=== PATIENT | female | born 1950 | race Caucasian/White ===

== ENCOUNTER → 2017-03-02 | Outpatient (CLI) | payer MEDICARE, OTHER ==
[2017-03-02 14:43] LABS: Blood Urea Nitrogen 15 mg/dL (7-17); Non-African American GFR(MDRD) 50 (>60 ml/min/1.73 sqM)
== END | disposition home or self-care (01) ==
LOC: LABWHC1 14:06
PROVIDERS: ATTEND Physical Medicine & Rehabilitation
DX: M51.17 Intervertebral disc disorders with radiculopathy, lumbosacral region (principal); M47.27 Other spondylosis with radiculopathy, lumbosacral region; E11.42 Type 2 diabetes mellitus with diabetic polyneuropathy; M96.1 Postlaminectomy syndrome, not elsewhere classified; N28.9 Disorder of kidney and ureter, unspecified
CPT/HCPCS: 36415; 82565; 84520

== ENCOUNTER 2021-07-14 18:34 | Emergency (ER) | payer MEDICARE, OTHER ==
[2021-07-14 19:52] VITALS: PULSE 102; RESP 20; TEMP 97.6
[2021-07-14] MEDS ORDERED: MORPHINE SULFATE 4 MG/ML SYRINGE IM STA (21:33)
--- NOTE | 2021-07-14 21:35 | ED ---
General Adult HPI - General Chief complaint: Fall Stated complaint: frequent falls Time Seen by Provider: 07/14/21 20:39 Source: patient Mode of arrival: wheelchair Limitations: no limitations - History of Present Illness Initial comments: 71-year-old female with a past medical history of diabetes mellitus, fibromyalgia presents to the emergency room for low back pain. Patient states she has a history of back surgery. States over the past 3 or 4 weeks she has been having low back pain. Patient states that it hurts to stand up straight. Therefore she has been bending over while walking. Patient states this causes her to lose her balance and she has had a couple falls. She called her family member to bring her to the hospital. Patient denies any lightheadedness or syncope. Denies weakness or fevers. No bladder or bowel changes, no saddle anesthesia, no weakness of the legs, no fevers Patient has no other complaints at this time including shortness of breath, chest pain, abdominal pain, nausea or vomiting, headache, or visual changes. - Related Data Home Medications Medication Instructions Recorded Confirmed Levothyroxine Sodium [Synthroid] 50 mcg PO DAILY 11/13/14 07/14/21 Lisinopril [Zestril] 2.5 mg PO DAILY 11/13/14 07/14/21 Simvastatin [Zocor] 20 mg PO DAILY 11/13/14 07/14/21 Zolpidem [Ambien] 10 mg PO HS 11/13/14 07/14/21 glipiZIDE XL [Glucotrol XL] 5 mg PO DAILY 11/13/14 07/14/21 Aspirin EC [Ecotrin Low Dose] 81 mg PO DAILY 07/14/21 07/14/21 DULoxetine HCL [Cymbalta] 60 mg PO BID 07/14/21 07/14/21 Dicyclomine HCl 20 mg PO BID 07/14/21 07/14/21 Estrogen,Con/M-Progest Acet 1 tab PO DAILY 07/14/21 07/14/21 [Prempro 0.3 mg-1.5 mg Tablet] Pregabalin [Lyrica] 300 mg PO BID 07/14/21 07/14/21 metFORMIN HCL ER [Glucophage XR] 500 mg PO DAILY 07/14/21 07/14/21 Allergies Allergy/AdvReac Type Severity Reaction Status Date / Time No Known Allergies Allergy Verified 07/14/21 22:16 Review of Systems ROS Statement: Those systems with pertinent positive or pertinent negative responses have been documented in the HPI. ROS Other: All systems not noted in ROS Statement are negative. Past Medical History Past Medical History: Diabetes Mellitus, Fibromyalgia, Osteoarthritis (OA), Thyroid Disorder Additional Past Medical History / Comment(s): kidney stones in past History of Any Multi-Drug Resistant Organisms: None Reported Past Surgical History: Joint Replacement, Orthopedic Surgery, Tonsillectomy Additional Past Surgical History / Comment(s): right athroscopy, back surgery for ruptured disk Past Anesthesia/Blood Transfusion Reactions: No Reported Reaction Past Psychological History: No Psychological Hx Reported Smoking Status: Never smoker Past Alcohol Use History: None Reported Past Drug Use History: None Reported - Past Family History Mother Family Medical History: Cancer Additional Family Medical History / Comment(s): brain stem Father Family Medical History: Diabetes Mellitus General Exam Limitations: no limitations General appearance: alert, in no apparent distress Head exam: Present: atraumatic Eye exam: Present: normal appearance, PERRL, EOMI. Absent: scleral icterus, conjunctival injection ENT exam: Present: normal exam, mucous membranes moist Neck exam: Present: normal inspection, full ROM. Absent: tenderness Respiratory exam: Present: normal lung sounds bilaterally. Absent: respiratory distress, wheezes Cardiovascular Exam: Present: regular rate, normal rhythm, normal heart sounds GI/Abdominal exam: Present: soft, normal bowel sounds. Absent: distended, tenderness Back exam: Present: vertebral tenderness (Mild vertebral tenderness) Neurological exam: Present: alert, normal gait Course Vital Signs 07/14/21 19:49 Temperature 97.6 F Pulse Rate 102 H Respiratory 20 Rate Blood Pressure 149/95 O2 Sat by Pulse 98 Oximetry Medical Decision Making - Medical Decision Making Vitals are stable. Patient is well-appearing. Normal gait. Patient states she is falling because it hurts less to bend over and walk than to stand up straight. CT brain was unremarkable, just showed atrophy. CT lumbar spine did shows vital stenosis. This is likely the cause of patient's symptoms. Patient has seen an orthopedic doctor for this in the past in the wanted to give her a shot in her back once a month. However patient didn't want to do this. Patient denies any red flag symptoms. At this time I do suggest the patient goes back to the orthopedic doctor. If she has worsening symptoms she will return here. We will send her home with Tylenol 3. She does have a walker at home that she will use. Disposition Clinical Impression: Back pain, Spinal stenosis Disposition: HOME SELF-CARE Condition: Good Instructions (If sedation given, give patient instructions): Back Pain (ED) Additional Instructions: Please take pain medication as directed. Call orthopedics to follow up for your back pain. Return to the emergency room for any worsening symptoms. Is patient prescribed a controlled substance at d/c from ED?: No Referrals: Graham Saeed MD [Primary Care Provider] - 1-2 days Time of Disposition: 22:57
--- NOTE | 2021-07-14 22:14 | CT ---
EXAMINATION TYPE: CT brain wo con DATE OF EXAM: 07/14/2021 COMPARISON: HISTORY: Frequent falls. Left orbital bruising. CT DLP: 1070.4 mGycm Automated exposure control for dose reduction was used. There is cerebral cortical atrophy. There is no mass effect nor midline shift. There is no sign of in tracranial hemorrhage. Calvarium is intact. There is normal aeration of the mastoid sinuses. IMPRESSION: Cerebral atrophy. No acute intracranial abnormality.
--- NOTE | 2021-07-14 22:18 | CT ---
EXAMINATION TYPE: CT lumbar spine wo con DATE OF EXAM: 07/14/2021 COMPARISON: CT abdomen pelvis 11/25/2012 HISTORY: Low back pain. CT DLP: 1594.6 mGycm Automated exposure control for dose reduction was used. Images obtained from the level of T12-S3 vertebra without contrast. The vertebra have normal alignment except for slight subluxation deformity at L3-4 that measures 5 mm . There is no spondylolysis. There is degenerative disc space narrowing throughout the lumbar spine a nd more severe at L4-5 and L5-S1. There is no lumbar paraspinal mass. There is laminectomy defect in the lower lumbar spine at the L5 level. The sacroiliac joints are intact. IMPRESSION: Multilevel spondylotic changes. There is a degenerative first-degree L3-4 spondylolisthesis. Previous surgery. There is very severe stenosis at L3-4 due to facet arthropathy and subluxation. There is al so moderate stenosis at L2-3. There is some progression of stenosis compared to old exam. No acute ameena ny abnormality.
[2021-07-14] MEDS ORDERED: ACET/COD 300 MG/30 MG STARTER PACK 6 TAB BTL PO STA (22:55)
[2021-07-14 23:19] VITALS: BP 150/90
== END 2021-07-14 23:19 | disposition home or self-care (01) ==
LOC: EC 18:34
DX: M48.061 Spinal stenosis, lumbar region without neurogenic claudication (principal); E11.9 Type 2 diabetes mellitus without complications; E07.9 Disorder of thyroid, unspecified; Z79.890 Hormone replacement therapy; R29.6 Repeated falls
CPT/HCPCS: 72131; 70450; 96372; 99284; J2270

== ENCOUNTER → 2021-11-01 | Outpatient (CLI) | payer MEDICARE, OTHER ==
--- NOTE | 2021-11-01 17:40 | MR ---
MRI kidney without and with contrast HISTORY: Left kidney mass Multiplanar multisequence and postcontrast images obtained through the kidneys following [address] IV. Correlation to report of prior lumbar MRI dated July 23, 2021, prior images are not made availabl e. At the upper pole the left kidney there is a T2 bright focus which likely corresponds to the abnormal ity described in prior report, T1 weighted images show low signal. There is no abnormal enhancement. Lesion measures approximately 18 mm in size No hydronephrosis bilaterally. There is an underlying scoliotic curvature within the spine, degenerative disc disease. The adrenal g lands are unremarkable. The spleen is not enlarged. There is no evident liver mass. Gallbladder is wi thin normal limits. Aorta shows normal caliber. There is no ascites or retroperitoneal adenopathy. Pa ncreas is within normal limits. Lung bases show no effusion. No bowel obstruction evident. Graph impression: Findings consistent with simple cyst upper pole left kidney.
== END | disposition home or self-care (01) ==
LOC: RADMRIMAIN 09:18
PROVIDERS: ATTEND Internal Medicine
DX: N28.89 Other specified disorders of kidney and ureter (principal)
CPT/HCPCS: 74183; A9585

== ENCOUNTER → 2021-12-30 | Outpatient (CLI) | payer OTHER, MEDICARE ==
--- NOTE | 2021-12-30 22:24 | BD ---
EXAMINATION TYPE: Axial Bone Density DATE OF EXAM: 12/30/2021 COMPARISON: NONE CLINICAL HISTORY: 71 years year old Female. ICD-10 CODE: Z78.0 POSTMENOPAUSAL STATE Height: 64 Weight: 227.7 FRAX RISK QUESTIONS: Alcohol (3 or more units per day): NO Family History (Parent hip fracture): NO Glucocorticoids (More than 3mos): NO History of Fracture in Adulthood: NO Secondary Osteoporosis: 1. Type 1 Diabetes: NO 2. Hyperthyroidism: NO 3. Menopause before 45: NO 4. Malnutrition: NO 5. Chronic liver disease: NO Rheumatoid Arthritis: NO Current Tobacco Use: NO RISK FACTORS HISTORY OF: Hip Fracture (Right/Left): NO Spine Fracture: NO History of Wrist Fracture: NO Surgery to Spine/Hip(right/left)/Wrist (right/left): NO Family History of Osteoporosis: NO Active: NO Diet low in dairy products/other sources of calcium: YES Postmenopausal woman: YES Take estrogen and/or progesterone medications: NO Lost more than 2 inches in height since high school: NO Frequent falls: NO Poor Health: NO Hyperparathyroidism: NO Adrenal Insufficiency: NO MEDICATIONS: Prednisone or other steroids: NO Thyroid Medications: YES, SYNTHROID How Long: PAST 10 YEARS Osteoporosis Medications: NO Additional Medications: SYNTHROID, GLIPSIE, METFORMIN Additional History: EXAM MEASUREMENTS: Bone mineral densitometry was performed using the [employer]. Bone mineral density as measured about the Lumbar spine is: ----- L1-L4(G/cm2): 1.420 T Score Values are as follows: ----- L1: 1.3 ----- L2: 1.7 ----- L3: 2.1 ----- L4: 2.6 ----- L1-L4: 2.0 BASELINE STUDY Bone mineral density about the R hip (g/cm2): 0.972 Bone mineral density about the L hip (g/cm2): 0.952 T Score values are as follows: -----R Neck: -0.5 -----L Neck: 0.6 -----R Total: 0.3 -----L Total: -0.6 BASELINE STUDY FRAX%s: The graph provided illustrates a 7.6% chance for a major osteoporotic fx and a 0.7% chance fo r the hips probability for fx in 10 years time. IMPRESSION: Normal (Values between +1 and -1 indicate normal bone mass). Consider repeating this study in 5 year s or sooner if there is some new clinical indication. NOTE: T-SCORE=SD OF THE YOUNG ADULT MEAN.
--- NOTE | 2022-01-03 09:33 | MM ---
Reason for exam: screening (asymptomatic). Last mammogram was performed 3 years and 5 months ago. History: Patient is postmenopausal and is nulliparous. Family history of breast cancer in maternal grandmother at age 60. Took estrogen for 19 years beginning at age 51. Took progesterone for 19 years beginning at age 51. Physical Findings: A clinical breast exam by your physician is recommended on an annual basis and results should be correlated with mammographic findings. MG 3D Screening Mammo W/Cad Bilateral CC and MLO view(s) were taken. Prior study comparison: August 15, 2018, mammogram, performed at [facility]. August 04, 2017, mammogram, performed at [facility]. There are scattered fibroglandular densities. Stable benign calcifications. There is no discrete abnormality. No significant changes when compared with prior studies. ASSESSMENT: Benign, BI-RAD 2 RECOMMENDATION: Routine screening mammogram of both breasts in 1 year.
== END | disposition home or self-care (01) ==
LOC: RADMAMWWP 14:15
PROVIDERS: ATTEND Internal Medicine
DX: Z12.31 Encounter for screening mammogram for malignant neoplasm of breast (principal); Z13.820 Encounter for screening for osteoporosis; Z78.0 Asymptomatic menopausal state
CPT/HCPCS: 77063; 77067; 77080

== ENCOUNTER 2022-07-28 20:23 | Inpatient (IN) | payer OTHER, MEDICARE ==
[2022-07-28] MEDS ORDERED: IPRATROPIUM-ALBUTEROL 3 ML NEB INHALATION STA (20:53)
--- NOTE | 2022-07-28 20:57 | ED ---
General Adult HPI - General Chief complaint: Shortness of Breath Stated complaint: HANNAH Time Seen by Provider: 07/28/22 20:47 Source: patient, EMS, RN notes reviewed Mode of arrival: ambulatory Limitations: no limitations - History of Present Illness Initial comments: 72-year-old female presents to the emergency department for evaluation of shortness of breath and wheezing 4 days. Patient states she has been unable to sleep because of worsening shortness of breath when reclining. Also has difficulty catching her breath with activity. Reports feeling fatigued and exhaustion. Has had a few episodes of diarrhea as well. Denies any known sick contacts. No fever, chills, headache, dizziness, chest pain, abdominal pain, nausea, vomiting, hematochezia, dysuria, or hematuria - Related Data Home Medications Medication Instructions Recorded Confirmed Levothyroxine Sodium [Synthroid] 50 mcg PO DAILY 11/13/14 07/29/22 Simvastatin [Zocor] 20 mg PO DAILY 11/13/14 07/29/22 Zolpidem [Ambien] 10 mg PO HS 11/13/14 07/29/22 glipiZIDE XL [Glucotrol XL] 5 mg PO DAILY 11/13/14 07/29/22 lisinopriL [Zestril] 2.5 mg PO DAILY 11/13/14 07/29/22 DULoxetine HCL [Cymbalta] 60 mg PO DIRECTED 07/14/21 07/29/22 Pregabalin [Lyrica] 300 mg PO DAILY 07/14/21 07/29/22 metFORMIN HCL ER [Glucophage XR] 500 mg PO DAILY 07/14/21 07/29/22 hydrOXYzine HCL [Atarax] 25 mg PO DIRECTED 07/29/22 07/29/22 traMADol HCL 50 mg PO BID PRN 07/29/22 07/29/22 Allergies Allergy/AdvReac Type Severity Reaction Status Date / Time No Known Allergies Allergy Verified 07/14/21 22:16 Review of Systems ROS Statement: Those systems with pertinent positive or pertinent negative responses have been documented in the HPI. ROS Other: All systems not noted in ROS Statement are negative. Past Medical History Past Medical History: Diabetes Mellitus, Fibromyalgia, Osteoarthritis (OA), Thyroid Disorder Additional Past Medical History / Comment(s): kidney stones in past History of Any Multi-Drug Resistant Organisms: None Reported Past Surgical History: Joint Replacement, Orthopedic Surgery, Tonsillectomy Additional Past Surgical History / Comment(s): right athroscopy, back surgery for ruptured disk Past Anesthesia/Blood Transfusion Reactions: No Reported Reaction Past Psychological History: No Psychological Hx Reported Smoking Status: Never smoker Past Alcohol Use History: None Reported Past Drug Use History: None Reported - Past Family History Mother Family Medical History: Cancer Additional Family Medical History / Comment(s): brain stem Father Family Medical History: Diabetes Mellitus General Exam Limitations: no limitations General appearance: alert, in no apparent distress (Well-developed, well- nourished female in no acute distress, but does endorse shortness of breath.) Eye exam: Present: normal appearance, PERRL, EOMI. Absent: scleral icterus, conjunctival injection ENT exam: Present: mucous membranes moist Respiratory exam: Present: wheezes (Faint expiratory scattered wheezes). Absent: chest wall tenderness, accessory muscle use Cardiovascular Exam: Present: regular rate, normal rhythm GI/Abdominal exam: Present: soft, normal bowel sounds. Absent: distended, tenderness, guarding, rebound, rigid Extremities exam: Present: other (states lower extremity edema is baseline for her) Back exam: Absent: CVA tenderness (R), CVA tenderness (L) Neurological exam: Present: alert, oriented X3 Psychiatric exam: Present: flat affect Skin exam: Present: warm, dry, intact, normal color Course Vital Signs 07/28/22 07/28/22 07/28/22 20:28 20:34 21:38 Temperature 98.5 F Pulse Rate 91 87 Respiratory 16 18 Rate Blood Pressure 192/90 O2 Sat by Pulse 98 Oximetry 07/28/22 07/28/22 07/29/22 21:46 23:53 01:45 Temperature Pulse Rate 88 84 82 Respiratory 16 16 Rate Blood Pressure 167/72 O2 Sat by Pulse 98 100 Oximetry 07/29/22 07/29/22 07/29/22 03:25 04:43 05:55 Temperature Pulse Rate 84 90 79 Respiratory 16 16 18 Rate Blood Pressure 170/68 167/77 O2 Sat by Pulse 100 95 100 Oximetry 07/29/22 07/29/22 07/29/22 07:47 09:24 12:10 Temperature Pulse Rate 85 80 82 Respiratory 13 18 22 Rate Blood Pressure 161/81 160/48 180/82 O2 Sat by Pulse 100 97 95 Oximetry 07/29/22 07/29/22 16:04 16:43 Temperature Pulse Rate 82 81 Respiratory 20 20 Rate Blood Pressure 165/75 167/80 O2 Sat by Pulse 99 100 Oximetry - Reevaluation(s) Reevaluation #1: 07/28/22 22:16 Upon reassessment, patient reports some improvement after breathing treatment. Patient's lung sounds are clear. Color is improved. Patient updated on results and discussed hospital admission. She is agreeable with this plan of care. Medical Decision Making - Medical Decision Making This is a pleasant 72-year-old female with a history of diabetes, fibromyalgia, and hypertension who presents to the emergency Department with a four-day history of worsening shortness of breath. Differentials include viral respiratory illness, pulmonary and/or cardiac processes. Upon exam, patient is noted to have faint scattered wheezes throughout the lung iraheta. No tachypnea or increased work of breathing at rest. She was given a duo-neb with some improvement. No chest pain, pressure, or tightness. Chest Xray was obtained and shows a right pleural effusion. Laboratory studies reveal mild hypokalemia which was supplemented orally, elevated troponin (0.046), Magnesium 1.6, also supplemented, and BNP 7050. Lasix given. EKG shows no acute changes. However, g iven her shortness of breath and elevated troponin, Aspirin given and Heparin initiated. COVID and Influenza swabs negative. Patient will be admitted for serial enzymes and further evaluation and treatment. I did speak with Dr. Schmid who agrees to accept this patient. Attending: Osvaldo - Lab Data Result diagrams: 07/29/22 04:24 07/31/22 07:17 Lab Results 07/28/22 07/28/22 07/28/22 Range/Units 21:26 21:26 21:26 WBC 7.1 (3.8-10.6) k/uL RBC 3.63 L (3.80-5.40) m/uL Hgb 10.7 L (11.4-16.0) gm/dL Hct 31.4 L (34.0-46.0) % MCV 86.3 (80.0-100.0) fL MCH 29.5 (25.0-35.0) pg MCHC 34.2 (31.0-37.0) g/dL RDW 13.9 (11.5-15.5) % Plt Count 151 (150-450) k/uL MPV 9.1 Neutrophils % 81 % Lymphocytes % 10 % Monocytes % 6 % Eosinophils % 1 % Basophils % 1 % Neutrophils # 5.8 (1.3-7.7) k/uL Lymphocytes # 0.7 L (1.0-4.8) k/uL Monocytes # 0.4 (0-1.0) k/uL Eosinophils # 0.1 (0-0.7) k/uL Basophils # 0.1 (0-0.2) k/uL PT 11.0 (9.0-12.0) sec INR 1.0 (<1.2) APTT 25.5 (22.0-30.0) sec Sodium 139 (137-145) mmol/L Potassium 3.1 L (3.5-5.1) mmol/L Chloride 103 (98-107) mmol/L Carbon Dioxide 27 (22-30) mmol/L Anion Gap 9 mmol/L BUN 12 (7-17) mg/dL Creatinine 1.03 (0.52-1.04) mg/dL Est GFR (CKD-EPI)AfAm 62 (>60 ml/min/1.73 sqM) Est GFR (CKD-EPI)NonAf 54 (>60 ml/min/1.73 sqM) Glucose 128 H (74-99) mg/dL Plasma Lactic Acid Nilton (0.7-2.0) mmol/L Calcium 8.8 (8.4-10.2) mg/dL Magnesium 1.6 (1.6-2.3) mg/dL Total Bilirubin 1.5 H (0.2-1.3) mg/dL AST 28 (14-36) U/L ALT 20 (4-34) U/L Alkaline Phosphatase 77 (38-126) U/L Troponin I (0.000-0.034) ng/mL NT-Pro-B Natriuret Pep pg/mL Total Protein 6.1 L (6.3-8.2) g/dL Albumin 3.9 (3.5-5.0) g/dL Coronavirus (PCR) (Not Detectd) Influenza Type A RNA (Not Detectd) Influenza Type B (PCR) (Not Detectd) 07/28/22 07/28/22 07/28/22 Range/Units 21:26 21:26 21:26 WBC (3.8-10.6) k/uL RBC (3.80-5.40) m/uL Hgb (11.4-16.0) gm/dL Hct (34.0-46.0) % MCV (80.0-100.0) fL MCH (25.0-35.0) pg MCHC (31.0-37.0) g/dL RDW (11.5-15.5) % Plt Count (150-450) k/uL MPV Neutrophils % % Lymphocytes % % Monocytes % % Eosinophils % % Basophils % % Neutrophils # (1.3-7.7) k/uL Lymphocytes # (1.0-4.8) k/uL Monocytes # (0-1.0) k/uL Eosinophils # (0-0.7) k/uL Basophils # (0-0.2) k/uL PT (9.0-12.0) sec INR (<1.2) APTT (22.0-30.0) sec Sodium (137-145) mmol/L Potassium (3.5-5.1) mmol/L Chloride (98-107) mmol/L Carbon Dioxide (22-30) mmol/L Anion Gap mmol/L BUN (7-17) mg/dL Creatinine (0.52-1.04) mg/dL Est GFR (CKD-EPI)AfAm (>60 ml/min/1.73 sqM) Est GFR (CKD-EPI)NonAf (>60 ml/min/1.73 sqM) Glucose (74-99) mg/dL Plasma Lactic Acid [place]ilton 1.0 (0.7-2.0) mmol/L Calcium (8.4-10.2) mg/dL Magnesium (1.6-2.3) mg/dL Total Bilirubin (0.2-1.3) mg/dL AST (14-36) U/L ALT (4-34) U/L Alkaline Phosphatase (38-126) U/L Troponin I 0.046 H* (0.000-0.034) ng/mL NT-Pro-B Natriuret Pep 7050 pg/mL Total Protein (6.3-8.2) g/dL Albumin (3.5-5.0) g/dL Coronavirus (PCR) (Not Detectd) Influenza Type A RNA (Not Detectd) Influenza Type B (PCR) (Not Detectd) 07/28/22 07/28/22 Range/Units 21:26 21:26 WBC (3.8-10.6) k/uL RBC (3.80-5.40) m/uL Hgb (11.4-16.0) gm/dL Hct (34.0-46.0) % MCV (80.0-100.0) fL MCH (25.0-35.0) pg MCHC (31.0-37.0) g/dL RDW (11.5-15.5) % Plt Count (150-450) k/uL MPV Neutrophils % % Lymphocytes % % Monocytes % % Eosinophils % % Basophils % % Neutrophils # (1.3-7.7) k/uL Lymphocytes # (1.0-4.8) k/uL Monocytes # (0-1.0) k/uL Eosinophils # (0-0.7) k/uL Basophils # (0-0.2) k/uL PT (9.0-12.0) sec INR (<1.2) APTT (22.0-30.0) sec Sodium (137-145) mmol/L Potassium (3.5-5.1) mmol/L Chloride (98-107) mmol/L Carbon Dioxide (22-30) mmol/L Anion Gap mmol/L BUN (7-17) mg/dL Creatinine (0.52-1.04) mg/dL Est GFR (CKD-EPI)AfAm (>60 ml/min/1.73 sqM) Est GFR (CKD-EPI)NonAf (>60 ml/min/1.73 sqM) Glucose (74-99) mg/dL Plasma Lactic Acid Nilton (0.7-2.0) mmol/L Calcium (8.4-10.2) mg/dL Magnesium (1.6-2.3) mg/dL Total Bilirubin (0.2-1.3) mg/dL AST (14-36) U/L ALT (4-34) U/L Alkaline Phosphatase (38-126) U/L Troponin I (0.000-0.034) ng/mL NT-Pro-B Natriuret Pep pg/mL Total Protein (6.3-8.2) g/dL Albumin (3.5-5.0) g/dL Coronavirus (PCR) Not Detected (Not Detectd) Influenza Type A RNA Not Detected (Not Detectd) Influenza Type B (PCR) Not Detected (Not Detectd) - EKG Data EKG shows normal: sinus rhythm Rate: normal EKG Comments: Initial EKG obtained at 2116 shows sinus rhythm with left bundle branch block. Ventricular rate 87, IL interval 151, QRS duration 152, QT/QTC 419/463. Int erpretation abnormal ECG. Quality of this EKG is suboptimal due to patient's shortness of breath. Rhythm appears regular though there is quite a bit of baseline artifact. Will repeat. Repeat EKG obtained at 2336 shows sinus rhythm with a bundle-branch block. Ventricular rate 81, IL interval 151, QRS duration 158, QT/QTc 438/475. Interpretation abnormal ECG. Quality of the EKG significantly improved from previous. Old EKGs reviewed. Left bundle branch block present since 2014. - Radiology Data Radiology results: report reviewed, image reviewed Two-view chest x-ray was obtained. Report was reviewed in its entirety. Impression per Dr. Mason as there is right pleural effusion which appears new compared to old exam. No obvious heart failure. Disposition Clinical Impression: Elevated troponin, CHF (congestive heart failure) Disposition: ADMITTED IP TO THIS [facility] Condition: Serious Decision Date: 07/29/22 Decision Time: 01:27
[2022-07-28 21:47] LABS: Albumin 3.9 g/dL (3.5-5.0); Calcium 8.8 mg/dL (8.4-10.2); Magnesium 1.6 mg/dL (1.6-2.3); Potassium 3.1 mmol/L (3.5-5.1); Total Bilirubin 1.5 mg/dL (0.2-1.3); Total Protein 6.1 g/dL (6.3-8.2)
[2022-07-28 21:53] LABS: Basophils # (A) 0.1 k/uL (0-0.2); Basophils % (A) 1 %; Eosinophils # (A) 0.1 k/uL (0-0.7); Eosinophils % (A) 1 %; HCT 31.4 % (34.0-46.0); HGB 10.7 gm/dL (11.4-16.0); Lymphocytes # (A) 0.7 k/uL (1.0-4.8); Lymphocytes % (A) 10 %; MCH 29.5 pg (25.0-35.0); MCHC 34.2 g/dL (31.0-37.0); MCV 86.3 fL (80.0-100.0); Mean Platelet Volume 9.1; Monocytes # (A) 0.4 k/uL (0-1.0); Monocytes % (A) 6 %; Neutrophils # (A) 5.8 k/uL (1.3-7.7); Neutrophils % (A) 81 %; Platelet Count 151 k/uL (150-450); RBC 3.63 m/uL (3.80-5.40); RDW 13.9 % (11.5-15.5); WBC 7.1 k/uL (3.8-10.6)
[2022-07-28 21:56] LABS: Partial Thromboplastin Time 25.5 sec (22.0-30.0)
[2022-07-28] MEDS ORDERED: MAGNESIUM SULFATE-D5W PMX 1 GM in DEXTROSE/WATER 1 100ML.BAG IVPB ONE (22:06)
[2022-07-28] MEDS ORDERED: POTASSIUM CHLORIDE ER 20 MEQ TAB.ER PO STA (22:06)
--- NOTE | 2022-07-28 22:40 | XR ---
EXAMINATION TYPE: XR chest 2V DATE OF EXAM: 07/28/2022 COMPARISON: 02/15/2015 HISTORY: Difficulty breathing TECHNIQUE: 2 view FINDINGS: There is blunting of the right costophrenic angle. Heart size is normal. No heart failure. There are chest leads. Bony thorax is intact. IMPRESSION: There is right pleural effusion which appears new compared to old exam. No obvious heart failure.
[2022-07-28] MEDS ORDERED: ASPIRIN 81 MG PO STA (23:05)
[2022-07-28] MEDS ORDERED: HEPARIN SODIUM 1,000 UN/ML (10ML VL) IV ONE (23:56)
[2022-07-28] MEDS ORDERED: HEPARIN SODIUM 1,000 UN/ML (10ML VL) IV PRN (23:56)
[2022-07-29] MEDS ORDERED: ONDANSETRON 4 MG/2 ML VIAL IVP PRN (01:20)
[2022-07-29] MEDS: HEPARIN SOD,PORK IN 0.45% NACL 25,000 UNIT in 0.45% NACL 1 250ML.BAG IV SCH ×2 (01:20→21:35)
[2022-07-29] MEDS ORDERED: NALOXONE 0.4 MG/ML 1 ML VIAL IV PRN (01:20)
[2022-07-29] MEDS ORDERED: ACETAMINOPHEN TAB 325 MG TAB PO PRN (01:20)
[2022-07-29] MEDS ORDERED: ALPRAZolam 0.25 MG TAB PO PRN (01:20)
[2022-07-29] MEDS ORDERED: HYDROmorphone 0.5 MG/0.5 ML SYRINGE IVP PRN (01:20)
[2022-07-29] MEDS ORDERED: FUROSEMIDE 10 MG/ML 4 ML VIAL IV STA (01:26)
--- NOTE | 2022-07-29 04:44 | P.HPIM ---
History of Present Illness H&P Date: 07/29/22 The patient is a 72-year-old female with a PMH of type II DM, hypertension, hyperlipidemia, and hyperthyroidism who presented to the emergency room with complaints of shortness of breath. The patient reports that over the past 4-5 days, she's been experiencing intermittent shortness of breath, limiting her ability to perform her ADLs. She denied experiencing chest discomfort, lower extremity swelling, lower extremities pain. Does report orthopnea without PND. Denies fever, chills, cough. Denies any prior history of symptoms such as this. Chest x-ray in the emergency room revealed a right-sided pleural effusion. EKG reveals sinus rhythm with left bundle branch block at 81 bpm (bundle branch block also present on EKG from 2015). Laboratory evaluation was remarkable for troponin of 0.046, proBNP 7050, and hemoglobin 10.7 with potassium 3.1. Review of systems: Pertinent positives and negatives as discussed in HPI, a complete review of systems was performed and all other systems are negative. Physical examination: General: non toxic, no distress, appears at stated age, obese Derm: no unusual rashes/lesions, warm Head: atraumatic, normocephalic, symmetric Eyes: EOMI, no lid lag, anicteric sclera, pupils equal round reactive to light ENT: Nose and ears atraumatic Neck: No cervical lymphadenopathy, trachea midline, supple Mouth: no lip lesion, mucus membranes moist Cardiovascular: S1S2 reg, no murmur, positive dorsalis pedis pulse bilateral, no edema Lungs: CTA bilateral, no rhonchi, no rales, no accessory muscle use Abdominal: soft, nontender to palpation, no guarding Ext: muscle strength 5 out of 5 in all 4 extremities grossly, no gross muscle a trophy, no contractures, Neuro: CN II-XI grossly intact, no gross focal neuro deficits Psych: Alert, oriented, appropriate affect Assessment/plan Non-ST elevation ME -Continue with heparin infusion -Aspirin, statin -Cardiology consulted -Cardiac monitoring -Trend troponin Hypokalemia -Replace and monitor Chronic conditions: Hypertension, type II DM, hyperlipidemia -Insulin sliding scale blood glucose monitoring -Continue with home meds DVT prophylaxis -Heparin infusion The patient is admitted with an anticipated greater than 2 midnight stay for evaluation of NSTEMI CODE STATUS: Full Code Discussed with: Patient Anticipated discharge date: 2-[address]: Home Past Medical History Past Medical History: Diabetes Mellitus, Fibromyalgia, Osteoarthritis (OA), Thyroid Disorder Additional Past Medical History / Comment(s): kidney stones in past History of Any Multi-Drug Resistant Organisms: None Reported Past Surgical History: Joint Replacement, Orthopedic Surgery, Tonsillectomy Additional Past Surgical History / Comment(s): right athroscopy, back surgery for ruptured disk Past Anesthesia/Blood Transfusion Reactions: No Reported Reaction Past Psychological History: No Psychological Hx Reported Smoking Status: Never smoker Past Alcohol Use History: None Reported Past Drug Use History: None Reported - Past Family History Mother Family Medical History: Cancer Additional Family Medical History / Comment(s): brain stem Father Family Medical History: Diabetes Mellitus Medications and Allergies Home Medications Medication Instructions Recorded Confirmed Type Levothyroxine Sodium [Synthroid] 50 mcg PO DAILY 11/13/14 07/14/21 History Simvastatin [Zocor] 20 mg PO DAILY 11/13/14 07/14/21 History Zolpidem [Ambien] 10 mg PO HS 11/13/14 07/14/21 History glipiZIDE XL [Glucotrol XL] 5 mg PO DAILY 11/13/14 07/14/21 History lisinopriL [Zestril] 2.5 mg PO DAILY 11/13/14 07/14/21 History Aspirin EC [Ecotrin Low Dose] 81 mg PO DAILY 07/14/21 07/14/21 History DULoxetine HCL [Cymbalta] 60 mg PO BID 07/14/21 07/14/21 History Dicyclomine HCl 20 mg PO BID 07/14/21 07/14/21 History Estrogen,Con/M-Progest Acet 1 tab PO DAILY 07/14/21 07/14/21 History [Prempro 0.3 mg-1.5 mg Tablet] Pregabalin [Lyrica] 300 mg PO BID 07/14/21 07/14/21 History metFORMIN HCL ER [Glucophage XR] 500 mg PO DAILY 07/14/21 07/14/21 History Allergies Allergy/AdvReac Type Severity Reaction Status Date / Time No Known Allergies Allergy Verified 07/14/21 22:16 Physical Exam Vitals: Vital Signs Temp Pulse Resp BP Pulse Ox 07/29/22 03:25 84 16 100 07/29/22 01:45 82 16 100 07/28/22 23:53 84 16 167/72 98 07/28/22 21:46 88 07/28/22 21:38 87 07/28/22 20:34 18 07/28/22 20:28 98.5 F 91 16 192/90 98 Intake and Output 07/28/22 07/28/22 07/29/22 14:59 22:59 06:59 Other: Weight 113.398 kg Results CBC & Chem 7: 07/28/22 21:26 07/28/22 21:26 Labs: Abnormal Lab Results - Last 24 Hours (Table) 07/28/22 07/28/22 07/28/22 Range/Units 21:26 21:26 21:26 RBC 3.63 L (3.80-5.40) m/uL Hgb 10.7 L (11.4-16.0) gm/dL Hct 31.4 L (34.0-46.0) % Lymphocytes # 0.7 L (1.0-4.8) k/uL Potassium 3.1 L (3.5-5.1) mmol/L Glucose 128 H (74-99) mg/dL Total Bilirubin 1.5 H (0.2-1.3) mg/dL Troponin I 0.046 H* (0.000-0.034) ng/mL Total Protein 6.1 L (6.3-8.2) g/dL 07/29/22 Range/Units 01:24 RBC (3.80-5.40) m/uL Hgb (11.4-16.0) gm/dL Hct (34.0-46.0) % Lymphocytes # (1.0-4.8) k/uL Potassium (3.5-5.1) mmol/L Glucose (74-99) mg/dL Total Bilirubin (0.2-1.3) mg/dL Troponin I 0.046 H* (0.000-0.034) ng/mL Total Protein (6.3-8.2) g/dL
[2022-07-29 04:53] LABS: Basophils % (A) 1 %; Eosinophils # (A) 0.2 k/uL (0-0.7); Eosinophils % (A) 2 %; HCT 32.2 % (34.0-46.0); HGB 10.7 gm/dL (11.4-16.0); Hypochromasia Slight; Lymphocytes # (A) 1.2 k/uL (1.0-4.8); Lymphocytes % (A) 17 %; MCH 29.1 pg (25.0-35.0); MCHC 33.2 g/dL (31.0-37.0); MCV 87.7 fL (80.0-100.0); Mean Platelet Volume 9.1; Monocytes # (A) 0.5 k/uL (0-1.0); Monocytes % (A) 6 %; Neutrophils # (A) 5.3 k/uL (1.3-7.7); Neutrophils % (A) 73 %; Platelet Count 172 k/uL (150-450); RBC 3.68 m/uL (3.80-5.40); RDW 14.1 % (11.5-15.5); WBC 7.3 k/uL (3.8-10.6)
[2022-07-29] MEDS: LEVOTHYROXINE 50 MCG TAB PO SCH (07:48)
[2022-07-29] MEDS ORDERED: ATORVASTATIN 10 MG TAB PO SCH (09:00)
[2022-07-29] MEDS ORDERED: FAMOTIDINE 20 MG TAB PO SCH (09:00)
[2022-07-29] MEDS: DULoxetine HCL 60 MG CAPSULE.DR PO SCH ×2 (09:14→20:47)
[2022-07-29] MEDS: metFORMIN 500 MG TAB PO SCH ×2 (09:14→20:47)
[2022-07-29] MEDS: PREGABALIN 100 MG CAP PO SCH ×2 (09:14→20:47)
--- NOTE | 2022-07-29 12:01 | P.PN ---
Progress Note - Text Progress Note Date: 07/29/22 Hospitalist Interval Note Patient seen and examined at bedside. Vital signs reviewed General: non toxic, no distress, appears at stated age, obese Derm: no unusual rashes/lesions, warm Head: atraumatic, normocephalic, symmetric Eyes: EOMI, no lid lag, anicteric sclera, pupils equal round reactive to light ENT: Nose and ears atraumatic Neck: No cervical lymphadenopathy, trachea midline, supple Mouth: no lip lesion, mucus membranes moist Cardiovascular: S1S2 reg, no murmur, positive dorsalis pedis pulse bilateral, no edema Lungs: CTA bilateral, no rhonchi, no rales, no accessory muscle use Abdominal: soft, nontender to palpation, no guarding Ext: muscle strength 5 out of 5 in all 4 extremities grossly, no gross muscle atrophy, no contractures, Neuro: CN II-XI grossly intact, no gross focal neuro deficits Psych: Alert, oriented, appropriate affect Assessment/Plan: Shortness of breath Orthopnea Likely CHF exacerbation Type II NSTEMI Hypokalemia Type 2 diabetes Hypertension Dyslipidemia -Currently on aspirin, statin, heparin drip -Telemetry -Troponin not peaked -Cardiology consulted -IV Lasix -Echo pending This is an update note for patient , for full note on [07/29/22 at 4:38]. There is no charge associated with this note.
--- NOTE | 2022-07-29 16:59 | CA ---
Transthoracic Echo Report Name: Kerwin Gorman Age: 72 Gender: F : 1950 Exam Date: 07/29/2022 11:30 Exam Location: [facility] Ht (in): 65 Wt (lb): 250 Ordering Physician: Brad Humphries MD Attending/Referring Phys: Store Merchandiser Lily Tarango RDCS Procedure CPT: Indications: nstemi, sob Cardiac Hx: Technical Quality: Poor Contrast 1: Lumason Total Dose (mL): 4 Contrast 2: Total Dose (mL): MEASUREMENTS (Male / Female) Normal Values 2D ECHO LV Diastolic Diameter PLAX 4.7 cm 4.2 - 5.9 / 3.9 - 5.3 cm LV Systolic Diameter PLAX 2.6 cm IVS Diastolic Thickness 1.6 cm 0.6 - 1.0 / 0.6 - 0.9 cm LVPW Diastolic Thickness 1.4 cm 0.6 - 1.0 / 0.6 - 0.9 cm LV Relative Wall Thickness 0.6 RV Internal Dim ED PLAX 2.9 cm LA Systolic Diameter LX 3.8 cm 3.0 - 4.0 / 2.7 - 3.8 cm LA Volume 39.1 cm??? 18 - 58 / 22 - 52 cm??? M-MODE Aortic Root Diameter MM 3.0 cm MV E Point Septal Separation 1.3 cm AV Cusp Separation MM 2.0 cm DOPPLER AV Peak Velocity 146.5 cm/s AV Peak Gradient 8.6 mmHg MV Area PHT 6.0 cm??? Mitral E Point Velocity 115.7 cm/s Mitral A Point Velocity 144.8 cm/s Mitral E to A Ratio 0.8 MV Deceleration Time 127.4 ms MV E' Velocity 4.4 cm/s Mitral E to MV E' Ratio 26.2 TR Peak Velocity 274.2 cm/s TR Peak Gradient 30.1 mmHg Right Ventricular Systolic Press 45.1 mmHg FINDINGS Left Ventricle Left ventricular ejection fraction is estimated at 40-45 %. Left ventricular cavity size normal. Moderate concentric left ventricular hypertrophy. Right Ventricle Normal right ventricular size. Moderate pulmonary hypertension. Right Atrium Normal right atrial size. Left Atrium Normal left atrial size. No evidence for an atrial septal defect. Mitral Valve Mitral valve thickened. Moderate mitral annular calcification. Mild mitral regurgitation. Aortic Valve Trileaflet aortic valve. Focal thickening of the aortic valve cusps. Tricuspid Valve Mild tricuspid regurgitation. Pulmonic Valve Trace to mild pulmonic regurgitation. Pericardium Normal pericardium. No pericardial effusion. Aorta Normal size aortic root and proximal ascending aorta. CONCLUSIONS Left ventricular ejection fraction 40-45% Moderate LVH RVSP 45 Mild mitral regurgitation Trace to mild tricuspid regurgitation No pericardial effusion Previewed by: Dr. Pro Iglesias DO (Electronically Signed) Final Date: 29 July 2022 16:58
[2022-07-29 20:13] LABS: Glucose,Whole Blood 183 mg/dL (70-110)
[2022-07-29] MEDS: FUROSEMIDE 10 MG/ML 4 ML VIAL IV SCH (20:47)
[2022-07-29] MEDS ORDERED: ZOLPIDEM 5 MG TAB PO SCH (21:00)
[2022-07-29] MEDS: ZOLPIDEM 5 MG TAB PO SCH (23:32)
[2022-07-30 05:53] LABS: Glucose,Whole Blood 81 mg/dL (70-110)
[2022-07-30] MEDS: LEVOTHYROXINE 50 MCG TAB PO SCH (06:14)
[2022-07-30] MEDS: FAMOTIDINE 20 MG TAB PO SCH (08:50)
[2022-07-30] MEDS: DULoxetine HCL 60 MG CAPSULE.DR PO SCH ×2 (08:50→20:41)
[2022-07-30] MEDS: ATORVASTATIN 40 MG TAB PO SCH (08:50)
[2022-07-30] MEDS: ASPIRIN 81 MG PO SCH (08:51)
[2022-07-30] MEDS: metFORMIN 500 MG TAB PO SCH (08:52)
[2022-07-30] MEDS: PREGABALIN 100 MG CAP PO SCH ×2 (08:52→20:41)
[2022-07-30] MEDS: FUROSEMIDE 10 MG/ML 4 ML VIAL IV SCH ×2 (08:52→20:41)
[2022-07-30 09:05] LABS: Albumin 3.8 g/dL (3.5-5.0); Calcium 8.4 mg/dL (8.4-10.2); Magnesium 1.6 mg/dL (1.6-2.3); Total Protein 5.9 g/dL (6.3-8.2)
[2022-07-30 09:07] LABS: Potassium 2.5 mmol/L (3.5-5.1)
[2022-07-30] MEDS ORDERED: Magnesium Replacement Protocol 1 EACH MISC MISCELLANE PRN (09:58)
[2022-07-30] MEDS ORDERED: Potassium Replacement Protocol 1 EACH MISC MISCELLANE PRN (10:00)
[2022-07-30] MEDS ORDERED: DEXTROSE 50% SYRINGE 50 ML IVP PRN ×2 (10:59)
--- NOTE | 2022-07-30 11:03 | P.PN ---
Subjective Progress Note Date: 07/30/22 Principal diagnosis: SOB Hospital Course: 72-year-old female with a PMH of type II DM, hypertension, hyperlipidemia, and hyperthyroidism who presented to the emergency room with complaints of shortness of breath and orthopnea. Chest x-ray in the emergency room revealed a right- sided pleural effusion. EKG reveals sinus rhythm with left bundle branch block at 81 bpm (bundle branch block also present on EKG from 2015). Laboratory evaluation was remarkable for troponin of 0.046, proBNP 7050, and hemoglobin 10.7 with potassium 3.1. Patient admitted for non-ST elevation [place], on heparin drip. She is also being treated for possible CHF exacerbation. Subjective: Patient seen and examined at bedside. No acute events overnight. She claims that her shortness of breath has slightly improved. She denies any further orthopnea. Currently remains on heparin drip. She denies any chest pain, abdominal pain, nausea, vomiting, diarrhea, constipation, or urinary complaints. Pertinent positives and negatives as discussed above, a complete review of systems was performed and all other systems are negative. Vitals Signs Reviewed. General: non toxic, no distress, appears at stated age, obese Derm: no unusual rashes/lesions, warm Head: atraumatic, normocephalic, symmetric Eyes: EOMI, no lid lag, anicteric sclera, pupils equal round reactive to light ENT: Nose and ears atraumatic Neck: No cervical lymphadenopathy, trachea midline, supple Mouth: no lip lesion, mucus membranes moist Cardiovascular: S1S2 reg, no murmur, positive dorsalis pedis pulse bilateral, no edema Lungs: CTA bilateral, no rhonchi, no rales, no accessory muscle use Abdominal: soft, nontender to palpation, no guarding Ext: muscle strength 5 out of 5 in all 4 extremities grossly, no gross muscle atrophy, no contractures, Neuro: CN II-XI grossly intact, no gross focal neuro deficits Psych: Alert, oriented, appropriate affect Assessment and Plan: Systolic CHF exacerbation -LVEF 40-45%, RVSP 45% -Continue IV Lasix -I's and O's, daily weights Non-ST elevation [place] Elevated troponin -EKG shows normal sinus rhythm with a left bundle branch block, similar to prior in 2015 -No active chest pain -Likely demand ischemia -Less likely ACS -discontinue heparin drip -Cardiology consulted -Telemetry -Continue aspirin and statin Hypokalemia Hypomagnesemia -Replete and monitor Chronic medical problems Diabetes - hold home medications, started on SSI Anxiety Hypothyroidism -Continue home medications DVT ppx: Subcu heparin Code status: No code Anticipated discharge place: Home Anticipated discharge time: 2+ days Objective - Vital Signs Vital signs: Vital Signs Temp 98.0 F 07/30/22 08:48 Pulse 83 07/30/22 08:48 Resp 16 07/30/22 08:48 BP 161/85 07/30/22 08:48 Pulse Ox 92 L 07/30/22 08:48 FiO2 Intake & Output 07/29/22 07/30/22 07/30/22 18:59 06:59 18:59 Intake Total 92.075 135.247 Balance 92.075 135.247 Weight 113.398 kg 109.5 kg Intake: Intake, IV Titration 92.075 135.247 Amount Heparin Sod,Pork in 0.45% 92.075 135.247 NaCl 25,000 unit In 0.45 % NaCl 1 250ml.bag @ 8.81 UNITS/KG/HR 9.99 mls/hr IV .Q24H [facility] Rx#: [id number] Other: Voiding Method Toilet Toilet # Voids 1 - Labs CBC & Chem 7: 07/29/22 04:24 07/30/22 08:10 Labs: Abnormal Lab Results - Last 24 Hours (Table) 07/29/22 07/29/22 07/30/22 Range/Units 16:23 20:08 08:10 APTT 55.4 H (22.0-30.0) sec Potassium 2.5 L* (3.5-5.1) mmol/L Carbon Dioxide 31 H (22-30) mmol/L Creatinine 1.10 H (0.52-1.04) mg/dL POC Glucose (mg/dL) 183 H (70-110) mg/dL Total Protein 5.9 L (6.3-8.2) g/dL 07/30/22 Range/Units 08:10 APTT 43.9 H (22.0-30.0) sec Potassium (3.5-5.1) mmol/L Carbon Dioxide (22-30) mmol/L Creatinine (0.52-1.04) mg/dL POC Glucose (mg/dL) (70-110) mg/dL Total Protein (6.3-8.2) g/dL
[2022-07-30 11:46] LABS: Glucose,Whole Blood 73 mg/dL (70-110)
[2022-07-30] MEDS: POTASSIUM CHLORIDE 10 MEQ in WATER FOR INJECTION 1 100ML.BAG IVPB SCH ×4 (12:05→17:18)
[2022-07-30] MEDS: POTASSIUM CHLORIDE ER 20 MEQ TAB.ER PO SCH ×2 (12:05→15:07)
[2022-07-30] MEDS: MAGNESIUM SULFATE-D5W PMX 1 GM in DEXTROSE/WATER 1 100ML.BAG IVPB SCH ×4 (15:07→18:33)
--- NOTE | 2022-07-30 15:13 | P.CRDCN ---
History of Present Illness History of present illness: HISTORY OF PRESENTING ILLNESS Patient is a pleasant 72-year-old female with history of diabetes mellitus type 2, hypertension, back pain receiving epidural injections, hyperthyroidism. She states she has noticed increasing shortness breath over the last 2-3 days. She denies any chest pain or pressure. No lightheadedness or dizziness. No prior similar episodes. She does have mild chronic dyspnea however started noticing mild increase in lower extremity edema and dyspnea. She presented to the ER and was found to have elevated proBNP 7000, troponins mildly elevated 0.04, low potassium 3.1 and was noted to be hypertensive with blood pressures in the 190s systolic. She does not check her blood pressure home. She received IV Lasix and states she is feeling much better. Check serum x-ray shows right pleural effusion and vascular congestion. EKG shows sinus rhythm with left bundle branch block. Echo performed and shows EF 40-45% REVIEW OF SYSTEMS At the time of my exam: CONSTITUTIONAL: Denies fever or chills. CARDIOVASCULAR: Denies chest pain, +shortness of breath, no orthopnea, PND or palpitations. RESPIRATORY: Denies cough. GASTROINTESTINAL: Denies abdominal pain, diarrhea, constipation, nausea or vomiting. MUSCULOSKELETAL: Denies myalgias. NEUROLOGIC: Denies numbness, tingling or weakness. ENDOCRINE: Denies fatigue, weight change, polydipsia or polyurina. GENITOURINARY: Denies burning, hematuria or urgency with micturation. HEMATOLOGIC: Denies history of anemia or bleeding. PHYSICAL EXAMINATION Vital signs reviewed. CONSTITUTIONAL: No apparent distress. HEENT: Head is normocephalic. Pupils are equal, round. Sclerae anicteric. Mucous membranes of the mouth are moist. No JVD. No carotid bruit. CHEST EXAMINATION: Lungs are clear to auscultation. No chest wall tenderness is noted on palpation or with deep breathing. HEART EXAMINATION: Regular rate and rhythm. S1, S2 heard. No murmurs, gallops or rub. ABDOMEN: Soft, nontender. Positive bowel sounds. EXTREMITIES: 2+ peripheral pulses, no lower extremity edema and no calf tenderness. NEUROLOGIC EXAMINATION: Patient is awake, alert and oriented x3. ASSESSMENT 1. Acute on chronic systolic heart failure EF 40-45% 2. Hypertension, uncontrolled on presentation 3. Hypokalemia 4. Lower extremity edema main component of heart failure plus possible venous insufficiency 5. Mild cardiomyopathy EF 40-45% 6. Mildly elevated troponins appears mainly related to heart failure without any significant angina-type symptoms. PLAN Patient with mildly elevated troponins however does not appear consistent with non-STEMI. Mildly elevated troponins related to heart failure. Continue diuresis and attempt to optimize heart failure regimen with addition of Toprol. Ideally add spironolactone given severe hypokalemia however monitor blood pressures. Likely ischemic workup however no clear angina-type symptoms and patient is concerned regarding receiving epidural injections. Past Medical History Past Medical History: Diabetes Mellitus, Fibromyalgia, Osteoarthritis (OA), Thyroid Disorder Additional Past Medical History / Comment(s): kidney stones in past History of Any Multi-Drug Resistant Organisms: None Reported Past Surgical History: Joint Replacement, Orthopedic Surgery, Tonsillectomy Additional Past Surgical History / Comment(s): right athroscopy, back surgery for ruptured disk x2 bilat knee rplacement,cataracts Past Anesthesia/Blood Transfusion Reactions: No Reported Reaction Past Psychological History: No Psychological Hx Reported Smoking Status: Never smoker Past Alcohol Use History: None Reported Past Drug Use History: None Reported - Past Family History Mother Family Medical History: Cancer Additional Family Medical History / Comment(s): brain stem Father Family Medical History: Diabetes Mellitus Medications and Allergies Home Medications Medication Instructions Recorded Confirmed Type Levothyroxine Sodium [Synthroid] 50 mcg PO DAILY 11/13/14 07/29/22 History Simvastatin [Zocor] 20 mg PO DAILY 11/13/14 07/29/22 History Zolpidem [Ambien] 10 mg PO HS 11/13/14 07/29/22 History glipiZIDE XL [Glucotrol XL] 5 mg PO DAILY 11/13/14 07/29/22 History lisinopriL [Zestril] 2.5 mg PO DAILY 11/13/14 07/29/22 History DULoxetine HCL [Cymbalta] 60 mg PO DIRECTED 07/14/21 07/29/22 History Pregabalin [Lyrica] 300 mg PO DAILY 07/14/21 07/29/22 History metFORMIN HCL ER [Glucophage XR] 500 mg PO DAILY 07/14/21 07/29/22 History hydrOXYzine HCL [Atarax] 25 mg PO DIRECTED 07/29/22 07/29/22 History traMADol HCL 50 mg PO BID PRN 07/29/22 07/29/22 History Allergies Allergy/AdvReac Type Severity Reaction Status Date / Time No Known Allergies Allergy Verified 07/14/21 22:16 Physical Exam Vitals: Vital Signs Temp Pulse Pulse Resp BP BP Pulse Ox 07/30/22 11:55 97.8 F 82 18 124/67 96 07/30/22 08:48 98.0 F 83 16 161/85 92 L 07/30/22 03:57 97.8 F 83 16 177/77 94 L 07/30/22 00:00 98.0 F 82 16 155/69 98 07/29/22 20:00 97.8 F 86 16 146/56 96 07/29/22 17:52 187/80 07/29/22 17:23 97.4 F L 84 18 199/89 98 07/29/22 16:43 81 20 167/80 100 07/29/22 16:04 82 20 165/75 99 Intake and Output 07/30/22 07/30/22 07/30/22 06:59 14:59 22:59 Other: Voiding Method Toilet Toilet # Voids 1 Weight 109.5 kg Results 07/29/22 04:24 07/30/22 08:10 Cardiac Enzymes 07/30/22 Range/Units 08:10 AST 27 (14-36) U/L Coagulation 07/29/22 07/30/22 07/30/22 Range/Units 16:23 08:10 11:38 APTT 55.4 H 43.9 H 30.7 H (22.0-30.0) sec Comprehensive Metabolic Panel 07/30/22 Range/Units 08:10 Sodium 141 (137-145) mmol/L Potassium 2.5 L* (3.5-5.1) mmol/L Chloride 101 (98-107) mmol/L Carbon Dioxide 31 H (22-30) mmol/L BUN 13 (7-17) mg/dL Creatinine 1.10 H (0.52-1.04) mg/dL Glucose 87 (74-99) mg/dL Calcium 8.4 (8.4-10.2) mg/dL AST 27 (14-36) U/L ALT 21 (4-34) U/L Alkaline Phosphatase 73 (38-126) U/L Total Protein 5.9 L (6.3-8.2) g/dL Albumin 3.8 (3.5-5.0) g/dL Current Medications Generic Name Dose Route Start Last Admin Trade Name Freq PRN Reason Stop Dose Admin Acetaminophen 650 mg 07/29/22 01:20 Acetaminophen Tab 325 Mg Tab PO Q6HR PRN Mild Pain or Fever > 100.5 Alprazolam 0.25 mg 07/29/22 01:20 Alprazolam 0.25 Mg Tab PO Q6HR PRN Anxiety Aspirin 81 mg 07/30/22 09:00 07/30/22 08:51 Aspirin 81 Mg PO 81 mg DAILY ROLANDO Administration Atorvastatin Calcium 40 mg 07/30/22 09:00 07/30/22 08:50 Atorvastatin 40 Mg Tab PO 40 mg DAILY ROLANDO Administration Dextrose/Water 25 ml 07/30/22 10:59 Dextrose 50% Syringe 50 Ml IVP PER PROTOCOL PRN Hypoglycemia Protocol Dextrose/Water 50 ml 07/30/22 10:59 Dextrose 50% Syringe 50 Ml IVP PER PROTOCOL PRN Hypoglycemia Protocol Duloxetine HCl 60 mg 07/29/22 09:00 07/30/22 08:50 Duloxetine Hcl 60 Mg Capsule.Dr PO 60 mg BID ROLANDO Administration Famotidine 20 mg 07/30/22 09:00 07/30/22 08:50 Famotidine 20 Mg Tab PO 20 mg DAILY ROLANDO Administration Furosemide 40 mg 07/29/22 21:00 07/30/22 08:52 Furosemide 10 Mg/Ml 4 Ml Vial IV 40 mg Q12HR ROLANDO Administration Heparin Sodium (Porcine) 5,000 unit 07/30/22 16:00 Heparin Sodium,Porcine/Pf 5,000 Unit/0.5 Ml Syringe SQ Q8HR ROLANDO Hydromorphone HCl 0.5 mg 07/29/22 01:20 Hydromorphone 0.5 Mg/0.5 Ml Syringe IVP Q3HR PRN Moderate Pain (Scale 4 to 6) Insulin Aspart 0 unit 07/30/22 12:30 Insulin Aspart (Novolog) 100 Unit/Ml Vial SQ ACHS [facility] Protocol Levothyroxine Sodium 50 mcg 07/29/22 06:30 07/30/22 06:14 Levothyroxine 50 Mcg Tab PO 50 mcg DAILY@0630 ROLANDO Administration Lisinopril 2.5 mg 07/29/22 09:00 07/30/22 08:51 Lisinopril 2.5 Mg Tab PO 2.5 mg DAILY ROLANDO Administration Miscellaneous Information 1 each 07/30/22 09:58 Magnesium Replacement Protocol 1 Each Misc MISCELLANE DAILY PRN Per Protocol Protocol Miscellaneous Information 1 each 07/30/22 10:00 Potassium Replacement Protocol 1 Each Misc MISCELLANE DAILY PRN Per Protocol Protocol Naloxone HCl 0.2 mg 07/29/22 01:20 Naloxone 0.4 Mg/Ml 1 Ml Vial IV Q2M PRN Opioid Reversal Ondansetron HCl 4 mg 07/29/22 01:20 Ondansetron 4 Mg/2 Ml Vial IVP Q8HR PRN Nausea And Vomiting Pregabalin 300 mg 07/29/22 09:00 07/30/22 08:52 Pregabalin 100 Mg Cap PO 300 mg BID ROLANDO Administration Zolpidem Tartrate 10 mg 07/30/22 00:00 07/29/22 23:32 Zolpidem 5 Mg Tab PO 10 mg HS@0000 ROLANDO Administration Intake and Output 07/30/22 07/30/22 07/30/22 06:59 14:59 22:59 Other: Voiding Method Toilet Toilet # Voids 1 Weight 109.5 kg 07/29/22 04:24 07/30/22 08:10
[2022-07-30] MEDS: INSULIN ASPART (NovoLOG) 100 UNIT/ML VIAL SQ SCH ×3 (16:08→20:36)
[2022-07-30 16:45] LABS: Glucose,Whole Blood 147 mg/dL (70-110)
[2022-07-30] MEDS: METOPROLOL SUCCINATE (ER) 25 MG TAB.ER.24H PO SCH (17:17)
[2022-07-30] MEDS: HEPARIN SODIUM,PORCINE/PF 5,000 UNIT/0.5 ML SYRINGE SQ SCH ×2 (17:17→23:12)
[2022-07-30 19:51] LABS: Glucose,Whole Blood 131 mg/dL (70-110)
[2022-07-30] MEDS: ZOLPIDEM 5 MG TAB PO SCH (23:12)
[2022-07-31 06:20] LABS: Glucose,Whole Blood 109 mg/dL (70-110)
[2022-07-31] MEDS: INSULIN ASPART (NovoLOG) 100 UNIT/ML VIAL SQ SCH ×4 (06:33→20:25)
[2022-07-31] MEDS: LEVOTHYROXINE 50 MCG TAB PO SCH (06:49)
[2022-07-31 08:25] LABS: Calcium 8.6 mg/dL (8.4-10.2); Magnesium 2.3 mg/dL (1.6-2.3); Potassium 3.2 mmol/L (3.5-5.1)
[2022-07-31] MEDS: PREGABALIN 100 MG CAP PO SCH ×2 (09:18→20:31)
[2022-07-31] MEDS: ASPIRIN 81 MG PO SCH (09:18)
[2022-07-31] MEDS: POTASSIUM CHLORIDE ER 20 MEQ TAB.ER PO SCH (09:19)
[2022-07-31] MEDS: FUROSEMIDE 10 MG/ML 4 ML VIAL IV SCH ×2 (09:19→20:31)
[2022-07-31] MEDS: DULoxetine HCL 60 MG CAPSULE.DR PO SCH ×2 (09:19→20:31)
[2022-07-31] MEDS: ATORVASTATIN 40 MG TAB PO SCH (09:19)
[2022-07-31] MEDS: HEPARIN SODIUM,PORCINE/PF 5,000 UNIT/0.5 ML SYRINGE SQ SCH ×2 (09:19→17:46)
[2022-07-31] MEDS: FAMOTIDINE 20 MG TAB PO SCH (09:19)
[2022-07-31] MEDS: METOPROLOL SUCCINATE (ER) 25 MG TAB.ER.24H PO SCH (09:19)
--- NOTE | 2022-07-31 11:16 | P.PN ---
Subjective Progress Note Date: 07/31/22 Principal diagnosis: SOB Hospital Course: 72-year-old female with a PMH of type II DM, hypertension, hyperlipidemia, and hyperthyroidism who presented to the emergency room with complaints of shortness of breath and orthopnea. Chest x-ray in the emergency room revealed a right- sided pleural effusion. EKG reveals sinus rhythm with left bundle branch block at 81 bpm (unchanged EKG from 2015). Laboratory evaluation was remarkable for troponin of 0.046, proBNP 7050, and hemoglobin 10.7 with potassium 3.1. Patient admitted for non-ST elevation FL, on heparin drip, now discontinued. She is being treated for possible CHF exacerbation. Echo revealing LVEF of 40-45%, RVSP 45. Subjective: Patient seen and examined at bedside. No acute events overnight. She claims that her shortness of breath has slightly improved. She denies any further orthopnea. Currently remains on heparin drip. She denies any chest pain, abdominal pain, nausea, vomiting, diarrhea, constipation, or urinary complaints. Pertinent positives and negatives as discussed above, a complete review of systems was performed and all other systems are negative. Vitals Signs Reviewed. General: non toxic, no distress, appears at stated age, obese Derm: no unusual rashes/lesions, warm Head: atraumatic, normocephalic, symmetric Eyes: EOMI, no lid lag, anicteric sclera, pupils equal round reactive to light ENT: Nose and ears atraumatic Neck: No cervical lymphadenopathy, trachea midline, supple Mouth: no lip lesion, mucus membranes moist Cardiovascular: S1S2 reg, no murmur, positive dorsalis pedis pulse bilateral, no edema Lungs: CTA bilateral, no rhonchi, no rales, no accessory muscle use Abdominal: soft, nontender to palpation, no guarding Ext: muscle strength 5 out of 5 in all 4 extremities grossly, no gross muscle atrophy, no contractures, Neuro: CN II-XI grossly intact, no gross focal neuro deficits Psych: Alert, oriented, appropriate affect Assessment and Plan: Systolic CHF exacerbation -LVEF 40-45%, RVSP 45 -Continue IV Lasix -I's and O's, daily weights -Also started on metoprolol -Monitor renal function, creatinine slightly uptrending Elevated troponin -EKG shows normal sinus rhythm with a left bundle branch block, similar to prior in 2015 -No active chest pain -Likely demand ischemia -Less likely ACS -discontinue heparin drip -Cardiology consulted -Telemetry -Continue aspirin and statin Hypokalemia - improving Hypomagnesemia - resolved -Replete and monitor Chronic medical problems Diabetes - hold home medications, started on SSI Anxiety Hypothyroidism -Continue home medications DVT ppx: Subcu heparin Code status: No code Anticipated discharge place: Home Anticipated discharge time: 2+ days Objective - Vital Signs Vital signs: Vital Signs Temp 98.9 F 07/31/22 09:00 Pulse 73 07/31/22 09:00 Resp 16 07/31/22 09:00 BP 144/67 07/31/22 09:00 Pulse Ox 97 07/31/22 09:00 FiO2 Intake & Output 07/30/22 07/31/22 07/31/22 18:59 06:59 18:59 Intake Total 550 400 Output Total 1425 750 Balance -875 -350 Weight 109.8 kg Intake: Oral 550 400 Output: Urine 1425 750 Other: Voiding Method Toilet Toilet Toilet # Voids 1 2 - Labs CBC & Chem 7: 07/29/22 04:24 07/31/22 07:17 Labs: Abnormal Lab Results - Last 24 Hours (Table) 07/30/22 07/30/22 07/30/22 Range/Units 11:38 16:44 19:49 APTT 30.7 H (22.0-30.0) sec Potassium (3.5-5.1) mmol/L Creatinine (0.52-1.04) mg/dL Glucose (74-99) mg/dL POC Glucose (mg/dL) 147 H 131 H (70-110) mg/dL 07/31/22 Range/Units 07:17 APTT (22.0-30.0) sec Potassium 3.2 L (3.5-5.1) mmol/L Creatinine 1.36 H (0.52-1.04) mg/dL Glucose 106 H (74-99) mg/dL POC Glucose (mg/dL) (70-110) mg/dL
--- NOTE | 2022-07-31 11:18 | P.PN ---
Subjective HISTORY OF PRESENTING ILLNESS Patient is a pleasant 72-year-old female with history of diabetes mellitus type 2, hypertension, back pain receiving epidural injections, hyperthyroidism. She states she has noticed increasing shortness breath over the last 2-3 days. She denies any chest pain or pressure. No lightheadedness or dizziness. No prior similar episodes. She does have mild chronic dyspnea however started noticing mild increase in lower extremity edema and dyspnea. She presented to the ER and was found to have elevated proBNP 7000, troponins mildly elevated 0.04, low potassium 3.1 and was noted to be hypertensive with blood pressures in the 190s systolic. She does not check her blood pressure home. She received IV Lasix and states she is feeling much better. Check serum x-ray shows right pleural effusion and vascular congestion. EKG shows sinus rhythm with left bundle branch block. Echo performed and shows EF 40-45% 07/31 Patient seen and examined. Creatinine mildly increased up to 1.3. Still has some hypokalemia down to 3.2. Admits her shortness breath has improved and currently lying flat on her back. Denies any chest pain or pressure. PHYSICAL EXAMINATION Vital signs reviewed. CONSTITUTIONAL: No apparent distress. HEENT: Head is normocephalic. Pupils are equal, round. Sclerae anicteric. Mucous membranes of the mouth are moist. No JVD. No carotid bruit. CHEST EXAMINATION: Lungs are clear to auscultation. No chest wall tenderness is noted on palpation or with deep breathing. HEART EXAMINATION: Regular rate and rhythm. S1, S2 heard. No murmurs, gallops or rub. ABDOMEN: Soft, nontender. Positive bowel sounds. EXTREMITIES: 2+ peripheral pulses, no lower extremity edema and no calf tenderness. NEUROLOGIC EXAMINATION: Patient is awake, alert and oriented x3. ASSESSMENT 1. Acute on chronic systolic heart failure EF 40-45% 2. Hypertension, uncontrolled on presentation 3. Hypokalemia 4. Lower extremity edema main component of heart failure plus possible venous insufficiency 5. Mild cardiomyopathy EF 40-45% 6. Mildly elevated troponins appears mainly related to heart failure without any significant angina-type symptoms. PLAN Patient with mildly elevated troponins however does not appear consistent with non-STEMI and related to heart failure. Appears nearly euvolemic, transition to maintence oral diuretics Optimize heart failure regimen with Toprol and BP's better and therefore we will add spironolactone given severe hypokalemia Likely ischemic workup as an outpt. Objective - Vital Signs Vital signs: Vital Signs Temp 98.9 F 07/31/22 09:00 Pulse 73 07/31/22 09:00 Resp 16 07/31/22 09:00 BP 144/67 07/31/22 09:00 Pulse Ox 97 07/31/22 09:00 FiO2 Intake & Output 07/30/22 07/31/22 07/31/22 18:59 06:59 18:59 Intake Total 550 400 Output Total 1425 750 Balance -875 -350 Weight 109.8 kg Intake: Oral 550 400 Output: Urine 1425 750 Other: Voiding Method Toilet Toilet Toilet # Voids 1 2 - Labs CBC & Chem 7: 07/29/22 04:24 07/31/22 07:17 Labs: Abnormal Lab Results - Last 24 Hours (Table) 07/30/22 07/30/22 07/30/22 Range/Units 11:38 16:44 19:49 APTT 30.7 H (22.0-30.0) sec Potassium (3.5-5.1) mmol/L Creatinine (0.52-1.04) mg/dL Glucose (74-99) mg/dL POC Glucose (mg/dL) 147 H 131 H (70-110) mg/dL 07/31/22 Range/Units 07:17 APTT (22.0-30.0) sec Potassium 3.2 L (3.5-5.1) mmol/L Creatinine 1.36 H (0.52-1.04) mg/dL Glucose 106 H (74-99) mg/dL POC Glucose (mg/dL) (70-110) mg/dL
[2022-07-31 11:45] LABS: Glucose,Whole Blood 132 mg/dL (70-110)
[2022-07-31] MEDS: SPIRONOLACTONE 25 MG TAB PO SCH (12:32)
[2022-07-31 14:16] VITALS: RESP 18
[2022-07-31 16:42] LABS: Glucose,Whole Blood 159 mg/dL (70-110)
[2022-07-31 19:53] LABS: Glucose,Whole Blood 122 mg/dL (70-110)
[2022-08-01 05:53] LABS: Glucose,Whole Blood 138 mg/dL (70-110)
[2022-08-01] MEDS: LEVOTHYROXINE 50 MCG TAB PO SCH (05:54)
[2022-08-01] MEDS: INSULIN ASPART (NovoLOG) 100 UNIT/ML VIAL SQ SCH ×4 (06:28→20:38)
[2022-08-01] MEDS: ATORVASTATIN 40 MG TAB PO SCH (09:18)
[2022-08-01] MEDS: METOPROLOL SUCCINATE (ER) 25 MG TAB.ER.24H PO SCH (09:18)
[2022-08-01] MEDS: DULoxetine HCL 60 MG CAPSULE.DR PO SCH ×2 (09:18→20:20)
[2022-08-01] MEDS: PREGABALIN 100 MG CAP PO SCH ×2 (09:18→20:20)
[2022-08-01] MEDS: FUROSEMIDE 10 MG/ML 4 ML VIAL IV SCH (09:18)
[2022-08-01] MEDS: FAMOTIDINE 20 MG TAB PO SCH (09:18)
[2022-08-01] MEDS: ASPIRIN 81 MG PO SCH (09:18)
[2022-08-01] MEDS: HEPARIN SODIUM,PORCINE/PF 5,000 UNIT/0.5 ML SYRINGE SQ SCH ×4 (09:21→23:40)
[2022-08-01] MEDS: SPIRONOLACTONE 25 MG TAB PO SCH (09:22)
[2022-08-01 10:47] LABS: Calcium 8.6 mg/dL (8.4-10.2); Magnesium 1.8 mg/dL (1.6-2.3); Potassium 3.8 mmol/L (3.5-5.1)
[2022-08-01 11:22] LABS: Glucose,Whole Blood 180 mg/dL (70-110)
--- NOTE | 2022-08-01 12:00 | P.PN ---
Subjective Progress Note Date: 08/01/22 Principal diagnosis: SOB Hospital Course: 72-year-old female with a PMH of type II DM, hypertension, hyperlipidemia, and hyperthyroidism who presented to the emergency room with complaints of shortness of breath and orthopnea. Chest x-ray in the emergency room revealed a right- sided pleural effusion. EKG reveals sinus rhythm with left bundle branch block at 81 bpm (unchanged EKG from 2015). Laboratory evaluation was remarkable for troponin of 0.046, proBNP 7050, and hemoglobin 10.7 with potassium 3.1. Patient admitted for non-ST elevation FL, on heparin drip, now discontinued. She is being treated for CHF exacerbation with IV Lasix. Echo revealing LVEF of 40- 45%, RVSP 45. Creatinine uptrending with IV Lasix,now switched to oral. Subjective: Patient seen and examined at bedside. No acute events overnight. She claims that her shortness of breath has improved. She denies any further orthopnea. Currently remains on heparin drip. She denies any chest pain, abdominal pain, nausea, vomiting, diarrhea, constipation, or urinary complaints. Pertinent positives and negatives as discussed above, a complete review of systems was performed and all other systems are negative. Vitals Signs Reviewed. General: non toxic, no distress, appears at stated age, obese Derm: no unusual rashes/lesions, warm Head: atraumatic, normocephalic, symmetric Eyes: EOMI, no lid lag, anicteric sclera, pupils equal round reactive to light ENT: Nose and ears atraumatic Neck: No cervical lymphadenopathy, trachea midline, supple Mouth: no lip lesion, mucus membranes moist Cardiovascular: S1S2 reg, no murmur, positive dorsalis pedis pulse bilateral, no edema Lungs: CTA bilateral, no rhonchi, no rales, no accessory muscle use Abdominal: soft, nontender to palpation, no guarding Ext: muscle strength 5 out of 5 in all 4 extremities grossly, no gross muscle atrophy, no contractures, Neuro: CN II-XI grossly intact, no gross focal neuro deficits Psych: Alert, oriented, appropriate affect Assessment and Plan: Systolic CHF exacerbation -LVEF 40-45%, RVSP 45 -IV Lasix 40 twice a day switched to oral 40 daily -I's and O's, daily weights -Also started on metoprolol -Monitor renal function, creatinine uptrending -On spironolactone -On small dose of lisinopril Nonoliguric Acute kidney injury -Likely prerenal secondary to overdiuresis -Reduced diuretic dose -We'll continue lisinopril for now, given small dose -If creatinine continues to worsen tomorrow, will discontinue KARTHIK inhibitor Elevated troponin -EKG shows normal sinus rhythm with a left bundle branch block, similar to prior in 2015 -No active chest pain -Likely demand ischemia -Less likely ACS -discontinue heparin drip -Cardiology consulted -Telemetry -Continue aspirin and statin Hypokalemia -resolved Hypomagnesemia - resolved -Replete and monitor Chronic medical problems Diabetes - hold home medications, started on SSI Anxiety Hypothyroidism -Continue home medications DVT ppx: Subcu heparin Code status: No code Anticipated discharge place: Home Anticipated discharge time: 2+ days Objective - Vital Signs Vital signs: Vital Signs Temp 97.9 F 08/01/22 10:02 Pulse 70 08/01/22 10:02 Resp 18 08/01/22 10:02 BP 144/79 08/01/22 10:02 Pulse Ox 94 L 08/01/22 10:02 FiO2 21 07/31/22 19:29 Intake & Output 07/31/22 08/01/22 08/01/22 18:59 06:59 18:59 Output Total 500 Balance -500 Weight 108.4 kg Output: Urine 500 Other: Voiding Method Toilet External Catheter - Labs CBC & Chem 7: 07/29/22 04:24 08/01/22 10:05 Labs: Abnormal Lab Results - Last 24 Hours (Table) 07/29/22 07/31/22 07/31/22 Range/Units 04:24 16:40 19:50 Sodium (137-145) mmol/L Chloride (98-107) mmol/L BUN (7-17) mg/dL Creatinine (0.52-1.04) mg/dL Glucose (74-99) mg/dL POC Glucose (mg/dL) 159 H 122 H (70-110) mg/dL Hemoglobin A1c 6.6 H (0.0-6.0) % 08/01/22 08/01/22 08/01/22 Range/Units 05:51 10:05 11:16 Sodium 136 L (137-145) mmol/L Chloride 94 L (98-107) mmol/L BUN 24 H (7-17) mg/dL Creatinine 1.53 H (0.52-1.04) mg/dL Glucose 178 H (74-99) mg/dL POC Glucose (mg/dL) 138 H 180 H (70-110) mg/dL Hemoglobin A1c (0.0-6.0) %
--- NOTE | 2022-08-01 14:43 | P.PN ---
Subjective Progress Note Date: 08/01/22 HISTORY OF PRESENTING ILLNESS Patient is a pleasant 72-year-old female with history of diabetes mellitus type 2, hypertension, back pain receiving epidural injections, hyperthyroidism. She states she has noticed increasing shortness breath over the last 2-3 days. She denies any chest pain or pressure. No lightheadedness or dizziness. No prior similar episodes. She does have mild chronic dyspnea however started noticing mild increase in lower extremity edema and dyspnea. She presented to the ER and was found to have elevated proBNP 7000, troponins mildly elevated 0.04, low potassium 3.1 and was noted to be hypertensive with blood pressures in the 190s systolic. She does not check her blood pressure home. She received IV Lasix and states she is feeling much better. Check serum x-ray shows right pleural effusion and vascular congestion. EKG shows sinus rhythm with left bundle branch block. Echo performed and shows EF 40-45% 07/31 Patient seen and examined. Creatinine mildly increased up to 1.3. Still has some hypokalemia down to 3.2. Admits her shortness breath has improved and currently lying flat on her back. Denies any chest pain or pressure. 08/01 Patient has less lower extremity edema. He denies any shortness of breath. No abdominal pain. Creatinine has increased to 1.53 with BUN of 24. 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 PHYSICAL EXAMINATION Vital signs reviewed. CONSTITUTIONAL: No apparent distress. HEENT: Head is normocephalic. Pupils are equal, round. Sclerae anicteric. Mucous membranes of the mouth are moist. No JVD. No carotid bruit. CHEST EXAMINATION: Lungs are clear to auscultation. No chest wall tenderness is noted on palpation or with deep breathing. HEART EXAMINATION: Regular rate and rhythm. S1, S2 heard. No murmurs, gallops or rub. ABDOMEN: Soft, nontender. Positive bowel sounds. EXTREMITIES: 2+ peripheral pulses, no lower extremity edema and no calf tenderness. NEUROLOGIC EXAMINATION: Patient is awake, alert and oriented x3. ASSESSMENT 1. Acute on chronic systolic heart failure EF 40-45% 2. Hypertension, uncontrolled on presentation 3. Hypokalemia 4. Lower extremity edema main component of heart failure plus possible venous insufficiency 5. Mild cardiomyopathy EF 40-45% 6. Mildly elevated troponins appears mainly related to heart failure without any significant angina-type symptoms. PLAN Transition IV Lasix to oral Continue current cardiology medications including atorvastatin, lisinopril, Toprol-XL 25 mg daily, Aldactone 25 mg daily Likely ischemic workup as an outpt. Follow-up with Dr. Iglesias 1-2 weeks. Nurse practitioner note has been reviewed, I agree with documented findings and plan of care. Patient was seen and examined. Objective - Vital Signs Vital signs: Vital Signs Temp 98.3 F 08/01/22 04:00 Pulse 69 08/01/22 04:00 Resp 18 08/01/22 04:00 BP 122/70 08/01/22 04:00 Pulse Ox 94 L 08/01/22 04:00 FiO2 21 07/31/22 19:29 Intake & Output 07/31/22 08/01/22 08/01/22 18:59 06:59 18:59 Output Total 500 Balance -500 Weight 108.4 kg Output: Urine 500 Other: Voiding Method Toilet External Catheter - Labs CBC & Chem 7: 07/29/22 04:24 08/01/22 10:05 Labs: Abnormal Lab Results - Last 24 Hours (Table) 07/29/22 07/31/22 07/31/22 Range/Units 04:24 11:44 16:40 POC Glucose (mg/dL) 132 H 159 H (70-110) mg/dL Hemoglobin A1c 6.6 H (0.0-6.0) % 07/31/22 08/01/22 Range/Units 19:50 05:51 POC Glucose (mg/dL) 122 H 138 H (70-110) mg/dL Hemoglobin A1c (0.0-6.0) %
[2022-08-01 17:00] LABS: Glucose,Whole Blood 193 mg/dL (70-110)
[2022-08-01 20:31] LABS: Glucose,Whole Blood 215 mg/dL (70-110)
[2022-08-01] MEDS: ZOLPIDEM 5 MG TAB PO SCH ×2 (23:40)
[2022-08-02] MEDS: LEVOTHYROXINE 50 MCG TAB PO SCH (05:59)
[2022-08-02 06:22] LABS: Glucose,Whole Blood 201 mg/dL (70-110)
[2022-08-02] MEDS: INSULIN ASPART (NovoLOG) 100 UNIT/ML VIAL SQ SCH ×4 (06:31→21:10)
[2022-08-02] MEDS ORDERED: FUROSEMIDE 10 MG/ML 4 ML VIAL IV SCH (09:00)
[2022-08-02 09:10] LABS: Calcium 8.3 mg/dL (8.4-10.2); Potassium 3.3 mmol/L (3.5-5.1)
[2022-08-02] MEDS: POTASSIUM CHLORIDE ER 20 MEQ TAB.ER PO SCH ×2 (09:49→09:50)
[2022-08-02] MEDS: SPIRONOLACTONE 25 MG TAB PO SCH (09:49)
[2022-08-02] MEDS: METOPROLOL SUCCINATE (ER) 25 MG TAB.ER.24H PO SCH (09:49)
[2022-08-02] MEDS: DULoxetine HCL 60 MG CAPSULE.DR PO SCH ×2 (09:49→20:44)
[2022-08-02] MEDS: PREGABALIN 100 MG CAP PO SCH ×2 (09:49→20:45)
[2022-08-02] MEDS: ATORVASTATIN 40 MG TAB PO SCH (09:50)
[2022-08-02] MEDS: FAMOTIDINE 20 MG TAB PO SCH (09:50)
[2022-08-02] MEDS: HEPARIN SODIUM,PORCINE/PF 5,000 UNIT/0.5 ML SYRINGE SQ SCH ×3 (09:51→22:06)
[2022-08-02] MEDS: FUROSEMIDE 40 MG TAB PO SCH (09:51)
[2022-08-02] MEDS: ASPIRIN 81 MG PO SCH (09:51)
--- NOTE | 2022-08-02 10:29 | US ---
EXAMINATION TYPE: US kidneys/renal and bladder DATE OF EXAM: 08/02/2022 COMPARISON: MRI kidney November 01, 2021 CLINICAL HISTORY: CORDELIA. CORDELIA EXAM MEASUREMENTS: Right Kidney: 9.4 x 4.8 x 4.5 cm Left Kidney: 11.5 x 5.3 x 4.7 cm Right Kidney: No evidence of hydro, Very difficult to visualize due to morbid pt obesity and overlyin g bowel gas Left Kidney: Cyst upper pole= 1.7 x 1.1 x 1.4 cm as visualized on prior MRI, possible "sweat sign" an terior to kidney Bladder: Unable to visualize Suboptimal study due to large body habitus. Cortical thinning in the right kidney with slightly dimin ished in size relative to the left kidney. No hydronephrosis seen bilaterally. Increased cortical ech ogenicity on the left. Simple 1.4 cm thin-walled cyst upper pole of left kidney redemonstrated. Bladd er not adequately distended. IMPRESSION: Evidence of chronic medical renal disease bilaterally redemonstrated. No hydronephrosis s een bilaterally.
--- NOTE | 2022-08-02 11:29 | P.NPCON ---
History of Present Illness - Reason for Consult acute renal failure - History of Present Illness Patient is a 72-year-old female with history of type 2 diabetes, hypertension, hyperlipidemia who was admitted to the hospital with complaints of shortness of breath. Patient was noted to be in acute CHF. Echocardiogram showed ejection fraction 40-45%. She also had uncontrolled hypertension at the time of admission. Patient has been diuresed. Overall she states she is feeling much better. Serum creatinine was 1.0 on initial admission and it has increased to 1.7 mg/dL today. Patient denies any previous history of kidney diseases. That pressures have not been low in fact there have been on the higher side. Patient is been voiding well. Maintained on KARTHIK inhibitor's. Lasix decreased to by mouth today. Review of Systems As per HPI, other systems negative Past Medical History Past Medical History: Diabetes Mellitus, Fibromyalgia, Osteoarthritis (OA), Thyroid Disorder Additional Past Medical History / Comment(s): kidney stones in past History of Any Multi-Drug Resistant Organisms: None Reported Past Surgical History: Joint Replacement, Orthopedic Surgery, Tonsillectomy Additional Past Surgical History / Comment(s): right athroscopy, back surgery for ruptured disk Past Anesthesia/Blood Transfusion Reactions: No Reported Reaction Past Psychological History: No Psychological Hx Reported Smoking Status: Never smoker Past Alcohol Use History: None Reported Past Drug Use History: None Reported - Past Family History Mother Family Medical History: Cancer Additional Family Medical History / Comment(s): brain stem Father Family Medical History: Diabetes Mellitus Medications and Allergies Home Medications Medication Instructions Recorded Confirmed Type Levothyroxine Sodium [Synthroid] 50 mcg PO DAILY 11/13/14 07/29/22 History Simvastatin [Zocor] 20 mg PO DAILY 11/13/14 07/29/22 History Zolpidem [Ambien] 10 mg PO HS 11/13/14 07/29/22 History glipiZIDE XL [Glucotrol XL] 5 mg PO DAILY 11/13/14 07/29/22 History lisinopriL [Zestril] 2.5 mg PO DAILY 11/13/14 07/29/22 History DULoxetine HCL [Cymbalta] 60 mg PO DIRECTED 07/14/21 07/29/22 History Pregabalin [Lyrica] 300 mg PO DAILY 07/14/21 07/29/22 History metFORMIN HCL ER [Glucophage XR] 500 mg PO DAILY 07/14/21 07/29/22 History hydrOXYzine HCL [Atarax] 25 mg PO DIRECTED 07/29/22 07/29/22 History traMADol HCL 50 mg PO BID PRN 07/29/22 07/29/22 History Allergies Allergy/AdvReac Type Severity Reaction Status Date / Time No Known Allergies Allergy Verified 07/14/21 22:16 Physical Exam Vitals: Vital Signs Temp Pulse Pulse Resp BP Pulse Ox 08/02/22 09:54 98.0 F 72 18 142/65 96 08/02/22 04:00 98.3 F 77 18 122/67 97 08/02/22 02:00 70 18 08/02/22 00:00 70 18 126/78 96 08/01/22 20:00 98.1 F 74 73 18 131/73 97 08/01/22 16:00 97.8 F 73 18 160/90 94 L 08/01/22 12:00 97.9 F 73 18 140/64 94 L Intake and Output 08/01/22 08/02/22 08/02/22 22:59 06:59 14:59 Other: Voiding Method External Catheter External Catheter External Catheter Weight 108.8 kg He shouldn't is awake, comfortable not in any acute distress Examination of the heart S1 and S2 Examination lungs bilateral breath sounds are heard Abdomen is soft nontender Examination of lower extremities shows no significant edema 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 Acute kidney injury cardiorenal and associated with recent diuresis, currently nonoliguric. Check ultrasound of the kidneys and check urine analysis. 2. Acute systolic CHF 3. Cardiomyopathy with ejection fraction 40-45% 4. Volume overload 5. Hypertension, partly volume sensitive currently improved with diuresis 6. Hypokalemia secondary to diuresis Plan: Agree with changing Lasix to oral Check magnesium Check urine analysis Follow-up on ultrasound of the kidneys Repeat labs in a.m. Patient is advised to avoid use of nonsteroidal anti-inflammatory agents upon discharge May continue with the KARTHIK inhibitor's. Add SGL T2 inhibitors once acute kidney injury resolves. Patient will need follow-up as outpatient for acute kidney injury and possible underlying CK D. Thank you for the consultation. We will continue to follow the patient with you during her hospitalization
--- NOTE | 2022-08-02 11:36 | P.PN ---
Subjective Progress Note Date: 08/02/22 Principal diagnosis: SOB Hospital Course: 72-year-old female with a PMH of type II DM, hypertension, hyperlipidemia, and hyperthyroidism who presented to the emergency room with complaints of shortness of breath and orthopnea. Chest x-ray in the emergency room revealed a right- sided pleural effusion. EKG reveals sinus rhythm with left bundle branch block at 81 bpm (unchanged EKG from 2015). Laboratory evaluation was remarkable for troponin of 0.046, proBNP 7050, and hemoglobin 10.7 with potassium 3.1. Patient admitted for non-ST elevation [place], on heparin drip, now discontinued. She is being treated for CHF exacerbation with IV Lasix. Echo revealing LVEF of 40- 45%, RVSP 45. Creatinine uptrending with IV Lasix,now switched to oral. Nephrology consulted. Subjective: Patient seen and examined at bedside. No acute events overnight. She claims that her shortness of breath has improved. She denies any further orthopnea. Currently remains on heparin drip. She denies any chest pain, abdominal pain, nausea, vomiting, diarrhea, constipation, or urinary complaints. Pertinent positives and negatives as discussed above, a complete review of systems was performed and all other systems are negative. Vitals Signs Reviewed. General: non toxic, no distress, appears at stated age, obese Derm: no unusual rashes/lesions, warm Head: atraumatic, normocephalic, symmetric Eyes: EOMI, no lid lag, anicteric sclera, pupils equal round reactive to light ENT: Nose and ears atraumatic Neck: No cervical lymphadenopathy, trachea midline, supple Mouth: no lip lesion, mucus membranes moist Cardiovascular: S1S2 reg, no murmur, positive dorsalis pedis pulse bilateral, no edema Lungs: CTA bilateral, no rhonchi, no rales, no accessory muscle use Abdominal: soft, nontender to palpation, no guarding Ext: muscle strength 5 out of 5 in all 4 extremities grossly, no gross muscle atrophy, no contractures, Neuro: CN II-XI grossly intact, no gross focal neuro deficits Psych: Alert, oriented, appropriate affect Assessment and Plan: Systolic CHF exacerbation -LVEF 40-45%, RVSP 45 -IV Lasix 40 twice a day switched to oral 40 daily -I's and O's, daily weights -Also started on metoprolol -Monitor renal function, creatinine uptrending -On spironolactone -On small dose of lisinopril Nonoliguric Acute kidney injury -Likely prerenal secondary to overdiuresis -Reduced diuretic dose -We'll continue lisinopril for now, given small dose -Nephrology consulted -Renal ultrasound pending, urine lytes pending Elevated troponin -EKG shows normal sinus rhythm with a left bundle branch block, similar to prior in 2015 -No active chest pain -Likely demand ischemia -Less likely ACS -discontinue heparin drip -Cardiology consulted -Telemetry -Continue aspirin and statin Hypokalemia -resolved Hypomagnesemia - resolved -Replete and monitor Chronic medical problems Diabetes - hold home medications, started on SSI Anxiety Hypothyroidism -Continue home medications DVT ppx: Subcu heparin Code status: No code Anticipated discharge place: Home Anticipated discharge time: Tomorrow Objective - Vital Signs Vital signs: Vital Signs Temp 98.0 F 08/02/22 09:54 Pulse 72 08/02/22 09:54 Resp 18 08/02/22 09:54 BP 142/65 08/02/22 09:54 Pulse Ox 96 08/02/22 09:54 FiO2 21 07/31/22 19:29 Intake & Output 08/01/22 08/02/22 08/02/22 18:59 06:59 18:59 Weight 108.8 kg Other: Voiding Method External Catheter External Catheter External Catheter - Labs CBC & Chem 7: 07/29/22 04:24 08/02/22 08:16 Labs: Abnormal Lab Results - Last 24 Hours (Table) 08/01/22 08/01/22 08/02/22 Range/Units 16:58 20:30 06:19 Potassium (3.5-5.1) mmol/L Chloride (98-107) mmol/L Carbon Dioxide (22-30) mmol/L BUN (7-17) mg/dL Creatinine (0.52-1.04) mg/dL Glucose (74-99) mg/dL POC Glucose (mg/dL) 193 H 215 H 201 H (70-110) mg/dL Calcium (8.4-10.2) mg/dL 08/02/22 Range/Units 08:16 Potassium 3.3 L (3.5-5.1) mmol/L Chloride 97 L (98-107) mmol/L Carbon Dioxide 35 H (22-30) mmol/L BUN 28 H (7-17) mg/dL Creatinine 1.70 H (0.52-1.04) mg/dL Glucose 186 H (74-99) mg/dL POC Glucose (mg/dL) (70-110) mg/dL Calcium 8.3 L (8.4-10.2) mg/dL
[2022-08-02 11:55] LABS: Glucose,Whole Blood 257 mg/dL (70-110)
--- NOTE | 2022-08-02 12:29 | P.PN ---
Subjective Progress Note Date: 08/02/22 HISTORY OF PRESENTING ILLNESS Patient is a pleasant 72-year-old female with history of diabetes mellitus type 2, hypertension, back pain receiving epidural injections, hyperthyroidism. She states she has noticed increasing shortness breath over the last 2-3 days. She denies any chest pain or pressure. No lightheadedness or dizziness. No prior similar episodes. She does have mild chronic dyspnea however started noticing mild increase in lower extremity edema and dyspnea. She presented to the ER and was found to have elevated proBNP 7000, troponins mildly elevated 0.04, low potassium 3.1 and was noted to be hypertensive with blood pressures in the 190s systolic. She does not check her blood pressure home. She received IV Lasix and states she is feeling much better. Check serum x-ray shows right pleural effusion and vascular congestion. EKG shows sinus rhythm with left bundle branch block. Echo performed and shows EF 40-45% 07/31 Patient seen and examined. Creatinine mildly increased up to 1.3. Still has some hypokalemia down to 3.2. Admits her shortness breath has improved and currently lying flat on her back. Denies any chest pain or pressure. 08/01 Patient has less lower extremity edema. She denies any shortness of breath. No abdominal pain. Creatinine has increased to 1.53 with BUN of 24. conveyor monitor sinus rhythm. 08/02 Patient seen and examined. Patient states that her breathing is much improved today and feels like she stable. Yesterday, Lasix was changed to oral. There is a noted increase in BUN and creatinine are 28 and 1.7. Potassium 3.3. Con sult has been added for nephrology by attending as well as renal ultrasound which has been done this morning. Heart rate running in the 70s, blood pressure 142/65, pulse ox 96% on room air. PHYSICAL EXAMINATION Vital signs reviewed. CONSTITUTIONAL: No apparent distress. HEENT: Head is normocephalic. Pupils are equal, round. Sclerae anicteric. Mucous membranes of the mouth are moist. No JVD. No carotid bruit. CHEST EXAMINATION: Lungs are clear to auscultation. No chest wall tenderness is noted on palpation or with deep breathing. HEART EXAMINATION: Regular rate and rhythm. S1, S2 heard. No murmurs, gallops or rub. ABDOMEN: Soft, nontender. Positive bowel sounds. EXTREMITIES: 2+ peripheral pulses, no lower extremity edema and no calf tenderness. NEUROLOGIC EXAMINATION: Patient is awake, alert and oriented x3. ASSESSMENT 1. Acute on chronic systolic heart failure EF 40-45% 2. Hypertension, uncontrolled on presentation 3. Hypokalemia 4. Lower extremity edema main component of heart failure plus possible venous insufficiency 5. Mild cardiomyopathy EF 40-45% 6. Mildly elevated troponins appears mainly related to heart failure without any significant angina-type symptoms. PLAN Continue Lasix 40 mg oral daily Continue current cardiology medications including atorvastatin, lisinopril, Toprol-XL 25 mg daily Discontinue Aldactone due to worsening renal function Likely ischemic workup as an outpt. Follow-up with Dr. Iglesias 1-2 weeks. Nurse practitioner note has been reviewed, I agree with documented findings and plan of care. Patient was seen and examined. Objective - Vital Signs Vital signs: Vital Signs Temp 98.0 F 08/02/22 09:54 Pulse 72 08/02/22 09:54 Resp 18 08/02/22 09:54 BP 142/65 08/02/22 09:54 Pulse Ox 96 08/02/22 09:54 FiO2 21 07/31/22 19:29 Intake & Output 08/01/22 08/02/22 08/02/22 18:59 06:59 18:59 Weight 108.8 kg Other: Voiding Method External Catheter External Catheter - Labs CBC & Chem 7: 07/29/22 04:24 08/02/22 08:16 Labs: Abnormal Lab Results - Last 24 Hours (Table) 08/01/22 08/01/22 08/01/22 Range/Units 10:05 11:16 16:58 Sodium 136 L (137-145) mmol/L Potassium (3.5-5.1) mmol/L Chloride 94 L (98-107) mmol/L Carbon Dioxide (22-30) mmol/L BUN 24 H (7-17) mg/dL Creatinine 1.53 H (0.52-1.04) mg/dL Glucose 178 H (74-99) mg/dL POC Glucose (mg/dL) 180 H 193 H (70-110) mg/dL Calcium (8.4-10.2) mg/dL 08/01/22 08/02/22 08/02/22 Range/Units 20:30 06:19 08:16 Sodium (137-145) mmol/L Potassium 3.3 L (3.5-5.1) mmol/L Chloride 97 L (98-107) mmol/L Carbon Dioxide 35 H (22-30) mmol/L BUN 28 H (7-17) mg/dL Creatinine 1.70 H (0.52-1.04) mg/dL Glucose 186 H (74-99) mg/dL POC Glucose (mg/dL) 215 H 201 H (70-110) mg/dL Calcium 8.3 L (8.4-10.2) mg/dL
[2022-08-02 15:39] LABS: Creatinine,Urine Random 98.9 mg/dL
[2022-08-02 16:42] LABS: Glucose,Whole Blood 287 mg/dL (70-110)
[2022-08-02 20:23] LABS: Glucose,Whole Blood 179 mg/dL (70-110)
[2022-08-02] MEDS: ZOLPIDEM 5 MG TAB PO SCH (22:06)
[2022-08-03 04:53] VITALS: TEMP 97.9
[2022-08-03 06:09] LABS: Glucose,Whole Blood 158 mg/dL (70-110)
[2022-08-03] MEDS: INSULIN ASPART (NovoLOG) 100 UNIT/ML VIAL SQ SCH ×2 (06:15→12:08)
[2022-08-03] MEDS: LEVOTHYROXINE 50 MCG TAB PO SCH (06:36)
[2022-08-03] MEDS: DULoxetine HCL 60 MG CAPSULE.DR PO SCH (08:44)
[2022-08-03] MEDS: HEPARIN SODIUM,PORCINE/PF 5,000 UNIT/0.5 ML SYRINGE SQ SCH (08:44)
[2022-08-03] MEDS: FUROSEMIDE 40 MG TAB PO SCH (08:44)
[2022-08-03] MEDS: PREGABALIN 100 MG CAP PO SCH (08:44)
[2022-08-03] MEDS: FAMOTIDINE 20 MG TAB PO SCH (08:45)
[2022-08-03] MEDS: ASPIRIN 81 MG PO SCH (08:45)
[2022-08-03] MEDS: METOPROLOL SUCCINATE (ER) 25 MG TAB.ER.24H PO SCH (08:45)
[2022-08-03] MEDS: ATORVASTATIN 40 MG TAB PO SCH (08:45)
[2022-08-03 10:21] LABS: Calcium 8.8 mg/dL (8.4-10.2); Potassium 4.1 mmol/L (3.5-5.1)
--- NOTE | 2022-08-03 11:12 | P.DS ---
Providers Date of admission: 07/29/22 01:17 Expected date of discharge: 08/03/22 Attending physician: Thalia Schmid MD Consults: 07/29/22 11:54 Consult Physician Routine Consulting Provider: Sridhar Mckeon Consult Reason/Comments: possible CHF, elevated trop Do you want consulting provider notified?: Yes 08/02/22 09:47 Consult Physician Routine Consulting Provider: Ezequiel Duarte Consult Reason/Comments: CORDELIA, being diuresed Do you want consulting provider notified?: Yes Primary care physician: Graham Saeed MD Hospital Course: 72-year-old female with a PMH of type II DM, hypertension, hyperlipidemia, and hyperthyroidism who presented to the emergency room with complaints of shortness of breath and orthopnea. The patient reports that over the past 4-5 days, she's been experiencing intermittent shortness of breath, limiting her ability to perform her ADLs. She denied experiencing chest discomfort, lower extremity swelling, lower extremities pain. Does report orthopnea without PND. Denies fever, chills, cough. Denies any prior history of symptoms such as this. Chest x-ray in the emergency room revealed a right-sided pleural effusion. EKG reveals sinus rhythm with left bundle branch block at 81 bpm (unchanged EKG from 2015). Laboratory evaluation was remarkable for troponin of 0.046, proBNP 7050, and hemoglobin 10.7 with potassium 3.1. Patient admitted for non-ST elevation [place], on heparin drip, now discontinued. She is being treated for CHF exacerbation with IV Lasix. Echo revealing LVEF of 40-45%, RVSP 45. Creatinine uptrending with IV Lasix, nephrology was consulted due to that, patient had a renal ultrasound which showed medical renal disease. No hydronephrosis. Lasix was later switched to oral. Patient was maintained on KARTHIK inhibitor. On the day of discharge her creatinine came down from a peak of 1.7 to 1.5. According to cardiology service elevated troponin was most likely demand ischemia, she was treated with heparin IV initially. EKG with no changes. She was continued on aspirin and statin. According to cardiology she will need outpatient ischemic workup up. He currently without symptoms of shortness of breath, she is ambulating without difficulties. She'll be discharged home in a stable condition. Cardiology cleared patient for discharge. Time for discharge 35 minutes Patient was seen and examined in [id number] on the day of discharge 08/03 Patient Condition at Discharge: Serious Plan - Discharge Summary Discharge Rx Participant: No New Discharge Prescriptions: New Furosemide [Lasix] 40 mg PO DAILY 30 Days #30 tab Metoprolol Succinate (ER) [Toprol XL] 25 mg PO DAILY 30 Days #30 tab Continue Simvastatin [Zocor] 20 mg PO DAILY lisinopriL [Zestril] 2.5 mg PO DAILY glipiZIDE XL [Glucotrol XL] 5 mg PO DAILY Levothyroxine Sodium [Synthroid] 50 mcg PO DAILY Zolpidem [Ambien] 10 mg PO HS metFORMIN HCL ER [Glucophage XR] 500 mg PO DAILY hydrOXYzine HCL [Atarax] 25 mg PO DIRECTED Pregabalin [Lyrica] 300 mg PO DAILY DULoxetine HCL [Cymbalta] 60 mg PO DIRECTED traMADol HCL 50 mg PO BID PRN PRN Reason: Pain Discharge Medication List Levothyroxine Sodium [Synthroid] 50 mcg PO DAILY 11/13/14 [History] Simvastatin [Zocor] 20 mg PO DAILY 11/13/14 [History] Zolpidem [Ambien] 10 mg PO HS 11/13/14 [History] glipiZIDE XL [Glucotrol XL] 5 mg PO DAILY 11/13/14 [History] lisinopriL [Zestril] 2.5 mg PO DAILY 11/13/14 [History] DULoxetine HCL [Cymbalta] 60 mg PO DIRECTED 07/14/21 [History] Pregabalin [Lyrica] 300 mg PO DAILY 07/14/21 [History] metFORMIN HCL ER [Glucophage XR] 500 mg PO DAILY 07/14/21 [History] hydrOXYzine HCL [Atarax] 25 mg PO DIRECTED 07/29/22 [History] traMADol HCL 50 mg PO BID PRN 07/29/22 [History] Furosemide [Lasix] 40 mg PO DAILY 30 Days #30 tab 08/03/22 [Rx] Metoprolol Succinate (ER) [Toprol XL] 25 mg PO DAILY 30 Days #30 tab 08/03/22 [Rx] Follow up Appointment(s)/Referral(s): Graham Saeed MD [Primary Care Provider] - 1-2 days
[2022-08-03 11:39] VITALS: BP 119/58; PULSE 68
[2022-08-03 11:40] LABS: Glucose,Whole Blood 213 mg/dL (70-110)
--- NOTE | 2022-08-03 11:55 | P.PN ---
Subjective Progress Note Date: 08/03/22 HISTORY OF PRESENTING ILLNESS Patient is a pleasant 72-year-old female with history of diabetes mellitus type 2, hypertension, back pain receiving epidural injections, hyperthyroidism. She states she has noticed increasing shortness breath over the last 2-3 days. She denies any chest pain or pressure. No lightheadedness or dizziness. No prior similar episodes. She does have mild chronic dyspnea however started noticing mild increase in lower extremity edema and dyspnea. She presented to the ER and was found to have elevated proBNP 7000, troponins mildly elevated 0.04, low potassium 3.1 and was noted to be hypertensive with blood pressures in the 190s systolic. She does not check her blood pressure home. She received IV Lasix and states she is feeling much better. Check serum x-ray shows right pleural effusion and vascular congestion. EKG shows sinus rhythm with left bundle branch block. Echo performed and shows EF 40-45% 07/31 Patient seen and examined. Creatinine mildly increased up to 1.3. Still has some hypokalemia down to 3.2. Admits her shortness breath has improved and currently lying flat on her back. Denies any chest pain or pressure. 08/01 Patient has less lower extremity edema. She denies any shortness of breath. No abdominal pain. 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 08/02 Patient seen and examined. Patient states that her breathing is much improved today and feels like she stable. Yesterday, Lasix was changed to oral. There is a noted increase in BUN and creatinine are 28 and 1.7. Potassium 3.3. Con aba has been added for nephrology by attending as well as renal ultrasound which has been done this morning. Heart rate running in the 70s, blood pressure 142/65, pulse ox 96% on room air. 08/03 Patient has been seen and examined. Yesterday we discontinued Aldactone due to acute kidney injury. Repeat lab work reveals BUN of 29 creatinine 1.59, potassium 4.1. PHYSICAL EXAMINATION Vital signs reviewed. CONSTITUTIONAL: No apparent distress. HEENT: Head is normocephalic. Pupils are equal, round. Sclerae anicteric. Mucous membranes of the mouth are moist. No JVD. No carotid bruit. CHEST EXAMINATION: Lungs are clear to auscultation. No chest wall tenderness is noted on palpation or with deep breathing. HEART EXAMINATION: Regular rate and rhythm. S1, S2 heard. No murmurs, gallops or rub. ABDOMEN: Soft, nontender. Positive bowel sounds. EXTREMITIES: 2+ peripheral pulses, no lower extremity edema and no calf tenderness. NEUROLOGIC EXAMINATION: Patient is awake, alert and oriented x3. ASSESSMENT 1. Acute on chronic systolic heart failure EF 40-45% 2. Hypertension, uncontrolled on presentation 3. Hypokalemia 4. Lower extremity edema main component of heart failure plus possible venous insufficiency 5. Mild cardiomyopathy EF 40-45% 6. Mildly elevated troponins appears mainly related to heart failure without any significant angina-type symptoms. PLAN Continue Lasix 40 mg oral daily Continue current cardiology medications including atorvastatin, lisinopril, Toprol-XL 25 mg daily Discontinue Aldactone due to worsening renal function Likely ischemic workup as an outpt. Follow-up with Dr. Iglesias 1-2 weeks. Nurse practitioner note has been reviewed, I agree with documented findings and plan of care. Patient was seen and examined. Objective - Vital Signs Vital signs: Vital Signs Temp 97.9 F 08/03/22 04:00 Pulse 68 08/03/22 04:00 Resp 18 08/03/22 04:00 BP 125/75 08/03/22 04:00 Pulse Ox 95 08/03/22 04:00 FiO2 21 07/31/22 19:29 Intake & Output 08/02/22 08/03/22 08/03/22 18:59 06:59 18:59 Intake Total 420 120 Balance 420 120 Weight 108.7 kg Intake: Oral 420 120 Other: Voiding Method Toilet Toilet - Labs CBC & Chem 7: 07/29/22 04:24 08/03/22 09:27 Labs: Abnormal Lab Results - Last 24 Hours (Table) 08/02/22 08/02/22 08/02/22 Range/Units 08:16 11:52 16:41 Potassium 3.3 L (3.5-5.1) mmol/L Chloride 97 L (98-107) mmol/L Carbon Dioxide 35 H (22-30) mmol/L BUN 28 H (7-17) mg/dL Creatinine 1.70 H (0.52-1.04) mg/dL Glucose 186 H (74-99) mg/dL POC Glucose (mg/dL) 257 H 287 H (70-110) mg/dL Calcium 8.3 L (8.4-10.2) mg/dL 08/02/22 08/03/22 Range/Units 20:21 06:07 Potassium (3.5-5.1) mmol/L Chloride (98-107) mmol/L Carbon Dioxide (22-30) mmol/L BUN (7-17) mg/dL Creatinine (0.52-1.04) mg/dL Glucose (74-99) mg/dL POC Glucose (mg/dL) 179 H 158 H (70-110) mg/dL Calcium (8.4-10.2) mg/dL
--- NOTE | 2022-08-03 12:15 | P.PN ---
Subjective Patient is seen for follow-up for acute kidney injury mostly cardiorenal and associated with recent diuresis. Renal function has improved with decreasing dose of diuretics. There are plans for possible discharge today. Patient has had good urine output. Serum creatinine down to 1.59 mg/dL. Objective - Vital Signs Vital signs: Vital Signs Temp 97.9 F 08/03/22 11:25 Pulse 68 08/03/22 11:25 Resp 18 08/03/22 11:25 BP 119/58 08/03/22 11:25 Pulse Ox 97 08/03/22 11:25 FiO2 21 07/31/22 19:29 Intake & Output 08/02/22 08/03/22 08/03/22 18:59 06:59 18:59 Intake Total 420 120 540 Balance 420 120 540 Weight 108.7 kg Intake: Oral 420 120 540 Other: Voiding Method Toilet Toilet Toilet - Exam Patient is awake, comfortable, no acute distress Examination of the heart S1 and S2 Examination lungs bilateral breath sounds are heard Abdomen is soft nontender Examination of lower extremities shows no significant edema 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 Acute kidney injury cardiorenal and associated with recent diuresis, currently nonoliguric. No obstruction noted on ultrasound. Small cyst simple appearing on left kidney. UA is pending 2. Acute systolic CHF 3. Cardiomyopathy with ejection fraction 40-45% 4. Volume overload 5. Hypertension, partly volume sensitive currently improved with diuresis 6. Hypokalemia secondary to diuresis Plan: Patient can be discharged from nephrology standpoint Continue with current dose of diuretics Follow-up as outpatient for CK D Patient is advised to avoid use of nonsteroidal anti-inflammatory agents upon discharge May continue with the KARTHIK inhibitor's. Add SGL T2 inhibitors once acute kidney injury resolves.
[2022-08-03 12:54] VITALS: BMI 39.9
[2022-08-03 13:51] LABS: Appearance,Urine Cloudy (Clear); Bacteria,Urine Many /hpf; Bilirubin,Urine Negative (Negative); Blood,Urine Negative (Negative); Color,Urine Light Yellow; Glucose,Urine (UA) Negative (Negative); Hyaline Casts,Urine 7 /lpf (0-2); Ketones,Urine Negative (Negative); Leukocyte Esterase,Urine Large (Negative); Mucus,Urine Rare /hpf; Nitrite,Urine Positive (Negative); Protein,Urine Trace (Negative); RBC,Urine 2 /hpf (0-5); Specific Gravity,Urine 1.008 (1.001-1.035); Squamous Epithelial Cell,Urine <1 /hpf (0-4); Urobilinogen,Urine <2.0 mg/dL (<2.0); WBC,Urine 62 /hpf (0-5)
--- NOTE | 2022-08-05 08:25 | CDI ---
Documentation Clarification Form Date: 08/05/2022 08:12:00 AM From: Ching Prajapati Admit Date: 07/29/2022 01:17:00 AM Patient Name: Kerwin Gorman Visit Number: [id number] Discharge Date: 08/03/2022 04:01:00 PM ATTENTION: The Clinical Documentation Specialists (CDI) and [facility] Coding Staff appreciate your assistance in clarifying documentation. Please respond to the clarification below the line at the bottom and electronically sign. The CDI & [facility] Coding staff will review the response and follow-up if needed. Please note: Queries are made part of the Legal Health Record. If you have any questions, please contact the author of this message via ITS. Kecia Jain Conflicting documentation has been found in the medical record. As attending physician, please provide clarification. Per PN 07/29 Type II NSTEMI is documented Per H and P and 07/29 echo NSTEMI is documented Per [facility] cardiology service feels elevated troponin was most likely demand ischemia History/Risk Factors: Patient with Acute and chronic systolic CHF, HTN Clinical Indicators: troponin .046, .046, .065 Echo LVEF of 40-45%, RVSP 45 Treatment: Heparin Drip later discontinued maintained on KARTHIK inhibitor Please clarify which diagnosis is most appropriate: [ ] NSTEMI type II [ ] NSTEMI type I [ ] Demand Ischemia [ ] Other (please specify) [ ] Unable to determine Demand Ischemia MTDD
== END 2022-08-03 16:01 | disposition home health service (06) | DRG 291 ==
LOC: EC 20:23 → 3SCARD 07-29 01:17
PROVIDERS: ADMIT Internal Medicine; ATTEND Internal Medicine
DX: I11.0 Hypertensive heart disease with heart failure (principal); I50.23 Acute on chronic systolic (congestive) heart failure; N17.9 Acute kidney failure, unspecified; I24.8 Other forms of acute ischemic heart disease; F41.9 Anxiety disorder, unspecified; I42.9 Cardiomyopathy, unspecified; I44.7 Left bundle-branch block, unspecified; M79.7 Fibromyalgia; T50.2X5A Adverse effect of carbonic-anhydrase inhibitors, benzothiadiazides and other diuretics, initial encounter; E87.6 Hypokalemia; E03.9 Hypothyroidism, unspecified; E11.9 Type 2 diabetes mellitus without complications; I87.2 Venous insufficiency (chronic) (peripheral); E78.5 Hyperlipidemia, unspecified; E83.42 Hypomagnesemia; Z79.82 Long term (current) use of aspirin; Z79.84 Long term (current) use of oral hypoglycemic drugs; Z79.890 Hormone replacement therapy; Z79.899 Other long term (current) drug therapy; Z83.3 Family history of diabetes mellitus; Z87.442 Personal history of urinary calculi; Z60.2 Problems related to living alone; Z20.822 Contact with and (suspected) exposure to COVID-19; Z28.311 Partially vaccinated for COVID-19; Z28.21 Immunization not carried out because of patient refusal; Z96.653 Presence of artificial knee joint, bilateral
CPT/HCPCS: 36415; 71046; 76770; 80048; 80053; 81001; 82570; 83036; 83605; 83735; 83880; 84300; 84484; 84540; 85025; 85610; 85730; 87077; 87086; 87186; 87502; 87635; 93005; 93306; 94640; 94760; 96365; 96366; 96375; 99285

== ENCOUNTER 2023-01-24 15:04 | Inpatient (IN) | payer OTHER, MEDICARE ==
[2023-01-24 15:24] LABS: Glucose,Whole Blood 297 mg/dL (70-110)
[2023-01-24] MEDS ORDERED: PANTOPRAZOLE 40 MG/10 ML VIAL IVP STA (15:49)
[2023-01-24] MEDS ORDERED: ONDANSETRON 4 MG/2 ML VIAL IVP STA (15:49)
[2023-01-24] MEDS ORDERED: SODIUM CHLORIDE 0.9% 1,000 ML IV STA ×2 (15:49→17:59)
[2023-01-24 16:18] LABS: Anisocytosis Slight; Basophils % (A) 0 %; Eosinophils # (A) 0.1 k/uL (0-0.7); Eosinophils % (A) 1 %; HCT 28.7 % (34.0-46.0); HGB 9.5 gm/dL (11.4-16.0); Lymphocytes # (A) 0.8 k/uL (1.0-4.8); Lymphocytes % (A) 14 %; MCH 27.2 pg (25.0-35.0); MCV 82.4 fL (80.0-100.0); Mean Platelet Volume 8.6; Monocytes # (A) 0.3 k/uL (0-1.0); Monocytes % (A) 6 %; Neutrophils # (A) 4.4 k/uL (1.3-7.7); Neutrophils % (A) 78 %; Platelet Count 171 k/uL (150-450); RBC 3.48 m/uL (3.80-5.40); RDW 16.2 % (11.5-15.5); WBC 5.7 k/uL (3.8-10.6)
[2023-01-24 16:28] LABS: Albumin 3.2 g/dL (3.5-5.0); Calcium 7.9 mg/dL (8.4-10.2); Total Bilirubin 1.5 mg/dL (0.2-1.3); Total Protein 5.4 g/dL (6.3-8.2)
[2023-01-24 16:32] LABS: Partial Thromboplastin Time 22.2 sec (22.0-30.0); Prothrombin Time 10.8 sec (9.0-12.0)
[2023-01-24 16:35] LABS: Appearance,Urine Clear (Clear); Bacteria,Urine Moderate /hpf; Bilirubin,Urine Negative (Negative); Blood,Urine Small (Negative); Color,Urine Light Yellow; Glucose,Urine (UA) Trace (Negative); Ketones,Urine Negative (Negative); Leukocyte Esterase,Urine Large (Negative); Mucus,Urine Rare /hpf; Nitrite,Urine Negative (Negative); Protein,Urine 2+ (Negative); RBC,Urine 4 /hpf (0-5); Specific Gravity,Urine 1.006 (1.001-1.035); Squamous Epithelial Cell,Urine 1 /hpf (0-4); Urobilinogen,Urine <2.0 mg/dL (<2.0); WBC,Urine 34 /hpf (0-5)
[2023-01-24 16:36] LABS: Potassium 2.2 mmol/L (3.5-5.1)
--- NOTE | 2023-01-24 17:43 | XR ---
EXAMINATION TYPE: XR chest 1V portable DATE OF EXAM: 01/24/2023 COMPARISON: 10/20/2022 INDICATION: Abdomen pain nausea vomiting TECHNIQUE: Frontal view of the chest is obtained. FINDINGS: The heart size is normal. The pulmonary vasculature is normal. The lungs are clear. Old fracture of the left humerus is evident. IMPRESSION: 1. No acute pulmonary process. 2. Old left humeral fracture
[2023-01-24] MEDS ORDERED: POTASSIUM CHLORIDE ER 20 MEQ TAB.ER PO STA (17:58)
--- NOTE | 2023-01-24 18:46 | CT ---
EXAMINATION TYPE: CT abdomen pelvis wo con DATE OF EXAM: 01/24/2023 COMPARISON: None INDICATION: N/V, generalized abd pain DLP: 1087.4 mGycm, Automated exposure control for dose reduction was used. CONTRAST: 0 mL of Isovue 300. Study performed without Oral Contrast TECHNIQUE: Axial images were obtained from above the diaphragm to the pubic rami in the axial plane a t 5 mm thick sections. Reconstructed images are reviewed on the computer in the coronal plane. FINDINGS: Limited CT sections are obtained the lung bases. The lung bases are clear. CT ABDOMEN: Liver: Normal Spleen: Normal Pancreas: Normal Adrenal glands: The adrenal glands are normal. Gallbladder: Normal Kidneys: No masses are evident. No hydronephrosis is present. No cysts are present. No renal stone s are evident. Aorta: Normal Inferior vena cava: Normal. CT PELVIS: Loops of bowel within the abdomen and pelvis are normal. There are loops of bowel which are incom pletely distended or lack oral contrast limiting their evaluation. Appendix: There is a calcification in the right lower quadrant of uncertain etiology. The appendix is not identified Urinary bladder: Normal. Genitourinary structures: Uterus appears normal. Adnexa are unremarkable. Osseous structures: No suspicious lytic or sclerotic lesions. IMPRESSIONS: 1. No suspicious acute abdominal change is identified. Follow-up can be performed as clinically noman cated
[2023-01-24] MEDS: POTASSIUM CHLORIDE 10 MEQ in WATER FOR INJECTION 1 100ML.BAG IVPB SCH ×3 (19:13→21:50)
[2023-01-24] MEDS ORDERED: NALOXONE 0.4 MG/ML 1 ML VIAL IV PRN (19:37)
--- NOTE | 2023-01-24 19:39 | ED ---
General Adult HPI - General Chief complaint: Nausea/Vomiting/Diarrhea Stated complaint: VOMITTING Time Seen by Provider: 01/24/23 15:41 Source: patient, EMS, RN notes reviewed, old records reviewed Mode of arrival: EMS Limitations: no limitations - History of Present Illness Initial comments: Patient is a 72-year-old female with past medical history remarkable for diabetes, fibromyalgia, thyroid disorder presents with his Department complaining of 3 weeks of nonbilious nonbloody emesis. States she is uncertain what is causing her symptoms but said today was sedated to be evaluated. Has not been tolerating oral intake on a daily basis. Uncertain what is causing her current symptoms. States this has happened previously with anxiety but does not feel anxious and is on certain what is causing the symptoms. Denies abdominal pain, chest pain, shortness of breath. Denies any fevers or chills. Does endorse tremors weakness and body aches. No other acute complaints at this time. - Related Data Home Medications Medication Instructions Recorded Confirmed Levothyroxine Sodium [Synthroid] 50 mcg PO DAILY 11/13/14 01/24/23 Simvastatin [Zocor] 20 mg PO HS 11/13/14 01/24/23 glipiZIDE XL [Glucotrol XL] 5 mg PO DAILY 11/13/14 01/24/23 Omeprazole 20 mg PO DAILY 01/24/23 01/24/23 lisinopriL [Zestril] 2.5 mg PO DAILY 01/24/23 01/24/23 metFORMIN HCL ER [Glucophage XR] 500 mg PO DAILY 01/24/23 01/24/23 Previous Rx's Medication Instructions Recorded Zolpidem [Ambien] 10 mg PO HS #3 tab 10/26/22 traMADol HCl [Ultram] 50 mg PO BID PRN #6 tab 10/26/22 Allergies Allergy/AdvReac Type Severity Reaction Status Date / Time No Known Allergies Allergy Verified 01/24/23 19:13 Review of Systems ROS Statement: Those systems with pertinent positive or pertinent negative responses have been documented in the HPI. Review of Systems: CONST: Denies fever EYES: Denies blurry vision ENT: Denies nasal congestion C/V: Denies Chest pain RESP: Denies shortness of breath GI: Denies abdominal pain : Denies dysuria SKIN: Denies rash. MSK: Denies joint pain. NEURO: Denies headache ROS Other: All systems not noted in ROS Statement are negative. Past Medical History Past Medical History: Diabetes Mellitus, Fibromyalgia, Osteoarthritis (OA), Thyroid Disorder Additional Past Medical History / Comment(s): kidney stones in past History of Any Multi-Drug Resistant Organisms: None Reported Past Surgical History: Joint Replacement, Orthopedic Surgery, Tonsillectomy Additional Past Surgical History / Comment(s): right athroscopy, back surgery for ruptured disk Past Anesthesia/Blood Transfusion Reactions: No Reported Reaction Past Psychological History: No Psychological Hx Reported Smoking Status: Never smoker Past Alcohol Use History: None Reported Past Drug Use History: None Reported - Past Family History Mother Family Medical History: Cancer Additional Family Medical History / Comment(s): brain stem Father Family Medical History: Diabetes Mellitus General Exam - General Exam Comments Initial Comments: General: Appears in mild distress. HEAD: Normal with no signs of head trauma. EYES: PERRLA, EOMI, conjunctiva normal, no discharge. ENT: Hearing grossly intact, normal oropharynx. Dry mucous membranes. RESPIRATORY: Clear breath sounds bilaterally. No wheezes, rales, or rhonchi. C/V: Regular rate and rhythm. S1 and S2 auscultated, no edema, peripheral pulses 2+ and intact throughout ABD: Abd is soft, nontender, nondistended EXT: Normal range of motion, no obvious deformity SKIN: No rashes or lesions observed on exposed skin. NEURO: Alert and oriented 4. Limitations: no limitations Course Vital Signs 01/24/23 15:09 Temperature 97.7 F Pulse Rate 66 Respiratory 18 Rate Blood Pressure 173/74 O2 Sat by Pulse 100 Oximetry Medical Decision Making - Medical Decision Making Was pt. sent in by a medical professional or institution (, PA, LANGUAGE PATHOLOGIST, urgent care, hospital, or longterm...) When possible be specific @ -No Did you speak to anyone other than the patient for history (EMS, parent, family, police, friend...)? What history was obtained from this source @ -No Did you review nursing and triage notes (agree or disagree)? Why? @ -I reviewed and agree with nursing and triage notes Were old charts reviewed (outside hosp., previous admission, EMS record, old EKG, old radiological studies, urgent care reports/EKG's, longterm records)? Report findings @ -Old EKGs reviewed from October 2022. Differential Diagnosis (chest pain, altered mental status, abdominal pain women, abdominal pain men, vaginal bleeding, weakness, fever, dyspnea, syncope, headache, dizziness, GI bleed, back pain, seizure, CVA, palpatations, mental health, musculoskeletal)? @ -Differential Weakness: Hypoglycemia, shock, sepsis, hyponatremia, anemia, infection, CA, ETOH, adverse medicine reaction, overdose, stroke, this is not meant to be an all-inclusive list. EKG interpreted by me (3pts min.). @ -As above X-rays interpreted by me (1pt min.). @ -Chest x-ray showed no acute cardiopulmonary process. CT interpreted by me (1pt min.). @ -CT abdomen and pelvis without contrast reveals no obvious acute process. U/S interpreted by me (1pt. min.). @ -None done What testing was considered but not performed or refused? (CT, X-rays, U/S, labs)? Why? @ -None What meds were considered but not given or refused? Why? @ -None Did you discuss the management of the patient with other professionals (professionals i.e. , PA, LANGUAGE PATHOLOGIST, lab, RT, psych nurse, social work program coordinator, post commander, teacher, development officer, case liner)? Give summary @ -Yes, Dr. Schmid accepted the patient. Is in agreement with the plan. Was smoking cessation discussed for >3mins.? @ -No Was critical care preformed (if so, how long)? @ -No Were there social determinants of health that impacted care today? How? (Homele ssness, low income, unemployed, alcoholism, drug addiction, transportation, low edu. Level, literacy, decrease access to med. care, [facility], rehab)? @ -No Was there de-escalation of care discussed even if they declined (Discuss DNR or withdrawal of care, Hospice)? DNR status @ -No What co-morbidities impacted this encounter? (DM, HTN, Smoking, COPD, CAD, Cancer, CVA, ARF, Chemo, Hep., AIDS, mental health diagnosis, sleep apnea, morbid obesity)? @ -None Was patient admitted / discharged? Hospital course, mention meds given and route, prescriptions, significant lab abnormalities, going to OR and other pertinent info. @ -Based on the patient's presentation and physical exam, presents with weakness and persistent nausea and vomiting. We will obtain abdominal lab oratory studies as well as atypical ACS rule out. Patient was in agreement this plan. Vital signs within acceptable limits. Patient was sent likely treatment IV fluids, as well as IV Protonix and IV Zofran. She was in agreement this plan. EKG showed no new changes. Imaging unremarkable. Labs are significant for a chronic anemia with hemoglobin 9.5. Patient has a hypokalemia of 2.2. History of CK D present. Lactic acid 2.2 as well. Urinalysis still pending at time of dictation. Vital signs negative. I discussed results with the patient. I believe it is best to admit her to the hospital to replenish her potassium. Magnesium laboratory studies ordered. She was in agreement with this plan. Urine studies to return concerning for possible UTI and patient's recent antibiotic by the admitting physician. I did discuss the case with Dr. Schmid accepted the patient. Patient admitted in stable condition. Potassium will be replenished. Given both oral as well as IV potassium. Undiagnosed new problem with uncertain prognosis? @ -No Drug Therapy requiring intensive monitoring for toxicity (Heparin, Nitro, Insulin, Cardizem)? @ -No Were any procedures done? @ -No Diagnosis/symptom? @ -Nausea and vomiting, hypokalemia, dehydration, UTI Acute, or Chronic, or Acute on Chronic? @ -Acute Uncomplicated (without systemic symptoms) or Complicated (systemic symptoms)? @ -Complicated Side effects of treatment? @ -No Exacerbation, Progression, or Severe Exacerbation? @ -No Poses a threat to life or bodily function? How? (Chest pain, USA, CA, pneumonia, PE, COPD, DKA, ARF, appy, cholecystitis, CVA, Diverticulitis, Homicidal, Suicidal, threat to staff... and all critical care pts) @ -Yes - Lab Data Result diagrams: 01/24/23 15:55 01/24/23 15:55 Lab Results 01/24/23 01/24/23 01/24/23 Range/Units 15:20 15:55 15:55 WBC 5.7 (3.8-10.6) k/uL RBC 3.48 L (3.80-5.40) m/uL Hgb 9.5 L (11.4-16.0) gm/dL Hct 28.7 L (34.0-46.0) % MCV 82.4 (80.0-100.0) fL MCH 27.2 (25.0-35.0) pg MCHC 33.0 (31.0-37.0) g/dL RDW 16.2 H (11.5-15.5) % Plt Count 171 (150-450) k/uL MPV 8.6 Neutrophils % 78 % Lymphocytes % 14 % Monocytes % 6 % Eosinophils % 1 % Basophils % 0 % Neutrophils # 4.4 (1.3-7.7) k/uL Lymphocytes # 0.8 L (1.0-4.8) k/uL Monocytes # 0.3 (0-1.0) k/uL Eosinophils # 0.1 (0-0.7) k/uL Basophils # 0.0 (0-0.2) k/uL Anisocytosis Slight PT 10.8 (9.0-12.0) sec INR 1.0 (<1.2) APTT 22.2 (22.0-30.0) sec Sodium (137-145) mmol/L Potassium (3.5-5.1) mmol/L Chloride (98-107) mmol/L Carbon Dioxide (22-30) mmol/L Anion Gap mmol/L BUN (7-17) mg/dL Creatinine (0.52-1.04) mg/dL Est GFR (CKD-EPI)AfAm (>60 ml/min/1.73 sqM) Est GFR (CKD-EPI)NonAf (>60 ml/min/1.73 sqM) Glucose (74-99) mg/dL POC Glucose (mg/dL) 297 H (70-110) mg/dL POC Glu Skinning Machine Feeder ID Janelle Santos Lactic Ac Sepsis Rflx Plasma Lactic Acid [place] (0.7-2.0) mmol/L Calcium (8.4-10.2) mg/dL Total Bilirubin (0.2-1.3) mg/dL AST (14-36) U/L ALT (4-34) U/L Alkaline Phosphatase (38-126) U/L Total Protein (6.3-8.2) g/dL Albumin (3.5-5.0) g/dL Amylase (30-110) U/L Lipase (23-300) U/L Urine Color Urine Appearance (Clear) Urine pH (5.0-8.0) Ur Specific [place] (1.001-1.035) Urine Protein (Negative) Urine Glucose (UA) (Negative) Urine Ketones (Negative) Urine Blood (Negative) Urine Nitrite (Negative) Urine Bilirubin (Negative) Urine Urobilinogen (<2.0) mg/dL Ur Leukocyte Esterase (Negative) Urine RBC (0-5) /hpf Urine WBC (0-5) /hpf Ur Squamous Epith Cells (0-4) /hpf Urine Bacteria (None) /hpf Urine Mucus (None) /hpf Influenza Type A (PCR) (Not Detectd) Influenza Type B (PCR) (Not Detectd) RSV (PCR) (Not Detectd) SARS-CoV-2 (PCR) (Not Detectd) 01/24/23 01/24/23 01/24/23 Range/Units 15:55 15:55 15:55 WBC (3.8-10.6) k/uL RBC (3.80-5.40) m/uL Hgb (11.4-16.0) gm/dL Hct (34.0-46.0) % MCV (80.0-100.0) fL MCH (25.0-35.0) pg MCHC (31.0-37.0) g/dL RDW (11.5-15.5) % Plt Count (150-450) k/uL MPV Neutrophils % % Lymphocytes % % Monocytes % % Eosinophils % % Basophils % % Neutrophils # (1.3-7.7) k/uL Lymphocytes # (1.0-4.8) k/uL Monocytes # (0-1.0) k/uL Eosinophils # (0-0.7) k/uL Basophils # (0-0.2) k/uL Anisocytosis PT (9.0-12.0) sec INR (<1.2) APTT (22.0-30.0) sec Sodium 138 (137-145) mmol/L Potassium 2.2 L* (3.5-5.1) mmol/L Chloride 101 (98-107) mmol/L Carbon Dioxide 30 (22-30) mmol/L Anion Gap 7 mmol/L BUN 7 (7-17) mg/dL Creatinine 1.33 H (0.52-1.04) mg/dL Est GFR (CKD-EPI)AfAm 46 (>60 ml/min/1.73 sqM) Est GFR (CKD-EPI)NonAf 40 (>60 ml/min/1.73 sqM) Glucose 261 H (74-99) mg/dL POC Glucose (mg/dL) (70-110) mg/dL POC Glu Skinning Machine Feeder ID Lactic Ac Sepsis Rflx Plasma Lactic Acid [place] 2.2 H* (0.7-2.0) mmol/L Calcium 7.9 L (8.4-10.2) mg/dL Total Bilirubin 1.5 H (0.2-1.3) mg/dL AST 24 (14-36) U/L ALT 21 (4-34) U/L Alkaline Phosphatase 92 (38-126) U/L Total Protein 5.4 L (6.3-8.2) g/dL Albumin 3.2 L (3.5-5.0) g/dL Amylase 40 (30-110) U/L Lipase 54 (23-300) U/L Urine Color Light Yellow Urine Appearance Clear (Clear) Urine pH 7.0 (5.0-8.0) Ur Specific [place] 1.006 (1.001-1.035) Urine Protein 2+ H (Negative) Urine Glucose (UA) Trace H (Negative) Urine Ketones Negative (Negative) Urine Blood Small H (Negative) Urine Nitrite Negative (Negative) Urine Bilirubin Negative (Negative) Urine Urobilinogen <2.0 (<2.0) mg/dL Ur Leukocyte Esterase Large H (Negative) Urine RBC 4 (0-5) /hpf Urine WBC 34 H (0-5) /hpf Ur Squamous Epith Cells 1 (0-4) /hpf Urine Bacteria Moderate H (None) /hpf Urine Mucus Rare H (None) /hpf Influenza Type A (PCR) (Not Detectd) Influenza Type B (PCR) (Not Detectd) RSV (PCR) (Not Detectd) SARS-CoV-2 (PCR) (Not Detectd) 01/24/23 01/24/23 Range/Units 15:55 16:34 WBC (3.8-10.6) k/uL RBC (3.80-5.40) m/uL Hgb (11.4-16.0) gm/dL Hct (34.0-46.0) % MCV (80.0-100.0) fL MCH (25.0-35.0) pg MCHC (31.0-37.0) g/dL RDW (11.5-15.5) % Plt Count (150-450) k/uL MPV Neutrophils % % Lymphocytes % % Monocytes % % Eosinophils % % Basophils % % Neutrophils # (1.3-7.7) k/uL Lymphocytes # (1.0-4.8) k/uL Monocytes # (0-1.0) k/uL Eosinophils # (0-0.7) k/uL Basophils # (0-0.2) k/uL Anisocytosis PT (9.0-12.0) sec INR (<1.2) APTT (22.0-30.0) sec Sodium (137-145) mmol/L Potassium (3.5-5.1) mmol/L Chloride (98-107) mmol/L Carbon Dioxide (22-30) mmol/L Anion Gap mmol/L BUN (7-17) mg/dL Creatinine (0.52-1.04) mg/dL Est GFR (CKD-EPI)AfAm (>60 ml/min/1.73 sqM) Est GFR (CKD-EPI)NonAf (>60 ml/min/1.73 sqM) Glucose (74-99) mg/dL POC Glucose (mg/dL) (70-110) mg/dL POC Glu Skinning Machine Feeder ID Lactic Ac Sepsis Rflx Y Plasma Lactic Acid [place] (0.7-2.0) mmol/L Calcium (8.4-10.2) mg/dL Total Bilirubin (0.2-1.3) mg/dL AST (14-36) U/L ALT (4-34) U/L Alkaline Phosphatase (38-126) U/L Total Protein (6.3-8.2) g/dL Albumin (3.5-5.0) g/dL Amylase (30-110) U/L Lipase (23-300) U/L Urine Color Urine Appearance (Clear) Urine pH (5.0-8.0) Ur Specific [place] (1.001-1.035) Urine Protein (Negative) Urine Glucose (UA) (Negative) Urine Ketones (Negative) Urine Blood (Negative) Urine Nitrite (Negative) Urine Bilirubin (Negative) Urine Urobilinogen (<2.0) mg/dL Ur Leukocyte Esterase (Negative) Urine RBC (0-5) /hpf Urine WBC (0-5) /hpf Ur Squamous Epith Cells (0-4) /hpf Urine Bacteria (None) /hpf Urine Mucus (None) /hpf Influenza Type A (PCR) Not Detected (Not Detectd) Influenza Type B (PCR) Not Detected (Not Detectd) RSV (PCR) Not Detected (Not Detectd) SARS-CoV-2 (PCR) Not Detected (Not Detectd) - EKG Data -: EKG Interpreted by Me EKG Comments: 12-lead Electrocardiogram Interpretation Note EKG was reviewed and interpreted by myself. 12-lead ECG performed at 1803 is interpreted by me as revealing normal sinus rhythm at a rate of 55 beats per minute. [place] is normal. QRS durations 161 ms, QTc is 494 ms, chronic left b undle branch block present.. There were no acute ST or T wave abnormalities to suggest myocardial ischemia or injury. Nonspecific changes present. R wave progression across the precordium was satisfactory. By my interpretation this EKG is non-diagnostic for acute ischemia. Disposition Clinical Impression: UTI (urinary tract infection), Hypokalemia, Hypomagnesemia, Dehydration, Nausea and vomiting Disposition: ADMITTED IP TO THIS HOSP Condition: Stable Time of Disposition: 19:25
[2023-01-24] MEDS: ONDANSETRON 4 MG/2 ML VIAL IVP PRN (20:42)
--- NOTE | 2023-01-25 00:03 | P.HPIM ---
History of Present Illness H&P Date: 01/24/23 The patient is a 72-year-old with a PMH of systolic CHF with EF 40-45%, type II DM, hypertension, and hyperlipidemia who presents to the emergency room with complaints of nausea and vomiting. The patient reports that she has been experiencing persistent nausea and vomiting with subsequent inability to tolerate most solid food over the past 3-4 weeks. She denied any prior history of such symptoms and is unaware of any specific triggers. She also reports mild diffuse abdominal discomfort, rated at 2 out of 10 which has been intermittent over the past 3 weeks. She denied experiencing urinary complaints, diarrhea or fever. She also denied chest discomfort, shortness of breath, cough. She r eports living by herself and not being able to care for herself and has been missing several of her medication doses. She underwent an extensive elevation in the emergency room. CT abdomen and pelvis without contrast revealed no acute abnormalities. Chest x-ray was unremarkable. Laboratory evaluation revealed a hemoglobin of 9.5, potassium 2.2, glucose 261, creatinine 1.33, lactic acid 2.2, T bili 1.5, UA consistent with UTI. ED documentation reviewed and case discussed with ED provider. Review of systems: Pertinent positives and negatives as discussed in HPI, a complete review of systems was performed and all other systems are negative. Physical examination: Vital signs reviewed General: non toxic, no distress, appears at stated age, obese Derm: no unusual rashes/lesions, warm Head: atraumatic, normocephalic, symmetric Eyes: EOMI, no lid lag, anicteric sclera, pupils equal round reactive to light ENT: Nose and ears atraumatic Neck: No cervical lymphadenopathy, trachea midline, supple Mouth: no lip lesion, mucus membranes moist Cardiovascular: S1S2 reg, no murmur, positive dorsalis pedis pulse bilateral, no edema Lungs: CTA bilateral, no rhonchi, no rales, no accessory muscle use Abdominal: soft, mild diffuse tenderness, no guarding Ext: muscle strength 5 out of 5 in all 4 extremities grossly, no gross muscle atrophy, no contractures, Neuro: CN II-XI grossly intact, no gross focal neuro deficits Psych: Alert, oriented, appropriate affect Assessment: Intractable nausea and vomiting, unclear etiology, possibly secondary to UTI versus developing gastroparesis in setting of poorly controlled DM Hypokalemia Lactic acidosis Poorly controlled type II DM Imaging: CT abdomen and pelvis without contrast revealed no acute abnormalities. Chest x-ray was unremarkable. Data Review: Laboratory evaluation revealed a hemoglobin of 9.5, potassium 2.2, glucose 261, creatinine 1.33, lactic acid 2.2, T bili 1.5, UA borderline. Plan: Start Cftriaxone 1g q24 hr F/u Urine cultures Check A1C IVFs with NS 130 mL/hr Replace potassium and monitor for resolution C/w IVFs and monitor lactic acid levels Clear liquid diet DVT prophylaxis: Heparin subq The patient is admitted with an anticipated greater than 2 midnight stay for evaluation of UTI CODE STATUS: Full Code Discussed with: Patient Anticipated discharge place: Home Past Medical History Past Medical History: Diabetes Mellitus, Fibromyalgia, Osteoarthritis (OA), Thyroid Disorder Additional Past Medical History / Comment(s): kidney stones in past History of Any Multi-Drug Resistant Organisms: None Reported Past Surgical History: Joint Replacement, Orthopedic Surgery, Tonsillectomy Additional Past Surgical History / Comment(s): right athroscopy, back surgery for ruptured disk Past Anesthesia/Blood Transfusion Reactions: No Reported Reaction Past Psychological History: No Psychological Hx Reported Smoking Status: Never smoker Past Alcohol Use History: None Reported Past Drug Use History: None Reported - Past Family History Mother Family Medical History: Cancer Additional Family Medical History / Comment(s): brain stem Father Family Medical History: Diabetes Mellitus Medications and Allergies Home Medications Medication Instructions Recorded Confirmed Type Levothyroxine Sodium [Synthroid] 50 mcg PO DAILY 11/13/14 01/24/23 History Simvastatin [Zocor] 20 mg PO HS 11/13/14 01/24/23 History glipiZIDE XL [Glucotrol XL] 5 mg PO DAILY 11/13/14 01/24/23 History Zolpidem [Ambien] 10 mg PO HS #3 tab 10/26/22 01/24/23 Rx traMADol HCl [Ultram] 50 mg PO BID PRN #6 tab 10/26/22 01/24/23 Rx Omeprazole 20 mg PO DAILY 01/24/23 01/24/23 History lisinopriL [Zestril] 2.5 mg PO DAILY 01/24/23 01/24/23 History metFORMIN HCL ER [Glucophage XR] 500 mg PO DAILY 01/24/23 01/24/23 History Allergies Allergy/AdvReac Type Severity Reaction Status Date / Time No Known Allergies Allergy Verified 01/24/23 19:13 Physical Exam Vitals: Vital Signs Temp Pulse Resp BP Pulse Ox 01/24/23 15:09 97.7 F 66 18 173/74 100 Intake and Output 01/24/23 01/24/23 01/25/23 14:59 22:59 06:59 Other: Weight 104.326 kg Results CBC & Chem 7: 01/24/23 15:55 01/24/23 15:55 Labs: Abnormal Lab Results - Last 24 Hours (Table) 01/24/23 01/24/23 01/24/23 Range/Units 15:20 15:55 15:55 RBC 3.48 L (3.80-5.40) m/uL Hgb 9.5 L (11.4-16.0) gm/dL Hct 28.7 L (34.0-46.0) % RDW 16.2 H (11.5-15.5) % Lymphocytes # 0.8 L (1.0-4.8) k/uL Potassium (3.5-5.1) mmol/L Creatinine (0.52-1.04) mg/dL Glucose (74-99) mg/dL POC Glucose (mg/dL) 297 H (70-110) mg/dL Plasma Lactic Acid [place] (0.7-2.0) mmol/L Calcium (8.4-10.2) mg/dL Magnesium (1.6-2.3) mg/dL Total Bilirubin (0.2-1.3) mg/dL Total Protein (6.3-8.2) g/dL Albumin (3.5-5.0) g/dL Urine Protein 2+ H (Negative) Urine Glucose (UA) Trace H (Negative) Urine Blood Small H (Negative) Ur Leukocyte Esterase Large H (Negative) Urine WBC 34 H (0-5) /hpf Urine Bacteria Moderate H (None) /hpf Urine Mucus Rare H (None) /hpf 01/24/23 01/24/23 01/24/23 Range/Units 15:55 15:55 20:33 RBC (3.80-5.40) m/uL Hgb (11.4-16.0) gm/dL Hct (34.0-46.0) % RDW (11.5-15.5) % Lymphocytes # (1.0-4.8) k/uL Potassium 2.2 L* (3.5-5.1) mmol/L Creatinine 1.33 H (0.52-1.04) mg/dL Glucose 261 H (74-99) mg/dL POC Glucose (mg/dL) (70-110) mg/dL Plasma Lactic Acid [place] 2.2 H* (0.7-2.0) mmol/L Calcium 7.9 L (8.4-10.2) mg/dL Magnesium 1.3 L (1.6-2.3) mg/dL Total Bilirubin 1.5 H (0.2-1.3) mg/dL Total Protein 5.4 L (6.3-8.2) g/dL Albumin 3.2 L (3.5-5.0) g/dL Urine Protein (Negative) Urine Glucose (UA) (Negative) Urine Blood (Negative) Ur Leukocyte Esterase (Negative) Urine WBC (0-5) /hpf Urine Bacteria (None) /hpf Urine Mucus (None) /hpf
[2023-01-25] MEDS: POTASSIUM CHLORIDE 10 MEQ in WATER FOR INJECTION 1 100ML.BAG IVPB SCH ×5 (00:12→09:31)
[2023-01-25] MEDS: MAGNESIUM SULFATE-D5W PMX 1 GM in DEXTROSE/WATER 1 100ML.BAG IVPB SCH ×4 (03:33→10:27)
[2023-01-25] MEDS: HEPARIN SODIUM,PORCINE/PF 5,000 UNIT/0.5 ML SYRINGE SQ SCH ×4 (03:34→23:14)
[2023-01-25 04:41] LABS: Anisocytosis Slight; Basophils % (A) 0 %; Eosinophils # (A) 0.1 k/uL (0-0.7); Eosinophils % (A) 2 %; HCT 28.2 % (34.0-46.0); HGB 9.1 gm/dL (11.4-16.0); Lymphocytes # (A) 1.1 k/uL (1.0-4.8); Lymphocytes % (A) 16 %; MCH 27.3 pg (25.0-35.0); MCHC 32.3 g/dL (31.0-37.0); MCV 84.5 fL (80.0-100.0); Mean Platelet Volume 8.3; Monocytes # (A) 0.3 k/uL (0-1.0); Monocytes % (A) 5 %; Neutrophils % (A) 76 %; Platelet Count 144 k/uL (150-450); RBC 3.34 m/uL (3.80-5.40); RDW 16.5 % (11.5-15.5); WBC 6.6 k/uL (3.8-10.6)
[2023-01-25 04:52] LABS: Calcium 7.4 mg/dL (8.4-10.2)
[2023-01-25 05:19] LABS: Potassium 2.1 mmol/L (3.5-5.1)
[2023-01-25] MEDS: POTASSIUM CHLORIDE ER 20 MEQ TAB.ER PO SCH ×4 (06:07→20:07)
[2023-01-25 07:10] LABS: Calcium 7.5 mg/dL (8.4-10.2); Magnesium 1.9 mg/dL (1.6-2.3)
[2023-01-25 07:40] LABS: Potassium 2.1 mmol/L (3.5-5.1)
[2023-01-25] MEDS ORDERED: DEXTROSE 50% SYRINGE 50 ML IVP PRN ×2 (07:48)
[2023-01-25] MEDS: PANTOPRAZOLE 40 MG TABLET PO SCH (08:31)
[2023-01-25] MEDS: LEVOTHYROXINE 50 MCG TAB PO SCH (08:31)
[2023-01-25] MEDS ORDERED: PANTOPRAZOLE 40 MG/10 ML VIAL IV SCH (09:00)
[2023-01-25] MEDS: ONDANSETRON 4 MG/2 ML VIAL IVP PRN ×2 (11:13→20:05)
[2023-01-25 11:43] LABS: Glucose,Whole Blood 192 mg/dL (70-110)
[2023-01-25] MEDS: INSULIN ASPART (NovoLOG) 100 UNIT/ML VIAL SQ SCH ×3 (12:00→20:10)
[2023-01-25] MEDS: SPIRONOLACTONE 25 MG TAB PO SCH (15:36)
[2023-01-25] MEDS: lisinopriL 20 MG TAB PO SCH (15:36)
--- NOTE | 2023-01-25 15:39 | P.PN ---
Subjective Progress Note Date: 01/25/23 Hospital Course: 72-year-old with a PMH of systolic CHF with EF 40-45%, type II DM, hypertension, and hyperlipidemia who presents to the emergency room with complaints of nausea and vomiting. CT abdomen and pelvis without contrast revealed no acute abnormalities. Chest x-ray was unremarkable. Laboratory evaluation revealed a hemoglobin of 9.5, potassium 2.2, glucose 261, creatinine 1.33, lactic acid 2.2, T bili 1.5, UA consistent with UTI. Patient admitted for severe hypokalemia and persistent nausea and vomiting. Subjective: Patient seen and examined at bedside. No acute events overnight. Denies any significant nausea at the moment. Denies any vomiting. Has very minimal abdominal pain. Denies any diarrhea or constipation. Has been urinating frequently. Pertinent positives and negatives as discussed above, a complete review of systems was performed and all other systems are negative. Vitals Signs Reviewed. General: non toxic, no distress, appears at stated age, obese Derm: no unusual rashes/lesions, warm Head: atraumatic, normocephalic, symmetric Eyes: EOMI, no lid lag, anicteric sclera, pupils equal round reactive to light ENT: Nose and ears atraumatic Neck: No cervical lymphadenopathy, trachea midline, supple Mouth: no lip lesion, mucus membranes moist Cardiovascular: S1S2 reg, no murmur, positive dorsalis pedis pulse bilateral, no edema Lungs: CTA bilateral, no rhonchi, no rales, no accessory muscle use Abdominal: soft, mild diffuse tenderness, no guarding Ext: muscle strength 5 out of 5 in all 4 extremities grossly, no gross muscle atrophy, no contractures, Neuro: CN II-XI grossly intact, no gross focal neuro deficits Psych: Alert, oriented, appropriate affect Data Reviewed Today: Pertinent Labs: Hemoglobin 9.1, platelet 144, potassium 2.1, creatinine 1.28, magnesium 1.9 Imaging: none today Assessment and Plan: Active: Severe Hypokalemia UTI Intractable nausea and vomiting, unclear etiology, possibly diabetic gastroparesis Type 2, DM A1c 6.9 Malignant hypertension -Was given oral and IV potassium chloride -Repeat BMP and magnesium ordered -Continue ceftriaxone 1 g daily -Zofran as needed -Sliding scale insulin -Lisinopril increased to 20 mg, spironolactone 25 mg added -Currently on clear liquid diet, advance as tolerated Resolved: Lactic acidosis Hypomagnesemia Chronic: Dyslipidemia GERD DVT ppx: Subcu heparin Code status: DO NOT RESUSCITATE DO NOT INTUBATE Anticipated discharge place: Pending clinical course Anticipated discharge time: Pending clinical course Objective - Vital Signs Vital signs: Vital Signs Temp 97.5 F L 01/25/23 12:00 Pulse 65 01/25/23 12:00 Resp 18 01/25/23 12:00 BP 186/79 01/25/23 12:00 Pulse Ox 99 01/25/23 12:00 FiO2 Intake & Output 01/24/23 01/25/23 01/25/23 18:59 06:59 18:59 Intake Total 240 Balance 240 Weight 104.326 kg 104.326 kg Intake: Oral 240 Other: Voiding Method External Catheter # Voids 2 1 - Labs CBC & Chem 7: 01/25/23 03:47 01/25/23 06:44 Labs: Abnormal Lab Results - Last 24 Hours (Table) 01/24/23 01/24/23 01/24/23 Range/Units 15:55 15:55 15:55 RBC 3.48 L (3.80-5.40) m/uL Hgb 9.5 L (11.4-16.0) gm/dL Hct 28.7 L (34.0-46.0) % RDW 16.2 H (11.5-15.5) % Plt Count (150-450) k/uL Lymphocytes # 0.8 L (1.0-4.8) k/uL Potassium 2.2 L* (3.5-5.1) mmol/L BUN (7-17) mg/dL Creatinine 1.33 H (0.52-1.04) mg/dL Glucose 261 H (74-99) mg/dL POC Glucose (mg/dL) (70-110) mg/dL Hemoglobin A1c (0.0-6.0) % Plasma Lactic Acid [place] (0.7-2.0) mmol/L Calcium 7.9 L (8.4-10.2) mg/dL Magnesium (1.6-2.3) mg/dL Total Bilirubin 1.5 H (0.2-1.3) mg/dL Total Protein 5.4 L (6.3-8.2) g/dL Albumin 3.2 L (3.5-5.0) g/dL Urine Protein 2+ H (Negative) Urine Glucose (UA) Trace H (Negative) Urine Blood Small H (Negative) Ur Leukocyte Esterase Large H (Negative) Urine WBC 34 H (0-5) /hpf Urine Bacteria Moderate H (None) /hpf Urine Mucus Rare H (None) /hpf 01/24/23 01/24/23 01/25/23 Range/Units 15:55 20:33 03:47 RBC 3.34 L (3.80-5.40) m/uL Hgb 9.1 L (11.4-16.0) gm/dL Hct 28.2 L (34.0-46.0) % RDW 16.5 H (11.5-15.5) % Plt Count 144 L (150-450) k/uL Lymphocytes # (1.0-4.8) k/uL Potassium (3.5-5.1) mmol/L BUN (7-17) mg/dL Creatinine (0.52-1.04) mg/dL Glucose (74-99) mg/dL POC Glucose (mg/dL) (70-110) mg/dL Hemoglobin A1c (0.0-6.0) % Plasma Lactic Acid [place] 2.2 H* (0.7-2.0) mmol/L Calcium (8.4-10.2) mg/dL Magnesium 1.3 L (1.6-2.3) mg/dL Total Bilirubin (0.2-1.3) mg/dL Total Protein (6.3-8.2) g/dL Albumin (3.5-5.0) g/dL Urine Protein (Negative) Urine Glucose (UA) (Negative) Urine Blood (Negative) Ur Leukocyte Esterase (Negative) Urine WBC (0-5) /hpf Urine Bacteria (None) /hpf Urine Mucus (None) /hpf 01/25/23 01/25/23 01/25/23 Range/Units 03:47 03:47 06:44 RBC (3.80-5.40) m/uL Hgb (11.4-16.0) gm/dL Hct (34.0-46.0) % RDW (11.5-15.5) % Plt Count (150-450) k/uL Lymphocytes # (1.0-4.8) k/uL Potassium 2.1 L* 2.1 L* (3.5-5.1) mmol/L BUN 6 L (7-17) mg/dL Creatinine 1.33 H 1.28 H (0.52-1.04) mg/dL Glucose 109 H 147 H (74-99) mg/dL POC Glucose (mg/dL) (70-110) mg/dL Hemoglobin A1c 6.9 H (0.0-6.0) % Plasma Lactic Acid [place] (0.7-2.0) mmol/L Calcium 7.4 L 7.5 L (8.4-10.2) mg/dL Magnesium (1.6-2.3) mg/dL Total Bilirubin (0.2-1.3) mg/dL Total Protein (6.3-8.2) g/dL Albumin (3.5-5.0) g/dL Urine Protein (Negative) Urine Glucose (UA) (Negative) Urine Blood (Negative) Ur Leukocyte Esterase (Negative) Urine WBC (0-5) /hpf Urine Bacteria (None) /hpf Urine Mucus (None) /hpf 01/25/23 Range/Units 11:27 RBC (3.80-5.40) m/uL Hgb (11.4-16.0) gm/dL Hct (34.0-46.0) % RDW (11.5-15.5) % Plt Count (150-450) k/uL Lymphocytes # (1.0-4.8) k/uL Potassium (3.5-5.1) mmol/L BUN (7-17) mg/dL Creatinine (0.52-1.04) mg/dL Glucose (74-99) mg/dL POC Glucose (mg/dL) 192 H (70-110) mg/dL Hemoglobin A1c (0.0-6.0) % Plasma Lactic Acid [place] (0.7-2.0) mmol/L Calcium (8.4-10.2) mg/dL Magnesium (1.6-2.3) mg/dL Total Bilirubin (0.2-1.3) mg/dL Total Protein (6.3-8.2) g/dL Albumin (3.5-5.0) g/dL Urine Protein (Negative) Urine Glucose (UA) (Negative) Urine Blood (Negative) Ur Leukocyte Esterase (Negative) Urine WBC (0-5) /hpf Urine Bacteria (None) /hpf Urine Mucus (None) /hpf
[2023-01-25 16:52] LABS: Calcium 7.7 mg/dL (8.4-10.2); Magnesium 2.2 mg/dL (1.6-2.3)
[2023-01-25 16:57] LABS: Glucose,Whole Blood 154 mg/dL (70-110)
[2023-01-25 17:31] LABS: Potassium 2.4 mmol/L (3.5-5.1)
[2023-01-25 19:59] LABS: Glucose,Whole Blood 151 mg/dL (70-110)
[2023-01-25] MEDS: ZOLPIDEM 5 MG TAB PO SCH (20:06)
[2023-01-25] MEDS: ATORVASTATIN 10 MG TAB PO SCH (20:07)
[2023-01-26 00:18] LABS: Potassium 2.7 mmol/L (3.5-5.1)
[2023-01-26] MEDS: POTASSIUM CHLORIDE ER 20 MEQ TAB.ER PO SCH ×4 (00:36→06:02)
[2023-01-26] MEDS: POTASSIUM CHLORIDE 10 MEQ in WATER FOR INJECTION 1 100ML.BAG IVPB SCH (00:39)
[2023-01-26] MEDS ORDERED: hydrALAZINE HCL 25 MG TAB PO STA (03:42)
[2023-01-26 05:46] LABS: Glucose,Whole Blood 170 mg/dL (70-110)
[2023-01-26] MEDS: INSULIN ASPART (NovoLOG) 100 UNIT/ML VIAL SQ SCH ×4 (06:02→20:22)
[2023-01-26] MEDS: LEVOTHYROXINE 50 MCG TAB PO SCH (06:02)
[2023-01-26 08:57] LABS: Anisocytosis Slight; Basophils % (A) 0 %; Eosinophils # (A) 0.1 k/uL (0-0.7); Eosinophils % (A) 1 %; HCT 29.3 % (34.0-46.0); HGB 9.5 gm/dL (11.4-16.0); Hypochromasia Slight; Lymphocytes # (A) 0.8 k/uL (1.0-4.8); Lymphocytes % (A) 9 %; MCH 28.1 pg (25.0-35.0); MCHC 32.4 g/dL (31.0-37.0); MCV 86.7 fL (80.0-100.0); Mean Platelet Volume 8.5; Monocytes # (A) 0.4 k/uL (0-1.0); Monocytes % (A) 5 %; Neutrophils # (A) 7.4 k/uL (1.3-7.7); Neutrophils % (A) 84 %; Platelet Count 149 k/uL (150-450); RBC 3.38 m/uL (3.80-5.40); RDW 16.5 % (11.5-15.5); WBC 8.7 k/uL (3.8-10.6)
[2023-01-26] MEDS: lisinopriL 20 MG TAB PO SCH (09:16)
[2023-01-26] MEDS: PANTOPRAZOLE 40 MG TABLET PO SCH (09:16)
[2023-01-26] MEDS: SPIRONOLACTONE 25 MG TAB PO SCH (09:16)
[2023-01-26] MEDS: HEPARIN SODIUM,PORCINE/PF 5,000 UNIT/0.5 ML SYRINGE SQ SCH ×3 (09:16→23:17)
[2023-01-26 09:38] LABS: Calcium 8.1 mg/dL (8.4-10.2); Potassium 3.7 mmol/L (3.5-5.1)
--- NOTE | 2023-01-26 11:16 | P.NPCON ---
History of Present Illness - Reason for Consult hypokalemia - History of Present Illness Patient is a 72-year-old female with history of cardiomyopathy EF of 40-45%, type 2 diabetes, hypertension, hyperlipidemia. Patient is admitted to the hospital with complaints of nausea and vomiting which had been going on for about 3-4 weeks prior to admission. Patient denies any diarrhea. Patient also had abdominal discomfort. Potassium was 2.2. No prior h/o hypokalemia. Blood pressure was significantly elevated early this morning with systolic in the 238 and 223 range. Blood pressures on previous visits have not been that elevated. Patient was maintained on very low dose of lisinopril at 2.5 mg daily prior to admission. Patient received a dose of Aldactone yesterday. Potassium has been replaced aggressively but remains low at 2.7 milliequivalents per liter yesterday. Mag was 1.3 and has been replaced No history of use of diuretics Review of Systems As per HPI Past Medical History Past Medical History: Diabetes Mellitus, Fibromyalgia, Osteoarthritis (OA), Thyroid Disorder Additional Past Medical History / Comment(s): kidney stones in past History of Any Multi-Drug Resistant Organisms: None Reported Past Surgical History: Joint Replacement, Orthopedic Surgery, Tonsillectomy Additional Past Surgical History / Comment(s): right athroscopy, back surgery for ruptured disk Past Anesthesia/Blood Transfusion Reactions: No Reported Reaction Past Psychological History: No Psychological Hx Reported Smoking Status: Never smoker Past Alcohol Use History: None Reported Past Drug Use History: None Reported - Past Family History Mother Family Medical History: Cancer Additional Family Medical History / Comment(s): brain stem Father Family Medical History: Diabetes Mellitus Medications and Allergies Home Medications Medication Instructions Recorded Confirmed Type Levothyroxine Sodium [Synthroid] 50 mcg PO DAILY 11/13/14 01/24/23 History Simvastatin [Zocor] 20 mg PO HS 11/13/14 01/24/23 History glipiZIDE XL [Glucotrol XL] 5 mg PO DAILY 11/13/14 01/24/23 History Zolpidem [Ambien] 10 mg PO HS #3 tab 10/26/22 01/24/23 Rx traMADol HCl [Ultram] 50 mg PO BID PRN #6 tab 10/26/22 01/24/23 Rx Omeprazole 20 mg PO DAILY 01/24/23 01/24/23 History lisinopriL [Zestril] 2.5 mg PO DAILY 01/24/23 01/24/23 History metFORMIN HCL ER [Glucophage XR] 500 mg PO DAILY 01/24/23 01/24/23 History Allergies Allergy/AdvReac Type Severity Reaction Status Date / Time No Known Allergies Allergy Verified 01/24/23 19:13 Physical Exam Vitals: Vital Signs Temp Pulse Resp BP BP Pulse Ox 01/26/23 08:00 97.5 F L 92 20 162/82 100 01/26/23 05:30 179/98 01/26/23 04:00 97.4 F L 103 H 22 198/97 96 01/26/23 03:25 223/86 01/26/23 03:20 238/112 01/26/23 02:00 85 16 01/25/23 23:29 85 16 166/85 94 L 01/25/23 20:00 97.9 F 68 20 179/72 98 01/25/23 16:00 97.9 F 66 18 184/74 100 01/25/23 12:00 97.5 F L 65 18 181/81 186/79 99 Intake and Output 01/25/23 01/26/23 01/26/23 22:59 06:59 14:59 Intake Total 240 450 540 Output Total 200 Balance 40 450 540 Intake: Oral 240 450 540 Output: Urine 200 Other: Voiding Method External Catheter External Catheter # Bowel Movements 1 2 Patient is awake, comfortable, alert oriented 3 No acute distress Examination of the heart S1 and S2 Examination of the lungs bilateral breath sounds are heard Abdomen is soft nontender Examination of the lower extremities shows edema 1+ bilaterally [employer] exam grossly intact Results - Lab Results Most recent lab results Calcium 8.1 mg/dL (8.4-10.2) L 01/26/23 08:08 Magnesium 2.0 mg/dL (1.6-2.3) 01/26/23 08:08 01/26/23 08:08 01/26/23 08:08 Assessment and Plan Assessment: 1. Hypokalemia most likely associated with GI fluid loss with nausea and vomiting. Need to rule out renal potassium wasting and conditions of hyper aldosteronism whether secondary or primary. Given the significantly elevated blood pressure yesterday patient was started on Aldactone. Serum aldosterone and renin levels will be sent out, preferably from blood sample from yesterday. Random urine potassium will also be ordered and is expected to be low in cases of GI loss of potassium. Magnesium was initially low and has been replaced. TSH will also be ordered to rule out underlying hyperthyroid state which can be associated with hypokalemia. 2. Hypertension with significantly uncontrolled blood pressures with consideration for underlying hyperaldosteronism. Consider other secondary causes of hypertension including renal artery stenosis and hyperthyroid state. Of note is that blood pressure was fairly well controlled prior to admission on a very low dose of lisinopril. 3. Hypomagnesemia status post replacement 4. Chronic kidney disease NKF stage III secondary to diabetic kidney disease with baseline creatinine about 1.5-1.3 mg/dL with an episode of acute kidney injury in October 2022 with creatinine at 2.2 at that time. Plan: May continue with Aldactone Continue aggressive replacement of potassium Check serum aldosterone and renin levels preferably from that sample from yesterday. Check random urine potassium Continue with Mekhi inhibitors Check TSH levels Thank you for the consultation. We will continue to follow the patient with you during her hospitalization
[2023-01-26 11:36] LABS: Glucose,Whole Blood 172 mg/dL (70-110)
--- NOTE | 2023-01-26 12:09 | P.PN ---
Subjective Progress Note Date: 01/26/23 Hospital Course: 72-year-old with a PMH of systolic CHF with EF 40-45%, type II DM, hypertension, and hyperlipidemia who presents to the emergency room with complaints of nausea and vomiting. CT abdomen and pelvis without contrast revealed no acute abnormalities. Chest x-ray was unremarkable. Laboratory evaluation revealed a hemoglobin of 9.5, potassium 2.2, glucose 261, creatinine 1.33, lactic acid 2.2, T bili 1.5, UA consistent with UTI. Patient admitted for severe hypokalemia and persistent nausea and vomiting. Also has malignant hypertension. Nephrology is consulted. Subjective: Patient seen and examined at bedside. No acute events overnight. Denies any significant nausea at the moment. Denies any vomiting. Denies any diarrhea or constipation. Has been urinating frequently. Pertinent positives and negatives as discussed above, a complete review of systems was performed and all other systems are negative. Vitals Signs Reviewed. General: non toxic, no distress, appears at stated age, obese Derm: no unusual rashes/lesions, warm Head: atraumatic, normocephalic, symmetric Eyes: EOMI, no lid lag, anicteric sclera, pupils equal round reactive to light ENT: Nose and ears atraumatic Neck: No cervical lymphadenopathy, trachea midline, supple Mouth: no lip lesion, mucus membranes moist Cardiovascular: S1S2 reg, no murmur, positive dorsalis pedis pulse bilateral, no edema Lungs: CTA bilateral, no rhonchi, no rales, no accessory muscle use Abdominal: soft, mild diffuse tenderness, no guarding Ext: muscle strength 5 out of 5 in all 4 extremities grossly, no gross muscle atrophy, no contractures, Neuro: CN II-XI grossly intact, no gross focal neuro deficits Psych: Alert, oriented, appropriate affect Data Reviewed Today: Pertinent Labs: Hemoglobin 9.5, platelet 149, potassium 2.7, creatinine 1.43, blood sugars range between 121-184 Imaging: none today Assessment and Plan: Active: Severe Hypokalemia, resolved Malignant hypertension UTI Intractable nausea and vomiting, unclear etiology, possibly diabetic gastroparesis Type 2, DM A1c 6.9 -Nephrology was consulted, personally discuss management with nephrology, will need to rule out if any gastric or renal wasting of potassium, also hyperaldosteronism workup pending -Repeat BMP and magnesium tomorrow -Continue ceftriaxone 1 g daily -Zofran as needed -Sliding scale insulin, no changes -Lisinopril 20 mg, spironolactone 25 mg -Currently on clear liquid diet, advance as tolerated Resolved: Lactic acidosis Hypomagnesemia Chronic: Dyslipidemia GERD DVT ppx: Subcu heparin Code status: DO NOT RESUSCITATE DO NOT INTUBATE Anticipated discharge place: Pending clinical course Anticipated discharge time: Pending clinical course Objective - Vital Signs Vital signs: Vital Signs Temp 97.5 F L 01/26/23 08:00 Pulse 92 01/26/23 08:00 Resp 20 01/26/23 08:00 BP 162/82 01/26/23 08:00 Pulse Ox 100 01/26/23 08:00 FiO2 Intake & Output 01/25/23 01/26/23 01/26/23 18:59 06:59 18:59 Intake Total 480 450 540 Output Total 200 Balance 280 450 540 Weight 104.326 kg Intake: Oral 480 450 540 Output: Urine 200 Other: Voiding Method External Catheter External Catheter # Voids 1 # Bowel Movements 1 2 - Labs CBC & Chem 7: 01/26/23 08:08 01/26/23 08:08 Labs: Abnormal Lab Results - Last 24 Hours (Table) 01/25/23 01/25/23 01/25/23 Range/Units 06:44 15:30 16:45 RBC (3.80-5.40) m/uL Hgb (11.4-16.0) gm/dL Hct (34.0-46.0) % RDW (11.5-15.5) % Plt Count (150-450) k/uL Lymphocytes # (1.0-4.8) k/uL Potassium 2.1 L* 2.4 L* (3.5-5.1) mmol/L BUN 6 L 6 L (7-17) mg/dL Creatinine 1.28 H 1.30 H (0.52-1.04) mg/dL Glucose 147 H 152 H (74-99) mg/dL POC Glucose (mg/dL) 154 H (70-110) mg/dL Calcium 7.5 L 7.7 L (8.4-10.2) mg/dL 01/25/23 01/25/23 01/26/23 Range/Units 19:57 23:05 05:45 RBC (3.80-5.40) m/uL Hgb (11.4-16.0) gm/dL Hct (34.0-46.0) % RDW (11.5-15.5) % Plt Count (150-450) k/uL Lymphocytes # (1.0-4.8) k/uL Potassium 2.7 L* (3.5-5.1) mmol/L BUN 6 L (7-17) mg/dL Creatinine 1.31 H (0.52-1.04) mg/dL Glucose 121 H (74-99) mg/dL POC Glucose (mg/dL) 151 H 170 H (70-110) mg/dL Calcium 8.0 L (8.4-10.2) mg/dL 01/26/23 01/26/23 01/26/23 Range/Units 08:08 08:08 11:33 RBC 3.38 L (3.80-5.40) m/uL Hgb 9.5 L (11.4-16.0) gm/dL Hct 29.3 L (34.0-46.0) % RDW 16.5 H (11.5-15.5) % Plt Count 149 L (150-450) k/uL Lymphocytes # 0.8 L (1.0-4.8) k/uL Potassium (3.5-5.1) mmol/L BUN 6 L (7-17) mg/dL Creatinine 1.43 H (0.52-1.04) mg/dL Glucose 184 H (74-99) mg/dL POC Glucose (mg/dL) 172 H (70-110) mg/dL Calcium 8.1 L (8.4-10.2) mg/dL
[2023-01-26] MEDS ORDERED: SPIRONOLACTONE 25 MG TAB PO STA (12:54)
[2023-01-26 16:40] LABS: Glucose,Whole Blood 199 mg/dL (70-110)
[2023-01-26 20:19] LABS: Glucose,Whole Blood 205 mg/dL (70-110)
[2023-01-26] MEDS: ZOLPIDEM 5 MG TAB PO SCH (20:22)
[2023-01-26] MEDS: ATORVASTATIN 10 MG TAB PO SCH (20:22)
[2023-01-27 06:06] LABS: Glucose,Whole Blood 180 mg/dL (70-110)
[2023-01-27] MEDS: LEVOTHYROXINE 50 MCG TAB PO SCH (06:12)
[2023-01-27] MEDS: INSULIN ASPART (NovoLOG) 100 UNIT/ML VIAL SQ SCH ×4 (06:12→20:02)
[2023-01-27 08:50] LABS: Calcium 8.3 mg/dL (8.4-10.2); Magnesium 1.8 mg/dL (1.6-2.3); Potassium 2.9 mmol/L (3.5-5.1)
[2023-01-27] MEDS ORDERED: Potassium Replacement Protocol 1 EACH MISC MISCELLANE PRN (09:12)
[2023-01-27] MEDS ORDERED: POTASSIUM CHLORIDE ER 20 MEQ TAB.ER PO STA (09:13)
[2023-01-27] MEDS: HEPARIN SODIUM,PORCINE/PF 5,000 UNIT/0.5 ML SYRINGE SQ SCH ×2 (09:27→16:22)
[2023-01-27] MEDS: PANTOPRAZOLE 40 MG TABLET PO SCH (09:30)
[2023-01-27] MEDS: SPIRONOLACTONE 25 MG TAB PO SCH (09:31)
[2023-01-27] MEDS: MAGNESIUM SULFATE-D5W PMX 1 GM in DEXTROSE/WATER 1 100ML.BAG IVPB SCH ×3 (09:31→12:58)
[2023-01-27] MEDS: lisinopriL 20 MG TAB PO SCH (09:31)
--- NOTE | 2023-01-27 10:11 | P.PN ---
Subjective Patient is seen for follow-up for hypokalemia. Patient was admitted with history of nausea and vomiting. Left pressure was significantly elevated on admission along with severe hypokalemia and hypomagnesemia. There is concern for underlying hyperaldosteronism whether primary or secondary. Random urine potassium has not been sent out yet. Serum aldosterone and renin levels were ordered yesterday. Nausea and vomiting has improved. Patient is maintained on MEKHI inhibitor's the dose of which was increased this admission. Aldactone was also increased to 50 mg. No significant complaints today. Patient is complaining of some weakness. No vomiting. Blood pressure is slightly better. Objective - Vital Signs Vital signs: Vital Signs Temp 97.5 F L 01/27/23 08:00 Pulse 98 01/27/23 08:00 Resp 16 01/27/23 08:00 BP 164/78 01/27/23 08:00 Pulse Ox 96 01/27/23 08:00 FiO2 Intake & Output 01/26/23 01/27/23 01/27/23 18:59 06:59 18:59 Intake Total 780 180 Output Total 350 300 Balance 430 -120 Intake: Oral 780 180 Output: Urine 350 300 Other: Voiding Method External Catheter External Catheter # Voids 2 # Bowel Movements 2 - Exam Patient is awake, comfortable no acute distress Examination of the heart S1 and S2 Examination lungs bilateral breath sounds are heard Abdomen is soft nontender Examination of lower extremities shows trace edema bilaterally [employer] exam grossly intact - Labs CBC & Chem 7: 01/26/23 08:08 01/27/23 07:59 Labs: Abnormal Lab Results - Last 24 Hours (Table) 01/25/23 01/26/23 01/26/23 Range/Units 06:44 08:08 11:33 Potassium 2.1 L* (3.5-5.1) mmol/L BUN 6 L (7-17) mg/dL Creatinine 1.28 H (0.52-1.04) mg/dL Glucose 147 H (74-99) mg/dL POC Glucose (mg/dL) 172 H (70-110) mg/dL Hemoglobin A1c 6.8 H (0.0-6.0) % Calcium 7.5 L (8.4-10.2) mg/dL 01/26/23 01/26/23 01/27/23 Range/Units 16:38 20:18 06:04 Potassium (3.5-5.1) mmol/L BUN (7-17) mg/dL Creatinine (0.52-1.04) mg/dL Glucose (74-99) mg/dL POC Glucose (mg/dL) 199 H 205 H 180 H (70-110) mg/dL Hemoglobin A1c (0.0-6.0) % Calcium (8.4-10.2) mg/dL 01/27/23 Range/Units 07:59 Potassium 2.9 L (3.5-5.1) mmol/L BUN 6 L (7-17) mg/dL Creatinine 1.51 H (0.52-1.04) mg/dL Glucose 135 H (74-99) mg/dL POC Glucose (mg/dL) (70-110) mg/dL Hemoglobin A1c (0.0-6.0) % Calcium 8.3 L (8.4-10.2) mg/dL Assessment and Plan Assessment: 1. Hypokalemia most likely associated with GI fluid loss with nausea and vomiting. Need to rule out renal potassium wasting and conditions of hyper aldosteronism whether secondary or primary. Given the significantly elevated blood pressure yesterday patient was started on Aldactone. Serum aldosterone and renin levels were sent out yesterday. Random urine potassium was ordered and is expected to be low in cases of GI loss of potassium. Magnesium was initially low and has been replaced. TSH will also be ordered to rule out underlying hyperthyroid state which can be associated with hypokalemia. 2. Hypertension with significantly uncontrolled blood pressures with consideration for underlying hyperaldosteronism. Consider other secondary causes of hypertension including renal artery stenosis and hyperthyroid state. Of note is that blood pressure was fairly well controlled prior to admission on a very low dose of lisinopril. 3. Hypomagnesemia status post replacement 4. Chronic kidney disease NKF stage III secondary to diabetic kidney disease with baseline creatinine about 1.5-1.3 mg/dL with an episode of acute kidney injury in October 2022 with creatinine at 2.2 at that time. Plan: Agree with increasing dose of Aldactone Continue aggressive replacement of potassium Await results of serum aldosterone and renin Check random urine potassium, urine not collected yet Continue with Mekhi inhibitors Add calcium channel blockers if blood pressure remains uncontrolled Check bladder scan rule out urine retention.
[2023-01-27] MEDS: POTASSIUM CHLORIDE ER 20 MEQ TAB.ER PO SCH ×3 (10:16→16:22)
[2023-01-27 11:25] LABS: Glucose,Whole Blood 158 mg/dL (70-110)
--- NOTE | 2023-01-27 12:34 | P.PN ---
Subjective Progress Note Date: 01/27/23 Hospital Course: 72-year-old with a PMH of systolic CHF with EF 40-45%, type II DM, hypertension, and hyperlipidemia who presents to the emergency room with complaints of nausea and vomiting. CT abdomen and pelvis without contrast revealed no acute abnormalities. Chest x-ray was unremarkable. Laboratory evaluation revealed a hemoglobin of 9.5, potassium 2.2, glucose 261, creatinine 1.33, lactic acid 2.2, T bili 1.5, UA consistent with UTI. Patient admitted for severe hypokalemia and persistent nausea and vomiting. Also has malignant hypertension. Nephrology is consulted. Further workup pending Subjective: Patient seen and examined at bedside. No acute events overnight. Denies any significant nausea at the moment. Denies any vomiting. Denies any diarrhea or constipation, or urinary complaints Pertinent positives and negatives as discussed above, a complete review of systems was performed and all other systems are negative. Vitals Signs Reviewed. General: non toxic, no distress, appears at stated age, obese Derm: no unusual rashes/lesions, warm Head: atraumatic, normocephalic, symmetric Eyes: EOMI, no lid lag, anicteric sclera, pupils equal round reactive to light ENT: Nose and ears atraumatic Neck: No cervical lymphadenopathy, trachea midline, supple Mouth: no lip lesion, mucus membranes moist Cardiovascular: S1S2 reg, no murmur, positive dorsalis pedis pulse bilateral, no edema Lungs: CTA bilateral, no rhonchi, no rales, no accessory muscle use Abdominal: soft, mild diffuse tenderness, no guarding Ext: muscle strength 5 out of 5 in all 4 extremities grossly, no gross muscle atrophy, no contractures, Neuro: CN II-XI grossly intact, no gross focal neuro deficits Psych: Alert, oriented, appropriate affect Data Reviewed Today: Pertinent Labs: Sodium 137, potassium 2.9, creatinine 1.51, magnesium 1.8, TSH 0.794, blood glucose range between 158-205 Imaging: none today Assessment and Plan: Active: Severe Hypokalemia Hypomagnesemia Malignant hypertension UTI Intractable nausea and vomiting, unclear etiology, possibly diabetic gastropare sis Type 2, DM A1c 6.9 -Nephrology note reviewed, pending further workup for hypokalemia and hypert ension -Given oral potassium prior nephrology, also ordered 2 g of magnesium sulfate -Repeat BMP and magnesium tomorrow -Continue ceftriaxone 1 g daily -Zofran as needed -Sliding scale insulin, no changes -Lisinopril 20 mg, spironolactone increased to 50 mg Resolved: Lactic acidosis Chronic: Dyslipidemia GERD DVT ppx: Subcu heparin Code status: DO NOT RESUSCITATE DO NOT INTUBATE Anticipated discharge place: Pending clinical course Anticipated discharge time: Pending clinical course Objective - Vital Signs Vital signs: Vital Signs Temp 97.5 F L 01/27/23 08:00 Pulse 98 01/27/23 08:00 Resp 16 01/27/23 08:00 BP 164/78 01/27/23 08:00 Pulse Ox 96 01/27/23 08:00 FiO2 Intake & Output 01/26/23 01/27/23 01/27/23 18:59 06:59 18:59 Intake Total 780 180 Output Total 350 300 Balance 430 -120 Intake: Oral 780 180 Output: Urine 350 300 Other: Voiding Method External Catheter External Catheter External Catheter # Voids 2 # Bowel Movements 2 - Labs CBC & Chem 7: 01/26/23 08:08 01/27/23 07:59 Labs: Abnormal Lab Results - Last 24 Hours (Table) 01/26/23 01/26/23 01/26/23 Range/Units 08:08 16:38 20:18 Potassium (3.5-5.1) mmol/L BUN (7-17) mg/dL Creatinine (0.52-1.04) mg/dL Glucose (74-99) mg/dL POC Glucose (mg/dL) 199 H 205 H (70-110) mg/dL Hemoglobin A1c 6.8 H (0.0-6.0) % Calcium (8.4-10.2) mg/dL 01/27/23 01/27/23 01/27/23 Range/Units 06:04 07:59 11:23 Potassium 2.9 L (3.5-5.1) mmol/L BUN 6 L (7-17) mg/dL Creatinine 1.51 H (0.52-1.04) mg/dL Glucose 135 H (74-99) mg/dL POC Glucose (mg/dL) 180 H 158 H (70-110) mg/dL Hemoglobin A1c (0.0-6.0) % Calcium 8.3 L (8.4-10.2) mg/dL
[2023-01-27] MEDS: amLODIPine 5 MG TAB PO SCH (16:23)
[2023-01-27] MEDS: hydrALAZINE HCL 50 MG TAB PO SCH ×2 (16:25→20:02)
[2023-01-27 16:39] LABS: Glucose,Whole Blood 231 mg/dL (70-110)
[2023-01-27 19:58] LABS: Glucose,Whole Blood 248 mg/dL (70-110)
[2023-01-27] MEDS: ATORVASTATIN 10 MG TAB PO SCH (20:01)
[2023-01-27] MEDS: ZOLPIDEM 5 MG TAB PO SCH (20:02)
[2023-01-27 20:16] LABS: Magnesium 2.2 mg/dL (1.6-2.3); Potassium 3.7 mmol/L (3.5-5.1)
[2023-01-27] MEDS ORDERED: BENZOCAINE/MENTHOL LOZENG 1 EACH LOZENGE MUCOUS MEM ONE (22:43)
[2023-01-28] MEDS: HEPARIN SODIUM,PORCINE/PF 5,000 UNIT/0.5 ML SYRINGE SQ SCH ×3 (00:52→15:29)
[2023-01-28 06:22] LABS: Glucose,Whole Blood 151 mg/dL (70-110)
[2023-01-28] MEDS: INSULIN ASPART (NovoLOG) 100 UNIT/ML VIAL SQ SCH ×4 (06:22→21:39)
[2023-01-28] MEDS: LEVOTHYROXINE 50 MCG TAB PO SCH (06:23)
[2023-01-28] MEDS: amLODIPine 5 MG TAB PO SCH (08:55)
[2023-01-28] MEDS: PANTOPRAZOLE 40 MG TABLET PO SCH (08:55)
[2023-01-28] MEDS: hydrALAZINE HCL 50 MG TAB PO SCH ×2 (08:55→21:40)
[2023-01-28] MEDS: lisinopriL 20 MG TAB PO SCH (08:55)
[2023-01-28] MEDS: SPIRONOLACTONE 25 MG TAB PO SCH (08:55)
[2023-01-28 09:24] LABS: Calcium 8.3 mg/dL (8.4-10.2); Magnesium 2.1 mg/dL (1.6-2.3); Potassium 3.9 mmol/L (3.5-5.1)
--- NOTE | 2023-01-28 09:30 | P.PN ---
Subjective Progress Note Date: 01/28/23 Principal diagnosis: This 72-year-old female seen in consultation because of hypokalemia. Because of high blood pressure hyperaldosteronism was suspected, renin level is less than 2.1, aldosterone level is less than 3 dated 01/26/2023. She was started after these labs were drawn on Aldactone. Blood pressure is 171/76 this morning with a heart rate of 89. She is not feeling well but unable to be specific. She is on room air looks slightly short of breath but her O2 saturation of 97%. Denies any nausea vomiting headache fever chills cough but does have a cough. No abdominal pain no nausea vomiting. Poor appetite. Objective - Vital Signs Vital signs: Vital Signs Temp 98.3 F 01/28/23 03:08 Pulse 89 01/28/23 03:08 Resp 20 01/28/23 03:08 BP 171/76 01/28/23 03:08 Pulse Ox 96 01/28/23 03:08 FiO2 Intake & Output 01/27/23 01/28/23 01/28/23 18:59 06:59 18:59 Intake Total 360 Output Total 600 600 Balance -240 -600 Intake: Oral 360 Output: Urine 600 600 Other: Voiding Method External Catheter External Catheter Examination awake alert but very anxious A chin exam no JVP neck is supple no facial asymmetry Lungs clear to auscultation on the left but right-sided the fine crackles up to the mid zones. Heart sounds unremarkable. Somewhat distant. Abdomen soft nontender Extremity exam was no edema Neurologically awake alert oriented - Labs CBC & Chem 7: 01/26/23 08:08 01/27/23 19:22 Labs: Abnormal Lab Results - Last 24 Hours (Table) 01/26/23 01/27/23 01/27/23 Range/Units 11:18 09:53 11:23 POC Glucose (mg/dL) 158 H (70-110) mg/dL Renin Direct <2.1 L (3.1 - 57.1) pg/mL Ur Random Potassium 17.9 L (25.0-125.0) mmol/L 01/27/23 01/27/23 01/28/23 Range/Units 16:38 19:57 06:21 POC Glucose (mg/dL) 231 H 248 H 151 H (70-110) mg/dL Renin Direct (3.1 - 57.1) pg/mL Ur Random Potassium (25.0-125.0) mmol/L Assessment and Plan Assessment: Impression 1. Hypokalemia secondary to nausea vomiting, resolved. 2. Hyperaldosteronism ruled out with low anemia and low aldosterone acid is. 3. Hypertension slightly hard of target 4. Chronic kidney disease creatinine 1.5 as of this morning which is baseline. Possible diabetic nephropathy with 2+ proteinuria on urinalysis, urine protein is 23 mg and urine creatinine was 31 mg therefore sub-nephrotic proteinuria 5. Feeling unwell this morning cause not very clear rule out pneumonia based on clinical findings of crepitation on the right side. Admission chest x-ray was unremarkable dated 01/25/2020. 6. Diabetes mellitus Recommendation 1. Repeat chest x-ray EKG, troponin level
--- NOTE | 2023-01-28 10:20 | XR ---
EXAMINATION TYPE: XR chest 1V DATE OF EXAM: 01/28/2023 CLINICAL HISTORY: Difficulty breathing and CHF progress study. TECHNIQUE: Single AP portable upright view of the chest is obtained. COMPARISON: Chest x-ray from 4 days day earlier FINDINGS: Mild cardiomegaly with mild central vascular congestion redemonstrated. No new suspicious focal airspace opacity, pleural effusion, or pneumothorax seen bilaterally. Underlying scoliosis is r edemonstrated. IMPRESSION: Suspect CHF exacerbation as there is mild cardiomegaly with mild central vascular conges tion noted.
[2023-01-28] MEDS: FUROSEMIDE 10 MG/ML 2 ML VIAL IV SCH (11:18)
[2023-01-28 11:29] LABS: Glucose,Whole Blood 187 mg/dL (70-110)
--- NOTE | 2023-01-28 12:23 | P.PN ---
Subjective Progress Note Date: 01/28/23 Hospital Course: 72-year-old with a PMH of systolic CHF with EF 40-45%, type II DM, hypertension, and hyperlipidemia who presents to the emergency room with complaints of nausea and vomiting. CT abdomen and pelvis without contrast revealed no acute abnormalities. Chest x-ray was unremarkable. Laboratory evaluation revealed a hemoglobin of 9.5, potassium 2.2, glucose 261, creatinine 1.33, lactic acid 2.2, T bili 1.5, UA consistent with UTI. Patient admitted for severe hypokalemia and persistent nausea and vomiting. Also has malignant hypertension. Nephrology is consulted. Hyperaldosteronism less likely given low aldosterone levels. Subjective: Patient seen and examined at bedside. This morning, per nursing patient was encephalopathic. However mentation improved completely within the next 2 hours. No focal deficits. Denies any significant nausea at the moment. Denies any v omiting. Denies any diarrhea or constipation, or urinary complaints. Pertinent positives and negatives as discussed above, a complete review of systems was performed and all other systems are negative. Vitals Signs Reviewed. General: non toxic, no distress, appears at stated age, obese Derm: no unusual rashes/lesions, warm Head: atraumatic, normocephalic, symmetric Eyes: EOMI, no lid lag, anicteric sclera, pupils equal round reactive to light ENT: Nose and ears atraumatic Neck: No cervical lymphadenopathy, trachea midline, supple Mouth: no lip lesion, mucus membranes moist Cardiovascular: S1S2 reg, no murmur, positive dorsalis pedis pulse bilateral, no edema Lungs: CTA bilateral, no rhonchi, no rales, no accessory muscle use Abdominal: soft, mild diffuse tenderness, no guarding Ext: muscle strength 5 out of 5 in all 4 extremities grossly, no gross muscle atrophy, no contractures, Neuro: CN II-XI grossly intact, no gross focal neuro deficits Psych: Alert, oriented, appropriate affect Data Reviewed Today: Pertinent Labs: Sodium 139, creatinine 1.5, blood sugars range between 143-248, magnesium 2.1, troponin 0.5 Imaging: Chest X-ray independently interpreted, similar to prior EKG independently interpreted, shows sinus rhythm with left bundle branch block, unchanged from prior Assessment and Plan: Active: Severe Hypokalemia, resolved Hypomagnesemia, resolved Malignant hypertension UTI Intractable nausea and vomiting, unclear etiology, possibly diabetic gastroparesis Type 2, DM A1c 6.9 Acute encephalopathy, metabolic Elevated troponin -Nephrology note reviewed, unlikely to be hyperaldosteronism, cardiac workup -Repeat BMP and magnesium tomorrow -Continue ceftriaxone 1 g daily -Zofran as needed -Sliding scale insulin, no changes -Lisinopril 20 mg, spironolactone 50 mg -Encephalopathy likely delirium, improved this morning, patient having bowel movements and urinating -Elevated troponin likely in the setting of chronic kidney disease, no active chest pain Resolved: Lactic acidosis Chronic: Dyslipidemia GERD DVT ppx: Subcu heparin Code status: DO NOT RESUSCITATE DO NOT INTUBATE Anticipated discharge place: Pending clinical course Anticipated discharge time: Pending clinical course Objective - Vital Signs Vital signs: Vital Signs Temp 98.4 F 01/28/23 08:46 Pulse 95 01/28/23 11:18 Resp 20 01/28/23 11:18 BP 155/75 01/28/23 11:18 Pulse Ox 98 01/28/23 11:18 FiO2 Intake & Output 01/27/23 01/28/23 01/28/23 18:59 06:59 18:59 Intake Total 360 Output Total 600 600 Balance -240 -600 Intake: Oral 360 Output: Urine 600 600 Other: Voiding Method External Catheter External Catheter Diaper External Catheter - Labs CBC & Chem 7: 01/26/23 08:08 01/28/23 08:20 Labs: Abnormal Lab Results - Last 24 Hours (Table) 01/26/23 01/27/23 01/27/23 Range/Units 11:18 09:53 16:38 Chloride (98-107) mmol/L BUN (7-17) mg/dL Creatinine (0.52-1.04) mg/dL Glucose (74-99) mg/dL POC Glucose (mg/dL) 231 H (70-110) mg/dL Calcium (8.4-10.2) mg/dL Troponin I (0.000-0.034) ng/mL Renin Direct <2.1 L (3.1 - 57.1) pg/mL Ur Random Potassium 17.9 L (25.0-125.0) mmol/L 01/27/23 01/28/23 01/28/23 Range/Units 19:57 06:21 08:20 Chloride 109 H (98-107) mmol/L BUN 6 L (7-17) mg/dL Creatinine 1.50 H (0.52-1.04) mg/dL Glucose 143 H (74-99) mg/dL POC Glucose (mg/dL) 248 H 151 H (70-110) mg/dL Calcium 8.3 L (8.4-10.2) mg/dL Troponin I (0.000-0.034) ng/mL Renin Direct (3.1 - 57.1) pg/mL Ur Random Potassium (25.0-125.0) mmol/L 01/28/23 01/28/23 Range/Units 09:37 11:27 Chloride (98-107) mmol/L BUN (7-17) mg/dL Creatinine (0.52-1.04) mg/dL Glucose (74-99) mg/dL POC Glucose (mg/dL) 187 H (70-110) mg/dL Calcium (8.4-10.2) mg/dL Troponin I 0.050 H* (0.000-0.034) ng/mL Renin Direct (3.1 - 57.1) pg/mL Ur Random Potassium (25.0-125.0) mmol/L
[2023-01-28] MEDS: guaiFENesin SYRUP 100MG/5ML 200 MG/10 ML CUP PO PRN (13:03)
[2023-01-28] MEDS ORDERED: LOPERAMIDE 2 MG CAP PO PRN (15:18)
[2023-01-28 17:04] LABS: Glucose,Whole Blood 214 mg/dL (70-110)
[2023-01-28 19:58] LABS: Glucose,Whole Blood 212 mg/dL (70-110)
[2023-01-28] MEDS: ZOLPIDEM 5 MG TAB PO SCH (21:40)
[2023-01-28] MEDS: ATORVASTATIN 10 MG TAB PO SCH (21:40)
[2023-01-29] MEDS: HEPARIN SODIUM,PORCINE/PF 5,000 UNIT/0.5 ML SYRINGE SQ SCH ×3 (00:16→15:06)
[2023-01-29 05:53] LABS: Glucose,Whole Blood 159 mg/dL (70-110)
[2023-01-29] MEDS: INSULIN ASPART (NovoLOG) 100 UNIT/ML VIAL SQ SCH ×4 (07:14→22:25)
[2023-01-29] MEDS: LEVOTHYROXINE 50 MCG TAB PO SCH (07:14)
[2023-01-29 07:54] LABS: Anisocytosis Slight; Basophils % (A) 0 %; Eosinophils # (A) 0.2 k/uL (0-0.7); Eosinophils % (A) 3 %; HCT 29.1 % (34.0-46.0); HGB 9.5 gm/dL (11.4-16.0); Lymphocytes # (A) 1.2 k/uL (1.0-4.8); Lymphocytes % (A) 16 %; MCH 27.9 pg (25.0-35.0); MCHC 32.5 g/dL (31.0-37.0); MCV 86.1 fL (80.0-100.0); Mean Platelet Volume 8.5; Monocytes # (A) 0.5 k/uL (0-1.0); Monocytes % (A) 6 %; Neutrophils # (A) 5.7 k/uL (1.3-7.7); Neutrophils % (A) 74 %; Platelet Count 153 k/uL (150-450); RBC 3.39 m/uL (3.80-5.40); WBC 7.8 k/uL (3.8-10.6)
[2023-01-29 08:06] LABS: Calcium 8.3 mg/dL (8.4-10.2); Magnesium 1.7 mg/dL (1.6-2.3); Potassium 3.1 mmol/L (3.5-5.1)
[2023-01-29] MEDS: hydrALAZINE HCL 50 MG TAB PO SCH ×2 (08:25→22:24)
[2023-01-29] MEDS: PANTOPRAZOLE 40 MG TABLET PO SCH (08:25)
[2023-01-29] MEDS: SPIRONOLACTONE 25 MG TAB PO SCH (08:25)
[2023-01-29] MEDS: amLODIPine 5 MG TAB PO SCH (08:25)
[2023-01-29] MEDS: FUROSEMIDE 10 MG/ML 2 ML VIAL IV SCH (08:25)
[2023-01-29] MEDS: lisinopriL 20 MG TAB PO SCH (08:25)
[2023-01-29] MEDS: guaiFENesin SYRUP 100MG/5ML 200 MG/10 ML CUP PO PRN (08:25)
--- NOTE | 2023-01-29 08:40 | P.PN ---
Subjective Progress Note Date: 01/29/23 Principal diagnosis: This 72-year-old female seen in consultation because of hypokalemia. Because of high blood pressure hyperaldosteronism was suspected, renin level is less than 2.1, aldosterone level is less than 3 dated 01/26/2023. She was started after these labs were drawn on Aldactone. Yesterday she complained off not feeling well and looked illand tired . A chest x-ray was reported to show possible congestive heart failure and the troponins was slightly high, at 0.05 and 0.04 normal range being 0.034 She was given IV Lasix 1 dose 20 mg Her blood pressure today is in the 140s to 165/82 Heart rate in the 80s to 90s afebrile. she continues to feel unwell. She had diarrhea about 10 yesterday as per the nursing staff. A C. diff was negative. She is not short of breath is currently on room air and saturating in the high 90s Denies any nausea vomiting headache fever chills No abdominal pain no nausea vomiting. Poor appetite. Objective - Vital Signs Vital signs: Vital Signs Temp 97.9 F 01/29/23 04:00 Pulse 92 01/29/23 04:00 Resp 20 01/29/23 04:00 BP 165/82 01/29/23 04:00 Pulse Ox 94 L 01/29/23 04:00 FiO2 Intake & Output 01/28/23 01/29/23 01/29/23 18:59 06:59 18:59 Intake Total 236 Output Total 850 1100 Balance -614 -1100 Weight 101.4 kg Intake: Oral 236 Output: Urine 850 1100 Other: Voiding Method Diaper Diaper External Catheter External Catheter # Voids 1 # Bowel Movements 1 On examination she is awake alert oriented HEENT exam no JVP neck is supple no facial asymmetry Lungs clear to auscultation good air entry Heart sounds unremarkable Abdomen soft nontender Extremity exam was no edema Neurologically awake alert but tired and weak and slow to respond - Labs CBC & Chem 7: 01/29/23 07:32 01/29/23 07:32 Labs: Abnormal Lab Results - Last 24 Hours (Table) 01/28/23 01/28/23 01/28/23 Range/Units 08:20 09:37 11:27 RBC (3.80-5.40) m/uL Hgb (11.4-16.0) gm/dL Hct (34.0-46.0) % RDW (11.5-15.5) % Potassium (3.5-5.1) mmol/L Chloride 109 H (98-107) mmol/L BUN 6 L (7-17) mg/dL Creatinine 1.50 H (0.52-1.04) mg/dL Glucose 143 H (74-99) mg/dL POC Glucose (mg/dL) 187 H (70-110) mg/dL Calcium 8.3 L (8.4-10.2) mg/dL Troponin I 0.050 H* (0.000-0.034) ng/mL 01/28/23 01/28/23 01/28/23 Range/Units 16:24 17:00 19:56 RBC (3.80-5.40) m/uL Hgb (11.4-16.0) gm/dL Hct (34.0-46.0) % RDW (11.5-15.5) % Potassium (3.5-5.1) mmol/L Chloride (98-107) mmol/L BUN (7-17) mg/dL Creatinine (0.52-1.04) mg/dL Glucose (74-99) mg/dL POC Glucose (mg/dL) 214 H 212 H (70-110) mg/dL Calcium (8.4-10.2) mg/dL Troponin I 0.044 H* (0.000-0.034) ng/mL 01/29/23 01/29/23 01/29/23 Range/Units 05:51 07:32 07:32 RBC 3.39 L (3.80-5.40) m/uL Hgb 9.5 L (11.4-16.0) gm/dL Hct 29.1 L (34.0-46.0) % RDW 17.0 H (11.5-15.5) % Potassium 3.1 L (3.5-5.1) mmol/L Chloride (98-107) mmol/L BUN 6 L (7-17) mg/dL Creatinine 1.57 H (0.52-1.04) mg/dL Glucose 150 H (74-99) mg/dL POC Glucose (mg/dL) 159 H (70-110) mg/dL Calcium 8.3 L (8.4-10.2) mg/dL Troponin I (0.000-0.034) ng/mL Assessment and Plan Assessment: Impression 1. Hypokalemia secondary to nausea vomiting, diarrhea, potassium again low at 3.1 this morning after multiple loose stools 2. Hyperaldosteronism ruled out with low aldosterone low renin. 3. Hypertension slightly above target 4. Chronic kidney disease creatinine 1.5 as of this morning which is baseline. Possible diabetic nephropathy with 2+ proteinuria on urinalysis, urine protein is 23 mg and urine creatinine was 31 mg therefore sub-nephrotic proteinuria 5. Feeling unwell cause not very clear, chest x-ray is suggestive of CHF and was given Lasix. No improvement in her fatigue and tiredness 6. Diabetes mellitus Recommendation 1. Because of the diarrhea would hold off the Lasix. 2. Replace potassium she will require 80 mEq, can be given 20 mg every hour for 4 doses by mouth 3. Check Orthos
[2023-01-29] MEDS: MAGNESIUM SULFATE-D5W PMX 1 GM in DEXTROSE/WATER 1 100ML.BAG IVPB SCH ×3 (09:00→11:14)
[2023-01-29] MEDS ORDERED: POTASSIUM CHLORIDE ER 20 MEQ TAB.ER PO SCH (09:00)
[2023-01-29] MEDS: POTASSIUM CHLORIDE ER 20 MEQ TAB.ER PO SCH ×3 (09:53→11:13)
[2023-01-29 11:25] LABS: Glucose,Whole Blood 166 mg/dL (70-110)
--- NOTE | 2023-01-29 12:00 | P.PN ---
Subjective Progress Note Date: 01/29/23 Hospital Course: 72-year-old with a PMH of systolic CHF with EF 40-45%, type II DM, hypertension, and hyperlipidemia who presents to the emergency room with complaints of nausea and vomiting. CT abdomen and pelvis without contrast revealed no acute abnormalities. Chest x-ray was unremarkable. Laboratory evaluation revealed a hemoglobin of 9.5, potassium 2.2, glucose 261, creatinine 1.33, lactic acid 2.2, T bili 1.5, UA consistent with UTI. Patient admitted for severe hypokalemia and persistent nausea and vomiting. Also has malignant hypertension. Nephrology is consulted. Hyperaldosteronism less likely given low aldosterone levels. Patient also having significant diarrhea, C. diff negative. Subjective: Patient seen and examined at bedside. Diarrhea has improved. Denies any significant nausea at the moment. Denies any vomiting. Denies any urinary complaints. Pertinent positives and negatives as discussed above, a complete review of systems was performed and all other systems are negative. Vitals Signs Reviewed. General: non toxic, no distress, appears at stated age, obese Derm: no unusual rashes/lesions, warm Head: atraumatic, normocephalic, symmetric Eyes: EOMI, no lid lag, anicteric sclera, pupils equal round reactive to light ENT: Nose and ears atraumatic Neck: No cervical lymphadenopathy, trachea midline, supple Mouth: no lip lesion, mucus membranes moist Cardiovascular: S1S2 reg, no murmur, positive dorsalis pedis pulse bilateral, no edema Lungs: CTA bilateral, no rhonchi, no rales, no accessory muscle use Abdominal: soft, mild diffuse tenderness, no guarding Ext: muscle strength 5 out of 5 in all 4 extremities grossly, no gross muscle at rophy, no contractures, Neuro: CN II-XI grossly intact, no gross focal neuro deficits Psych: Alert, oriented, appropriate affect Data Reviewed Today: Pertinent Labs: WBC 7.8, hemoglobin 9.5, potassium 3.1, creatinine 1.57, magnesium 1.7, blood sugars range between 150-212, C. diff negative Assessment and Plan: Active: Hypokalemia Hypomagnesemia Malignant hypertension UTI Diarrhea Nausea or vomiting, resolved Type 2, DM A1c 6.9 Acute encephalopathy, metabolic, resolved Elevated troponin -Nephrology note reviewed, holding off IV Lasix given diarrhea -Ordered 3 g magnesium sulfate IV, 60 mEq potassium ordered by nephrology -Repeat BMP and magnesium tomorrow -ceftriaxone 1 g daily completed 5 days -Zofran as needed -Sliding scale insulin, no changes -Lisinopril 20 mg, spironolactone 50 mg -Encephalopathy likely delirium, improved this morning, patient having bowel movements and urinating -Elevated troponin likely in the setting of chronic kidney disease, no active chest pain Chronic: Dyslipidemia GERD DVT ppx: Subcu heparin Code status: DO NOT RESUSCITATE DO NOT INTUBATE Anticipated discharge place: Pending clinical course Anticipated discharge time: Pending clinical course Objective - Vital Signs Vital signs: Vital Signs Temp 98.0 F 01/29/23 08:19 Pulse 96 01/29/23 11:11 Resp 22 01/29/23 11:11 BP 147/67 01/29/23 11:11 Pulse Ox 97 01/29/23 11:11 FiO2 Intake & Output 01/28/23 01/29/23 01/29/23 18:59 06:59 18:59 Intake Total 236 Output Total 850 1100 500 Balance -614 -1100 -500 Weight 101.4 kg Intake: Oral 236 Output: Urine 850 1100 500 Other: Voiding Method Diaper Diaper Diaper External Catheter External Catheter External Catheter # Voids 1 # Bowel Movements 1 - Labs CBC & Chem 7: 01/29/23 07:32 01/29/23 07:32 Labs: Abnormal Lab Results - Last 24 Hours (Table) 01/28/23 01/28/23 01/28/23 Range/Units 16:24 17:00 19:56 RBC (3.80-5.40) m/uL Hgb (11.4-16.0) gm/dL Hct (34.0-46.0) % RDW (11.5-15.5) % Potassium (3.5-5.1) mmol/L BUN (7-17) mg/dL Creatinine (0.52-1.04) mg/dL Glucose (74-99) mg/dL POC Glucose (mg/dL) 214 H 212 H (70-110) mg/dL Calcium (8.4-10.2) mg/dL Troponin I 0.044 H* (0.000-0.034) ng/mL 01/29/23 01/29/23 01/29/23 Range/Units 05:51 07:32 07:32 RBC 3.39 L (3.80-5.40) m/uL Hgb 9.5 L (11.4-16.0) gm/dL Hct 29.1 L (34.0-46.0) % RDW 17.0 H (11.5-15.5) % Potassium 3.1 L (3.5-5.1) mmol/L BUN 6 L (7-17) mg/dL Creatinine 1.57 H (0.52-1.04) mg/dL Glucose 150 H (74-99) mg/dL POC Glucose (mg/dL) 159 H (70-110) mg/dL Calcium 8.3 L (8.4-10.2) mg/dL Troponin I (0.000-0.034) ng/mL 01/29/23 Range/Units 11:23 RBC (3.80-5.40) m/uL Hgb (11.4-16.0) gm/dL Hct (34.0-46.0) % RDW (11.5-15.5) % Potassium (3.5-5.1) mmol/L BUN (7-17) mg/dL Creatinine (0.52-1.04) mg/dL Glucose (74-99) mg/dL POC Glucose (mg/dL) 166 H (70-110) mg/dL Calcium (8.4-10.2) mg/dL Troponin I (0.000-0.034) ng/mL
[2023-01-29 16:36] LABS: Glucose,Whole Blood 189 mg/dL (70-110)
[2023-01-29 20:00] LABS: Glucose,Whole Blood 168 mg/dL (70-110)
[2023-01-29] MEDS: ZOLPIDEM 5 MG TAB PO SCH (22:24)
[2023-01-29] MEDS: ATORVASTATIN 10 MG TAB PO SCH (22:24)
[2023-01-30] MEDS: HEPARIN SODIUM,PORCINE/PF 5,000 UNIT/0.5 ML SYRINGE SQ SCH ×4 (00:35→21:22)
[2023-01-30 05:54] LABS: Glucose,Whole Blood 140 mg/dL (70-110)
[2023-01-30] MEDS: INSULIN ASPART (NovoLOG) 100 UNIT/ML VIAL SQ SCH ×4 (06:50→21:22)
[2023-01-30] MEDS: LEVOTHYROXINE 50 MCG TAB PO SCH (06:51)
[2023-01-30] MEDS: SPIRONOLACTONE 25 MG TAB PO SCH (08:14)
[2023-01-30] MEDS: lisinopriL 20 MG TAB PO SCH (08:14)
[2023-01-30] MEDS: PANTOPRAZOLE 40 MG TABLET PO SCH (08:14)
[2023-01-30] MEDS: amLODIPine 5 MG TAB PO SCH (08:14)
[2023-01-30] MEDS: hydrALAZINE HCL 50 MG TAB PO SCH ×2 (08:14→21:22)
[2023-01-30] MEDS: guaiFENesin SYRUP 100MG/5ML 200 MG/10 ML CUP PO PRN ×2 (08:15→23:25)
--- NOTE | 2023-01-30 08:45 | P.PN ---
Subjective Progress Note Date: 01/30/23 Principal diagnosis: This 72-year-old female seen in consultation because of hypokalemia and chronic kidney disease. Because of high blood pressure hyperaldosteronism was suspecte d, renin level is less than 2.1, aldosterone level is less than 3 dated 01/26/2023, aldactome was started after these labs were drawn day before Yesterday she complained off not feeling well and looked ill and tired . A chest x-ray was reported to show possible congestive heart failure and the troponins was slightly high, at 0.05 and 0.04 normal range being 0.034 yesterday she had diarrhea therefore the Lasix was discontinued.that he has stopped She continues to complain of not feeling well. Possibility of depression should be considered No abdominal pain no nausea vomiting. Poor appetite.. Creatinine is 1.5 which is baseline, her creatinine has varied between 1.1 to 2.1 last year Objective - Vital Signs Vital signs: Vital Signs Temp 98.4 F 01/30/23 08:08 Pulse 97 01/30/23 08:08 Resp 20 01/30/23 08:08 BP 139/77 01/30/23 08:08 Pulse Ox 98 01/30/23 08:08 FiO2 Intake & Output 01/29/23 01/30/23 01/30/23 18:59 06:59 18:59 Output Total 1150 600 Balance -1150 -600 Output: Urine 1150 600 Other: Voiding Method Diaper Diaper External Catheter External Catheter On examination she is awake alert oriented HEENT exam no JVP neck is supple no facial asymmetry Lungs clear to auscultation good air entry Heart sounds unremarkable Abdomen soft nontender Extremity exam was no edema Neurologically awake alert but tired and weak and slow to respond - Labs CBC & Chem 7: 01/29/23 07:32 01/29/23 07:32 Labs: Abnormal Lab Results - Last 24 Hours (Table) 01/29/23 01/29/23 01/29/23 Range/Units 11:23 16:34 19:58 POC Glucose (mg/dL) 166 H 189 H 168 H (70-110) mg/dL 01/30/23 Range/Units 05:53 POC Glucose (mg/dL) 140 H (70-110) mg/dL Assessment and Plan Assessment: Impression 1. Hypokalemia secondary to nausea vomiting, diarrhea, potassium again low at 3.1 yesterday and was replaced with 80 mEq of potassium last morning pending 2. Hyperaldosteronism ruled out with low aldosterone low renin. 3. Hypertension slightly above target 4. Chronic kidney disease creatinine 1.5 as of this morning which is baseline. Possible diabetic nephropathy with 2+ proteinuria on urinalysis, urine protein is 23 mg and urine creatinine was 31 mg therefore sub-nephrotic proteinuria 5. Feeling unwell cause not very clear, chest x-ray is suggestive of CHF and was given Lasix. No improvement in her fatigue and tiredness 6. Diabetes mellitus Recommendation 1. repeat labs today to assess potassium 2. possibility of depression should be considered
[2023-01-30] MEDS ORDERED: MIRTAZAPINE 15 MG TAB PO STA (10:38)
--- NOTE | 2023-01-30 10:40 | P.PN ---
Subjective Progress Note Date: 01/30/23 Hospital Course: 72-year-old with a PMH of systolic CHF with EF 40-45%, type II DM, hypertension, and hyperlipidemia who presents to the emergency room with complaints of nausea and vomiting. CT abdomen and pelvis without contrast revealed no acute abnormalities. Chest x-ray was unremarkable. Laboratory evaluation revealed a hemoglobin of 9.5, potassium 2.2, glucose 261, creatinine 1.33, lactic acid 2.2, T bili 1.5, UA consistent with UTI. Patient admitted for severe hypokalemia and persistent nausea and vomiting. Also has malignant hypertension. Nephrology is consulted. Hyperaldosteronism less likely given low aldosterone levels. Patient also having significant diarrhea, C. diff negative. Diarrhea now improved. Patient also has really poor oral intake, likely depression related. Subjective: Patient seen and examined at bedside. Denies any significant nausea at the moment. Denies any vomiting. Denies any urinary complaints. Patient has been complaining of low energy, significant sleep disturbance, difficulty concentrating, increased guilt, loss of appetite. She has a history of depression, denies any prior manic episodes. Pertinent positives and negatives as discussed above, a complete review of systems was performed and all other systems are negative. Vitals Signs Reviewed. General: non toxic, no distress, appears at stated age, obese Derm: no unusual rashes/lesions, warm Head: atraumatic, normocephalic, symmetric Eyes: EOMI, no lid lag, anicteric sclera, pupils equal round reactive to light ENT: Nose and ears atraumatic Neck: No cervical lymphadenopathy, trachea midline, supple Mouth: no lip lesion, mucus membranes moist Cardiovascular: S1S2 reg, no murmur, positive dorsalis pedis pulse bilateral, no edema Lungs: CTA bilateral, no rhonchi, no rales, no accessory muscle use Abdominal: soft, mild diffuse tenderness, no guarding Ext: muscle strength 5 out of 5 in all 4 extremities grossly, no gross muscle atrophy, no contractures, Neuro: CN II-XI grossly intact, no gross focal neuro deficits Psych: Alert, oriented, appropriate affect Data Reviewed Today: Pertinent Labs: CBC and BMP pending, will be reviewed when available, blood glu cose ranged between 140-189 Assessment and Plan: Active: Hypokalemia Hypomagnesemia Malignant hypertension, blood pressure better controlled UTI status post antibiotics Diarrhea, resolved Nausea or vomiting, resolved Type 2, DM A1c 6.9 Acute encephalopathy, metabolic, resolved Elevated troponin Major depressive disorder -Nephrology note reviewed, pending labs -Repeat BMP and magnesium tomorrow -Zofran as needed -Sliding scale insulin, no changes -Lisinopril 20 mg, spironolactone 50 mg -Encephalopathy likely delirium and related to depression -Elevated troponin likely in the setting of chronic kidney disease, no active chest pain -Started on mirtazapine Chronic: Dyslipidemia GERD DVT ppx: Subcu heparin Code status: DO NOT RESUSCITATE DO NOT INTUBATE Anticipated discharge place: Pending clinical course Anticipated discharge time: Pending clinical course Objective - Vital Signs Vital signs: Vital Signs Temp 98.4 F 01/30/23 08:08 Pulse 97 01/30/23 08:08 Resp 20 01/30/23 08:08 BP 139/77 01/30/23 08:08 Pulse Ox 98 01/30/23 08:08 FiO2 Intake & Output 01/29/23 01/30/23 01/30/23 18:59 06:59 18:59 Output Total 1150 600 Balance -1150 -600 Output: Urine 1150 600 Other: Voiding Method Diaper Diaper Diaper External Catheter External Catheter External Catheter - Labs CBC & Chem 7: 01/29/23 07:32 01/29/23 07:32 Labs: Abnormal Lab Results - Last 24 Hours (Table) 01/29/23 01/29/23 01/29/23 Range/Units 11:23 16:34 19:58 POC Glucose (mg/dL) 166 H 189 H 168 H (70-110) mg/dL 01/30/23 Range/Units 05:53 POC Glucose (mg/dL) 140 H (70-110) mg/dL
[2023-01-30 11:09] LABS: Calcium 8.1 mg/dL (8.4-10.2)
[2023-01-30 11:17] LABS: Potassium 3.7 mmol/L (3.5-5.1)
[2023-01-30 11:33] LABS: Glucose,Whole Blood 172 mg/dL (70-110)
[2023-01-30 16:32] LABS: Glucose,Whole Blood 119 mg/dL (70-110)
[2023-01-30 20:06] LABS: Glucose,Whole Blood 203 mg/dL (70-110)
[2023-01-30] MEDS: MIRTAZAPINE 15 MG TAB PO SCH (21:22)
[2023-01-30] MEDS: ATORVASTATIN 10 MG TAB PO SCH (21:22)
[2023-01-30] MEDS: ZOLPIDEM 5 MG TAB PO SCH (21:22)
[2023-01-31 06:07] LABS: Glucose,Whole Blood 150 mg/dL (70-110)
[2023-01-31] MEDS: INSULIN ASPART (NovoLOG) 100 UNIT/ML VIAL SQ SCH ×4 (06:15→22:43)
[2023-01-31] MEDS: LEVOTHYROXINE 50 MCG TAB PO SCH (06:21)
[2023-01-31 07:54] LABS: Calcium 8.2 mg/dL (8.4-10.2); Magnesium 1.9 mg/dL (1.6-2.3); Potassium 3.5 mmol/L (3.5-5.1)
[2023-01-31] MEDS: lisinopriL 20 MG TAB PO SCH ×2 (08:39→22:34)
[2023-01-31] MEDS: PANTOPRAZOLE 40 MG TABLET PO SCH (08:39)
[2023-01-31] MEDS: amLODIPine 5 MG TAB PO SCH (08:39)
[2023-01-31] MEDS: hydrALAZINE HCL 50 MG TAB PO SCH ×2 (08:39→22:33)
[2023-01-31] MEDS: SPIRONOLACTONE 25 MG TAB PO SCH (08:39)
[2023-01-31] MEDS: HEPARIN SODIUM,PORCINE/PF 5,000 UNIT/0.5 ML SYRINGE SQ SCH ×3 (08:39→22:34)
[2023-01-31 11:16] LABS: Glucose,Whole Blood 209 mg/dL (70-110)
--- NOTE | 2023-01-31 11:33 | P.PN ---
Subjective Patient is seen in follow-up for chronic kidney disease. Renal function stable. Blood pressure on the higher side. Resting in bed. Denies chest pain or shortness of breath. No vomiting or diarrhea. Vital signs are stable. General: No acute distress. HEENT: Head exam is unremarkable. LUNGS: No audible rhonchi or wheezes. HEART: Rate and Rhythm are regular. ABDOMEN: Nontender. EXTREMITITES: No edema. Objective - Vital Signs Vital signs: Vital Signs Temp 98.9 F 01/31/23 07:42 Pulse 94 01/31/23 07:42 Resp 19 01/31/23 07:42 BP 160/83 01/31/23 07:42 Pulse Ox 99 01/31/23 07:42 FiO2 Intake & Output 01/30/23 01/31/23 01/31/23 18:59 06:59 18:59 Output Total 450 900 Balance -450 -900 Weight 98 kg Output: Urine 450 900 Other: Voiding Method Diaper External Catheter External Catheter External Catheter # Voids 1 2 - Labs CBC & Chem 7: 01/29/23 07:32 01/31/23 07:06 Labs: Abnormal Lab Results - Last 24 Hours (Table) 01/30/23 01/30/23 01/30/23 Range/Units 11:32 16:31 19:56 Creatinine (0.52-1.04) mg/dL Glucose (74-99) mg/dL POC Glucose (mg/dL) 172 H 119 H 203 H (70-110) mg/dL Calcium (8.4-10.2) mg/dL 01/31/23 01/31/23 01/31/23 Range/Units 06:04 07:06 11:15 Creatinine 1.62 H (0.52-1.04) mg/dL Glucose 139 H (74-99) mg/dL POC Glucose (mg/dL) 150 H 209 H (70-110) mg/dL Calcium 8.2 L (8.4-10.2) mg/dL Assessment and Plan Plan: Assessment: 1. Chronic kidney disease stage IIIB with baseline creatinine near 1.5. Etiology is diabetic kidney disease. No hydronephrosis noted on CAT scan. 2. Hypertension with chronic kidney disease. Aldosterone and renin both low. Spironolactone was started after these were drawn however patient was still on lisinopril prior. TSH normal. No adrenal nodules or masses noted on CAT scan. 3. Hypokalemia from poor intake and hypomagnesemia. Replaced. Improved. 4. Hypomagnesemia from poor intake and GI losses. Replaced. Better. 5. Diabetes mellitus. Plan: Patient is on multiple antihypertensives but not at maximum doses. Increase dose of lisinopril to 20 mg twice daily. Check plasma metanephrines. Encouraged oral intake. Avoid nephrotoxins. Continue to monitor renal function and urine output.
--- NOTE | 2023-01-31 15:18 | CDI ---
Documentation Clarification Form Date: 01/31/2023 02:57:50 PM From: Yoselin Cerda RN CCDS Phone: [phone] Admit Date: 01/24/2023 07:39:00 PM Patient Name: Kerwin Gorman Visit Number: [id number] Discharge Date: ATTENTION: The Clinical Documentation Specialists (CDI) and [facility] Coding Staff appreciate your assistance in clarifying documentation. Please respond to the clarification below the line at the bottom and electronically sign. The CDI & [facility] Coding staff will review the response and follow-up if needed. Please note: Queries are made part of the Legal Health Record. If you have any questions, please contact the author of this message via ITS. Dr. Parker Jones Your patient has the documented diagnosis of possible congestive heart failure, 01/29, Nephrology progress note. Additional information regarding the acuity of CHF is requested. History/Risk Factors:72-year-old male presents to the ED with persistent nausea and vomiting for the past 3 to 4 weeks. Medical history: Systolic CHF, DM2 and DM2. 01/24, H&P Clinical Indicators: VS/Pulse OX: 01/24 B/P 173/74; HR 66; RR 18; SpO2 100% Echocardiogram Results: 07/29/22 EF 40-45% moderate LVH, RVSP 45, Mild mitral regurgitation trace to mild tricuspid regurgitation Chest X Ray: 01/28 Suspect CHF exacerbation as there is mild cardiomegaly with mild central vascular congestion Treatment: 01/28 12/30 Lasix IV Daily; 01/25 Aldactone 25 mg po daily d/cd after dose 01/26; 01/26 Aldactone 25mg po x 1; 01/27 Aldactone 50mg po daily. 01/25 Lisinopril 2.5mg PO x 1; Lisinopril 25mg po daily changed 01/31 20mg PO BID. In your professional opinion, can you please clarify the acuity and type [x] Chronic Systolic Heart Failure (reduced EF) [ ] Acute on Chronic Systolic Heart Failure (reduced EF) [ ] Other, please specify [ ] Unable to determine (Template Last Revised: October 2020) MTDD
--- NOTE | 2023-01-31 16:41 | P.PN ---
Subjective Progress Note Date: 01/31/23 No new complaints today. Pt still hypertensive. Gen: awake, alert HEENT: normocephalic, atraumatic, good hearing acuity, moist mucous membranes Resp: good air exchange, breathing comfortably with no accessory muscle use CVS: good distal perfusion x 4, GI: soft, NTTP, ND : no SPT, no CVAT, sims catheter not present MSK: no pitting edema, no clubbing Neuro: non-focal, moving all extremities Psych: cooperative, euthymic mood Hospital course: 72-year-old with a PMH of systolic CHF with EF 40-45%, type II DM, hypertension, and hyperlipidemia who presents to the emergency room with complaints of nausea and vomiting. CT abdomen and pelvis without contrast revealed no acute abnormalities. Chest x-ray was unremarkable. Laboratory evaluation revealed a hemoglobin of 9.5, potassium 2.2, glucose 261, creatinine 1.33, lactic acid 2.2, T bili 1.5, UA consistent with UTI. Patient admitted for severe hypokalemia and persistent nausea and vomiting. Also has malignant hypertension. Nephrology is consulted. Hyperaldosteronism less likely given low aldosterone levels. Patient also having significant diarrhea, C. diff negative. Diarrhea now improved. Patient also has really poor oral intake, likely depression related. Assessment: Hypertensive urgency Hypokalemia Hypomagnesemia UTI status post antibiotics Diarrhea, resolved Nausea or vomiting, resolved Type 2, DM A1c 6.9 Acute encephalopathy, metabolic, resolved Elevated troponin Major depressive disorder Plan: Today, patient is afebrile, 146/67, heart rate 96, 98% on room air Creatinine today is 1.62, stable Magnesium is 1.9 Basic metabolic panel, magnesium ordered for tomorrow Plasma metanephrines ordered Continue amlodipine 5 mg daily Continue hydralazine 50 mg twice a day Continue lisinopril 20 mg by mouth twice a day Continue spironolactone 50 mg daily Continue levothyroxine 50 g Continue Remeron 15 mg daily at bedtime to encourage by mouth intake Patient is no code Objective - Vital Signs Vital signs: Vital Signs Temp 98.9 F 01/31/23 13:58 Pulse 96 01/31/23 13:58 Resp 18 01/31/23 13:58 BP 146/67 01/31/23 13:58 Pulse Ox 98 01/31/23 13:58 FiO2 Intake & Output 05/29/23 05/30/23 05/30/23 18:59 06:59 18:59 Output Total 450 900 Balance -450 -900 Weight 98 kg 98 kg Output: Urine 450 900 Other: Voiding Method Diaper External Catheter External Catheter External Catheter # Voids 1 2 - Labs CBC & Chem 7: 01/29/23 07:32 01/31/23 07:06 Labs: Abnormal Lab Results - Last 24 Hours (Table) 01/30/23 01/31/23 01/31/23 Range/Units 19:56 06:04 07:06 Creatinine 1.62 H (0.52-1.04) mg/dL Glucose 139 H (74-99) mg/dL POC Glucose (mg/dL) 203 H 150 H (70-110) mg/dL Calcium 8.2 L (8.4-10.2) mg/dL 01/31/23 Range/Units 11:15 Creatinine (0.52-1.04) mg/dL Glucose (74-99) mg/dL POC Glucose (mg/dL) 209 H (70-110) mg/dL Calcium (8.4-10.2) mg/dL
[2023-01-31 16:47] LABS: Glucose,Whole Blood 205 mg/dL (70-110)
[2023-01-31 21:38] LABS: Glucose,Whole Blood 131 mg/dL (70-110)
[2023-01-31] MEDS: ZOLPIDEM 5 MG TAB PO SCH (22:33)
[2023-01-31] MEDS: ATORVASTATIN 10 MG TAB PO SCH (22:33)
[2023-01-31] MEDS: MIRTAZAPINE 15 MG TAB PO SCH (22:34)
[2023-02-01 05:41] LABS: Glucose,Whole Blood 142 mg/dL (70-110)
[2023-02-01] MEDS: INSULIN ASPART (NovoLOG) 100 UNIT/ML VIAL SQ SCH ×4 (05:41→22:27)
[2023-02-01] MEDS: LEVOTHYROXINE 50 MCG TAB PO SCH (06:07)
[2023-02-01] MEDS: HEPARIN SODIUM,PORCINE/PF 5,000 UNIT/0.5 ML SYRINGE SQ SCH ×3 (09:21→22:27)
[2023-02-01 11:10] LABS: Glucose,Whole Blood 158 mg/dL (70-110)
--- NOTE | 2023-02-01 11:46 | P.PN ---
Subjective Progress Note Date: 02/01/23 No new complaints today. Pt has been very sleepy and not moving from bed much. PT ordered. Gen: awake, alert HEENT: normocephalic, atraumatic, good hearing acuity, moist mucous membranes Resp: good air exchange, breathing comfortably with no accessory muscle use CVS: good distal perfusion x 4, GI: soft, NTTP, ND : no SPT, no CVAT, sims catheter not present MSK: no pitting edema, no clubbing Neuro: non-focal, moving all extremities Psych: cooperative, euthymic mood Hospital course: 72-year-old with a PMH of systolic CHF with EF 40-45%, type II DM, hypertension, and hyperlipidemia who presents to the emergency room with complaints of nausea and vomiting. CT abdomen and pelvis without contrast revealed no acute abnormalities. Chest x-ray was unremarkable. Laboratory evaluation revealed a hemoglobin of 9.5, potassium 2.2, glucose 261, creatinine 1.33, lactic acid 2.2, T bili 1.5, UA consistent with UTI. Patient admitted for severe hypokalemia and persistent nausea and vomiting. Also has malignant hypertension. Nephrology is consulted. Hyperaldosteronism less likely given low aldosterone levels. Patient also having significant diarrhea, C. diff negative. Diarrhea now improved. Patient also has really poor oral intake, likely depression related. Assessment: Hypertensive urgency Hypokalemia Hypomagnesemia UTI status post antibiotics Diarrhea, resolved Nausea or vomiting, resolved Type 2, DM A1c 6.9 Acute encephalopathy, metabolic, resolved Elevated troponin Major depressive disorder Plan: Today, patient is afebrile, 164/80, heart rate 97, 96% on room air Basic metabolic panel, magnesium ordered for tomorrow Plasma metanephrines ordered Continue amlodipine 5 mg daily Continue hydralazine 50 mg twice a day Continue lisinopril 20 mg by mouth twice a day Continue spironolactone 50 mg daily Continue levothyroxine 50 g Continue Remeron 15 mg daily at bedtime to encourage by mouth intake Patient is no code Objective - Vital Signs Vital signs: Vital Signs Temp 98.8 F 02/01/23 07:36 Pulse 97 02/01/23 07:36 Resp 19 02/01/23 07:36 BP 164/80 02/01/23 07:36 Pulse Ox 96 05/31/23 07:36 FiO2 Intake & Output 01/31/23 02/01/23 02/01/23 18:59 06:59 18:59 Output Total 700 Balance -700 Weight 98 kg 85.5 kg Output: Urine 700 Other: Voiding Method External Catheter External Catheter # Voids 2 # Bowel Movements 0 - Labs CBC & Chem 7: 01/29/23 07:32 01/31/23 07:06 Labs: Abnormal Lab Results - Last 24 Hours (Table) 01/31/23 01/31/23 02/01/23 Range/Units 16:45 21:26 05:39 POC Glucose (mg/dL) 205 H 131 H 142 H (70-110) mg/dL 02/01/23 Range/Units 11:08 POC Glucose (mg/dL) 158 H (70-110) mg/dL
--- NOTE | 2023-02-01 12:53 | P.PN ---
Subjective Patient is seen in follow-up for chronic kidney disease. Renal function stable as of yesterday Resting in bed. Denies chest pain or shortness of breath. No vomiting or diarrhea. Vital signs are stable. General: No acute distress. HEENT: Head exam is unremarkable. LUNGS: No audible rhonchi or wheezes. HEART: Rate and Rhythm are regular. ABDOMEN: Nontender. EXTREMITITES: No edema. Objective - Vital Signs Vital signs: Vital Signs Temp 98.8 F 02/01/23 07:36 Pulse 97 02/01/23 07:36 Resp 19 02/01/23 07:36 BP 164/80 02/01/23 07:36 Pulse Ox 96 02/01/23 07:36 FiO2 Intake & Output 01/31/23 02/01/23 02/01/23 18:59 06:59 18:59 Output Total 700 Balance -700 Weight 98 kg 85.5 kg Output: Urine 700 Other: Voiding Method External Catheter External Catheter # Voids 2 # Bowel Movements 0 - Labs CBC & Chem 7: 01/29/23 07:32 01/31/23 07:06 Labs: Abnormal Lab Results - Last 24 Hours (Table) 01/31/23 01/31/23 02/01/23 Range/Units 16:45 21:26 05:39 POC Glucose (mg/dL) 205 H 131 H 142 H (70-110) mg/dL 02/01/23 Range/Units 11:08 POC Glucose (mg/dL) 158 H (70-110) mg/dL Assessment and Plan Plan: Assessment: 1. Chronic kidney disease stage IIIB with baseline creatinine near 1.5. Etiology is diabetic kidney disease. No hydronephrosis noted on CAT scan. 2. Hypertension with chronic kidney disease. Aldosterone and renin both low. Spironolactone was started after these were drawn however patient was still on lisinopril prior. TSH normal. No adrenal nodules or masses noted on CAT scan. 3. Hypokalemia from poor intake and hypomagnesemia. Replaced. Improved. 4. Hypomagnesemia from poor intake and GI losses. Replaced. Better. 5. Diabetes mellitus. Plan: Increase amlodipine to 5 mg twice daily. Hold for systolic blood pressure less than 120. Check orthostatic vital signs. Follow-up plasma metanephrines. Check renal duplex ultrasound. Encouraged oral intake. Avoid nephrotoxins. Continue to monitor renal function and urine output.
[2023-02-01] MEDS ORDERED: traZODone HCL 50 MG TAB PO PRN (12:55)
[2023-02-01 14:52] LABS: African American GFR (CKD) 31.8 (60.0-200.0); Anion Gap 14.8 mmol/L (10.00-18.00); BUN/Creat Ratio 4.78 Ratio (12.00-20.00); Blood Urea Nitrogen 8.6 mg/dL (9.0-27.0); Calcium 8.7 mg/dL (8.7-10.3); Carbon Dioxide 23.2 mmol/L (20.0-27.5); Magnesium 1.8 mg/dL (1.5-2.4); Non-African American GFR(CKD) 27.4 (60.0-200.0); Potassium 3.3 mmol/L (3.5-5.5)
[2023-02-01] MEDS: hydrALAZINE HCL 50 MG TAB PO SCH ×2 (15:08→22:28)
[2023-02-01] MEDS: PANTOPRAZOLE 40 MG TABLET PO SCH (15:08)
[2023-02-01] MEDS: lisinopriL 20 MG TAB PO SCH ×2 (15:09→22:28)
[2023-02-01] MEDS: SPIRONOLACTONE 25 MG TAB PO SCH (15:11)
[2023-02-01] MEDS: amLODIPine 5 MG TAB PO SCH ×2 (15:15→22:29)
--- NOTE | 2023-02-01 15:25 | US ---
EXAMINATION TYPE: US renal artery duplex complet DATE OF EXAM: 02/01/2023 COMPARISON: CT dated 01/24/2023, and US's from 10/2022. MRI kidney November 01, 2021 CLINICAL INDICATION: Female, 72 years old with history of htn, r/o CHRISSIE; MEASUREMENTS: RENAL SIZE: Rt Kidney: Not well seen, appears atrophied. Lt Kidney: 11.9 x 5.7 x 5.8 cm RESISTANCE INDEX Right: unable to obtain Left: 0.69 RA/AO RATIO (< 3.5 ) Right: unable to obtain Left: 1.3 RA VELOCITY ( < 180 cm/s) Right: unable to obtain Left: 131 Aorta not seen proximally due to bowel gas. Right renal not seen, appears atrophied, unable to obtain any signals. No evidence for renal artery stenosis on the left side, although the exam is limited du e to patient being unable to hold breath . Suboptimal study due to large body habitus and overlying bowel gas. Visualized mid to distal abdomina l aorta shows no AAA. IMPRESSION: Nondiagnostic study. Slightly smaller right kidney with smaller right renal artery seen o n recent kidney MRI November 01, 2021. No obvious suspicious focal renal artery stenosis on that exam .
[2023-02-01] MEDS ORDERED: POTASSIUM CHLORIDE ER 20 MEQ TAB.ER PO STA (16:25)
[2023-02-01 16:27] LABS: Glucose,Whole Blood 136 mg/dL (70-110)
[2023-02-01] MEDS ORDERED: hydrALAZINE HCL 20 MG/ML 1 ML VIAL IVP PRN (16:27)
[2023-02-01 21:57] LABS: Glucose,Whole Blood 252 mg/dL (70-110)
[2023-02-01] MEDS: MIRTAZAPINE 15 MG TAB PO SCH (22:28)
[2023-02-01] MEDS: ATORVASTATIN 10 MG TAB PO SCH (22:28)
[2023-02-02 06:19] LABS: Glucose,Whole Blood 147 mg/dL (70-110)
[2023-02-02] MEDS: LEVOTHYROXINE 50 MCG TAB PO SCH (06:32)
[2023-02-02 07:48] LABS: African American GFR (CKD) 34 (>60 ml/min/1.73 sqM); Anion Gap 8 mmol/L; Blood Urea Nitrogen 11 mg/dL (7-17); Calcium 8.5 mg/dL (8.4-10.2); Carbon Dioxide 23 mmol/L (22-30); Chloride 105 mmol/L (98-107); Glucose 137 mg/dL (74-99); Magnesium 1.8 mg/dL (1.6-2.3); Non-African American GFR(CKD) 30 (>60 ml/min/1.73 sqM); Potassium 3.6 mmol/L (3.5-5.1); Sodium 136 mmol/L (137-145)
[2023-02-02] MEDS: INSULIN ASPART (NovoLOG) 100 UNIT/ML VIAL SQ SCH ×4 (08:46→20:48)
[2023-02-02] MEDS: PANTOPRAZOLE 40 MG TABLET PO SCH (09:46)
[2023-02-02] MEDS: hydrALAZINE HCL 50 MG TAB PO SCH ×3 (09:46→20:48)
[2023-02-02] MEDS: amLODIPine 5 MG TAB PO SCH ×2 (09:46→20:48)
[2023-02-02] MEDS: lisinopriL 20 MG TAB PO SCH ×2 (09:46→20:48)
[2023-02-02] MEDS: HEPARIN SODIUM,PORCINE/PF 5,000 UNIT/0.5 ML SYRINGE SQ SCH ×3 (09:46→23:45)
[2023-02-02] MEDS: SPIRONOLACTONE 25 MG TAB PO SCH (09:46)
--- NOTE | 2023-02-02 11:53 | P.PN ---
Subjective Patient is seen in follow-up for chronic kidney disease. Renal function stable. Resting in bed. Awake. Not a very reliable historian. Denies chest pain or shortness of breath. No vomiting or diarrhea. Vital signs are stable. General: No acute distress. HEENT: Head exam is unremarkable. LUNGS: No audible rhonchi or wheezes. HEART: Rate and Rhythm are regular. ABDOMEN: Nontender. EXTREMITITES: No edema. Objective - Vital Signs Vital signs: Vital Signs Temp 98.0 F 02/02/23 06:54 Pulse 86 02/02/23 06:54 Resp 18 02/02/23 06:54 BP 161/82 02/02/23 06:54 Pulse Ox 97 02/02/23 06:54 FiO2 Intake & Output 02/01/23 02/02/23 02/02/23 18:59 06:59 18:59 Output Total 850 Balance -850 Weight 113.5 kg Output: Urine 850 Other: Voiding Method External Catheter # Voids 1 - Labs CBC & Chem 7: 01/29/23 07:32 02/02/23 07:01 Labs: Abnormal Lab Results - Last 24 Hours (Table) 02/01/23 02/01/23 02/01/23 Range/Units 06:29 16:26 21:56 Sodium (137-145) mmol/L Potassium 3.3 L (3.5-5.5) mmol/L BUN 8.6 L (9.0-27.0) mg/dL Creatinine 1.8 H (0.6-1.5) mg/dL Est GFR (CKD-EPI)AfAm 31.8 L (60.0-200.0) Est GFR (CKD-EPI)NonAf 27.4 L (60.0-200.0) BUN/Creatinine Ratio 4.78 L (12.00-20.00) Ratio Glucose 134 H (70-110) mg/dL POC Glucose (mg/dL) 136 H 252 H (70-110) mg/dL 02/02/23 02/02/23 Range/Units 06:11 07:01 Sodium 136 L (137-145) mmol/L Potassium (3.5-5.5) mmol/L BUN (9.0-27.0) mg/dL Creatinine 1.70 H (0.6-1.5) mg/dL Est GFR (CKD-EPI)AfAm (60.0-200.0) Est GFR (CKD-EPI)NonAf (60.0-200.0) BUN/Creatinine Ratio (12.00-20.00) Ratio Glucose 137 H (70-110) mg/dL POC Glucose (mg/dL) 147 H (70-110) mg/dL Assessment and Plan Plan: Assessment: 1. Chronic kidney disease stage IIIB with baseline creatinine near 1.5. Etiology is diabetic kidney disease. No hydronephrosis noted on CAT scan. Renal function stable with creatinine 1.7 today. 2. Hypertension with chronic kidney disease. Aldosterone and renin both low. Spironolactone was started after these were drawn however patient was still on lisinopril prior. TSH normal. No adrenal nodules or masses noted on CAT scan. No renal artery stenosis noted on duplex ultrasound. 3. Hypokalemia from poor intake and hypomagnesemia. Replaced. Improved. 4. Hypomagnesemia from poor intake and GI losses. Replaced. Better. 5. Diabetes mellitus. Plan: Amlodipine dose increased 02/01/2023. Hold for systolic blood pressure less than 120. Increase hydralazine frequency to 3 times a day. Follow-up plasma metanephrines. Encouraged oral intake. Avoid nephrotoxins. Continue to monitor renal function and urine output.
[2023-02-02 11:57] LABS: Glucose,Whole Blood 211 mg/dL (70-110)
[2023-02-02 12:51] VITALS: BMI 42.9
--- NOTE | 2023-02-02 15:37 | P.PN ---
Subjective Progress Note Date: 02/02/23 No new complaints today. Patient is adamant about going home and not to rehab. She worked with PT today, was 1 person assist. Gen: awake, alert HEENT: normocephalic, atraumatic, good hearing acuity, moist mucous membranes Resp: good air exchange, breathing comfortably with no accessory muscle use CVS: good distal perfusion x 4, GI: soft, NTTP, ND : no SPT, no CVAT, sims catheter not present MSK: no pitting edema, no clubbing Neuro: non-focal, moving all extremities Psych: cooperative, euthymic mood Hospital course: 72-year-old with a PMH of systolic CHF with EF 40-45%, type II DM, hypertension, and hyperlipidemia who presents to the emergency room with complaints of nausea and vomiting. CT abdomen and pelvis without contrast revealed no acute abnormalities. Chest x-ray was unremarkable. Laboratory evaluation revealed a hemoglobin of 9.5, potassium 2.2, glucose 261, creatinine 1.33, lactic acid 2.2, T bili 1.5, UA consistent with UTI. Patient admitted for severe hypokalemia and persistent nausea and vomiting. Also has malignant hypertension. Nephrology is consulted. Hyperaldosteronism less likely given low aldosterone levels. Patient also having significant diarrhea, C. diff negative. Diarrhea now improved. Patient also has really poor oral intake, likely depression related. Assessment: Hypertensive urgency Hypokalemia Hypomagnesemia UTI status post antibiotics Diarrhea, resolved Nausea or vomiting, resolved Type 2, DM A1c 6.9 Acute encephalopathy, metabolic, resolved Elevated troponin Major depressive disorder Plan: Today, patient is afebrile, 155/70, heart rate 89, 98% on room air Basic metabolic panel, magnesium ordered for tomorrow Plasma metanephrines ordered, pending Continue amlodipine 5 mg twice a day Continue hydralazine 50 mg twice a day Continue lisinopril 20 mg by mouth twice a day Continue spironolactone 50 mg daily Continue levothyroxine 50 g Continue Remeron 15 mg daily at bedtime to encourage by mouth intake Patient is no code Objective - Vital Signs Vital signs: Vital Signs Temp 98.1 F 02/02/23 14:00 Pulse 89 02/02/23 14:00 Resp 18 02/02/23 14:00 BP 155/70 02/02/23 14:00 Pulse Ox 98 06/01/23 14:00 FiO2 Intake & Output 02/01/23 02/02/23 02/02/23 18:59 06:59 18:59 Output Total 850 Balance -850 Weight 113.5 kg 113.5 kg Output: Urine 850 Other: Voiding Method External Catheter # Voids 1 - Labs CBC & Chem 7: 01/29/23 07:32 02/02/23 07:01 Labs: Abnormal Lab Results - Last 24 Hours (Table) 02/01/23 02/01/23 02/02/23 Range/Units 16:26 21:56 06:11 Sodium (137-145) mmol/L Creatinine (0.52-1.04) mg/dL Glucose (74-99) mg/dL POC Glucose (mg/dL) 136 H 252 H 147 H (70-110) mg/dL 02/02/23 02/02/23 Range/Units 07:01 11:56 Sodium 136 L (137-145) mmol/L Creatinine 1.70 H (0.52-1.04) mg/dL Glucose 137 H (74-99) mg/dL POC Glucose (mg/dL) 211 H (70-110) mg/dL
[2023-02-02 16:35] LABS: Glucose,Whole Blood 179 mg/dL (70-110)
[2023-02-02] MEDS: ATORVASTATIN 10 MG TAB PO SCH (20:48)
[2023-02-02] MEDS: MIRTAZAPINE 15 MG TAB PO SCH (20:48)
[2023-02-02 20:52] LABS: Glucose,Whole Blood 140 mg/dL (70-110)
[2023-02-03] MEDS: guaiFENesin SYRUP 100MG/5ML 200 MG/10 ML CUP PO PRN (02:17)
[2023-02-03 05:31] LABS: Glucose,Whole Blood 187 mg/dL (70-110)
[2023-02-03] MEDS: LEVOTHYROXINE 50 MCG TAB PO SCH (05:46)
[2023-02-03] MEDS: INSULIN ASPART (NovoLOG) 100 UNIT/ML VIAL SQ SCH ×3 (07:07→16:48)
[2023-02-03] MEDS: HEPARIN SODIUM,PORCINE/PF 5,000 UNIT/0.5 ML SYRINGE SQ SCH ×2 (08:52→16:40)
[2023-02-03] MEDS: amLODIPine 5 MG TAB PO SCH ×2 (08:57→20:34)
[2023-02-03] MEDS: lisinopriL 20 MG TAB PO SCH ×2 (08:57→20:34)
[2023-02-03] MEDS: hydrALAZINE HCL 50 MG TAB PO SCH ×3 (08:57→20:34)
[2023-02-03] MEDS: SPIRONOLACTONE 25 MG TAB PO SCH (08:58)
[2023-02-03] MEDS: PANTOPRAZOLE 40 MG TABLET PO SCH (09:00)
--- NOTE | 2023-02-03 10:37 | P.DS ---
Providers Date of admission: 01/24/23 19:39 Expected date of discharge: 02/03/23 Attending physician: Thalia Schmid MD Consults: 01/26/23 07:31 Consult Physician Routine Consulting Provider: Lauren Truong Consult Reason/Comments: severe hypokalemia, and malignant hypertension Do you want consulting provider notified?: Yes Primary care physician: Graham Saeed MD Hospital Course: Assessment: Hypertensive urgency Hypokalemia Hypomagnesemia UTI status post antibiotics Diarrhea, resolved Nausea or vomiting, resolved Type 2, DM A1c 6.9 Acute encephalopathy, metabolic, resolved Elevated troponin Major depressive disorder Hospital course: 72-year-old with a PMH of systolic CHF with EF 40-45%, type II DM, hypertension, and hyperlipidemia who presents to the emergency room with complaints of nausea and vomiting. CT abdomen and pelvis without contrast revealed no acute abnormalities. Chest x-ray was unremarkable. Laboratory evaluation revealed a hemoglobin of 9.5, potassium 2.2, glucose 261, creatinine 1.33, lactic acid 2.2, T bili 1.5, UA consistent with UTI. Patient admitted for severe hypokalemia and persistent nausea and vomiting. Also has malignant hypertension. Nephrology was consulted. Hyperaldosteronism was felt less likely given low aldosterone levels. Patient also having significant diarrhea, C. diff negative. Diarrhea improved with imodium. Patient also has really poor oral intake, likely depression related, she was started on remeron, and this improved as well. Nephrology made adjustments to pts BP medications for better control. She was instructed to f/u with PCP for further adjustments as needed. Metanephrines were still pending at time of discharge. I spent 40 minutes coordinating this discharge on 02/03 Gen: awake, alert HEENT: normocephalic, atraumatic, good hearing acuity, moist mucous membranes Resp: good air exchange, breathing comfortably with no accessory muscle use CVS: good distal perfusion x 4, GI: soft, NTTP, ND : no SPT, no CVAT, sims catheter not present MSK: no pitting edema, no clubbing Neuro: non-focal, moving all extremities Psych: cooperative, euthymic mood Patient Condition at Discharge: Good Plan - Discharge Summary Discharge Rx Participant: No New Discharge Prescriptions: New Spironolactone [Aldactone] 50 mg PO DAILY #60 tab hydrALAZINE HCL [Apresoline] 50 mg PO TID #90 tab traZODone HCL [Desyrel] 50 mg PO HS PRN #30 tab PRN Reason: Insomnia amLODIPine [Norvasc] 5 mg PO BID #60 tab Mirtazapine [Remeron] 15 mg PO HS #30 tab lisinopriL [Zestril] 20 mg PO BID #60 tab Continue Simvastatin [Zocor] 20 mg PO HS glipiZIDE XL [Glucotrol XL] 5 mg PO DAILY Levothyroxine Sodium [Synthroid] 50 mcg PO DAILY metFORMIN HCL ER [Glucophage XR] 500 mg PO DAILY Omeprazole 20 mg PO DAILY Discontinued lisinopriL [Zestril] 2.5 mg PO DAILY traMADol HCl [Ultram] 50 mg PO BID PRN #6 tab PRN Reason: Pain Zolpidem [Ambien] 10 mg PO HS #3 tab Discharge Medication List Levothyroxine Sodium [Synthroid] 50 mcg PO DAILY 11/13/14 [History] Simvastatin [Zocor] 20 mg PO HS 11/13/14 [History] glipiZIDE XL [Glucotrol XL] 5 mg PO DAILY 11/13/14 [History] Omeprazole 20 mg PO DAILY 01/24/23 [History] metFORMIN HCL ER [Glucophage XR] 500 mg PO DAILY 01/24/23 [History] Mirtazapine [Remeron] 15 mg PO HS #30 tab 02/03/23 [Rx] Spironolactone [Aldactone] 50 mg PO DAILY #60 tab 02/03/23 [Rx] amLODIPine [Norvasc] 5 mg PO BID #60 tab 02/03/23 [Rx] hydrALAZINE HCL [Apresoline] 50 mg PO TID #90 tab 02/03/23 [Rx] lisinopriL [Zestril] 20 mg PO BID #60 tab 02/03/23 [Rx] traZODone HCL [Desyrel] 50 mg PO HS PRN #30 tab 02/03/23 [Rx] Follow up Appointment(s)/Referral(s): [facility],Home Care [NON-STAFF] - 1 Week Graham Saeed MD [Primary Care Provider] - 02/27/23 9:40 am Patient Instructions/Handouts: Heart Failure (DC), Dehydration (DC), Hypokalemia (DC) Discharge Disposition: HOME WITH HOME HEALTH SERVICES
--- NOTE | 2023-02-03 10:47 | P.PN ---
Subjective Patient is seen in follow-up for chronic kidney disease. Renal function stable. Sitting up in chair. Awake. Not a very reliable historian. Denies chest pain or shortness of breath. No vomiting or diarrhea. Blood pressure better controlled. Vital signs are stable. General: No acute distress. HEENT: Head exam is unremarkable. LUNGS: No audible rhonchi or wheezes. HEART: Rate and Rhythm are regular. ABDOMEN: Nontender. EXTREMITITES: No edema. Objective - Vital Signs Vital signs: Vital Signs Temp 98 F 02/03/23 07:37 Pulse 85 02/03/23 07:37 Resp 15 02/03/23 07:37 BP 146/64 02/03/23 07:37 Pulse Ox 96 02/03/23 07:37 FiO2 Intake & Output 02/02/23 02/03/23 02/03/23 18:59 06:59 18:59 Weight 113.5 kg 116.5 kg Other: Voiding Method External Catheter # Voids 2 1 - Labs CBC & Chem 7: 01/29/23 07:32 02/02/23 07:01 Labs: Abnormal Lab Results - Last 24 Hours (Table) 02/02/23 02/02/23 02/02/23 Range/Units 11:56 16:34 20:43 POC Glucose (mg/dL) 211 H 179 H 140 H (70-110) mg/dL 02/03/23 Range/Units 05:30 POC Glucose (mg/dL) 187 H (70-110) mg/dL Assessment and Plan Plan: Assessment: 1. Chronic kidney disease stage IIIB with baseline creatinine near 1.5. Etiology is diabetic kidney disease. No hydronephrosis noted on CAT scan. Renal function stable with creatinine 1.7 as of yesterday. 2. Hypertension with chronic kidney disease. Aldosterone and renin both low. Spironolactone was started after these were drawn however patient was still on lisinopril prior. TSH normal. No adrenal nodules or masses noted on CAT scan. No renal artery stenosis noted on duplex ultrasound. Blood pressure controlled. 3. Hypokalemia from poor intake and hypomagnesemia. Replaced. Improved. 4. Hypomagnesemia from poor intake and GI losses. Replaced. Better. 5. Diabetes mellitus. Plan: Maintain current antihypertensives. Follow-up plasma metanephrines. Encouraged oral intake. Avoid nephrotoxins. Continue to monitor renal function and urine output. Follow-up outpatient in 1 week post discharge.
[2023-02-03 11:17] LABS: Glucose,Whole Blood 241 mg/dL (70-110)
[2023-02-03 11:37] LABS: African American GFR (CKD) 29.4 (60.0-200.0); Anion Gap 10.9 mmol/L (10.00-18.00); BUN/Creat Ratio 5.68 Ratio (12.00-20.00); Blood Urea Nitrogen 10.9 mg/dL (9.0-27.0); Magnesium 1.9 mg/dL (1.5-2.4); Non-African American GFR(CKD) 25.4 (60.0-200.0)
[2023-02-03 14:33] VITALS: BP 118/72; PULSE 72; RESP 16; TEMP 97.9
[2023-02-03 16:37] LABS: Glucose,Whole Blood 163 mg/dL (70-110)
[2023-02-03] MEDS: ATORVASTATIN 10 MG TAB PO SCH (20:34)
[2023-02-03] MEDS: MIRTAZAPINE 15 MG TAB PO SCH (20:34)
[2023-02-06 13:41] LABS: Metanephrine, Free <25 pg/mL (< OR = 57); Normetanephrine, Free 165 pg/mL (< OR = 148); Total, Free (MN + NMN) 165 pg/mL (< OR = 205)
== END 2023-02-03 20:40 | disposition home health service (06) | DRG 689 ==
LOC: EC 15:04 → 3SCARD 19:39 → 4SSUR 01-30 21:20
PROVIDERS: ADMIT Internal Medicine; ATTEND Internal Medicine
DX: N39.0 Urinary tract infection, site not specified (principal); G93.41 Metabolic encephalopathy; E87.20 Acidosis, unspecified; I13.0 Hypertensive heart and chronic kidney disease with heart failure and stage 1 through stage 4 chronic kidney disease, or unspecified chronic kidney disease; I42.9 Cardiomyopathy, unspecified; F05 Delirium due to known physiological condition; I50.22 Chronic systolic (congestive) heart failure; D63.1 Anemia in chronic kidney disease; E11.43 Type 2 diabetes mellitus with diabetic autonomic (poly)neuropathy; F32.9 Major depressive disorder, single episode, unspecified; N18.32 Chronic kidney disease, stage 3b; E11.65 Type 2 diabetes mellitus with hyperglycemia; Z66 Do not resuscitate; E87.6 Hypokalemia; E86.0 Dehydration; E83.42 Hypomagnesemia; I44.7 Left bundle-branch block, unspecified; M79.7 Fibromyalgia; I16.0 Hypertensive urgency; E78.5 Hyperlipidemia, unspecified; K31.84 Gastroparesis; K21.9 Gastro-esophageal reflux disease without esophagitis; Z20.822 Contact with and (suspected) exposure to COVID-19; Z79.84 Long term (current) use of oral hypoglycemic drugs; Z28.311 Partially vaccinated for COVID-19; Z79.899 Other long term (current) drug therapy; Z79.890 Hormone replacement therapy; Z83.3 Family history of diabetes mellitus; E11.22 Type 2 diabetes mellitus with diabetic chronic kidney disease
CPT/HCPCS: 36415; 71045; 74176; 80048; 80053; 81001; 82088; 82150; 83036; 83605; 83690; 83735; 83835; 84132; 84133; 84244; 84443; 84484; 85025; 85610; 85730; 87324; 87636; 93005; 93975; 96361; 96365; 96366; 96367; 96368; 96372; 96375; 96376; 99285

== ENCOUNTER 2023-02-13 11:07 | Inpatient (IN) | payer MEDICARE, OTHER ==
--- NOTE | 2023-02-13 13:25 | ED ---
Female Urogenital HPI - General Source: patient, RN notes reviewed Mode of arrival: ambulatory Limitations: no limitations <Beatrice Iqbal - Last Filed: 02/13/23 13:20> <Cal Nicole - Last Filed: 02/13/23 16:01> - General Chief complaint: Urogenital Stated complaint: uti Time Seen by Provider: 02/13/23 13:21 - History of Present Illness Initial comments: This is a 72-year-old female who presents to the emergency department per the instruction of her primary care provider for IV antibiotics. Patient has been treated with outpatient antibiotics since 02/09 for a UTI. Her PCP told her that based on the urine culture, she needed to receive IV antibiotics. (Beatrice Iqbal) Dictation was produced using [employer] dictation software. please excuse any grammatical, word or spelling errors. Chief Complaint: 72-year-old female status a ER for drug resistant UTI History of Present Illness: Patient 72-year-old female she was told to come to the emergency department by her primary care doctor. She had a urine sample provided 4 days ago that tested positive for drug versus enterococcus. Patient states she feels a little queasy. Denies any other symptoms at this time. Denies any pain. No dysuria. She was recently admitted for UTI. The ROS documented in this emergency department record has been reviewed and confirmed by me. Those systems with pertinent positive or negative responses have been documented in the HPI. All other systems are other negative and/or noncontributory. (Cal Nicole) - Related Data Home Medications Medication Instructions Recorded Confirmed Levothyroxine Sodium [Synthroid] 50 mcg PO DAILY 11/13/14 01/24/23 Simvastatin [Zocor] 20 mg PO HS 11/13/14 01/24/23 glipiZIDE XL [Glucotrol XL] 5 mg PO DAILY 11/13/14 01/24/23 Omeprazole 20 mg PO DAILY 01/24/23 01/24/23 metFORMIN HCL ER [Glucophage XR] 500 mg PO DAILY 01/24/23 01/24/23 Previous Rx's Medication Instructions Recorded Mirtazapine [Remeron] 15 mg PO HS #30 tab 02/03/23 Spironolactone [Aldactone] 50 mg PO DAILY #60 tab 02/03/23 amLODIPine [Norvasc] 5 mg PO BID #60 tab 02/03/23 hydrALAZINE HCL [Apresoline] 50 mg PO TID #90 tab 02/03/23 lisinopriL [Zestril] 20 mg PO BID #60 tab 02/03/23 traZODone HCL [Desyrel] 50 mg PO HS PRN #30 tab 02/03/23 Allergies Allergy/AdvReac Type Severity Reaction Status Date / Time No Known Allergies Allergy Verified 02/13/23 11:23 Review of Systems ROS Other: All systems not noted in ROS Statement are negative. <Beatrice Iqbal - Last Filed: 02/13/23 13:20> ROS Other: All systems not noted in ROS Statement are negative. <Cal Nicole - Last Filed: 02/13/23 16:01> ROS Statement: Those systems with pertinent positive or pertinent negative responses have been documented in the HPI. Past Medical History Past Medical History: Diabetes Mellitus, Fibromyalgia, Osteoarthritis (OA), Thyroid Disorder Additional Past Medical History / Comment(s): kidney stones in past History of Any Multi-Drug Resistant Organisms: None Reported Past Surgical History: Joint Replacement, Orthopedic Surgery, Tonsillectomy Additional Past Surgical History / Comment(s): right athroscopy, back surgery for ruptured disk Past Anesthesia/Blood Transfusion Reactions: No Reported Reaction Past Psychological History: No Psychological Hx Reported Smoking Status: Never smoker Past Alcohol Use History: None Reported Past Drug Use History: None Reported - Past Family History Mother Family Medical History: Cancer Additional Family Medical History / Comment(s): brain stem Father Family Medical History: Diabetes Mellitus <Beatrice Iqbal - Last Filed: 02/13/23 13:20> General Exam Limitations: no limitations <Beatrice Iqbal - Last Filed: 02/13/23 13:20> <Cal Nicole - Last Filed: 02/13/23 16:01> - General Exam Comments Initial Comments: Visual Physical Exam Vital signs reviewed General: Well-appearing, nontoxic, no acute distress. Head: Normocephalic, atraumatic Eyes: PERRLA, EOMI ENT: Airway patent Chest: Nonlabored breathing Skin: No visual rash, normal skin tone Neuro: Alert and oriented 3 Musculoskeletal: No gross abnormalities (Beatrice Iqbal) PHYSICAL EXAM: General Impression: Alert and oriented x3, not in acute distress HEENT: Normocephalic atraumatic, extra-ocular movements intact, pupils equal and reactive to light bilaterally, mucous membranes moist. Cardiovascular: Heart regular rate and rhythm Chest: Able to complete full sentences, no retractions, no tachypnea Abdomen: abdomen soft, non-tender, non-distended, no organomegaly Musculoskeletal: Pulses present and equal in all extremities, no peripheral edema Motor: no focal deficits noted Neurological: CN II-XII grossly intact, no focal motor or sensory deficits noted Skin: Intact with no visualized rashes Psych: Normal affect and mood (Cal Nicole) Course <Cal Nicole - Last Filed: 02/13/23 16:01> Vital Signs 02/13/23 02/13/23 11:21 15:49 Temperature 97.9 F 99.4 F Pulse Rate 71 81 Respiratory 22 17 Rate Blood Pressure 177/82 183/77 O2 Sat by Pulse 99 99 Oximetry - Reevaluation(s) Reevaluation #1: 02/13/23 14:12 [place] [facility] results reviewed from 4 days ago. Patient is urine culture positive for enterococcus resistant to ampicillin, penicillin. Sensitive to gentamicin and vancomycin. Patient started IV vancomycin (Cal Nicole) Medical Decision Making - Lab Data Result diagrams: 02/13/23 14:19 02/13/23 14:19 <Cal Nicole - Last Filed: 02/13/23 16:01> - Medical Decision Making Was pt. sent in by a medical professional or institution (, PA, TICK ERADICATOR, urgent care, hospital, or retirement...) When possible be specific @ -No Did you speak to anyone other than the patient for history (EMS, parent, family, police, friend...)? What history was obtained from this source @ -No Did you review nursing and triage notes (agree or disagree)? Why? @ -I reviewed and agree with nursing and triage notes Were old charts reviewed (outside hosp., previous admission, EMS record, old EKG, old radiological studies, urgent care reports/EKG's, retirement records)? Report findings @ -Previous microbiology results are reviewed showing patient has resistant enterococcus Differential Diagnosis (chest pain, altered mental status, abdominal pain women, abdominal pain men, vaginal bleeding, musculoskeletal, weakness, fever, dyspnea, syncope, headache, dizziness, GI bleed, back pain, seizure, CVA, palpatations, mental health)? @ -Differential Weakness: Hypoglycemia, shock, sepsis, hyponatremia, anemia, infection, NV, ETOH, adverse medicine reaction, overdose, stroke, this is not meant to be an all-inclusive list. EKG interpreted by me (3pts min.). @ -None done X-rays interpreted by me (1pt min.). @ -None done CT interpreted by me (1pt min.). @ -None done U/S interpreted by me (1pt. min.). @ -None done What testing was considered but not performed or refused? (CT, X-rays, U/S, labs)? Why? @ -None What meds were considered but not given or refused? Why? @ -None Did you discuss the management of the patient with other professionals (professionals i.e. , PA, TICK ERADICATOR, lab, RT, psych nurse, forensic social worker, housing liaison, teacher, deputy probation officer, geriatric case manager)? Give summary @ -Clinical presentation was discussed with Dr. Brooke for admission Was smoking cessation discussed for >3mins.? @ -No Was critical care preformed (if so, how long)? @ -No Were there social determinants of health that impacted care today? How? (Homelessness, low income, unemployed, alcoholism, drug addiction, transportation, low edu. Level, literacy, decrease access to med. care, assisted, rehab)? @ -No Was there de-escalation of care discussed even if they declined (Discuss DNR or withdrawal of care, Hospice)? DNR status @ -No What co-morbidities impacted this encounter? (DM, HTN, Smoking, COPD, CAD, Cancer, CVA, ARF, Chemo, Hep., AIDS, mental health diagnosis, sleep apnea, morbid obesity)? @ -None Was patient admitted / discharged? Hospital course, mention meds given and route, prescriptions, significant lab abnormalities, going to OR and other pertinent info. @ -72-year-old female presents with drug resistant enterococcus UTI. Patient feeling queasy. Vital signs stable. Physical examination is benign. Laboratory evaluation within acceptable limits. Patient started on vancomycin based on urine culture and sensitivity results. Will be admitted Undiagnosed new problem with uncertain prognosis? @ -No Drug Therapy requiring intensive monitoring for toxicity (Heparin, Nitro, Insulin, Cardizem)? @ -No Were any procedures done? @ -No Diagnosis/symptom? Acute, or Chronic, or Acute on Chronic? Uncomplicated (without systemic symptoms) or Complicated (systemic symptoms)? @ -1. Drug resistant UTI Side effects of treatment? @ -No Exacerbation, Progression, or Severe Exacerbation? @ -No Poses a threat to life or bodily function? How? (Chest pain, USA, NV, pneumonia, PE, COPD, DKA, ARF, appy, cholecystitis, CVA, Diverticulitis, Homicidal, Suicidal, threat to staff... and all critical care pts) @ -yes (Cal Nicole) - Lab Data Lab Results 02/13/23 02/13/23 02/13/23 Range/Units 14:19 14:19 14:19 WBC 5.9 (3.8-10.6) k/uL RBC 3.45 L (3.80-5.40) m/uL Hgb 9.8 L (11.4-16.0) gm/dL Hct 29.8 L (34.0-46.0) % MCV 86.5 (80.0-100.0) fL MCH 28.4 (25.0-35.0) pg MCHC 32.8 (31.0-37.0) g/dL RDW 17.1 H (11.5-15.5) % Plt Count 218 (150-450) k/uL MPV 8.3 Neutrophils % 71 % Lymphocytes % 17 % Monocytes % 7 % Eosinophils % 5 % Basophils % 0 % Neutrophils # 4.2 (1.3-7.7) k/uL Lymphocytes # 1.0 (1.0-4.8) k/uL Monocytes # 0.4 (0-1.0) k/uL Eosinophils # 0.3 (0-0.7) k/uL Basophils # 0.0 (0-0.2) k/uL Anisocytosis Slight Sodium 139 (137-145) mmol/L Potassium 3.4 L (3.5-5.1) mmol/L Chloride 110 H (98-107) mmol/L Carbon Dioxide 22 (22-30) mmol/L Anion Gap 7 mmol/L BUN 8 (7-17) mg/dL Creatinine 1.46 H (0.52-1.04) mg/dL Est GFR (CKD-EPI)AfAm 41 (>60 ml/min/1.73 sqM) Est GFR (CKD-EPI)NonAf 36 (>60 ml/min/1.73 sqM) Glucose 81 (74-99) mg/dL Plasma Lactic Acid [place] 0.8 (0.7-2.0) mmol/L Calcium 8.6 (8.4-10.2) mg/dL Total Bilirubin 0.8 (0.2-1.3) mg/dL AST 26 (14-36) U/L ALT 27 (4-34) U/L Alkaline Phosphatase 68 (38-126) U/L Total Protein 5.9 L (6.3-8.2) g/dL Albumin 3.4 L (3.5-5.0) g/dL Disposition <Beatrice Iqbal - Last Filed: 02/13/23 13:20> Decision Time: 16:01 <Cal Nicole - Last Filed: 02/13/23 16:01> Clinical Impression: UTI (urinary tract infection) Disposition: ADMITTED IP TO THIS HOSP Condition: Fair Referrals: Graham Saeed MD [Primary Care Provider] - 1-2 days
[2023-02-13] MEDS ORDERED: VANCOMYCIN IV PER PHARMACY 1 EACH MISC MISCELLANE PRN (14:07)
[2023-02-13] MEDS ORDERED: VANCOMYCIN 1,500 MG in SODIUM CHLORIDE 0.9% 500 ML 500 ML IVPB STA (14:08)
[2023-02-13 15:26] LABS: Anisocytosis Slight; Basophils % (A) 0 %; Eosinophils # (A) 0.3 k/uL (0-0.7); Eosinophils % (A) 5 %; HCT 29.8 % (34.0-46.0); HGB 9.8 gm/dL (11.4-16.0); Lymphocytes % (A) 17 %; MCH 28.4 pg (25.0-35.0); MCHC 32.8 g/dL (31.0-37.0); MCV 86.5 fL (80.0-100.0); Mean Platelet Volume 8.3; Monocytes # (A) 0.4 k/uL (0-1.0); Monocytes % (A) 7 %; Neutrophils # (A) 4.2 k/uL (1.3-7.7); Neutrophils % (A) 71 %; Platelet Count 218 k/uL (150-450); RBC 3.45 m/uL (3.80-5.40); RDW 17.1 % (11.5-15.5); WBC 5.9 k/uL (3.8-10.6)
[2023-02-13] MEDS ORDERED: NALOXONE 0.4 MG/ML 1 ML VIAL IV PRN (15:32)
[2023-02-13 15:33] LABS: ALT 27 U/L (4-34); AST 26 U/L (14-36); African American GFR (CKD) 41 (>60 ml/min/1.73 sqM); Albumin 3.4 g/dL (3.5-5.0); Alkaline Phosphatase 68 U/L (38-126); Anion Gap 7 mmol/L; Blood Urea Nitrogen 8 mg/dL (7-17); Calcium 8.6 mg/dL (8.4-10.2); Carbon Dioxide 22 mmol/L (22-30); Chloride 110 mmol/L (98-107); Glucose 81 mg/dL (74-99); Non-African American GFR(CKD) 36 (>60 ml/min/1.73 sqM); Potassium 3.4 mmol/L (3.5-5.1); Sodium 139 mmol/L (137-145); Total Bilirubin 0.8 mg/dL (0.2-1.3); Total Protein 5.9 g/dL (6.3-8.2)
[2023-02-13] MEDS: SODIUM CHLORIDE 0.9% 1,000 ML IV SCH (15:46)
[2023-02-13] MEDS ORDERED: traMADol 50 MG TAB PO PRN (17:46)
[2023-02-13] MEDS ORDERED: traZODone HCL 50 MG TAB PO PRN (17:46)
--- NOTE | 2023-02-13 17:55 | P.HPIM ---
History of Present Illness H&P Date: 02/13/23 Chief Complaint: abnormal urine culture 72-year-old woman with a medical history of systolic heart failure with an ejection fraction of 40-45%, type 2 diabetes, hypertension, hyperlipidemia who presented to the emergency room at the request of her primary care physician with abnormal urine culture. Patient was recently discharged from our facility on 02/03 after being treated for nausea, vomiting, dehydration and metabolic arrangements. Apparently, when she went home she was still feeling generally weak, having trouble keeping down by mouth intake. According to the patient she has been nauseous and vomiting after having any water or food. She did discuss this with her primary care physician, who ordered a urinary analysis and urine culture, after which she was started on oral antibiotic. She was called today with results of her urine culture which showed VRE, and was asked to come into the hospital for IV antibiotic therapy. Patient also reports chills, sweats in the last week with increased urinary frequency. She denies fevers, chest pain, palpitations, syncope, presyncopal, cough, dyspnea, abdominal pain, constipation, diarrhea, dysuria, dyschezia, numbness/weakness of extremities. In the emergency room, patient was afebrile, 183/77, heart rate 81, 99% on room air. CBC showed hemoglobin of 9.8. Basic metabolic panel showed potassium of 3.4, chloride of 110. Liver function tests showed total protein 5.9, albumin is 3.4. Urine culture from 02/09 is reviewed and shows enterococcus faecium which is resistant to ampicillin and penicillin. Case was discussed with the emergency room provider and decision was made to with the patient to the hospital for IV antibiotics for VRE urinary tract infection. All Systems reviewed and pertinent positives and negatives noted in HPI, all other symptoms are negative Gen: in no apparent distress, resting comfortably in bed Eyes: PERRL, no scleral injection or icterus HENT: normocephalic, atraumatic, good hearing acuity, moist mucous membranes Neck: no tracheal deviation, full range of motion Resp: good air exchange, breathing comfortably with no accessory muscle use, no tactile fremitus CVS: good distal perfusion x 4, bilateral 2+ pitting edema GI: soft, NTTP, ND, no hepatosplenomegaly : suprapubic tenderness is present, no CVAT, sims catheter not present MSK: no clubbing, no cyanosis, no noted contractures of extremities Skin: no noted rashes, petechiae; temperature of skin is appropriate Neuro: moving all extremities without signs of weakness, CN II-XII intact Psych: cooperative, euthymic mood, insight and judgment intact Labs and imaging as above Assessment: Complicated urinary tract infection with vancomycin-resistant enterococcus Hypertensive urgency Nausea or vomiting Type 2, DM A1c 6.9 Major depressive disorder Chronic systolic heart failure, EF 40-45% Hyperlipidemia Plan: Vital signs reviewed and noted in the HPI Lab work reviewed and noted in the HPI Case was discussed with the Emergency Room provider and decision was made to admit the patient for VRE urinary tract infection Consultation to infectious disease Vancomycin, follow trough level CBC, BMP, Mg ordered for tomorrow Pt is DNR/DNI Past Medical History Past Medical History: Diabetes Mellitus, Fibromyalgia, Osteoarthritis (OA), Thyroid Disorder Additional Past Medical History / Comment(s): kidney stones in past History of Any Multi-Drug Resistant Organisms: None Reported Past Surgical History: Joint Replacement, Orthopedic Surgery, Tonsillectomy Additional Past Surgical History / Comment(s): right athroscopy, back surgery for ruptured disk Past Anesthesia/Blood Transfusion Reactions: No Reported Reaction Past Psychological History: No Psychological Hx Reported Smoking Status: Never smoker Past Alcohol Use History: None Reported Past Drug Use History: None Reported - Past Family History Mother Family Medical History: Cancer Additional Family Medical History / Comment(s): brain stem Father Family Medical History: Diabetes Mellitus Medications and Allergies Home Medications Medication Instructions Recorded Confirmed Type Levothyroxine Sodium [Synthroid] 50 mcg PO DAILY 11/13/14 02/13/23 History Simvastatin [Zocor] 20 mg PO HS 11/13/14 02/13/23 History glipiZIDE XL [Glucotrol XL] 5 mg PO DAILY 11/13/14 02/13/23 History Omeprazole 20 mg PO DAILY 01/24/23 02/13/23 History metFORMIN HCL ER [Glucophage XR] 500 mg PO DAILY 01/24/23 02/13/23 History Mirtazapine [Remeron] 15 mg PO HS #30 tab 02/03/23 02/13/23 Rx Spironolactone [Aldactone] 50 mg PO DAILY #60 tab 02/03/23 02/13/23 Rx hydrALAZINE HCL [Apresoline] 50 mg PO TID #90 tab 02/03/23 02/13/23 Rx traZODone HCL [Desyrel] 50 mg PO HS PRN #30 tab 02/03/23 02/13/23 Rx Cephalexin [Keflex] 500 mg PO Q12HR 02/13/23 02/13/23 History amLODIPine [Norvasc] 5 mg PO BID 02/13/23 02/13/23 History lisinopriL 20 mg PO BID 02/13/23 02/13/23 History traMADol HCL 50 mg PO BID PRN 02/13/23 02/13/23 History Allergies Allergy/AdvReac Type Severity Reaction Status Date / Time No Known Allergies Allergy Verified 02/13/23 16:13 Physical Exam Osteopathic Statement: *. No significant issues noted on an osteopathic structural exam other than those noted in the History and Physical/Consult. Vitals: Vital Signs Temp Pulse Resp BP Pulse Ox 02/13/23 15:49 99.4 F 81 17 183/77 99 02/13/23 11:21 97.9 F 71 22 177/82 99 Intake and Output 02/13/23 02/13/23 02/13/23 06:59 14:59 22:59 Other: Voiding Method Toilet Weight 95.254 kg Results CBC & Chem 7: 02/13/23 14:19 02/13/23 14:19 Labs: Abnormal Lab Results - Last 24 Hours (Table) 02/13/23 02/13/23 Range/Units 14:19 14:19 RBC 3.45 L (3.80-5.40) m/uL Hgb 9.8 L (11.4-16.0) gm/dL Hct 29.8 L (34.0-46.0) % RDW 17.1 H (11.5-15.5) % Potassium 3.4 L (3.5-5.1) mmol/L Chloride 110 H (98-107) mmol/L Creatinine 1.46 H (0.52-1.04) mg/dL Total Protein 5.9 L (6.3-8.2) g/dL Albumin 3.4 L (3.5-5.0) g/dL
[2023-02-13 18:33] LABS: Appearance,Urine Clear (Clear); Bilirubin,Urine Negative (Negative); Blood,Urine Negative (Negative); Color,Urine Yellow; Glucose,Urine (UA) Negative (Negative); Ketones,Urine Negative (Negative); Leukocyte Esterase,Urine Negative (Negative); Mucus,Urine Rare /hpf; Nitrite,Urine Negative (Negative); Protein,Urine 3+ (Negative); RBC,Urine 1 /hpf (0-5); Specific Gravity,Urine 1.008 (1.001-1.035); Squamous Epithelial Cell,Urine 1 /hpf (0-4); Urobilinogen,Urine <2.0 mg/dL (<2.0); WBC,Urine 1 /hpf (0-5)
[2023-02-13] MEDS: ATORVASTATIN 10 MG TAB PO SCH ×2 (20:20→20:21)
[2023-02-13] MEDS: lisinopriL 20 MG TAB PO SCH (20:21)
[2023-02-13] MEDS: amLODIPine 5 MG TAB PO SCH (20:21)
[2023-02-13] MEDS: MIRTAZAPINE 15 MG TAB PO SCH (20:21)
[2023-02-13] MEDS: hydrALAZINE HCL 50 MG TAB PO SCH (21:17)
[2023-02-14] MEDS: LEVOTHYROXINE 50 MCG TAB PO SCH (05:33)
[2023-02-14 05:55] LABS: Anisocytosis Slight; Basophils % (A) 0 %; Eosinophils # (A) 0.2 k/uL (0-0.7); Eosinophils % (A) 4 %; HCT 27.9 % (34.0-46.0); HGB 8.8 gm/dL (11.4-16.0); Lymphocytes # (A) 0.9 k/uL (1.0-4.8); Lymphocytes % (A) 17 %; MCH 27.8 pg (25.0-35.0); MCHC 31.6 g/dL (31.0-37.0); MCV 87.8 fL (80.0-100.0); Mean Platelet Volume 8.3; Monocytes # (A) 0.4 k/uL (0-1.0); Monocytes % (A) 7 %; Neutrophils # (A) 3.9 k/uL (1.3-7.7); Neutrophils % (A) 71 %; Platelet Count 196 k/uL (150-450); RBC 3.18 m/uL (3.80-5.40); RDW 17.1 % (11.5-15.5); WBC 5.5 k/uL (3.8-10.6)
[2023-02-14 06:03] LABS: African American GFR (CKD) 39 (>60 ml/min/1.73 sqM); Anion Gap 7 mmol/L; Blood Urea Nitrogen 7 mg/dL (7-17); Calcium 8.1 mg/dL (8.4-10.2); Carbon Dioxide 23 mmol/L (22-30); Chloride 110 mmol/L (98-107); Glucose 122 mg/dL (74-99); Magnesium 1.5 mg/dL (1.6-2.3); Non-African American GFR(CKD) 34 (>60 ml/min/1.73 sqM); Potassium 3.2 mmol/L (3.5-5.1); Sodium 140 mmol/L (137-145)
[2023-02-14] MEDS ORDERED: POTASSIUM CHLORIDE ER 20 MEQ TAB.ER PO STA (09:37)
--- NOTE | 2023-02-14 09:38 | P.PN ---
Subjective Progress Note Date: 02/14/23 Pt is doing much better today. Eating breakfast with no n/v. Gen: awake, alert HEENT: normocephalic, atraumatic, good hearing acuity, moist mucous membranes Resp: good air exchange, breathing comfortably with no accessory muscle use CVS: good distal perfusion x 4, GI: soft, NTTP, ND : no SPT, no CVAT, sims catheter not present MSK: no pitting edema, no clubbing Neuro: non-focal, moving all extremities Psych: cooperative, euthymic mood Hospital course: 72-year-old woman with a medical history of systolic heart failure with an ejection fraction of 40-45%, type 2 diabetes, hypertension, hyperlipidemia who presented to the emergency room at the request of her primary care physician with abnormal urine culture. In the emergency room, patient was afebrile, 183/77, heart rate 81, 99% on room air. CBC showed hemoglobin of 9.8. Basic metabolic panel showed potassium of 3.4, chloride of 110. Liver function tests showed total protein 5.9, albumin is 3.4. Urine culture from 02/09 is reviewed and shows enterococcus faecium which is resistant to ampicillin and penicillin. Case was discussed with the emergency room provider and decision was made to with the patient to the hospital for IV antibiotics for VRE urinary tract infection. Assessment: Complicated urinary tract infection with vancomycin-resistant enterococcus Hypertensive urgency Nausea or vomiting Type 2, DM A1c 6.9 Major depressive disorder Chronic systolic heart failure, EF 40-45% Hyperlipidemia Plan: Today, patient is afebrile, 142/56, heart rate 76, 96% on room air Hemoglobin is 8.8 Potassium is 3.2, chloride is 110, creatinine is 1.5 to Magnesium is 1.5 Potassium 40 mEq by mouth ordered Consultation to infectious disease Vancomycin, follow trough level CBC, BMP, Mg ordered for tomorrow Pt is DNR/DNI Objective - Vital Signs Vital signs: Vital Signs Temp 98.1 F 02/14/23 07:25 Pulse 76 02/14/23 07:25 Resp 16 02/14/23 07:25 BP 142/56 02/14/23 07:25 Pulse Ox 96 02/14/23 07:25 FiO2 Intake & Output 02/13/23 02/14/23 02/14/23 18:59 06:59 18:59 Weight 95.254 kg 81.5 kg Other: Voiding Method Toilet Toilet Diaper # Voids 1 1 - Labs CBC & Chem 7: 02/14/23 05:14 02/14/23 05:14 Labs: Abnormal Lab Results - Last 24 Hours (Table) 02/13/23 02/13/23 02/13/23 Range/Units 14:19 14:19 14:19 RBC 3.45 L (3.80-5.40) m/uL Hgb 9.8 L (11.4-16.0) gm/dL Hct 29.8 L (34.0-46.0) % RDW 17.1 H (11.5-15.5) % Lymphocytes # (1.0-4.8) k/uL Potassium 3.4 L (3.5-5.1) mmol/L Chloride 110 H (98-107) mmol/L Creatinine 1.46 H (0.52-1.04) mg/dL Glucose (74-99) mg/dL Calcium (8.4-10.2) mg/dL Magnesium (1.6-2.3) mg/dL Total Protein 5.9 L (6.3-8.2) g/dL Albumin 3.4 L (3.5-5.0) g/dL Urine Protein 3+ H (Negative) Urine Mucus Rare H (None) /hpf 02/14/23 02/14/23 Range/Units 05:14 05:14 RBC 3.18 L (3.80-5.40) m/uL Hgb 8.8 L (11.4-16.0) gm/dL Hct 27.9 L (34.0-46.0) % RDW 17.1 H (11.5-15.5) % Lymphocytes # 0.9 L (1.0-4.8) k/uL Potassium 3.2 L (3.5-5.1) mmol/L Chloride 110 H (98-107) mmol/L Creatinine 1.52 H (0.52-1.04) mg/dL Glucose 122 H (74-99) mg/dL Calcium 8.1 L (8.4-10.2) mg/dL Magnesium 1.5 L (1.6-2.3) mg/dL Total Protein (6.3-8.2) g/dL Albumin (3.5-5.0) g/dL Urine Protein (Negative) Urine Mucus (None) /hpf
[2023-02-14] MEDS: SPIRONOLACTONE 25 MG TAB PO SCH (10:00)
[2023-02-14] MEDS: lisinopriL 20 MG TAB PO SCH ×2 (10:00→21:08)
[2023-02-14] MEDS: PANTOPRAZOLE 40 MG TABLET PO SCH (10:00)
[2023-02-14] MEDS ORDERED: VANCOMYCIN 1,500 MG in SODIUM CHLORIDE 0.9% 500 ML 500 ML IVPB ONE (12:00)
[2023-02-14] MEDS: SODIUM CHLORIDE 0.9% 1,000 ML IV SCH (15:51)
[2023-02-14] MEDS: hydrALAZINE HCL 50 MG TAB PO SCH ×2 (18:04→21:08)
--- NOTE | 2023-02-14 20:31 | P.CONS ---
History of Present Illness - Reason for Consult Consult date: 02/14/23 UTI Requesting physician: Cal Nicole - Chief Complaint weakness positive outpatient urine culture - History of Present Illness Patient is a 72-year-old female with a past medical history negative for diabetes mellitus hypertension hyperlipidemia patient apparently did have evaluation in the outpatient setting by her primary care physician for symptoms of weakness patient did have a UA done on 02/09/2023 and the patient was treated with oral antibiotics culture subsequently growing drug-resistant Enterococcus which is vancomycin sensitive patient subsequently has been advised to go to the hospital for admission and IV antibiotic therapy patient on presentation to the hospital has been afebrile except with 1 low-grade fever of 99.4 F patient denies having any headache no chest pain no shortness of breath or cough currently on room air no further nausea vomiting abdominal pain or any diarrhea patient did have a normal white count admission creatinine has been mildly elevated patient did have a UA obtained yesterday on 02/13/2023 that was essentia lly negative Review of Systems Positive point and negatives has been mentioned in the HPI, complete review of systems was performed and all other systems are negative Past Medical History Past Medical History: Heart Failure, Diabetes Mellitus, Fibromyalgia, Hyperlipidemia, Hypertension, Osteoarthritis (OA), Thyroid Disorder Additional Past Medical History / Comment(s): kidney stones in past History of Any Multi-Drug Resistant Organisms: VRE Year Discovered:: 02/13/23 MDRO Source:: urine Past Surgical History: Joint Replacement, Orthopedic Surgery, Tonsillectomy Additional Past Surgical History / Comment(s): right athroscopy, back surgery for ruptured disk Past Anesthesia/Blood Transfusion Reactions: No Reported Reaction Past Psychological History: No Psychological Hx Reported Smoking Status: Never smoker Past Alcohol Use History: None Reported Past Drug Use History: None Reported - Past Family History Mother Family Medical History: Cancer Additional Family Medical History / Comment(s): brain stem Father Family Medical History: Diabetes Mellitus Medications and Allergies Home Medications Medication Instructions Recorded Confirmed Type Levothyroxine Sodium [Synthroid] 50 mcg PO DAILY 11/13/14 02/13/23 History Simvastatin [Zocor] 20 mg PO HS 11/13/14 02/13/23 History glipiZIDE XL [Glucotrol XL] 5 mg PO DAILY 11/13/14 02/13/23 History Omeprazole 20 mg PO DAILY 01/24/23 02/13/23 History metFORMIN HCL ER [Glucophage XR] 500 mg PO DAILY 01/24/23 02/13/23 History Mirtazapine [Remeron] 15 mg PO HS #30 tab 02/03/23 02/13/23 Rx Spironolactone [Aldactone] 50 mg PO DAILY #60 tab 02/03/23 02/13/23 Rx hydrALAZINE HCL [Apresoline] 50 mg PO TID #90 tab 02/03/23 02/13/23 Rx traZODone HCL [Desyrel] 50 mg PO HS PRN #30 tab 02/03/23 02/13/23 Rx amLODIPine [Norvasc] 5 mg PO BID 02/13/23 02/13/23 History lisinopriL 20 mg PO BID 02/13/23 02/13/23 History traMADol HCL 50 mg PO BID PRN 02/13/23 02/13/23 History Allergies Allergy/AdvReac Type Severity Reaction Status Date / Time No Known Allergies Allergy Verified 02/13/23 16:13 Physical Exam Vitals: Vital Signs Temp Pulse Pulse Resp BP BP Pulse Ox 02/14/23 11:12 98.4 F 80 16 151/57 97 02/14/23 07:25 98.1 F 76 16 142/56 96 02/14/23 02:14 97.6 F 78 16 136/64 92 L 02/14/23 00:18 96.2 F L 82 16 136/69 96 02/13/23 22:06 98.2 F 79 17 166/53 99 02/13/23 20:25 98.5 F 83 20 166/53 97 02/13/23 18:14 98.7 F 87 18 145/76 98 02/13/23 15:49 99.4 F 81 17 183/77 99 Intake and Output 02/13/23 02/14/23 02/14/23 22:59 06:59 14:59 Other: Voiding Method Toilet Toilet Toilet Diaper Diaper # Voids 1 1 Weight 81.5 kg GENERAL DESCRIPTION: Elderly female lying in bed, no distress. No tachypnea or accessory muscle of respiration use. HEENT: Shows Pallor , no scleral icterus. Oral mucous membrane is dry. NECK: Trachea central, no thyromegaly. LUNGS: Unlabored breathing. Clear to auscultation anteriorly. No wheeze or crackle. HEART: S1, S2, regular rate and rhythm. No loud murmur ABDOMEN: Soft, no tenderness , guarding or rigidity, no organomegaly EXTREMITIES: No edema of feet. SKIN: No rash, no masses palpable. NEUROLOGICAL: The patient is awake, alert, oriented x3, mood and affect normal. Results CBC & Chem 7: 02/15/23 05:49 02/15/23 05:49 Labs: Abnormal Lab Results - Last 24 Hours (Table) 02/13/23 02/13/23 02/13/23 Range/Units 14:19 14:19 14:19 RBC 3.45 L (3.80-5.40) m/uL Hgb 9.8 L (11.4-16.0) gm/dL Hct 29.8 L (34.0-46.0) % RDW 17.1 H (11.5-15.5) % Lymphocytes # (1.0-4.8) k/uL Potassium 3.4 L (3.5-5.1) mmol/L Chloride 110 H (98-107) mmol/L Creatinine 1.46 H (0.52-1.04) mg/dL Glucose (74-99) mg/dL Calcium (8.4-10.2) mg/dL Magnesium (1.6-2.3) mg/dL Total Protein 5.9 L (6.3-8.2) g/dL Albumin 3.4 L (3.5-5.0) g/dL Urine Protein 3+ H (Negative) Urine Mucus Rare H (None) /hpf 02/14/23 02/14/23 Range/Units 05:14 05:14 RBC 3.18 L (3.80-5.40) m/uL Hgb 8.8 L (11.4-16.0) gm/dL Hct 27.9 L (34.0-46.0) % RDW 17.1 H (11.5-15.5) % Lymphocytes # 0.9 L (1.0-4.8) k/uL Potassium 3.2 L (3.5-5.1) mmol/L Chloride 110 H (98-107) mmol/L Creatinine 1.52 H (0.52-1.04) mg/dL Glucose 122 H (74-99) mg/dL Calcium 8.1 L (8.4-10.2) mg/dL Magnesium 1.5 L (1.6-2.3) mg/dL Total Protein (6.3-8.2) g/dL Albumin (3.5-5.0) g/dL Urine Protein (Negative) Urine Mucus (None) /hpf Assessment and Plan (1) UTI (urinary tract infection) Current Visit: Yes Status: Acute Code(s): N39.0 - URINARY TRACT INFECTION, SITE NOT SPECIFIED SNOMED Code(s): 89142774 Plan: 1patient with a recent outpatient urine culture done on 02/09/2023, which did grew vancomycin sensitive Enterococcus faecium in this patient currently afebrile white count is normal and the patient has no symptoms and negative UA with possibly initial urine culture contamination 2-with negative UA and no urinary symptoms recommend discontinuation of the vancomycin and no need for antibiotic therapy We will follow on clinical condition and cultures to further adjust medication if needed Thank you for this consultation we will follow the patient along with you Time with Patient: Greater than 30
[2023-02-14] MEDS: amLODIPine 5 MG TAB PO SCH (21:08)
[2023-02-15] MEDS: LEVOTHYROXINE 50 MCG TAB PO SCH (05:56)
[2023-02-15 06:27] LABS: Anisocytosis Slight; Basophils % (A) 0 %; Eosinophils # (A) 0.3 k/uL (0-0.7); Eosinophils % (A) 6 %; HCT 27.1 % (34.0-46.0); HGB 8.7 gm/dL (11.4-16.0); Hypochromasia Slight; Lymphocytes # (A) 1.2 k/uL (1.0-4.8); Lymphocytes % (A) 23 %; MCH 28.7 pg (25.0-35.0); MCHC 32.2 g/dL (31.0-37.0); MCV 89.2 fL (80.0-100.0); Mean Platelet Volume 8.2; Monocytes # (A) 0.3 k/uL (0-1.0); Monocytes % (A) 7 %; Neutrophils # (A) 3.2 k/uL (1.3-7.7); Neutrophils % (A) 64 %; Platelet Count 182 k/uL (150-450); RBC 3.04 m/uL (3.80-5.40); RDW 17.3 % (11.5-15.5)
[2023-02-15 06:51] LABS: African American GFR (CKD) 35 (>60 ml/min/1.73 sqM); Anion Gap 6 mmol/L; Blood Urea Nitrogen 7 mg/dL (7-17); Calcium 8.2 mg/dL (8.4-10.2); Carbon Dioxide 22 mmol/L (22-30); Chloride 112 mmol/L (98-107); Glucose 103 mg/dL (74-99); Magnesium 1.5 mg/dL (1.6-2.3); Non-African American GFR(CKD) 30 (>60 ml/min/1.73 sqM); Potassium 3.5 mmol/L (3.5-5.1); Sodium 140 mmol/L (137-145)
[2023-02-15] MEDS: hydrALAZINE HCL 50 MG TAB PO SCH (09:48)
[2023-02-15] MEDS: PANTOPRAZOLE 40 MG TABLET PO SCH (09:48)
[2023-02-15] MEDS: lisinopriL 20 MG TAB PO SCH (09:48)
[2023-02-15] MEDS: SPIRONOLACTONE 25 MG TAB PO SCH (09:48)
[2023-02-15] MEDS: amLODIPine 5 MG TAB PO SCH (09:48)
[2023-02-15 12:37] VITALS: BP 127/63; PULSE 84; RESP 16; TEMP 98.4
--- NOTE | 2023-02-15 14:18 | P.DS ---
Providers Date of admission: 02/13/23 15:32 Expected date of discharge: 02/15/23 Attending physician: Sariah Gusman DO Consults: 02/13/23 15:32 Consult Physician Routine Consulting Provider: Natalie Alvarez Consult Reason/Comments: uti Do you want consulting provider notified?: Yes Primary care physician: Graham Saeed MD Hospital Course: Discharge Diagnosis: Suspected urinary tract infection Urinary colonization with enterococcus Hypertensive urgency Nausea or vomiting Type 2, DM A1c 6.9 Major depressive disorder Chronic systolic heart failure, EF 40-45% Hyperlipidemia Hypokalemia Hospital Course: 72-year-old woman with a medical history of systolic heart failure with an ejection fraction of 40-45%, type 2 diabetes, hypertension, hyperlipidemia who presented to the emergency room at the request of her primary care physician with abnormal urine culture. In the emergency room, patient was afebrile, 183/77, heart rate 81, 99% on room air. CBC showed hemoglobin of 9.8. Basic metabolic panel showed potassium of 3.4, chloride of 110. Liver function tests showed total protein 5.9, albumin is 3.4. Urine culture from 02/09 is reviewed and shows enterococcus faecium which is resistant to ampicillin and penicillin. Patient was started on vancomycin. However patient does not have any significant urinary symptoms. Urinalysis negative. ID consulted. Antibiotics discontinued. Patient being discharged home. Patient seen and examined at bedside. Vital signs reviewed and stable. General: nontoxic, no distress, appears at stated age Derm: warm, dry Head: atraumatic, normocephalic, symmetric Eyes: EOMI, no lid lag, anicteric sclera Mouth: no lip lesion, mucus membranes moist Cardiovascular: S1S2 reg, no murmur Lungs: CTA bilateral, no rhonchi, no rales , no accessory muscle use Abdominal: soft, nontender to palpation, no guarding, no appreciable organomegaly Ext: no gross muscle atrophy, no edema, no contractures Neuro: CN II-XI grossly intact, no focal neuro deficits Psych: Alert, oriented, appropriate affect A total of 33 minutes of time were spent preparing this complex discharge summary. Patient was discharged on 02/15/23 at 11:07. Patient Condition at Discharge: Stable Plan - Discharge Summary Discharge Rx Participant: No New Discharge Prescriptions: Continue Simvastatin [Zocor] 20 mg PO HS glipiZIDE XL [Glucotrol XL] 5 mg PO DAILY Levothyroxine Sodium [Synthroid] 50 mcg PO DAILY metFORMIN HCL ER [Glucophage XR] 500 mg PO DAILY Spironolactone [Aldactone] 50 mg PO DAILY #60 tab hydrALAZINE HCL [Apresoline] 50 mg PO TID #90 tab amLODIPine [Norvasc] 5 mg PO BID Omeprazole 20 mg PO DAILY traZODone HCL [Desyrel] 50 mg PO HS PRN #30 tab PRN Reason: Insomnia Mirtazapine [Remeron] 15 mg PO HS #30 tab lisinopriL 20 mg PO BID traMADol HCL 50 mg PO BID PRN PRN Reason: Pain Discontinued Cephalexin [Keflex] 500 mg PO Q12HR Discharge Medication List Levothyroxine Sodium [Synthroid] 50 mcg PO DAILY 11/13/14 [History] Simvastatin [Zocor] 20 mg PO HS 11/13/14 [History] glipiZIDE XL [Glucotrol XL] 5 mg PO DAILY 11/13/14 [History] Omeprazole 20 mg PO DAILY 01/24/23 [History] metFORMIN HCL ER [Glucophage XR] 500 mg PO DAILY 01/24/23 [History] Mirtazapine [Remeron] 15 mg PO HS #30 tab 02/03/23 [Rx] Spironolactone [Aldactone] 50 mg PO DAILY #60 tab 02/03/23 [Rx] hydrALAZINE HCL [Apresoline] 50 mg PO TID #90 tab 02/03/23 [Rx] traZODone HCL [Desyrel] 50 mg PO HS PRN #30 tab 02/03/23 [Rx] amLODIPine [Norvasc] 5 mg PO BID 02/13/23 [History] lisinopriL 20 mg PO BID 02/13/23 [History] traMADol HCL 50 mg PO BID PRN 02/13/23 [History] Follow up Appointment(s)/Referral(s): [facility],Home Care [NON-STAFF] - 1 Week Graham Saeed MD [Primary Care Provider] - 02/27/23 9:40 am Patient Instructions/Handouts: Urinary Tract Infection in Women (DC) Activity/Diet/Wound Care/Special Instructions: Please see your PCP. Discharge Disposition: HOME SELF-CARE
--- NOTE | 2023-02-15 14:32 | P.PN ---
Subjective Progress Note Date: 02/15/23 Principal diagnosis: Positive urine culture Patient is a 72-year-old female with a past medical history negative for diabetes mellitus hypertension hyperlipidemia patient did have a outpatient urine culture did grew drug resistant enterococcus for which the patient was sent to the Hospital. On today's evaluation that is 02/15/2023, patient denies having any fever or c hills, patient denies having any chest pain or shortness of cough no nausea no vomiting no abdominal pain no diarrhea no urinary symptoms Objective - Vital Signs Vital signs: Vital Signs Temp 98.6 F 02/15/23 07:15 Pulse 81 02/15/23 07:15 Resp 18 02/15/23 07:15 BP 154/76 02/15/23 07:15 Pulse Ox 98 02/15/23 07:15 FiO2 Intake & Output 02/14/23 02/15/23 02/15/23 18:59 06:59 18:59 Intake Total 500 240 Balance 500 240 Weight 74.5 kg Intake: Intake, IV Titration 500 240 Amount Sodium Chloride 0.9% 1, 240 000 ml @ 20 mls/hr IV . Q24H [facility] Rx#:[id number] Vancomycin 1,500 mg In 500 Sodium Chloride 0.9% 500 ml 500 ml @ 167 mls/hr IVPB ONCE ONE Rx#: [id number] Other: Voiding Method Toilet Toilet Diaper Diaper # Voids 1 1 1 - Exam GENERAL DESCRIPTION: An elderly female lying in bed in no distress RESPIRATORY SYSTEM: Unlabored breathing , decreased breath sounds at bases HEART: S1 S2 regular rate and rhythm , ABDOMEN: Soft , no tenderness EXTREMITIES: No edema feet - Labs CBC & Chem 7: 02/15/23 05:49 02/15/23 05:49 Labs: Abnormal Lab Results - Last 24 Hours (Table) 02/15/23 02/15/23 Range/Units 05:49 05:49 RBC 3.04 L (3.80-5.40) m/uL Hgb 8.7 L (11.4-16.0) gm/dL Hct 27.1 L (34.0-46.0) % RDW 17.3 H (11.5-15.5) % Chloride 112 H (98-107) mmol/L Creatinine 1.67 H (0.52-1.04) mg/dL Glucose 103 H (74-99) mg/dL Calcium 8.2 L (8.4-10.2) mg/dL Magnesium 1.5 L (1.6-2.3) mg/dL Assessment and Plan (1) UTI (urinary tract infection) Current Visit: Yes Status: Acute Code(s): N39.0 - URINARY TRACT INFECTION, SITE NOT SPECIFIED SNOMED Code(s): 73802737 Plan: 1patient with a recent outpatient urine culture done on 02/09/2023, which did grew vancomycin sensitive Enterococcus faecium in this patient currently afebrile white count is normal and the patient has no symptoms and negative UA with possibly initial urine culture contamination 2-patient with negative UA and no urinary symptoms, antibiotics were discontinued yesterday and the patient seems to be doing well, hence recommending no antibiotics on discharge Time with Patient: Less than 30
== END 2023-02-15 15:04 | disposition home or self-care (01) | DRG 690 ==
LOC: EC 11:07 → 5NMEDONC 15:32
PROVIDERS: ADMIT Internal Medicine; ATTEND Internal Medicine
DX: N39.0 Urinary tract infection, site not specified (principal); I50.22 Chronic systolic (congestive) heart failure; E87.1 Hypo-osmolality and hyponatremia; Z16.21 Resistance to vancomycin; B95.2 Enterococcus as the cause of diseases classified elsewhere; I16.0 Hypertensive urgency; I11.0 Hypertensive heart disease with heart failure; F32.9 Major depressive disorder, single episode, unspecified; E78.5 Hyperlipidemia, unspecified; E87.6 Hypokalemia; R11.2 Nausea with vomiting, unspecified; M79.7 Fibromyalgia; Z87.442 Personal history of urinary calculi; M19.90 Unspecified osteoarthritis, unspecified site
CPT/HCPCS: 36415; 80048; 80053; 81001; 83605; 83735; 85025; 87040; 96365; 96366; 99285

== ENCOUNTER → 2023-11-02 | Outpatient (CLI) | payer OTHER ==
--- NOTE | 2023-11-05 17:34 | MR ---
EXAMINATION TYPE: MR lumbar spine wo/w con DATE OF EXAM: 11/02/2023 COMPARISON: NONE HISTORY: 73-year-old female M43.16, Back pain x6 years - Hx of back surgery Technique: Multiplanar, multisequence images of the lumbar spine were obtained before and after admin istration of 8ml mL intravenous Gadavist gadolinium contrast. FINDINGS: Transitional lumbosacral segment is noted as a sacralized L5. There is partial anterior interbody ank ylosis especially towards the right across the L4-L5. No suspicious bone marrow replacement. Conus medullaris is normal. There is chronic inferior endplate deformity of T12 with secondary mild anterior wedging. 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 There is superimposed moderate to severe degenerative disc disease throughout with desiccated, narrow ed, and bulging discs. There appears to be prior surgery posteriorly from L3 through S1 levels with laminectomies. Additional severe ligamentum flavum thickening upper and mid lumbar spine. Severe hypertrophic facet arthropathy throughout the lumbar spine. Changes result in degenerative grade 1 anterolisthesis L1-L2 and L2-L3. Remainder of the alignment is maintained. No significant epidural or perineural enhancing granulation tissue is seen. Changes result in focal severe spinal canal stenosis at L2-L3, moderate to severe at L1-L2, and mild to moderate at T12-L1. On the right, there is moderate neuroforaminal stenoses from T12 through L5 levels. On the left, moderate to severe neuroforaminal stenosis at L2-L3 and moderate at T12-L1 and L1-L2. Mi ld L3-L4 and L4-L5. IMPRESSION: 1. Postlaminectomy change L3-S1 levels. No evident abnormal enhancing perineural granulation tissue i s seen. 2. Severe hypertrophic facet arthropathy throughout as well as moderate to severe multilevel degenera tive disc disease throughout. Severe ligamentum flavum thickening upper and mid lumbar spine. 3. Degenerative grade 1 anterolisthesis L1-L2 and L2-L3. 4. Changes result in focal severe spinal canal stenosis at L2-L3, moderate to severe at L1-L2, and mi ld to moderate at T12-L1. 5. Variable moderate neuroforaminal stenoses as outlined above, moderate to severe on the left at L2- L3.
== END | disposition home or self-care (01) ==
LOC: RADMRIMAIN 11:51
PROVIDERS: ATTEND Physical Medicine & Rehabilitation
DX: M43.16 Spondylolisthesis, lumbar region (principal); M48.07 Spinal stenosis, lumbosacral region; M47.817 Spondylosis without myelopathy or radiculopathy, lumbosacral region; M51.37 Other intervertebral disc degeneration, lumbosacral region; M99.73 Connective tissue and disc stenosis of intervertebral foramina of lumbar region; M48.061 Spinal stenosis, lumbar region without neurogenic claudication; Z68.41 Body mass index [BMI] 40.0-44.9, adult
CPT/HCPCS: 72158; A9585

== ENCOUNTER 2023-11-15 17:33 | Inpatient (IN) | payer MEDICARE, OTHER ==
--- NOTE | 2023-11-15 17:41 | ED ---
Recheck HPI - General Stated Complaint: hypoglycemia Time Seen by Provider: 11/15/23 17:40 Source: RN notes reviewed, old records reviewed, Caregiver Mode of arrival: EMS Limitations: altered mental status - History of Present Illness Initial Comments: This is a 73-year-old female to the ER for evaluation of low blood sugar patient is presenting for evaluation of low blood sugar, no change in medications no recent illness no nausea vomiting diarrhea and no complaints patient is also having current right-sided weakness and slurred speech MD Complaint: abnormal lab (Blood sugar) -: hour(s) Returns Today for: persistent/worsening pain related to initial visit Symptoms Since Prior Visit: worsening pain Context: other Associated Symptoms: abdominal pain Treatments Prior to Arrival: IV/IO, other medications, other - Related Data Home Medications Medication Instructions Recorded Confirmed Simvastatin [Zocor] 20 mg PO DAILY 11/13/14 11/15/23 Omeprazole 20 mg PO DAILY 01/24/23 11/15/23 Cholecalciferol (Vitamin D3) 50 mcg PO DAILY 11/15/23 11/15/23 [Vitamin D3 (50 Mcg = 2000 Iu)] Ferrous Sulfate [Iron (65 MG 325 mg PO BID 11/15/23 11/15/23 Elemental)] Folic Acid 1 mg PO DAILY 11/15/23 11/15/23 Metoprolol Succinate (ER) [Toprol 50 mg PO DAILY 11/15/23 11/15/23 XL] Zolpidem [Ambien] 10 mg PO HS 11/15/23 11/15/23 Previous Rx's Medication Instructions Recorded Ascorbic Acid [Vitamin C with Onelia 500 mg PO DAILY #60 tablet 11/20/23 Hips] hydrALAZINE HCL [Apresoline] 10 mg PO TID #90 tablet 11/20/23 Allergies Allergy/AdvReac Type Severity Reaction Status Date / Time No Known Allergies Allergy Verified 11/15/23 21:22 Review of Systems ROS Statement: Those systems with pertinent positive or pertinent negative responses have been documented in the HPI. ROS Other: All systems not noted in ROS Statement are negative. Past Medical History Past Medical History: Heart Failure, Diabetes Mellitus, Fibromyalgia, Hyperlipidemia, Hypertension, Osteoarthritis (OA), Thyroid Disorder Additional Past Medical History / Comment(s): kidney stones in past History of Any Multi-Drug Resistant Organisms: VRE Date of last positivie culture/infection: 02/13/23 MDRO Source:: urine Past Surgical History: Joint Replacement, Orthopedic Surgery, Tonsillectomy Additional Past Surgical History / Comment(s): right athroscopy, back surgery for ruptured disk Past Anesthesia/Blood Transfusion Reactions: No Reported Reaction Past Psychological History: No Psychological Hx Reported Smoking Status: Never smoker Past Alcohol Use History: None Reported Past Drug Use History: None Reported - Past Family History Mother Family Medical History: Cancer Additional Family Medical History / Comment(s): brain stem Father Family Medical History: Diabetes Mellitus General Exam Limitations: physical limitation General appearance: alert, in no apparent distress, anxious, lethargic, in distress Head exam: Present: atraumatic, normocephalic, normal inspection Eye exam: Present: normal appearance, PERRL, EOMI. Absent: scleral icterus, conjunctival injection, periorbital swelling ENT exam: Present: normal exam, mucous membranes moist Neck exam: Present: normal inspection. Absent: tenderness, meningismus, lymphadenopathy Respiratory exam: Present: normal lung sounds bilaterally. Absent: respiratory distress, wheezes, rales, rhonchi, stridor Cardiovascular Exam: Present: regular rate, normal rhythm, normal heart sounds. Absent: systolic murmur, diastolic murmur, rubs, gallop, clicks GI/Abdominal exam: Present: soft, normal bowel sounds. Absent: distended, tenderness, guarding, rebound, rigid Extremities exam: Present: normal inspection, full ROM, normal capillary refill. Absent: tenderness, pedal edema, joint swelling, calf tenderness Back exam: Present: normal inspection Neurological exam: Present: alert, oriented X3, CN II-XII intact Psychiatric exam: Present: normal affect, normal mood Skin exam: Present: warm, dry, intact, normal color. 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 ] Respiratory 18 18 18 Rate Blood Pressure 133/65 118/79 100/88 O2 Sat by Pulse 99 100 Oximetry 11/15/23 11/15/23 11/15/23 20:40 21:13 21:18 Temperature 97.3 F L 97.3 F L Pulse Rate 56 L 54 L Pulse Rate [ 52 L General Hardware Salesperson ] Respiratory 18 20 20 Rate Blood Pressure 128/81 120/62 O2 Sat by Pulse 95 100 Oximetry 11/15/23 11/15/23 21:58 22:22 Temperature Pulse Rate 50 L Pulse Rate [ General Hardware Salesperson ] Respiratory 61 H Rate Blood Pressure 95/81 O2 Sat by Pulse 94 L Oximetry - Reevaluation(s) Reevaluation #1: 11/15/23 17:40 Medical records reviewed Reevaluation #2: 11/15/23 17:40 Patient symptoms unchanged, remained improved Reevaluation #3: Patient informed of results questions answered Reevaluation #4: Was pt. sent in by a medical professional or institution (, MICHAEL, [employer], urgent care, hospital, or usp...) When possible be specific @ -no Did you speak to anyone other than the patient for history (EMS, parent, family, police, friend...)? What history was obtained from this source @ -no Did you review nursing and triage notes (agree or disagree)? Why? @ -agree Are old charts reviewed (outside hosp., previous admission, EMS record, old EKG, old radiological studies, urgent care reports/EKG's, usp records)? Report findings @ -yes Differential Diagnosis (chest pain, altered mental status, abdominal pain women, abdominal pain men, vaginal bleeding, weakness, fever, dyspnea, syncope, headache, dizziness, GI bleed, back pain, seizure, CVA, palpatations, mental health, musculoskeletal)? @ -prior EKG interpreted by me (3pts min.). @ -yes X-rays interpreted by me (1pt min.). @ -yes negative for acute disease CT interpreted by me (1pt min.). @ -Yes negative for acute disease U/S interpreted by me (1pt. min.). @ -no What testing was considered but not performed or refused? (CT, X-rays, U/S, labs)? Why? @ -none What meds were considered but not given or refused? Why? @ -none Did you discuss the management of the patient with other professionals (professionals i.e. MICHAEL Walker, [employer], lab, RT, psych nurse, social media project manager, shipyard painting supervisor, teacher, special service officer, community case manager)? Give summary @ -no Was smoking cessation discussed for >3mins.? @ -no Was critical care preformed (if so, how long)? @ -yes31 Were there social determinants of health that impacted care today? How? (Ho melessness, low income, unemployed, alcoholism, drug addiction, transportation, low edu. Level, literacy, decrease access to med. care, care home, rehab)? @ -none Was there de-escalation of care discussed even if they declined (Discuss DNR or withdrawal of care, Hospice)? DNR status @ -no What co-morbidities impacted this encounter? (DM, HTN, Smoking, COPD, CAD, Cancer, CVA, ARF, Chemo, Hep., AIDS, mental health diagnosis, sleep apnea, morbid obesity)? @ -none Was patient admitted / discharged? Hospital course, mention meds given and route, prescriptions, significant lab abnormalities, going to OR and other pertinent info. @ -73 male to ER for evaluation of altered mental status and slurred speech with severe dehydration renal failure and hyperkalemia. Patient be admitted to the ICU for further evaluation and management Undiagnosed new problem with uncertain prognosis? @ -no Drug Therapy requiring intensive monitoring for toxicity (Heparin, Nitro, Insulin, Cardizem)? @ -no Were any procedures done? @ -no Diagnosis/symptom? @ -Renal failure altered mental status and hyperkalemia Acute, or Chronic, or Acute on Chronic? @ -Acute Uncomplicated (without systemic symptoms) or Complicated (systemic symptoms)? @ -Complicated Side effects of treatment? @ -no Exacerbation, Progression, or Severe Exacerbation? @ -exacerbation Poses a threat to life or bodily function? How? (Chest pain, USA, AK, pneumonia, PE, COPD, DKA, ARF, appy, cholecystitis, CVA, Diverticulitis, Homicidal, S uicidal, threat to staff... and all critical care pts) @ -yes with significant abnormal lab values Reevaluation #5: Differential Weakness: Hypoglycemia, shock, sepsis, hyponatremia, anemia, infection, AK, ETOH, adverse medicine reaction, overdose, stroke, this is not meant to be an all-inclusive list. - Consultations Consultation #1: Spoke with ICU who agrees to admit this patient Consultation #2: Spoke with sound who agrees to see the patient in the ER Medical Decision Making - Medical Decision Making 73 female to the ER for evaluation today. Patient presents today for evaluation regards to altered mental status found to have significant renal failure urinary tract hyperkalemia. Patient will be admitted for observation to the ICU with n eed for dialysis - Lab Data Result diagrams: 11/20/23 05:53 11/20/23 05:53 Lab Results 11/15/23 11/15/23 11/15/23 Range/Units 17:46 18:27 18:27 WBC 10.2 (3.8-10.6) k/uL RBC 3.51 L (3.80-5.40) m/uL Hgb 10.5 L (11.4-16.0) gm/dL Hct 33.0 L (34.0-46.0) % MCV 93.9 (80.0-100.0) fL MCH 30.0 (25.0-35.0) pg MCHC 31.9 (31.0-37.0) g/dL RDW 14.4 (11.5-15.5) % Plt Count 142 L (150-450) k/uL MPV 8.7 Neutrophils % 86 % Lymphocytes % 8 % Monocytes % 4 % Eosinophils % 1 % Basophils % 0 % Neutrophils # 8.8 H (1.3-7.7) k/uL Lymphocytes # 0.8 L (1.0-4.8) k/uL Monocytes # 0.4 (0-1.0) k/uL Eosinophils # 0.1 (0-0.7) k/uL Basophils # 0.0 (0-0.2) k/uL Hypochromasia Moderate PT 10.0 (10.0-12.5) sec INR 0.9 (<1.2) APTT 21.7 L (22.0-30.0) sec Sodium (137-145) mmol/L Potassium (3.5-5.1) mmol/L Chloride (98-107) mmol/L Carbon Dioxide (22-30) mmol/L Anion Gap mmol/L BUN (7-17) mg/dL Creatinine (0.52-1.04) mg/dL Est GFR (CKD-EPI)AfAm (>60 ml/min/1.73 sqM) Est GFR (CKD-EPI)NonAf (>60 ml/min/1.73 sqM) Glucose (74-99) mg/dL POC Glucose (mg/dL) 244 H (70-110) mg/dL POC Glu Clin Nurse Spec ID Rubia García Plasma Lactic Acid [place] (0.7-2.0) mmol/L Calcium (8.4-10.2) mg/dL Phosphorus (2.5-4.5) mg/dL Magnesium (1.6-2.3) mg/dL Total Bilirubin (0.2-1.3) mg/dL AST (14-36) U/L ALT (4-34) U/L Alkaline Phosphatase (38-126) U/L Troponin I (0.000-0.034) ng/mL NT-Pro-B Natriuret Pep pg/mL Total Protein (6.3-8.2) g/dL Albumin (3.5-5.0) g/dL TSH (0.465-4.680) mIU/L Urine Color Urine Appearance (Clear) Urine pH (5.0-8.0) Ur Specific [place] (1.001-1.035) Urine Protein (Negative) Urine Glucose (UA) (Negative) Urine Ketones (Negative) Urine Blood (Negative) Urine Nitrite (Negative) Urine Bilirubin (Negative) Urine Urobilinogen (<2.0) mg/dL Ur Leukocyte Esterase (Negative) Urine RBC (0-5) /hpf Urine WBC (0-5) /hpf Urine WBC Clumps (None) /hpf Ur Squamous Epith Cells (0-4) /hpf Urine Bacteria (None) /hpf Urine Mucus (None) /hpf 11/15/23 11/15/23 11/15/23 Range/Units 18:27 18:27 18:27 WBC (3.8-10.6) k/uL RBC (3.80-5.40) m/uL Hgb (11.4-16.0) gm/dL Hct (34.0-46.0) % MCV (80.0-100.0) fL MCH (25.0-35.0) pg MCHC (31.0-37.0) g/dL RDW (11.5-15.5) % Plt Count (150-450) k/uL MPV Neutrophils % % Lymphocytes % % Monocytes % % Eosinophils % % Basophils % % Neutrophils # (1.3-7.7) k/uL Lymphocytes # (1.0-4.8) k/uL Monocytes # (0-1.0) k/uL Eosinophils # (0-0.7) k/uL Basophils # (0-0.2) k/uL Hypochromasia PT (10.0-12.5) sec INR (<1.2) APTT (22.0-30.0) sec Sodium 136 L (137-145) mmol/L Potassium 7.2 H* (3.5-5.1) mmol/L Chloride 117 H (98-107) mmol/L Carbon Dioxide 5 L* (22-30) mmol/L Anion Gap 14 mmol/L BUN 93 H (7-17) mg/dL Creatinine 7.88 H* (0.52-1.04) mg/dL Est GFR (CKD-EPI)AfAm 5 (>60 ml/min/1.73 sqM) Est GFR (CKD-EPI)NonAf 5 (>60 ml/min/1.73 sqM) Glucose 117 H (74-99) mg/dL POC Glucose (mg/dL) (70-110) mg/dL POC Glu Clin Nurse Spec ID Plasma Lactic Acid [place] <0.5 L (0.7-2.0) mmol/L Calcium 8.4 (8.4-10.2) mg/dL Phosphorus 8.4 H (2.5-4.5) mg/dL Magnesium 2.4 H (1.6-2.3) mg/dL Total Bilirubin 0.3 (0.2-1.3) mg/dL AST 19 (14-36) U/L ALT 12 (4-34) U/L Alkaline Phosphatase 93 (38-126) U/L Troponin I (0.000-0.034) ng/mL NT-Pro-B Natriuret Pep 1900 pg/mL Total Protein 6.1 L (6.3-8.2) g/dL Albumin 3.6 (3.5-5.0) g/dL TSH 0.630 (0.465-4.680) mIU/L Urine Color Colorless Urine Appearance Cloudy H (Clear) Urine pH 5.5 (5.0-8.0) Ur Specific [place] 1.007 (1.001-1.035) Urine Protein 1+ H (Negative) Urine Glucose (UA) 1+ H (Negative) Urine Ketones Negative (Negative) Urine Blood Trace H (Negative) Urine Nitrite Negative (Negative) Urine Bilirubin Negative (Negative) Urine Urobilinogen <2.0 (<2.0) mg/dL Ur Leukocyte Esterase Large H (Negative) Urine RBC 3 (0-5) /hpf Urine WBC >182 H (0-5) /hpf Urine WBC Clumps Few H (None) /hpf Ur Squamous Epith Cells <1 (0-4) /hpf Urine Bacteria Many H (None) /hpf Urine Mucus Rare H (None) /hpf 11/15/23 Range/Units 18:27 WBC (3.8-10.6) k/uL RBC (3.80-5.40) m/uL Hgb (11.4-16.0) gm/dL Hct (34.0-46.0) % MCV (80.0-100.0) fL MCH (25.0-35.0) pg MCHC (31.0-37.0) g/dL RDW (11.5-15.5) % Plt Count (150-450) k/uL MPV Neutrophils % % Lymphocytes % % Monocytes % % Eosinophils % % Basophils % % Neutrophils # (1.3-7.7) k/uL Lymphocytes # (1.0-4.8) k/uL Monocytes # (0-1.0) k/uL Eosinophils # (0-0.7) k/uL Basophils # (0-0.2) k/uL Hypochromasia PT (10.0-12.5) sec INR (<1.2) APTT (22.0-30.0) sec Sodium (137-145) mmol/L Potassium (3.5-5.1) mmol/L Chloride (98-107) mmol/L Carbon Dioxide (22-30) mmol/L Anion Gap mmol/L BUN (7-17) mg/dL Creatinine (0.52-1.04) mg/dL Est GFR (CKD-EPI)AfAm (>60 ml/min/1.73 sqM) Est GFR (CKD-EPI)NonAf (>60 ml/min/1.73 sqM) Glucose (74-99) mg/dL POC Glucose (mg/dL) (70-110) mg/dL POC Glu Clin Nurse Spec ID Plasma Lactic Acid [place] (0.7-2.0) mmol/L Calcium (8.4-10.2) mg/dL Phosphorus (2.5-4.5) mg/dL Magnesium (1.6-2.3) mg/dL Total Bilirubin (0.2-1.3) mg/dL AST (14-36) U/L ALT (4-34) U/L Alkaline Phosphatase (38-126) U/L Troponin I <0.012 (0.000-0.034) ng/mL NT-Pro-B Natriuret Pep pg/mL Total Protein (6.3-8.2) g/dL Albumin (3.5-5.0) g/dL TSH (0.465-4.680) mIU/L Urine Color Urine Appearance (Clear) Urine pH (5.0-8.0) Ur Specific [place] (1.001-1.035) Urine Protein (Negative) Urine Glucose (UA) (Negative) Urine Ketones (Negative) Urine Blood (Negative) Urine Nitrite (Negative) Urine Bilirubin (Negative) Urine Urobilinogen (<2.0) mg/dL Ur Leukocyte Esterase (Negative) Urine RBC (0-5) /hpf Urine WBC (0-5) /hpf Urine WBC Clumps (None) /hpf Ur Squamous Epith Cells (0-4) /hpf Urine Bacteria (None) /hpf Urine Mucus (None) /hpf - EKG Data -: EKG Interpreted by Me (EKG is sinus bradycardia 42 NC 180 QRS 176 QTc 499) Rate: bradycardia (Left bundle which relates to old EKG) - Radiology Data Radiology results: report reviewed (Chest x-ray is negative for acute disease CT abdomen pelvis that showed colitis), image reviewed Critical Care Time Critical Care Time: Yes Total Critical Care Time: 31 Disposition Clinical Impression: Dehydration, Acute kidney failure, UTI (urinary tract infection), Nausea and vomiting, Anemia, Weakness, Altered mental state Disposition: ADMITTED IP TO THIS [facility] Condition: Critical Is patient prescribed a controlled substance at d/c from ED?: No Time of Disposition: 21:00
[2023-11-15 17:48] LABS: Glucose,Whole Blood 244 mg/dL (70-110)
[2023-11-15 18:40] LABS: Basophils % (A) 0 %; Eosinophils # (A) 0.1 k/uL (0-0.7); Eosinophils % (A) 1 %; HGB 10.5 gm/dL (11.4-16.0); Hypochromasia Moderate; Lymphocytes # (A) 0.8 k/uL (1.0-4.8); Lymphocytes % (A) 8 %; MCHC 31.9 g/dL (31.0-37.0); MCV 93.9 fL (80.0-100.0); Mean Platelet Volume 8.7; Monocytes # (A) 0.4 k/uL (0-1.0); Monocytes % (A) 4 %; Neutrophils # (A) 8.8 k/uL (1.3-7.7); Neutrophils % (A) 86 %; Platelet Count 142 k/uL (150-450); RBC 3.51 m/uL (3.80-5.40); RDW 14.4 % (11.5-15.5); WBC 10.2 k/uL (3.8-10.6)
[2023-11-15] MEDS: HYDROCORTISONE SUCCINATE 100 MG/2 ML VIAL IV STA (18:47)
[2023-11-15] MEDS: ATROPINE SULFATE 0.1 MG/ML 10ML SYRINGE IV STA (18:47)
[2023-11-15] MEDS: SODIUM CHLORIDE 0.9% 1,000 ML IV STA ×2 (18:48)
[2023-11-15 18:51] LABS: ALT 12 U/L (4-34); AST 19 U/L (14-36); African American GFR (CKD) 5 (>60 ml/min/1.73 sqM); Albumin 3.6 g/dL (3.5-5.0); Alkaline Phosphatase 93 U/L (38-126); Anion Gap 14 mmol/L; Blood Urea Nitrogen 93 mg/dL (7-17); Calcium 8.4 mg/dL (8.4-10.2); Chloride 117 mmol/L (98-107); Glucose 117 mg/dL (74-99); Magnesium 2.4 mg/dL (1.6-2.3); Non-African American GFR(CKD) 5 (>60 ml/min/1.73 sqM); Phosphorus 8.4 mg/dL (2.5-4.5); Sodium 136 mmol/L (137-145); Total Bilirubin 0.3 mg/dL (0.2-1.3); Total Protein 6.1 g/dL (6.3-8.2)
[2023-11-15 19:00] LABS: NT-Pro-B-Type Natriuretic Pept 1900 pg/mL
[2023-11-15] MEDS: INSULIN REGULAR 100 UNIT/ML VIAL (IV) IV ONE (19:01)
[2023-11-15] MEDS: DEXTROSE 5%-0.45% NACL 1,000 ML IV ONE (19:02)
[2023-11-15] MEDS: SODIUM BICARB 8.4% 50 ML SYR (1 MEQ/ML) IV STA ×3 (19:03→21:54)
[2023-11-15] MEDS: DEXTROSE 50% SYRINGE 50 ML IVP STA (19:03)
[2023-11-15 19:06] LABS: Carbon Dioxide 5 mmol/L (22-30); INR 0.9 (<1.2); Potassium 7.2 mmol/L (3.5-5.1)
[2023-11-15 19:15] LABS: Partial Thromboplastin Time 21.7 sec (22.0-30.0)
[2023-11-15 20:35] LABS: Appearance,Urine Cloudy (Clear); Bacteria,Urine Many /hpf; Bilirubin,Urine Negative (Negative); Blood,Urine Trace (Negative); Color,Urine Colorless; Glucose,Urine (UA) 1+ (Negative); Ketones,Urine Negative (Negative); Leukocyte Esterase,Urine Large (Negative); Mucus,Urine Rare /hpf; Nitrite,Urine Negative (Negative); PH, Urine 5.5 (5.0-8.0); Protein,Urine 1+ (Negative); RBC,Urine 3 /hpf (0-5); Specific Gravity,Urine 1.007 (1.001-1.035); Squamous Epithelial Cell,Urine <1 /hpf (0-4); Urobilinogen,Urine <2.0 mg/dL (<2.0); WBC,Urine >182 /hpf (0-5)
[2023-11-15] MEDS ORDERED: NALOXONE 0.4 MG/ML 1 ML VIAL IV PRN (20:59)
[2023-11-15] MEDS: DEXTROSE 5%-0.45% NACL 1,000 ML IV SCH (21:16)
[2023-11-15] MEDS: CALCIUM GLUCONATE IN NACL 1 GM in SALINE 1 100ML.BAG IVPB ONE (21:25)
[2023-11-15] MEDS: DEXTROSE 5% IN WATER 1,000 ML with SODIUM BICARB (1 MEQ/ML) 150 ML IV SCH (21:59)
--- NOTE | 2023-11-15 22:13 | XR ---
EXAMINATION TYPE: XR chest 2V DATE OF EXAM: 11/15/2023 7:38 PM CLINICAL INDICATION:Female, 73 years old with history of Weakness; H COMPARISON: Chest radiographs from 01/28/2023 TECHNIQUE: XR chest 2V Frontal and lateral views of the chest. FINDINGS: Lungs/Pleura: There is no evidence of pleural effusion, focal consolidation, or pneumothorax. Pulmonary vascularity: Unremarkable. Heart/mediastinum: Cardiomediastinal silhouette is unremarkable. Musculoskeletal: No acute osseous pathology. Prior injury to left proximal humerus with lateral angul ation. IMPRESSION: No acute cardiopulmonary disease/process.
[2023-11-15 22:16] LABS: Basophils % (A) 0 %; Eosinophils # (A) 0.1 k/uL (0-0.7); Eosinophils % (A) 1 %; HCT 29.3 % (34.0-46.0); HGB 9.7 gm/dL (11.4-16.0); Hypochromasia Slight; Lymphocytes # (A) 0.6 k/uL (1.0-4.8); Lymphocytes % (A) 7 %; MCH 30.4 pg (25.0-35.0); MCHC 33.1 g/dL (31.0-37.0); MCV 91.7 fL (80.0-100.0); Mean Platelet Volume 9.2; Monocytes # (A) 0.2 k/uL (0-1.0); Monocytes % (A) 2 %; Neutrophils # (A) 7.5 k/uL (1.3-7.7); Neutrophils % (A) 90 %; Platelet Count 140 k/uL (150-450); RDW 14.4 % (11.5-15.5); WBC 8.3 k/uL (3.8-10.6)
--- NOTE | 2023-11-15 22:22 | CT ---
EXAMINATION TYPE: CT abdomen pelvis wo con DATE OF EXAM: 11/15/2023 HISTORY: Rt sided weakness. CT DLP: 1262.8 mGycm. Automated Exposure Control for Dose Reduction was Utilized. TECHNIQUE: CT scan of the abdomen and pelvis is performed without oral or IV contrast. COMPARISON: Prior CT January 24, 2023. FINDINGS: Within the limitations of a non-contrast study, the following observations are made. LUNG BASES: No significant abnormality is appreciated. LIVER/GB: No significant abnormality is appreciated. PANCREAS: No significant abnormality is seen. SPLEEN: No significant abnormality is seen. ADRENALS: No significant abnormality is seen. KIDNEYS: Cortical thinning in both kidneys. No hydronephrosis seen bilaterally. Nondependent air is p resent. Mild/moderate concentric wall thickening. Urena catheter is noted. BOWEL: Suboptimal evaluation without enteric contrast. No abnormal small or large bowel dilatation. M ild wall thickening involving the distal colon. No significant ill-defined fluid or fat stranding. GENITAL ORGANS: Uterus is surgically absent or atrophic in appearance. LYMPH NODES: No greater than 1cm abdominal or pelvic lymph nodes are appreciated. OSSEOUS STRUCTURES: Multilevel spurring in the thoracolumbar spine. Straightening is seen. Posterior decompression changes lower lumbar levels are identified. There is grade 1 anterolisthesis L2 on L3. OTHER: Prominent calcified plaque of the branch vessels in the bilateral thighs. IMPRESSION: Possible mild uncomplicated distal colitis versus product of poor distention. Mild/modera te concentric wall thickening the urinary bladder, correlate clinically to exclude acute bladder infe ction. Urena catheter is noted. Otherwise no significant new or acute finding seen on this exam.
[2023-11-15 22:26] LABS: Glucose,Whole Blood 105 mg/dL (70-110)
[2023-11-15] MEDS: CALCIUM GLUCONATE IN NACL 2 GM in SALINE 1 100ML.BAG IVPB ONE (23:21)
[2023-11-15] MEDS: ALBUTEROL NEBULIZED (CONC) 20 MG, SODIUM CHLORIDE 0.9% NEBULIZ 3 ML INHALATION ONE (23:32)
[2023-11-15] MEDS: ALBUTEROL NEB (CONC) 2.5 MG/0.5 ML INHALATION ONE (23:33)
[2023-11-16 00:37] LABS: African American GFR (CKD) 6 (>60 ml/min/1.73 sqM); Anion Gap 13 mmol/L; Blood Urea Nitrogen 87 mg/dL (7-17); Chloride 120 mmol/L (98-107); Glucose 102 mg/dL (74-99); Non-African American GFR(CKD) 6 (>60 ml/min/1.73 sqM); Sodium 140 mmol/L (137-145)
[2023-11-16] MEDS: SODIUM ZIRCONIUM CYCLOSILICATE 10 GM PACKET PO ONE (01:06)
[2023-11-16 01:17] LABS: Carbon Dioxide 7 mmol/L (22-30)
[2023-11-16 01:18] LABS: Potassium 6.9 mmol/L (3.5-5.1)
[2023-11-16] MEDS: SODIUM BICARB 8.4% 50 ML SYR (1 MEQ/ML) IV STA ×2 (01:51→02:07)
[2023-11-16] MEDS: DEXTROSE 50% SYRINGE 50 ML IVP STA (01:51)
[2023-11-16] MEDS: SODIUM POLYSTYRENE SULFONATE 15 GM/60 ML BOTTLE PO ONE (01:51)
[2023-11-16] MEDS: INSULIN REGULAR 100 UNIT/ML VIAL (IV) IV ONE (01:52)
[2023-11-16] MEDS: FUROSEMIDE 10 MG/ML 4 ML VIAL IV STA (02:07)
--- NOTE | 2023-11-16 02:16 | P.CNPUL ---
History of Present Illness Consult date: 11/16/23 Requesting physician: Fabiano Riley Reason for consult: other (Severe hyperkalemia and acute renal failure) Chief complaint: Generalized weakness History of present illness: I am seeing this patient in new consultation today 11/16/2023 after she was found to be in acute renal failure and severely hyperkalemic on her arrival to the emergency room. She also had some hyperkalemic EKG changes and bradycardia, requiring atropine, and she was admitted to the intensive care unit. Patient is a 73-year-old white female with past medical history significant for previous resistant UTIs, chronic kidney disease, renal stones, heart failure, hyperlipidemia, hypertension, hypothyroidism, diabetes mellitus. Her primary care provider is Dr. Saeed. Patient presented to the emergency room yesterday evening via EMS complaining of generalized weakness. She apparently could not stand and get out of the chair and almost fell. Denies any lightheadedness, heart palpitations, or syncopal events. She has been having periods of subjective fevers and chills. Denies any urinary complaints other than urinary frequency with small urine output. No burning, suprapubic tenderness, CVA tenderness, hematuria. She did have a urinary tract infection with vancomycin sensitive Enterococcus faecium in February,. Current urinalysis suspicious for urinary tract infection with positive leukocytes and pyuria. Urine culture pending. She does take Losartan and Aldactone outpatient. Denies any NSAID use. Abdominal CT taken on admission shows mild to moderate concentric wall thickening of the urinary bladder, consistent with possible urinary tract infection. There was also mild uncomplicated distal colitis versus poor distention. Chest x-ray on arrival did not show any acute cardiopulmonary process. She reports a chronic cough that has been worked up outpatient. Is associated with eating and drinking. Denies any dysphagia. She has reportedly had an EGD in the past which was reportedly unremarkable. She had an ENT referral, but did not follow-up. No associated sputum production. No chest pain. No known pre-existing lung disease. She is on room air, in no acute respiratory distress. EKG on arrival showed sinus bradycardia with QRS widening, likely induced by hyperkalemia. Patient was treated with a potassium cocktail of insulin 10 units, 1 amp D50W, concentrated albuterol, 2 g calcium, 3 A of sodium bicarbonate, and a dose of Lokelma. She was started on a sodium bicarbonate infusion, 3 A of D5W at 125 MLS per hour. She is non-oliguric. Urine output in the order of 50-100 ml/hr. Repeat potassium is still elevated at 6.9. She was treated again with a potassium cocktail. Patient likely needs emergent hemodialysis and temporary hemodialysis catheter, this has not already been done because the patient originally refused hemodialysis treatment. After speaking to the patient she is agreeable to this treatment. Nephrology is managing. She remains bradycardic with a heart rate of around 50. Her blood pressure is tolerating this at the moment, and is borderline hypotensive 90s over 60s. She denies any chest pain. She denies any lightheadedness. She denies any shortness of breath. Most recent CBC shows a WBC count 8.3, hemoglobin 9.7, hematocrit 29.3, platelets 140. Most recent BMP: Sodium 140, potassium 6.9, chloride 120, serum bicarb 7, BUN 87, creatinine 6.68, glucose 102. Troponins on arrival are less than 0.012. NT proBNP was 1900 in the sett ing of renal failure. TSH WDL. Lactic acid level not elevated. She is a DO NOT RESUSCITATE/DO NOT INTUBATE. Review of Systems REVIEW OF SYSTEMS: CONSTITUTIONAL: Denies any recent significant weight loss or weight gain. Admits generalized weakness and fatigue. Subjective fevers/chills. Reduced appetite. EYES: Denies change in vision. EARS, NOSE, MOUTH, THROAT: Denies headaches, denies sore throat. CARDIOVASCULAR: Denies chest pain, palpitations or syncopal episodes. RESPIRATORY: See HPI. GASTROINTESTINAL: Denies abdominal pain, nausea and vomiting, or diarrhea GENITOURINARY: See HPI. MUSKULOSKELETAL: Denies pain, denies swelling. INTEGUMENTARY: Denies rash, denies eczema. NEUROLOGICAL: Denies recent memory loss, no recent seizure activity. PSYCHIATRIC: Denies anxiety, denies depression. HEMATOLOGIC/LYMPHATIC: Denies anemia, denies enlarged lymph node Past Medical History Past Medical History: Heart Failure, Diabetes Mellitus, Fibromyalgia, Hyperlipidemia, Hypertension, Osteoarthritis (OA), Thyroid Disorder Additional Past Medical History / Comment(s): kidney stones in past History of Any Multi-Drug Resistant Organisms: VRE Date of last positivie culture/infection: 02/13/23 MDRO Source:: urine Past Surgical History: Joint Replacement, Orthopedic Surgery, Tonsillectomy Additional Past Surgical History / Comment(s): right athroscopy, back surgery for ruptured disk Past Anesthesia/Blood Transfusion Reactions: No Reported Reaction Past Psychological History: No Psychological Hx Reported Smoking Status: Never smoker Past Alcohol Use History: None Reported Past Drug Use History: None Reported - Past Family History Mother Family Medical History: Cancer Additional Family Medical History / Comment(s): brain stem Father Family Medical History: Diabetes Mellitus Medications and Allergies Home Medications Medication Instructions Recorded Confirmed Type Simvastatin [Zocor] 20 mg PO DAILY 11/13/14 11/15/23 History Omeprazole 20 mg PO DAILY 01/24/23 11/15/23 History Mirtazapine [Remeron] 15 mg PO HS #30 tab 02/03/23 11/15/23 Rx traMADol HCL 50 mg PO BID PRN 02/13/23 11/15/23 History Cholecalciferol (Vitamin D3) 50 mcg PO DAILY 11/15/23 11/15/23 History [Vitamin D3 (50 Mcg = 2000 Iu)] Ferrous Sulfate [Feosol] 325 mg PO BID 11/15/23 11/15/23 History Folic Acid 1 mg PO DAILY 11/15/23 11/15/23 History Losartan Potassium 100 mg PO DAILY 11/15/23 11/15/23 History Metoprolol Succinate (ER) [Toprol 50 mg PO DAILY 11/15/23 11/15/23 History Xl] Spironolactone [Aldactone] 50 mg PO DAILY 11/15/23 11/15/23 History Zolpidem [Ambien] 10 mg PO HS 11/15/23 11/15/23 History cloNIDine 0.2 MG/24HR PATCH 1 patch TRANSDERM FR 11/15/23 11/15/23 History [Catapres-TTS] glipiZIDE XL [Glucotrol XL] 2.5 mg PO DAILY 11/15/23 11/15/23 History Allergies Allergy/AdvReac Type Severity Reaction Status Date / Time No Known Allergies Allergy Verified 11/15/23 21:22 Physical Exam Vitals: Vital Signs Temp Pulse Pulse Resp BP Pulse Ox 11/15/23 23:48 57 L 11/15/23 23:33 51 L 11/15/23 23:30 51 L 22 97/51 100 03/13/24 23:20 53 L 19 97/51 100 11/15/23 23:10 54 L 8 L 97/51 94 L 11/15/23 23:00 52 L 11 L 85/49 100 11/15/23 22:50 55 L 10 L 85/49 100 11/15/23 22:40 54 L 23 103/93 99 11/15/23 22:30 58 L 29 H 126/57 100 11/15/23 22:22 61 H 11/15/23 21:58 50 L 95/81 94 L 11/15/23 21:18 97.3 F L 54 L 20 120/62 100 11/15/23 21:13 97.3 F L 52 L 20 95 11/15/23 20:40 56 L 18 128/81 11/15/23 20:03 64 18 100/88 11/15/23 18:54 55 L 18 118/79 100 11/15/23 17:36 97.3 F L 45 L 18 133/65 99 Intake and Output 11/15/23 11/15/23 11/16/23 14:59 22:59 06:59 Intake Total 480 125 Output Total 400 100 Balance 80 25 Intake: Intake, IV Titration 280 125 Amount Calcium Gluconate in NaCl 100 1 gm In Saline 1 100ml. bag @ 100 mls/hr IVPB ONCE ONE Rx#:[id number] Dextrose 5%-0.45% NaCl 1, 80 125 000 ml @ 85 mls/hr IV . [id number] [facility] Rx#:[id number] cefTRIAXone 2 gm In 100 Sodium Chloride 0.9% 50 ml @ 100 mls/hr IVPB ONCE STA Rx#:[id number] Oral 200 Output: Urine 400 100 Other: Weight 83.461 kg GENERAL EXAM: Alert, 73-year-old obese white female, comfortable in no apparent distress. HEAD: Normocephalic and atraumatic EYES: Normal reaction of pupils, equal size. NOSE: Clear with pink turbinates. THROAT: No erythema or exudates. NECK: No masses, no JVD. CHEST: No chest wall deformity. LUNGS: Equal air entry with no crackles, wheeze, rhonchi or dullness. On room air. No conversational dyspnea or accessory muscle use.. CVS: S1 and S2 normal with no audible murmur, regular rhythm. No extra heart sounds ABDOMEN: No hepatosplenomegaly, active bowel sounds, no guarding or rigidity. SPINE: No scoliosis or deformity SKIN: No rashes CENTRAL NERVOUS SYSTEM: No focal deficits, tone is normal in all 4 extremities. EXTREMITIES: There is no peripheral edema, clubbing, or cyanosis. Peripheral pulses are intact. Results - Laboratory Findings CBC and BMP: 11/15/23 21:51 11/15/23 18:27 PT/INR, D-dimer PT 10.0 sec (10.0-12.5) 11/15/23 18:27 INR 0.9 (<1.2) 11/15/23 18:27 Abnormal lab findings: Abnormal Labs 11/15/23 11/15/23 11/15/23 17:46 18:27 18:27 RBC 3.51 L Hgb 10.5 L Hct 33.0 L Plt Count 142 L Neutrophils # 8.8 H Lymphocytes # 0.8 L APTT 21.7 L Sodium Potassium Chloride Carbon Dioxide BUN Creatinine Glucose POC Glucose (mg/dL) 244 H Plasma Lactic Acid [place] Phosphorus Magnesium Total Protein Urine Appearance Urine Protein Urine Glucose (UA) Urine Blood Ur Leukocyte Esterase Urine WBC Urine WBC Clumps Urine Bacteria Urine Mucus 11/15/23 11/15/23 11/15/23 18:27 18:27 18:27 RBC Hgb Hct Plt Count Neutrophils # Lymphocytes # APTT Sodium 136 L Potassium 7.2 H* Chloride 117 H Carbon Dioxide 5 L* BUN 93 H Creatinine 7.88 H* Glucose 117 H POC Glucose (mg/dL) Plasma Lactic Acid [place] <0.5 L Phosphorus 8.4 H Magnesium 2.4 H Total Protein 6.1 L Urine Appearance Cloudy H Urine Protein 1+ H Urine Glucose (UA) 1+ H Urine Blood Trace H Ur Leukocyte Esterase Large H Urine WBC >182 H Urine WBC Clumps Few H Urine Bacteria Many H Urine Mucus Rare H 11/15/23 21:51 RBC 3.20 L Hgb 9.7 L Hct 29.3 L Plt Count 140 L Neutrophils # Lymphocytes # 0.6 L APTT Sodium Potassium Chloride Carbon Dioxide BUN Creatinine Glucose POC Glucose (mg/dL) Plasma Lactic Acid [place] Phosphorus Magnesium Total Protein Urine Appearance Urine Protein Urine Glucose (UA) Urine Blood Ur Leukocyte Esterase Urine WBC Urine WBC Clumps Urine Bacteria Urine Mucus - Diagnostic Findings Chest x-ray: image reviewed Assessment and Plan Assessment: Suspected urinary tract infection Acute on chronic kidney disease, likely exacerbated by above, patient also takes a combination of losartan and Aldactone outpatient. Severe hyperkalemia, with EKG changes and bradycardia Severe anion gap metabolic acidosis, secondary to above and acute renal failure Chronic kidney disease stage III Diabetes mellitus type 2 History of hypothyroidism History of hypertension History of hyperlipidemia History of heart failure with reduced ejection fraction, most recent echocard iogram available 07/29/2022 shows a mild to moderate reduced left ventricular ejection fraction estimated at 40 to 45% with moderate LVH Anemia of chronic disease Chronic cough, can be worked up on an outpatient basis Obesity, with a BMI of 31.6 kg/m Plan: Patient's medications, labs, imaging were reviewed Patient has hyperkalemic EKG changes, being monitored in the intensive care uni t. She did receive a dose of atropine in the ER. Persistent hyperkalemia has been treated again with a combination of 10 units of regular insulin, 1 amp D50 W, 2 amp sodium bicarb, Kayexalate, and albuterol. She also continues on the sodium bicarbonate infusion with 3 A in D5W at 125 MLS per hour. Urine output is nonoliguric, she is producing between 50 to 100 mL of urine per hour. A consult is in for vascular services and emergent hemodialysis catheter placement. Nephrology has been managing. Avoid nephrotoxic agents. Hold losartan and Aldactone. Hold metoprolol. Empirically covered on a combination of Rocephin and daptomycin. Patient has history of previous UTIs with resistant organisms. Urine and blood cultures are pending. Infectious disease consult placed. Patient's prognosis is guarded related to above-mentioned comorbidities. She is a DO NOT RESUSCITATE/DO NOT INTUBATE. She will be monitored in the intensive care unit. I have personally seen and examined the patient, performed the documentation and the assessment and plan as written. Number of minutes spent on the visit:20 Time with Patient: Greater than 30
[2023-11-16] MEDS: CALCIUM GLUCONATE IN NACL 2 GM in SALINE 1 100ML.BAG IVPB ONE (03:11)
[2023-11-16] MEDS ORDERED: ACETAMINOPHEN TAB 325 MG TAB PO PRN (03:27)
[2023-11-16] MEDS: ALBUTEROL NEB (CONC) 2.5 MG/0.5 ML INHALATION ONE (03:43)
[2023-11-16 04:21] LABS: Basophils % (A) 0 %; Eosinophils % (A) 0 %; HGB 8.6 gm/dL (11.4-16.0); Lymphocytes # (A) 0.4 k/uL (1.0-4.8); Lymphocytes % (A) 5 %; MCH 29.8 pg (25.0-35.0); MCV 90.3 fL (80.0-100.0); Mean Platelet Volume 8.7; Monocytes # (A) 0.2 k/uL (0-1.0); Monocytes % (A) 3 %; Neutrophils # (A) 6.8 k/uL (1.3-7.7); Neutrophils % (A) 91 %; Platelet Count 148 k/uL (150-450); RBC 2.88 m/uL (3.80-5.40); RDW 14.5 % (11.5-15.5); WBC 7.4 k/uL (3.8-10.6)
[2023-11-16 04:51] LABS: ALT 12 U/L (4-34); AST 16 U/L (14-36); African American GFR (CKD) 8 (>60 ml/min/1.73 sqM); Albumin 2.6 g/dL (3.5-5.0); Alkaline Phosphatase 74 U/L (38-126); Anion Gap 11 mmol/L; Blood Urea Nitrogen 87 mg/dL (7-17); Calcium 8.1 mg/dL (8.4-10.2); Carbon Dioxide 15 mmol/L (22-30); Chloride 114 mmol/L (98-107); Glucose 329 mg/dL (74-99); Magnesium 1.7 mg/dL (1.6-2.3); Non-African American GFR(CKD) 7 (>60 ml/min/1.73 sqM); Phosphorus 5.5 mg/dL (2.5-4.5); Potassium 5.5 mmol/L (3.5-5.1); Sodium 140 mmol/L (137-145); Total Bilirubin 0.4 mg/dL (0.2-1.3); Total Protein 4.7 g/dL (6.3-8.2)
--- NOTE | 2023-11-16 05:23 | P.HPIM ---
History of Present Illness H&P Date: 11/15/23 Chief Complaint: weakness 73-year-old female with diabetes mellitus, chronic kidney disease, hypothyroid She is coming in for evaluation due to feeling weakness in her legs with difficulty ambulation, she reports normally she would use a walker or cane however today she could not even stand up which she found is very bizarre and decided to come in for evaluation she denies any recent falls or injuries. She did also reports some low-grade fevers and sore throat again denies any falls or head injury Patient reports recently was also hospitalized but was told that she has low potassium count and was encouraged to eat diet rich in potassium She also reports frequent urinary tract infections and currently has some decreased urine output at home however denies any pain or hematuria denies any dysuria. Denies any nausea or vomiting Upon arrival to the hospital she was found to have s significant hypokalemia along with CT abdomen pelvis findings of mild to moderate colitis and possible urinary tract infection patient was given potassium lowering cocktail and ca lcium gluconate in the ED Nephrology was notified to evaluate for emergent hemodialysis due to significant hyperkalemia with severe acidosis review of systems Pertinent positives as noted in HPI. All other systems were reviewed and are negative on exam Constitutional: No acute distress, conversant, pleasant Eyes: Anicteric sclerae, moist conjunctiva, Pupils equal round reactive to light ENMT: NC/AT Oropharynx clear, no erythema, or exudates Neck: Supple, no masses, or JVD No carotid bruits No thyromegaly Lungs: Clear to auscultation Clear to percussion Normal respiratory effort, no accessory muscle use Cardiovascular: Heart regular in rate and rhythm, Systolic murmurs, no gallops, or rubs No peripheral edema Abdominal: Soft Nontender, no guarding, rebound or rigidity Abdomen moving with respiration Normoactive bowel sounds Extremities: No digital cyanosis No clubbing Pedal pulses intact and symmetrical Radial pulses intact and symmetrical No calf tenderness Psychiatric: Alert and oriented to person, place and time Neuro Muscles Strength 4/5 in all 4 extremities Sensation to light touch grossly present throughout Cranial nerves II-XII grossly intact Past Medical History Past Medical History: Heart Failure, Diabetes Mellitus, Fibromyalgia, H yperlipidemia, Hypertension, Osteoarthritis (OA), Thyroid Disorder Additional Past Medical History / Comment(s): kidney stones in past History of Any Multi-Drug Resistant Organisms: VRE Date of last positivie culture/infection: 02/13/23 MDRO Source:: urine Past Surgical History: Joint Replacement, Orthopedic Surgery, Tonsillectomy Additional Past Surgical History / Comment(s): right athroscopy, back surgery for ruptured disk Past Anesthesia/Blood Transfusion Reactions: No Reported Reaction Past Psychological History: No Psychological Hx Reported Smoking Status: Never smoker Past Alcohol Use History: None Reported Past Drug Use History: None Reported - Past Family History Mother Family Medical History: Cancer Additional Family Medical History / Comment(s): brain stem Father Family Medical History: Diabetes Mellitus Medications and Allergies Home Medications Medication Instructions Recorded Confirmed Type Simvastatin [Zocor] 20 mg PO DAILY 11/13/14 11/15/23 History Omeprazole 20 mg PO DAILY 01/24/23 11/15/23 History Mirtazapine [Remeron] 15 mg PO HS #30 tab 02/03/23 11/15/23 Rx traMADol HCL 50 mg PO BID PRN 02/13/23 11/15/23 History Cholecalciferol (Vitamin D3) 50 mcg PO DAILY 11/15/23 11/15/23 History [Vitamin D3 (50 Mcg = 2000 Iu)] Ferrous Sulfate [Feosol] 325 mg PO BID 11/15/23 11/15/23 History Folic Acid 1 mg PO DAILY 11/15/23 11/15/23 History Losartan Potassium 100 mg PO DAILY 11/15/23 11/15/23 History Metoprolol Succinate (ER) [Toprol 50 mg PO DAILY 11/15/23 11/15/23 History Xl] Spironolactone [Aldactone] 50 mg PO DAILY 11/15/23 11/15/23 History Zolpidem [Ambien] 10 mg PO HS 11/15/23 11/15/23 History cloNIDine 0.2 MG/24HR PATCH 1 patch TRANSDERM FR 11/15/23 11/15/23 History [Catapres-TTS] glipiZIDE XL [Glucotrol XL] 2.5 mg PO DAILY 11/15/23 11/15/23 History Allergies Allergy/AdvReac Type Severity Reaction Status Date / Time No Known Allergies Allergy Verified 11/15/23 21:22 Physical Exam Vitals: Vital Signs Temp Pulse Pulse Pulse Resp BP Pulse Ox 11/16/23 04:00 94 85 85 18 130/66 96 03/14/24 03:57 90 11/16/23 03:43 76 11/16/23 03:00 88 24 146/34 96 11/16/23 02:00 81 28 H 115/47 100 11/16/23 01:00 75 5 L 139/38 98 11/16/23 00:00 72 53 L 53 L 20 97/51 100 11/15/23 23:48 57 L 11/15/23 23:33 51 L 11/15/23 23:31 52 L 10 L 97/51 100 11/15/23 23:30 51 L 22 97/51 100 11/15/23 23:20 53 L 19 97/51 100 11/15/23 23:10 54 L 8 L 97/51 94 L 11/15/23 23:00 52 L 11 L 85/49 100 11/15/23 22:50 55 L 10 L 85/49 100 11/15/23 22:40 54 L 23 103/93 99 11/15/23 22:30 58 L 29 H 126/57 100 11/15/23 22:22 61 H 11/15/23 21:58 50 L 95/81 94 L 11/15/23 21:18 97.3 F L 54 L 20 120/62 100 11/15/23 21:13 97.3 F L 52 L 20 95 11/15/23 20:40 56 L 18 128/81 11/15/23 20:03 64 18 100/88 11/15/23 18:54 55 L 18 118/79 100 11/15/23 17:36 97.3 F L 45 L 18 133/65 99 Intake and Output 11/15/23 11/15/23 11/16/23 14:59 22:59 06:59 Intake Total 480 900 Output Total 400 955 Balance 80 -55 Intake: Intake, IV Titration 280 900 Amount Calcium Gluconate in NaCl 100 1 gm In Saline 1 100ml. bag @ 100 mls/hr IVPB ONCE ONE Rx#:[id number] Calcium Gluconate in NaCl 100 2 gm In Saline 1 100ml. bag @ 100 mls/hr IVPB ONCE ONE Rx#:[id number] DAPTOmycin 300 mg In 50 Sodium Chloride 0.9% 50 ml @ 100 mls/hr IVPB Q48H [facility] Rx#:[id number] Dextrose 5%-0.45% NaCl 1, 80 750 000 ml @ 85 mls/hr IV . [id number] [facility] Rx#:[id number] cefTRIAXone 2 gm In 100 Sodium Chloride 0.9% 50 ml @ 100 mls/hr IVPB ONCE STA Rx#:[id number] Oral 200 Output: Urine 400 955 Other: Voiding Method Indwelling Catheter Weight 83.461 kg 88.5 kg Results CBC & Chem 7: 11/16/23 03:42 11/16/23 03:42 Labs: Abnormal Lab Results - Last 24 Hours (Table) 11/15/23 11/15/23 11/15/23 Range/Units 17:46 18:27 18:27 RBC 3.51 L (3.80-5.40) m/uL Hgb 10.5 L (11.4-16.0) gm/dL Hct 33.0 L (34.0-46.0) % Plt Count 142 L (150-450) k/uL Neutrophils # 8.8 H (1.3-7.7) k/uL Lymphocytes # 0.8 L (1.0-4.8) k/uL APTT 21.7 L (22.0-30.0) sec Sodium (137-145) mmol/L Potassium (3.5-5.1) mmol/L Chloride (98-107) mmol/L Carbon Dioxide (22-30) mmol/L BUN (7-17) mg/dL Creatinine (0.52-1.04) mg/dL Glucose (74-99) mg/dL POC Glucose (mg/dL) 244 H (70-110) mg/dL Plasma Lactic Acid [place] (0.7-2.0) mmol/L Calcium (8.4-10.2) mg/dL Phosphorus (2.5-4.5) mg/dL Magnesium (1.6-2.3) mg/dL Total Protein (6.3-8.2) g/dL Albumin (3.5-5.0) g/dL Urine Appearance (Clear) Urine Protein (Negative) Urine Glucose (UA) (Negative) Urine Blood (Negative) Ur Leukocyte Esterase (Negative) Urine WBC (0-5) /hpf Urine WBC Clumps (None) /hpf Urine Bacteria (None) /hpf Urine Mucus (None) /hpf 11/15/23 11/15/23 11/15/23 Range/Units 18:27 18:27 18:27 RBC (3.80-5.40) m/uL Hgb (11.4-16.0) gm/dL Hct (34.0-46.0) % Plt Count (150-450) k/uL Neutrophils # (1.3-7.7) k/uL Lymphocytes # (1.0-4.8) k/uL APTT (22.0-30.0) sec Sodium 136 L (137-145) mmol/L Potassium 7.2 H* (3.5-5.1) mmol/L Chloride 117 H (98-107) mmol/L Carbon Dioxide 5 L* (22-30) mmol/L BUN 93 H (7-17) mg/dL Creatinine 7.88 H* (0.52-1.04) mg/dL Glucose 117 H (74-99) mg/dL POC Glucose (mg/dL) (70-110) mg/dL Plasma Lactic Acid [place] <0.5 L (0.7-2.0) mmol/L Calcium (8.4-10.2) mg/dL Phosphorus 8.4 H (2.5-4.5) mg/dL Magnesium 2.4 H (1.6-2.3) mg/dL Total Protein 6.1 L (6.3-8.2) g/dL Albumin (3.5-5.0) g/dL Urine Appearance Cloudy H (Clear) Urine Protein 1+ H (Negative) Urine Glucose (UA) 1+ H (Negative) Urine Blood Trace H (Negative) Ur Leukocyte Esterase Large H (Negative) Urine WBC >182 H (0-5) /hpf Urine WBC Clumps Few H (None) /hpf Urine Bacteria Many H (None) /hpf Urine Mucus Rare H (None) /hpf 11/15/23 11/15/23 11/16/23 Range/Units 21:51 23:28 03:42 RBC 3.20 L 2.88 L (3.80-5.40) m/uL Hgb 9.7 L 8.6 L (11.4-16.0) gm/dL Hct 29.3 L 26.0 L (34.0-46.0) % Plt Count 140 L 148 L (150-450) k/uL Neutrophils # (1.3-7.7) k/uL Lymphocytes # 0.6 L 0.4 L (1.0-4.8) k/uL APTT (22.0-30.0) sec Sodium (137-145) mmol/L Potassium 6.9 H* (3.5-5.1) mmol/L Chloride 120 H (98-107) mmol/L Carbon Dioxide 7 L* (22-30) mmol/L BUN 87 H (7-17) mg/dL Creatinine 6.68 H (0.52-1.04) mg/dL Glucose 102 H (74-99) mg/dL POC Glucose (mg/dL) (70-110) mg/dL Plasma Lactic Acid [place] (0.7-2.0) mmol/L Calcium 8.0 L (8.4-10.2) mg/dL Phosphorus (2.5-4.5) mg/dL Magnesium (1.6-2.3) mg/dL Total Protein (6.3-8.2) g/dL Albumin (3.5-5.0) g/dL Urine Appearance (Clear) Urine Protein (Negative) Urine Glucose (UA) (Negative) Urine Blood (Negative) Ur Leukocyte Esterase (Negative) Urine WBC (0-5) /hpf Urine WBC Clumps (None) /hpf Urine Bacteria (None) /hpf Urine Mucus (None) /hpf 11/16/23 Range/Units 03:42 RBC (3.80-5.40) m/uL Hgb (11.4-16.0) gm/dL Hct (34.0-46.0) % Plt Count (150-450) k/uL Neutrophils # (1.3-7.7) k/uL Lymphocytes # (1.0-4.8) k/uL APTT (22.0-30.0) sec Sodium (137-145) mmol/L Potassium 5.5 H (3.5-5.1) mmol/L Chloride 114 H (98-107) mmol/L Carbon Dioxide 15 L (22-30) mmol/L BUN 87 H (7-17) mg/dL Creatinine 5.85 H (0.52-1.04) mg/dL Glucose 329 H (74-99) mg/dL POC Glucose (mg/dL) (70-110) mg/dL Plasma Lactic Acid [place] (0.7-2.0) mmol/L Calcium 8.1 L (8.4-10.2) mg/dL Phosphorus 5.5 H (2.5-4.5) mg/dL Magnesium (1.6-2.3) mg/dL Total Protein 4.7 L (6.3-8.2) g/dL Albumin 2.6 L (3.5-5.0) g/dL Urine Appearance (Clear) Urine Protein (Negative) Urine Glucose (UA) (Negative) Urine Blood (Negative) Ur Leukocyte Esterase (Negative) Urine WBC (0-5) /hpf Urine WBC Clumps (None) /hpf Urine Bacteria (None) /hpf Urine Mucus (None) /hpf Thrombosis Risk Factor Assmnt - Choose All That Apply Any of the Below Risk Factors Present?: Yes Each Factor Represents 1 point: Heart failure (<1month), Obesity (BMI >25) Other Risk Factors: Yes Each Risk Factor Represents 2 Points: Age 61-74 years Other congenital or acquired thrombophilia - If yes, enter type in comment: No Thrombosis Risk Factor Assessment Total Risk Factor Score: 4 Thrombosis Risk Factor Assessment Level: Moderate Risk Assessment and Plan Assessment: 73-year-old female with chronic kidney disease, diabetes mellitus coming in for evaluation of generalized weakness with difficulty ambulating found to have severe hyperkalemia and acidosis I discussed case with ED doctor accepted the admission to the ICU for further care and nephrology evaluation of emergent hemodialysis with anticipated length of stay more than 2 midnights Severe hyperkalemia with metabolic acidosis Acute on chronic kidney disease Nephrology to consider emergent hemodialysis EKG showing sinus bradycardia with a wide QRS Patient given calcium gluconate and potassium shifters (bicarb IV push, insulin IV push with dextrose, Lasix IV push), Lokelma Close monitoring of potassium level Nephrology following Bicarb drip 125 cc/h Monitor vital signs Cardiac monitoring Fall precautions Monitor electrolytes closely Renal function sodium 136 potassium 7.2 BUN 93 creatinine 7.8 Bicarb 5 anion gap 14 Recurrent UTI rule out urinary tract infection UA positive for leukocyte esterase Follow-up cultures Patient given one-time dose of Rocephin in the ED Patient has history of resistant bacteria in the past most recent urine culture was sensitive to Vanco Chronic conditions Chronic kidney disease Diabetes mellitus insulin sliding scale Hypertension, hold metoprolol's and clonidine secondary to bradycardia, hold losartan secondary to acute kidney injury on CKD Close monitoring of patient vital signs GI prophylaxis Protonix 40 mg p.o. daily No code Heparin 5000 units subcu 3 times daily
[2023-11-16] MEDS: PANTOPRAZOLE 40 MG TABLET PO SCH (06:33)
--- NOTE | 2023-11-16 07:32 | P.PN ---
Subjective Progress Note Date: 11/16/23 Patient is a 73-year-old female with diabetes, chronic kidney disease 3B, hypertension, congestive heart failure with EF 40 to 45%, hypothyroidism, and multiple other comorbid conditions who presented to the emergency department with complaints of weakness and low-grade fevers. On arrival to the emergency department her vital signs were remarkable for heart rate of 45. Initial laboratory analysis included CBC CMP troponin, BNP, TSH, and urinalysis which were remarkable for potassium 7.2, sodium 136, carbon dioxide 5, anion gap 14, BUN 93, creatinine 7.88, hemoglobin 10.5, platelets 142. Urinalysis was consistent with possible urinary tract infection with greater than 182 white blood cells. In the emergency department she was given sodium bicarb, insulin, glucose Lokelma, Lasix, and Hydrocortisone. She underwent CT abdomen and pelvis which showed mild uncomplicated distal colitis with moderate concentric wall thickening of the urinary bladder. Nephrology was notified. She was subsequently admitted to the ICU. Critical care and nephrology were consulted. She was maintained on a bicarb drip. Patient seen and examined at bedside. Patient seen and examined at bedside. She denies any chest pain or shortness of breath. She is very tangential in her thought process. He states she was possibly taking some potassium at home. Is unable to tell whether or not she has been eating and drinking well. Vital signs reviewed General: Nontoxic, no distress, appears at stated age Cardiovascular: S1S2 reg, no murmur Lungs: CTA bilateral, no rhonchi, no rales, no accessory muscle use Abdominal: Soft, nontender to palpation, no guarding Ext: No gross muscle atrophy, no edema b/l lower extremities, no contractures Neuro: CN II-XI grossly intact, no focal neuro deficits Psych: Alert, oriented, appropriate affect, tangential in her thought process Assessment/Plan: Acute renal failure on chronic kidney disease stage IIIb requiring emergent dialysis Severe hyperkalemia leading to wide-complex bradycardia Severe metabolic acidosis -Sodium bicarb at 125 cc/h -Hold Aldactone, losartan, and metoprolol due to bradycardia -nephrology consultation reviewed: Maintain bicarb drip, repeat BMP this afternoon Probable urinary tract infection -History of Enterococcus only sensitive to vancomycin in the past. Due to her renal dysfunction she was placed on daptomycin 300 mg IV every 48 hours -Follow urine culture Anemia and thrombocytopenia -Anemia is chronic in nature and is consistent with her prior levels -No indication for transfusion -Check iron studies -Follow CBC Diabetes mellitus type 2 -Hold lipids 9 -Sliding scale insulin -Follow blood sugars HFprEF EF 40 to 45% -Hold losartan and spironolactone due to renal failure, hold metoprolol due to bradycardia. Likely could be restarted in a.m. Chronic: Hypertension Dyslipidemia Fibromyalgia Imaging: None new Data Review: Labs reviewed from today include CBC and CMP which are remarkable for hemoglobin 8.6, platelets 148, potassium 5.5, carbon dioxide 15, BUN 87, and creatinine 5.85 with glucose 329 DVT prophylaxis: Heparin Anticipated discharge date: Pending clinical course Anticipated discharge place: Pending clinical course This dictation was prepared using [employer] voice recognition software. Though every attempt is made to correct errors during dictation some may still exist. Objective - Vital Signs Vital signs: Vital Signs Temp 98.0 F 11/16/23 06:00 Pulse 84 11/16/23 07:00 Resp 13 11/16/23 07:00 BP 137/49 11/16/23 07:00 Pulse Ox 99 11/16/23 07:00 FiO2 Intake & Output 11/15/23 11/16/23 11/16/23 18:59 06:59 18:59 Intake Total 1630 125 Output Total 1580 80 Balance 50 45 Weight 83.461 kg 88.5 kg Intake: Intake, IV Titration 1430 125 Amount Calcium Gluconate in NaCl 100 1 gm In Saline 1 100ml. bag @ 100 mls/hr IVPB ONCE ONE Rx#:[id number] Calcium Gluconate in NaCl 100 2 gm In Saline 1 100ml. bag @ 100 mls/hr IVPB ONCE ONE Rx#:[id number] DAPTOmycin 300 mg In 50 Sodium Chloride 0.9% 50 ml @ 100 mls/hr IVPB Q48H [facility] Rx#:[id number] Dextrose 5%-0.45% NaCl 1, 1080 125 000 ml @ 85 mls/hr IV . [id number] [facility] Rx#:[id number] cefTRIAXone 2 gm In 100 Sodium Chloride 0.9% 50 ml @ 100 mls/hr IVPB ONCE STA Rx#:[id number] Oral 200 Output: Urine 1580 80 Other: Voiding Method Indwelling Catheter - Labs CBC & Chem 7: 11/16/23 03:42 11/16/23 03:42 Labs: Abnormal Lab Results - Last 24 Hours (Table) 11/15/23 11/15/23 11/15/23 Range/Units 17:46 18:27 18:27 RBC 3.51 L (3.80-5.40) m/uL Hgb 10.5 L (11.4-16.0) gm/dL Hct 33.0 L (34.0-46.0) % Plt Count 142 L (150-450) k/uL Neutrophils # 8.8 H (1.3-7.7) k/uL Lymphocytes # 0.8 L (1.0-4.8) k/uL APTT 21.7 L (22.0-30.0) sec Sodium (137-145) mmol/L Potassium (3.5-5.1) mmol/L Chloride (98-107) mmol/L Carbon Dioxide (22-30) mmol/L BUN (7-17) mg/dL Creatinine (0.52-1.04) mg/dL Glucose (74-99) mg/dL POC Glucose (mg/dL) 244 H (70-110) mg/dL Plasma Lactic Acid [place] (0.7-2.0) mmol/L Calcium (8.4-10.2) mg/dL Phosphorus (2.5-4.5) mg/dL Magnesium (1.6-2.3) mg/dL Total Protein (6.3-8.2) g/dL Albumin (3.5-5.0) g/dL Urine Appearance (Clear) Urine Protein (Negative) Urine Glucose (UA) (Negative) Urine Blood (Negative) Ur Leukocyte Esterase (Negative) Urine WBC (0-5) /hpf Urine WBC Clumps (None) /hpf Urine Bacteria (None) /hpf Urine Mucus (None) /hpf 11/15/23 11/15/23 11/15/23 Range/Units 18:27 18:27 18:27 RBC (3.80-5.40) m/uL Hgb (11.4-16.0) gm/dL Hct (34.0-46.0) % Plt Count (150-450) k/uL Neutrophils # (1.3-7.7) k/uL Lymphocytes # (1.0-4.8) k/uL APTT (22.0-30.0) sec Sodium 136 L (137-145) mmol/L Potassium 7.2 H* (3.5-5.1) mmol/L Chloride 117 H (98-107) mmol/L Carbon Dioxide 5 L* (22-30) mmol/L BUN 93 H (7-17) mg/dL Creatinine 7.88 H* (0.52-1.04) mg/dL Glucose 117 H (74-99) mg/dL POC Glucose (mg/dL) (70-110) mg/dL Plasma Lactic Acid [place] <0.5 L (0.7-2.0) mmol/L Calcium (8.4-10.2) mg/dL Phosphorus 8.4 H (2.5-4.5) mg/dL Magnesium 2.4 H (1.6-2.3) mg/dL Total Protein 6.1 L (6.3-8.2) g/dL Albumin (3.5-5.0) g/dL Urine Appearance Cloudy H (Clear) Urine Protein 1+ H (Negative) Urine Glucose (UA) 1+ H (Negative) Urine Blood Trace H (Negative) Ur Leukocyte Esterase Large H (Negative) Urine WBC >182 H (0-5) /hpf Urine WBC Clumps Few H (None) /hpf Urine Bacteria Many H (None) /hpf Urine Mucus Rare H (None) /hpf 11/15/23 11/15/23 11/16/23 Range/Units 21:51 23:28 03:42 RBC 3.20 L 2.88 L (3.80-5.40) m/uL Hgb 9.7 L 8.6 L (11.4-16.0) gm/dL Hct 29.3 L 26.0 L (34.0-46.0) % Plt Count 140 L 148 L (150-450) k/uL Neutrophils # (1.3-7.7) k/uL Lymphocytes # 0.6 L 0.4 L (1.0-4.8) k/uL APTT (22.0-30.0) sec Sodium (137-145) mmol/L Potassium 6.9 H* (3.5-5.1) mmol/L Chloride 120 H (98-107) mmol/L Carbon Dioxide 7 L* (22-30) mmol/L BUN 87 H (7-17) mg/dL Creatinine 6.68 H (0.52-1.04) mg/dL Glucose 102 H (74-99) mg/dL POC Glucose (mg/dL) (70-110) mg/dL Plasma Lactic Acid [place] (0.7-2.0) mmol/L Calcium 8.0 L (8.4-10.2) mg/dL Phosphorus (2.5-4.5) mg/dL Magnesium (1.6-2.3) mg/dL Total Protein (6.3-8.2) g/dL Albumin (3.5-5.0) g/dL Urine Appearance (Clear) Urine Protein (Negative) Urine Glucose (UA) (Negative) Urine Blood (Negative) Ur Leukocyte Esterase (Negative) Urine WBC (0-5) /hpf Urine WBC Clumps (None) /hpf Urine Bacteria (None) /hpf Urine Mucus (None) /hpf 11/16/23 Range/Units 03:42 RBC (3.80-5.40) m/uL Hgb (11.4-16.0) gm/dL Hct (34.0-46.0) % Plt Count (150-450) k/uL Neutrophils # (1.3-7.7) k/uL Lymphocytes # (1.0-4.8) k/uL APTT (22.0-30.0) sec Sodium (137-145) mmol/L Potassium 5.5 H (3.5-5.1) mmol/L Chloride 114 H (98-107) mmol/L Carbon Dioxide 15 L (22-30) mmol/L BUN 87 H (7-17) mg/dL Creatinine 5.85 H (0.52-1.04) mg/dL Glucose 329 H (74-99) mg/dL POC Glucose (mg/dL) (70-110) mg/dL Plasma Lactic Acid [place] (0.7-2.0) mmol/L Calcium 8.1 L (8.4-10.2) mg/dL Phosphorus 5.5 H (2.5-4.5) mg/dL Magnesium (1.6-2.3) mg/dL Total Protein 4.7 L (6.3-8.2) g/dL Albumin 2.6 L (3.5-5.0) g/dL Urine Appearance (Clear) Urine Protein (Negative) Urine Glucose (UA) (Negative) Urine Blood (Negative) Ur Leukocyte Esterase (Negative) Urine WBC (0-5) /hpf Urine WBC Clumps (None) /hpf Urine Bacteria (None) /hpf Urine Mucus (None) /hpf
[2023-11-16] MEDS ORDERED: DEXTROSE 50% SYRINGE 50 ML IVP PRN ×2 (07:33)
[2023-11-16] MEDS: HEPARIN SODIUM,PORCINE 5,000 UNIT/ML 1 ML VIAL SQ SCH (08:46)
[2023-11-16 11:16] LABS: Glucose,Whole Blood 450 mg/dL (70-110)
--- NOTE | 2023-11-16 11:51 | P.NPCON ---
History of Present Illness - Reason for Consult acute renal failure, chronic renal failure - History of Present Illness Reason for consultation: Acute kidney injury on chronic kidney disease History of present illness: Patient is a 73-year-old female seen in renal consultation for acute kidney injury on chronic kidney disease. Patient has chronic kidney disease stage IIIb with baseline creatinine near 2 secondary to diabetic kidney disease. Patient came to the hospital due to generalized weakness and fall. Patient states oral intake has been poor the last few days. Patient states she mostly drinks cola and water. Patient states she does not eat much since she lives by herself. When patient came to the hospital her creatinine was 7.88 and potassium level was 7.2. Patient was also noted to be acidotic with a bicarb level of 7. Urena catheter was placed. Patient is nonoliguric. She received 2 L of normal saline bolus and was subsequently started on bicarb drip which is running at 125 cc an hour. She was on angiotensin receptor gray as well as Aldactone which are both currently held. Potassium level this morning was 5.5. Renal function is also improving with creatinine down to 5.85. Acidosis also improving with bicarb level up to 15. She is currently on room air. Patient has history of diabetes. Denies history of coronary artery disease. Denies family history of renal disease. On antibiotics for UTI. Vital signs are stable. General: No acute distress. HEENT: Head exam is unremarkable. LUNGS: No audible rhonchi or wheezes. HEART: Rate and Rhythm are regular. ABDOMEN: Nontender. EXTREMITITES: No edema. Past Medical History Past Medical History: Heart Failure, Diabetes Mellitus, Fibromyalgia, Hyperlipidemia, Hypertension, Osteoarthritis (OA), Thyroid Disorder Additional Past Medical History / Comment(s): kidney stones in past History of Any Multi-Drug Resistant Organisms: VRE Date of last positivie culture/infection: 02/13/23 MDRO Source:: urine Past Surgical History: Joint Replacement, Orthopedic Surgery, Tonsillectomy Additional Past Surgical History / Comment(s): right athroscopy, back surgery for ruptured disk Past Anesthesia/Blood Transfusion Reactions: No Reported Reaction Past Psychological History: No Psychological Hx Reported Smoking Status: Never smoker Past Alcohol Use History: None Reported Past Drug Use History: None Reported - Past Family History Mother Family Medical History: Cancer Additional Family Medical History / Comment(s): brain stem Father Family Medical History: Diabetes Mellitus Medications and Allergies Home Medications Medication Instructions Recorded Confirmed Type Simvastatin [Zocor] 20 mg PO DAILY 11/13/14 11/15/23 History Omeprazole 20 mg PO DAILY 01/24/23 11/15/23 History Mirtazapine [Remeron] 15 mg PO HS #30 tab 02/03/23 11/15/23 Rx traMADol HCL 50 mg PO BID PRN 02/13/23 11/15/23 History Cholecalciferol (Vitamin D3) 50 mcg PO DAILY 11/15/23 11/15/23 History [Vitamin D3 (50 Mcg = 2000 Iu)] Ferrous Sulfate [Feosol] 325 mg PO BID 11/15/23 11/15/23 History Folic Acid 1 mg PO DAILY 11/15/23 11/15/23 History Losartan Potassium 100 mg PO DAILY 11/15/23 11/15/23 History Metoprolol Succinate (ER) [Toprol 50 mg PO DAILY 11/15/23 11/15/23 History Xl] Spironolactone [Aldactone] 50 mg PO DAILY 11/15/23 11/15/23 History Zolpidem [Ambien] 10 mg PO HS 11/15/23 11/15/23 History cloNIDine 0.2 MG/24HR PATCH 1 patch TRANSDERM FR 11/15/23 11/15/23 History [Catapres-TTS] glipiZIDE XL [Glucotrol XL] 2.5 mg PO DAILY 11/15/23 11/15/23 History Allergies Allergy/AdvReac Type Severity Reaction Status Date / Time No Known Allergies Allergy Verified 11/15/23 21:22 Physical Exam Vitals: Vital Signs Temp Pulse Pulse Pulse Resp BP Pulse Ox 11/16/23 11:00 74 16 130/54 97 11/16/23 10:00 80 20 133/43 97 11/16/23 09:00 75 16 112/42 99 11/16/23 08:00 98.5 F 80 16 139/48 97 11/16/23 07:51 96 11/16/23 07:00 84 13 137/49 99 11/16/23 06:00 98.0 F 84 16 134/52 94 L 11/16/23 05:00 97.7 F 95 14 140/54 100 11/16/23 04:00 94 85 85 18 130/66 96 11/16/23 03:57 90 11/16/23 03:43 76 11/16/23 03:00 88 24 146/34 96 11/16/23 02:00 81 28 H 115/47 100 11/16/23 01:00 75 5 L 139/38 98 11/16/23 00:00 72 53 L 53 L 20 97/51 100 11/15/23 23:48 57 L 11/15/23 23:33 51 L 11/15/23 23:31 52 L 10 L 97/51 100 11/15/23 23:30 51 L 22 97/51 100 11/15/23 23:20 53 L 19 97/51 100 11/15/23 23:10 54 L 8 L 97/51 94 L 11/15/23 23:00 52 L 11 L 85/49 100 11/15/23 22:50 55 L 10 L 85/49 100 11/15/23 22:40 54 L 23 103/93 99 11/15/23 22:30 58 L 29 H 126/57 100 11/15/23 22:22 61 H 11/15/23 21:58 50 L 95/81 94 L 11/15/23 21:18 97.3 F L 54 L 20 120/62 100 11/15/23 21:13 97.3 F L 52 L 20 95 11/15/23 20:40 56 L 18 128/81 11/15/23 20:03 64 18 100/88 11/15/23 18:54 55 L 18 118/79 100 11/15/23 17:36 97.3 F L 45 L 18 133/65 99 Intake and Output 11/15/23 11/16/23 11/16/23 22:59 06:59 14:59 Intake Total 480 1150 500 Output Total 400 1180 555 Balance 80 -30 -55 Intake: Intake, IV Titration 280 1150 500 Amount Calcium Gluconate in NaCl 100 1 gm In Saline 1 100ml. bag @ 100 mls/hr IVPB ONCE ONE Rx#:[id number] Calcium Gluconate in NaCl 100 2 gm In Saline 1 100ml. bag @ 100 mls/hr IVPB ONCE ONE Rx#:[id number] DAPTOmycin 300 mg In 50 Sodium Chloride 0.9% 50 ml @ 100 mls/hr IVPB Q48H [facility] Rx#:[id number] Dextrose 5% in Water 1, 375 000 ml @ 125 mls/hr IV . Q9H12M [facility] with Sodium Bicarb (1 Meq/ml) 150 ml Rx#:[id number] Dextrose 5%-0.45% NaCl 1, 80 1000 125 000 ml @ 85 mls/hr IV . [id number] [facility] Rx#:[id number] cefTRIAXone 2 gm In 100 Sodium Chloride 0.9% 50 ml @ 100 mls/hr IVPB ONCE STA Rx#:[id number] Oral 200 Output: Urine 400 1180 555 Other: Voiding Method Indwelling Catheter Indwelling Catheter Weight 83.461 kg 88.5 kg Results - Lab Results Most recent lab results Calcium 8.1 mg/dL (8.4-10.2) L 11/16/23 03:42 Phosphorus 5.5 mg/dL (2.5-4.5) H 11/16/23 03:42 Magnesium 1.7 mg/dL (1.6-2.3) 11/16/23 03:42 11/16/23 03:42 11/16/23 03:42 Assessment and Plan Plan: Assessment: 1. Acute kidney injury secondary to ATN secondary to severe sepsis. Further worsen with the use of losartan and Aldactone. Creatinine 7.88 on admission is 5.85 today. No hydronephrosis noted on CT. 2. Chronic kidney disease stage IIIb with baseline creatinine near 2 secondary to diabetic kidney disease. 3. Hyperkalemia secondary to acute kidney injury, acidosis, spironolactone and losartan. Improved with medical management. 4. Metabolic acidosis secondary to acute kidney injury. Improved. 5. Sinus bradycardia secondary to hyperkalemia. Resolved. 6. Diabetes mellitus. 7. Severe sepsis secondary to UTI on antibiotics. Plan: Maintain bicarb drip. Avoid nephrotoxins. Follow-up cultures. Repeat BMP this afternoon. Continue to monitor renal function and urine output. Thank you for the consultation. I will continue to follow the patient with you during her hospital stay.
[2023-11-16 11:54] LABS: % Iron Saturation 41.56 (12.00-45.00)
[2023-11-16] MEDS: INSULIN ASPART (NovoLOG) 100 UNIT/ML VIAL SQ SCH ×2 (12:37)
[2023-11-16 14:35] LABS: Glucose,Whole Blood 441 mg/dL (70-110)
[2023-11-16 16:24] LABS: African American GFR (CKD) 8 (>60 ml/min/1.73 sqM); Anion Gap 11 mmol/L; Blood Urea Nitrogen 82 mg/dL (7-17); Calcium 7.4 mg/dL (8.4-10.2); Carbon Dioxide 20 mmol/L (22-30); Chloride 104 mmol/L (98-107); Glucose 370 mg/dL (74-99); Non-African American GFR(CKD) 7 (>60 ml/min/1.73 sqM); Sodium 135 mmol/L (137-145)
[2023-11-16 16:38] LABS: Glucose,Whole Blood 337 mg/dL (70-110)
[2023-11-16 20:15] LABS: Glucose,Whole Blood 195 mg/dL (70-110)
--- NOTE | 2023-11-16 22:21 | P.CONS ---
History of Present Illness - Reason for Consult Consult date: 11/16/23 - History of Present Illness Patient is a 73-year-old female with a past medical history significant for diabetes mellitus hypertension hyperlipidemia fibromyalgia heart failure patient was brought to the hospital complaining of generalized weakness and difficulty with ambulation patient normally uses a walker or cane however the day of the presentation to the hospital the patient was largely been able to stand up patient was also complaining of some low-grade fever and chills denies any headache or URI symptoms no chest pain shortness of breath or cough some nausea but no vomiting no abdominal pain or diarrhea did have some vague urinary symptoms on presentation to the hospital patient was afebrile and no fever have recorded subsequently patient was not tachycardic or hypotensive not hypoxic patient did have a white count of 8.3 did have elevated BUN/creatinine potassium was 6.9 liver isms are normal urine has been cloudy with more than 182 WBC patient did have a chest x-ray no acute cardiopulmonary disease process CT abdominal pelvis concerning for mild uncomplicated distal colitis versus product of poor distention mild to moderate concentric wall thickening of urinary bladder concerning for acute cystitis patient was started on Rocephin with concern for possible complicated UTI infectious disease was consulted for further management of antibiotic therapy Past Medical History Past Medical History: Heart Failure, Diabetes Mellitus, Fibromyalgia, Hy perlipidemia, Hypertension, Osteoarthritis (OA), Thyroid Disorder Additional Past Medical History / Comment(s): kidney stones in past History of Any Multi-Drug Resistant Organisms: VRE Year Discovered:: 02/13/23 MDRO Source:: urine Past Surgical History: Joint Replacement, Orthopedic Surgery, Tonsillectomy Additional Past Surgical History / Comment(s): right athroscopy, back surgery for ruptured disk Past Anesthesia/Blood Transfusion Reactions: No Reported Reaction Past Psychological History: No Psychological Hx Reported Smoking Status: Never smoker Past Alcohol Use History: None Reported Past Drug Use History: None Reported - Past Family History Mother Family Medical History: Cancer Additional Family Medical History / Comment(s): brain stem Father Family Medical History: Diabetes Mellitus Medications and Allergies Home Medications Medication Instructions Recorded Confirmed Type Simvastatin [Zocor] 20 mg PO DAILY 11/13/14 11/15/23 History Omeprazole 20 mg PO DAILY 01/24/23 11/15/23 History Mirtazapine [Remeron] 15 mg PO HS #30 tab 02/03/23 11/15/23 Rx traMADol HCL 50 mg PO BID PRN 02/13/23 11/15/23 History Cholecalciferol (Vitamin D3) 50 mcg PO DAILY 11/15/23 11/15/23 History [Vitamin D3 (50 Mcg = 2000 Iu)] Ferrous Sulfate [Feosol] 325 mg PO BID 11/15/23 11/15/23 History Folic Acid 1 mg PO DAILY 11/15/23 11/15/23 History Losartan Potassium 100 mg PO DAILY 11/15/23 11/15/23 History Metoprolol Succinate (ER) [Toprol 50 mg PO DAILY 11/15/23 11/15/23 History Xl] Spironolactone [Aldactone] 50 mg PO DAILY 11/15/23 11/15/23 History Zolpidem [Ambien] 10 mg PO HS 11/15/23 11/15/23 History cloNIDine 0.2 MG/24HR PATCH 1 patch TRANSDERM FR 11/15/23 11/15/23 History [Catapres-TTS] glipiZIDE XL [Glucotrol XL] 2.5 mg PO DAILY 11/15/23 11/15/23 History Allergies Allergy/AdvReac Type Severity Reaction Status Date / Time No Known Allergies Allergy Verified 11/15/23 21:22 Physical Exam Vitals: Vital Signs Temp Pulse Pulse Pulse Resp BP Pulse Ox 11/16/23 11:00 74 16 130/54 97 11/16/23 10:00 80 20 133/43 97 11/16/23 09:00 75 16 112/42 99 11/16/23 08:00 98.5 F 80 16 139/48 97 11/16/23 07:51 96 11/16/23 07:00 84 13 137/49 99 11/16/23 06:00 98.0 F 84 16 134/52 94 L 11/16/23 05:00 97.7 F 95 14 140/54 100 11/16/23 04:00 94 85 85 18 130/66 96 11/16/23 03:57 90 11/16/23 03:43 76 11/16/23 03:00 88 24 146/34 96 11/16/23 02:00 81 28 H 115/47 100 11/16/23 01:00 75 5 L 139/38 98 11/16/23 00:00 72 53 L 53 L 20 97/51 100 11/15/23 23:48 57 L 11/15/23 23:33 51 L 11/15/23 23:31 52 L 10 L 97/51 100 11/15/23 23:30 51 L 22 97/51 100 11/15/23 23:20 53 L 19 97/51 100 11/15/23 23:10 54 L 8 L 97/51 94 L 11/15/23 23:00 52 L 11 L 85/49 100 11/15/23 22:50 55 L 10 L 85/49 100 11/15/23 22:40 54 L 23 103/93 99 11/15/23 22:30 58 L 29 H 126/57 100 11/15/23 22:22 61 H 11/15/23 21:58 50 L 95/81 94 L 11/15/23 21:18 97.3 F L 54 L 20 120/62 100 11/15/23 21:13 97.3 F L 52 L 20 95 11/15/23 20:40 56 L 18 128/81 11/15/23 20:03 64 18 100/88 11/15/23 18:54 55 L 18 118/79 100 11/15/23 17:36 97.3 F L 45 L 18 133/65 99 Intake and Output 11/15/23 11/16/23 11/16/23 22:59 06:59 14:59 Intake Total 480 1150 500 Output Total 400 1180 555 Balance 80 -30 -55 Intake: Intake, IV Titration 280 1150 500 Amount Calcium Gluconate in NaCl 100 1 gm In Saline 1 100ml. bag @ 100 mls/hr IVPB ONCE ONE Rx#:[id number] Calcium Gluconate in NaCl 100 2 gm In Saline 1 100ml. bag @ 100 mls/hr IVPB ONCE ONE Rx#:[id number] DAPTOmycin 300 mg In 50 Sodium Chloride 0.9% 50 ml @ 100 mls/hr IVPB Q48H [facility] Rx#:[id number] Dextrose 5% in Water 1, 375 000 ml @ 125 mls/hr IV . Q9H12M [facility] with Sodium Bicarb (1 Meq/ml) 150 ml Rx#:[id number] Dextrose 5%-0.45% NaCl 1, 80 1000 125 000 ml @ 85 mls/hr IV . [id number] [facility] Rx#:[id number] cefTRIAXone 2 gm In 100 Sodium Chloride 0.9% 50 ml @ 100 mls/hr IVPB ONCE STA Rx#:[id number] Oral 200 Output: Urine 400 1180 555 Other: Voiding Method Indwelling Catheter Indwelling Catheter Weight 83.461 kg 88.5 kg Results CBC & Chem 7: 11/17/23 04:01 11/17/23 04:01 Labs: Abnormal Lab Results - Last 24 Hours (Table) 11/15/23 11/15/23 11/15/23 Range/Units 17:46 18:27 18:27 RBC 3.51 L (3.80-5.40) m/uL Hgb 10.5 L (11.4-16.0) gm/dL Hct 33.0 L (34.0-46.0) % Plt Count 142 L (150-450) k/uL Neutrophils # 8.8 H (1.3-7.7) k/uL Lymphocytes # 0.8 L (1.0-4.8) k/uL APTT 21.7 L (22.0-30.0) sec Sodium (137-145) mmol/L Potassium (3.5-5.1) mmol/L Chloride (98-107) mmol/L Carbon Dioxide (22-30) mmol/L BUN (7-17) mg/dL Creatinine (0.52-1.04) mg/dL Glucose (74-99) mg/dL POC Glucose (mg/dL) 244 H (70-110) mg/dL Plasma Lactic Acid [place] (0.7-2.0) mmol/L Calcium (8.4-10.2) mg/dL Phosphorus (2.5-4.5) mg/dL Magnesium (1.6-2.3) mg/dL Total Protein (6.3-8.2) g/dL Albumin (3.5-5.0) g/dL Urine Appearance (Clear) Urine Protein (Negative) Urine Glucose (UA) (Negative) Urine Blood (Negative) Ur Leukocyte Esterase (Negative) Urine WBC (0-5) /hpf Urine WBC Clumps (None) /hpf Urine Bacteria (None) /hpf Urine Mucus (None) /hpf 11/15/23 11/15/23 11/15/23 Range/Units 18:27 18:27 18:27 RBC (3.80-5.40) m/uL Hgb (11.4-16.0) gm/dL Hct (34.0-46.0) % Plt Count (150-450) k/uL Neutrophils # (1.3-7.7) k/uL Lymphocytes # (1.0-4.8) k/uL APTT (22.0-30.0) sec Sodium 136 L (137-145) mmol/L Potassium 7.2 H* (3.5-5.1) mmol/L Chloride 117 H (98-107) mmol/L Carbon Dioxide 5 L* (22-30) mmol/L BUN 93 H (7-17) mg/dL Creatinine 7.88 H* (0.52-1.04) mg/dL Glucose 117 H (74-99) mg/dL POC Glucose (mg/dL) (70-110) mg/dL Plasma Lactic Acid [place] <0.5 L (0.7-2.0) mmol/L Calcium (8.4-10.2) mg/dL Phosphorus 8.4 H (2.5-4.5) mg/dL Magnesium 2.4 H (1.6-2.3) mg/dL Total Protein 6.1 L (6.3-8.2) g/dL Albumin (3.5-5.0) g/dL Urine Appearance Cloudy H (Clear) Urine Protein 1+ H (Negative) Urine Glucose (UA) 1+ H (Negative) Urine Blood Trace H (Negative) Ur Leukocyte Esterase Large H (Negative) Urine WBC >182 H (0-5) /hpf Urine WBC Clumps Few H (None) /hpf Urine Bacteria Many H (None) /hpf Urine Mucus Rare H (None) /hpf 11/15/23 11/15/23 11/16/23 Range/Units 21:51 23:28 03:42 RBC 3.20 L 2.88 L (3.80-5.40) m/uL Hgb 9.7 L 8.6 L (11.4-16.0) gm/dL Hct 29.3 L 26.0 L (34.0-46.0) % Plt Count 140 L 148 L (150-450) k/uL Neutrophils # (1.3-7.7) k/uL Lymphocytes # 0.6 L 0.4 L (1.0-4.8) k/uL APTT (22.0-30.0) sec Sodium (137-145) mmol/L Potassium 6.9 H* (3.5-5.1) mmol/L Chloride 120 H (98-107) mmol/L Carbon Dioxide 7 L* (22-30) mmol/L BUN 87 H (7-17) mg/dL Creatinine 6.68 H (0.52-1.04) mg/dL Glucose 102 H (74-99) mg/dL POC Glucose (mg/dL) (70-110) mg/dL Plasma Lactic Acid [place] (0.7-2.0) mmol/L Calcium 8.0 L (8.4-10.2) mg/dL Phosphorus (2.5-4.5) mg/dL Magnesium (1.6-2.3) mg/dL Total Protein (6.3-8.2) g/dL Albumin (3.5-5.0) g/dL Urine Appearance (Clear) Urine Protein (Negative) Urine Glucose (UA) (Negative) Urine Blood (Negative) Ur Leukocyte Esterase (Negative) Urine WBC (0-5) /hpf Urine WBC Clumps (None) /hpf Urine Bacteria (None) /hpf Urine Mucus (None) /hpf 11/16/23 11/16/23 Range/Units 03:42 11:15 RBC (3.80-5.40) m/uL Hgb (11.4-16.0) gm/dL Hct (34.0-46.0) % Plt Count (150-450) k/uL Neutrophils # (1.3-7.7) k/uL Lymphocytes # (1.0-4.8) k/uL APTT (22.0-30.0) sec Sodium (137-145) mmol/L Potassium 5.5 H (3.5-5.1) mmol/L Chloride 114 H (98-107) mmol/L Carbon Dioxide 15 L (22-30) mmol/L BUN 87 H (7-17) mg/dL Creatinine 5.85 H (0.52-1.04) mg/dL Glucose 329 H (74-99) mg/dL POC Glucose (mg/dL) 450 H (70-110) mg/dL Plasma Lactic Acid [place] (0.7-2.0) mmol/L Calcium 8.1 L (8.4-10.2) mg/dL Phosphorus 5.5 H (2.5-4.5) mg/dL Magnesium (1.6-2.3) mg/dL Total Protein 4.7 L (6.3-8.2) g/dL Albumin 2.6 L (3.5-5.0) g/dL Urine Appearance (Clear) Urine Protein (Negative) Urine Glucose (UA) (Negative) Urine Blood (Negative) Ur Leukocyte Esterase (Negative) Urine WBC (0-5) /hpf Urine WBC Clumps (None) /hpf Urine Bacteria (None) /hpf Urine Mucus (None) /hpf Assessment and Plan Plan: 1patient presented hospital with generalized weakness which is likely multifactorial more likely secondary to acute renal failure in this patient who did have elevated pressures on admission she also have a positive UA with ev idence of cystitis on the CT likely from enteric gram-negative pathogen previous history of VRE UTI 2-for now we will keep the patient on Rocephin 2 g daily while waiting for the culture to finalize 3-patient also have a stage II pressure ulcer to the left gluteal area with no cellulitis we will apply skin protectant cream and keep the area of the pressure We will follow on clinical condition and cultures to further adjust medication if needed Thank you for this consultation we will follow the patient along with you Dictation was produced using [employer] (now [employer] dictation software. please excuse any gram matical, word or spelling errors. Time with Patient: Greater than 30
[2023-11-16] MEDS: ZOLPIDEM 5 MG TAB PO SCH (23:07)
[2023-11-16] MEDS: BENZOCAINE/MENTHOL LOZENG 1 EACH LOZENGE MUCOUS MEM PRN (23:07)
[2023-11-17 04:25] LABS: African American GFR (CKD) 10 (>60 ml/min/1.73 sqM); Anion Gap 7 mmol/L; Blood Urea Nitrogen 74 mg/dL (7-17); Calcium 7.1 mg/dL (8.4-10.2); Carbon Dioxide 29 mmol/L (22-30); Chloride 102 mmol/L (98-107); Glucose 168 mg/dL (74-99); Non-African American GFR(CKD) 8 (>60 ml/min/1.73 sqM); Potassium 4.7 mmol/L (3.5-5.1); Sodium 138 mmol/L (137-145)
[2023-11-17 04:39] LABS: HGB 7.7 gm/dL (11.4-16.0); MCH 29.5 pg (25.0-35.0); MCHC 33.4 g/dL (31.0-37.0); MCV 88.2 fL (80.0-100.0); Mean Platelet Volume 9.4; Platelet Count 122 k/uL (150-450); RDW 14.6 % (11.5-15.5); WBC 7.4 k/uL (3.8-10.6)
--- NOTE | 2023-11-17 05:58 | P.PN ---
Subjective Progress Note Date: 11/17/23 Principal diagnosis: Hypotension, hyperkalemia. I am seeing this patient in new consultation today 11/16/2023 after she was found to be in acute renal failure and severely hyperkalemic on her arrival to the emergency room. She also had some hyperkalemic EKG changes and bradycardia, requiring atropine, and she was admitted to the intensive care unit. Patient is a 73-year-old white female with past medical history significant for previous resistant UTIs, chronic kidney disease, renal stones, heart failure, hyperlipidemia, hypertension, hypothyroidism, diabetes mellitus. Her primary care provider is Dr. Saeed. Patient presented to the emergency room yesterday evening via EMS complaining of generalized weakness. She apparently could not stand and get out of the chair and almost fell. Denies any lightheadedness, heart palpitations, or syncopal events. She has been having periods of subjective fevers and chills. Denies any urinary complaints other than urinary frequency with small urine output. No burning, suprapubic tenderness, CVA tenderness, hematuria. She did have a urinary tract infection with vancomycin sensitive Enterococcus faecium in February,. Current urinalysis suspicious for urinary tract infection with positive leukocytes and pyuria. Urine culture pending. She does take Losartan and Aldactone outpatient. Denies any NSAID use. Abdominal CT taken on admission shows mild to moderate concentric wall thickening of the urinary bladder, consistent with possible urinary tract infection. There was also mild uncomplicated distal colitis versus poor distention. Chest x-ray on arrival did not show any acute cardiopulmonary process. She reports a chronic cough that has been worked up outpatient. Is associated with eating and drinking. Denies any dysphagia. She has reportedly had an EGD in the past which was reportedly unremarkable. She had an ENT referral, but did not follow-up. No associated sputum production. No chest pain. No known pre-existing lung disease. She is on room air, in no acute respiratory distress. EKG on arrival showed sinus bradycardia with QRS widening, likely induced by hyperkalemia. Patient was treated with a potassium cocktail of insulin 10 units, 1 amp D50W, concentrated albuterol, 2 g calcium, 3 A of sodium bicarbonate, and a dose of Lokelma. She was started on a sodium bicarbonate infusion, 3 A of D5W at 125 MLS per hour. She is non-oliguric. Urine output in the order of 50-100 ml/hr. Repeat potassium is still elevated at 6.9. She was treated again with a potassium cocktail. Patient likely needs emergent hemodialysis and temporary hemodialysis catheter, this has not already been done because the patient originally refused hemodialysis treatment. After speaking to the patient she is agreeable to this treatment. Nephrology is managing. She remains bradycardic with a heart rate of around 50. Her blood pressure is tolerating this at the moment, and is borderline hypotensive 90s over 60s. She denies any chest pain. She denies any lightheadedness. She denies any shortness of breath. Most recent CBC shows a WBC count 8.3, hemoglobin 9.7, hematocrit 29.3, platelets 140. Most recent BMP: Sodium 140, potassium 6.9, chloride 120, serum bicarb 7, BUN 87, creatinine 6.68, glucose 102. Troponins on arrival are less than 0.012. NT proBNP was 1900 in the setting of renal failure. TSH WDL. Lactic acid level not elevated. She is a DO NOT RESUSCITATE/DO NOT INTUBATE. Progress note dated November 17, 2023. 73-year-old female seen in room 261. She was seen in consultation yesterday, please see my note above. The patient was admitted with a diagnosis of acute renal failure, hyperkalemia, and initially hypotension. The patient is currently seen today in room 261. She is on room air. She is getting saline at 10 cc an hour. She is getting dextrose, with 3 ampoules of sodium bicarb and at 125 cc an hour. In addition, I wrote an order for some Tessalon Perles, 200 mg 3 times a day for her cough. Clinically, she is doing much better. The patient is a DO NOT RESUSCITATE patient. Laboratory data includes a white count of 7.4, hemoglobin 7.7, hematocrit 23, and a platelet count of 122,000. Sodium 138, potassium 4.7, chlorides 102, CO2 29, BUN 74, creatinine 4.79. Glucose is 168. Calcium 7.1. Blood cultures are negative. No chest x-ray today. Objective - Vital Signs Vital signs: Vital Signs Temp 98.8 F 11/16/23 20:00 Pulse 79 11/17/23 00:00 Resp 25 H 11/17/23 00:00 BP 125/40 11/17/23 00:00 Pulse Ox 96 11/17/23 00:00 FiO2 Intake & Output 11/16/23 11/16/23 11/17/23 06:59 18:59 06:59 Intake Total 1630 1500 625 Output Total 1580 1185 800 Balance 50 315 -175 Weight 88.5 kg 88.5 kg 99.5 kg Intake: Intake, IV Titration 1430 1500 625 Amount Calcium Gluconate in NaCl 100 1 gm In Saline 1 100ml. bag @ 100 mls/hr IVPB ONCE ONE Rx#:[id number] Calcium Gluconate in NaCl 100 2 gm In Saline 1 100ml. bag @ 100 mls/hr IVPB ONCE ONE Rx#:[id number] DAPTOmycin 300 mg In 50 Sodium Chloride 0.9% 50 ml @ 100 mls/hr IVPB Q48H [facility] Rx#:[id number] Dextrose 5% in Water 1, 1375 625 000 ml @ 125 mls/hr IV . Q9H12M [facility] with Sodium Bicarb (1 Meq/ml) 150 ml Rx#:[id number] Dextrose 5%-0.45% NaCl 1, 1080 125 000 ml @ 85 mls/hr IV . [id number] [facility] Rx#:[id number] cefTRIAXone 2 gm In 100 Sodium Chloride 0.9% 50 ml @ 100 mls/hr IVPB ONCE STA Rx#:[id number] Oral 200 Output: Urine 1580 1185 800 Other: Voiding Method Indwelling Catheter Indwelling Catheter Indwelling Catheter # Bowel Movements 1 - Exam No acute distress, oriented 3. No respiratory distress, and currently on room air. HEENT examination is grossly unremarkable. Mucous membranes are moist. No oral lesions. Neck supple. Full range of motion. No adenopathy thyromegaly or neck vein distention. Cardiovascular examination reveals regular rhythm rate. S1-S2 normal. No S3 or S4. No discernible murmur noted. Heart rate 79 bpm. Lungs reveal clear breath sounds. Breath sounds are equal bilaterally. No adventitious lung sounds including wheezes rhonchi or crackles. Room air saturation is 97%. Abdomen soft bowel sounds are heard. No masses or tenderness. Extremities are intact. No cyanosis clubbing or edema. Skin is without rash or lesion. Neurologic examination is brief but nonfocal. - Labs CBC & Chem 7: 11/17/23 04:01 11/17/23 04:01 Labs: Abnormal Lab Results - Last 24 Hours (Table) 11/16/23 11/16/23 11/16/23 Range/Units 03:42 03:42 11:15 RBC (3.80-5.40) m/uL Hgb (11.4-16.0) gm/dL Hct (34.0-46.0) % Plt Count (150-450) k/uL Sodium (137-145) mmol/L Carbon Dioxide (22-30) mmol/L BUN (7-17) mg/dL Creatinine (0.52-1.04) mg/dL Glucose (74-99) mg/dL POC Glucose (mg/dL) 450 H (70-110) mg/dL Calcium (8.4-10.2) mg/dL Transferrin 165.0 L (204.0-354.0) mg/dL Ferritin 456.0 H (10.0-291.0) ng/mL Procalcitonin 0.13 H (0.02-0.09) ng/mL 11/16/23 11/16/23 11/16/23 Range/Units 14:34 15:34 16:37 RBC (3.80-5.40) m/uL Hgb (11.4-16.0) gm/dL Hct (34.0-46.0) % Plt Count (150-450) k/uL Sodium 135 L (137-145) mmol/L Carbon Dioxide 20 L (22-30) mmol/L BUN 82 H (7-17) mg/dL Creatinine 5.42 H (0.52-1.04) mg/dL Glucose 370 H (74-99) mg/dL POC Glucose (mg/dL) 441 H 337 H (70-110) mg/dL Calcium 7.4 L (8.4-10.2) mg/dL Transferrin (204.0-354.0) mg/dL Ferritin (10.0-291.0) ng/mL Procalcitonin (0.02-0.09) ng/mL 11/16/23 11/17/23 11/17/23 Range/Units 20:13 04:01 04:01 RBC 2.60 L (3.80-5.40) m/uL Hgb 7.7 L (11.4-16.0) gm/dL Hct 23.0 L (34.0-46.0) % Plt Count 122 L (150-450) k/uL Sodium (137-145) mmol/L Carbon Dioxide (22-30) mmol/L BUN 74 H (7-17) mg/dL Creatinine 4.79 H (0.52-1.04) mg/dL Glucose 168 H (74-99) mg/dL POC Glucose (mg/dL) 195 H (70-110) mg/dL Calcium 7.1 L (8.4-10.2) mg/dL Transferrin (204.0-354.0) mg/dL Ferritin (10.0-291.0) ng/mL Procalcitonin (0.02-0.09) ng/mL Microbiology - Last 24 Hours (Table) 11/15/23 21:45 Blood Culture - Preliminary Blood 11/15/23 21:30 Blood Culture - Preliminary Blood Assessment and Plan Assessment: Suspected urinary tract infection. Acute on chronic kidney disease, likely exacerbated by above. Severe hyperkalemia, with EKG changes and bradycardia. Severe anion gap metabolic acidosis, secondary to above and acute renal failure. Chronic kidney disease stage III. Diabetes mellitus type 2. History of hypothyroidism. History of hypertension. History of hyperlipidemia. History of heart failure with reduced ejection fraction. Anemia of chronic disease. Chronic cough. Obesity, with a BMI of 31.6 kg/m. Plan: Plan dated November 17, 2023. For the patient's cough, we added Tessalon Perles, 200 mg 3 times a day. The sodium bicarbonate drip, can be discontinued. Her bicarbonate concentration today is 29. She is on room air. She is getting saline at 10 cc an hour. She has been stable here in the intensive care unit. Blood cultures are thus far negative. The patient continues on ceftriaxone for possible urinary tract infection. Labs, x-rays, and medications are reviewed. The patient could be discharged from the intensive care unit. Additional recommendations and suggestions are forthcoming. The patient is a DO NOT RESUSCITATE patient. Time with Patient: Less than 30
[2023-11-17 06:14] LABS: Glucose,Whole Blood 144 mg/dL (70-110)
[2023-11-17] MEDS: ONDANSETRON 4 MG/2 ML VIAL IVP STA (06:36)
[2023-11-17 07:00] LABS: Eosinophils # (M) 0.22 k/uL (0-0.7); Monocytes # (M) 0.37 k/uL (0-1.0); Neutrophils # (M) 4.81 k/uL (1.3-7.7); Neutrophils % (M) 65 %; Nucleated Red Blood Cells 0 /100 WBC (0-0); Total Cells Counted 100
--- NOTE | 2023-11-17 09:42 | P.PN ---
Subjective Patient is seen in follow-up for acute kidney injury on chronic kidney disease. Renal function improving. Acidosis improved with bicarb drip. Nonoliguric. Nauseated this morning. Vital signs are stable. General: No acute distress. HEENT: Head exam is unremarkable. LUNGS: No audible rhonchi or wheezes. HEART: Rate and Rhythm are regular. ABDOMEN: Nontender. EXTREMITITES: No edema. Objective - Vital Signs Vital signs: Vital Signs Temp 98.5 F 11/17/23 08:00 Pulse 68 11/17/23 08:00 Resp 18 11/17/23 08:00 BP 146/51 11/17/23 08:00 Pulse Ox 96 11/17/23 08:00 FiO2 Intake & Output 11/16/23 11/17/23 11/17/23 18:59 06:59 18:59 Intake Total 1500 1125 Output Total 1185 1800 200 Balance 315 -675 -200 Weight 88.5 kg 99.5 kg Intake: Intake, IV Titration 1500 1125 Amount Dextrose 5% in Water 1, 1375 1125 000 ml @ 125 mls/hr IV . Q9H12M [facility] with Sodium Bicarb (1 Meq/ml) 150 ml Rx#:[id number] Dextrose 5%-0.45% NaCl 1, 125 000 ml @ 85 mls/hr IV . [id number] [facility] Rx#:[id number] Output: Urine 1185 1750 200 Emesis 50 Other: Voiding Method Indwelling Catheter Indwelling Catheter Indwelling Catheter # Bowel Movements 1 2 - Labs CBC & Chem 7: 11/17/23 04:01 11/17/23 04:01 Labs: Abnormal Lab Results - Last 24 Hours (Table) 11/16/23 11/16/23 11/16/23 Range/Units 03:42 03:42 11:15 RBC (3.80-5.40) m/uL Hgb (11.4-16.0) gm/dL Hct (34.0-46.0) % Plt Count (150-450) k/uL Sodium (137-145) mmol/L Carbon Dioxide (22-30) mmol/L BUN (7-17) mg/dL Creatinine (0.52-1.04) mg/dL Glucose (74-99) mg/dL POC Glucose (mg/dL) 450 H (70-110) mg/dL Calcium (8.4-10.2) mg/dL Transferrin 165.0 L (204.0-354.0) mg/dL Ferritin 456.0 H (10.0-291.0) ng/mL Procalcitonin 0.13 H (0.02-0.09) ng/mL 11/16/23 11/16/23 11/16/23 Range/Units 14:34 15:34 16:37 RBC (3.80-5.40) m/uL Hgb (11.4-16.0) gm/dL Hct (34.0-46.0) % Plt Count (150-450) k/uL Sodium 135 L (137-145) mmol/L Carbon Dioxide 20 L (22-30) mmol/L BUN 82 H (7-17) mg/dL Creatinine 5.42 H (0.52-1.04) mg/dL Glucose 370 H (74-99) mg/dL POC Glucose (mg/dL) 441 H 337 H (70-110) mg/dL Calcium 7.4 L (8.4-10.2) mg/dL Transferrin (204.0-354.0) mg/dL Ferritin (10.0-291.0) ng/mL Procalcitonin (0.02-0.09) ng/mL 11/16/23 11/17/23 11/17/23 Range/Units 20:13 04:01 04:01 RBC 2.60 L (3.80-5.40) m/uL Hgb 7.7 L (11.4-16.0) gm/dL Hct 23.0 L (34.0-46.0) % Plt Count 122 L (150-450) k/uL Sodium (137-145) mmol/L Carbon Dioxide (22-30) mmol/L BUN 74 H (7-17) mg/dL Creatinine 4.79 H (0.52-1.04) mg/dL Glucose 168 H (74-99) mg/dL POC Glucose (mg/dL) 195 H (70-110) mg/dL Calcium 7.1 L (8.4-10.2) mg/dL Transferrin (204.0-354.0) mg/dL Ferritin (10.0-291.0) ng/mL Procalcitonin (0.02-0.09) ng/mL 11/17/23 Range/Units 06:12 RBC (3.80-5.40) m/uL Hgb (11.4-16.0) gm/dL Hct (34.0-46.0) % Plt Count (150-450) k/uL Sodium (137-145) mmol/L Carbon Dioxide (22-30) mmol/L BUN (7-17) mg/dL Creatinine (0.52-1.04) mg/dL Glucose (74-99) mg/dL POC Glucose (mg/dL) 144 H (70-110) mg/dL Calcium (8.4-10.2) mg/dL Transferrin (204.0-354.0) mg/dL Ferritin (10.0-291.0) ng/mL Procalcitonin (0.02-0.09) ng/mL Microbiology - Last 24 Hours (Table) 11/15/23 21:45 Blood Culture - Preliminary Blood 11/15/23 21:30 Blood Culture - Preliminary Blood Assessment and Plan Plan: Assessment: 1. Acute kidney injury secondary to ATN secondary to severe sepsis. Further worsen with the use of losartan and Aldactone. Creatinine 7.88 on admission is 4.79 today. No hydronephrosis noted on CT. 2. Chronic kidney disease stage IIIb with baseline creatinine near 2 secondary to diabetic kidney disease. 3. Hyperkalemia secondary to acute kidney injury, acidosis, spironolactone and losartan. Improved with medical management. 4. Metabolic acidosis secondary to acute kidney injury. Improved with bicarb drip. 5. Sinus bradycardia secondary to hyperkalemia. Resolved. 6. Diabetes mellitus. 7. Severe sepsis secondary to UTI on antibiotics. 8. Anemia of chronic kidney disease. Plan: Stop bicarb drip. Start normal saline at 75 cc an hour. Maintain strict I's and O's. Okay to DC Urena catheter. Avoid nephrotoxins. Follow-up cultures. Continue to monitor renal function and urine output. Add Aranesp. Avoid IV iron in the setting of acute infection.
[2023-11-17] MEDS: PROCHLORPERAZINE INJ 10 MG/2 ML VIAL IVP PRN (10:23)
[2023-11-17] MEDS: SODIUM CHLORIDE 0.9% 1,000 ML IV SCH (10:43)
[2023-11-17 11:39] LABS: Glucose,Whole Blood 204 mg/dL (70-110)
[2023-11-17] MEDS: DARBEPOETIN ALFA 40 MCG/0.4 ML SYRINGE SQ SCH (12:59)
[2023-11-17] MEDS: BENZONATATE 100 MG CAP PO SCH (13:04)
[2023-11-17] MEDS: ATORVASTATIN 10 MG TAB PO SCH (13:04)
--- NOTE | 2023-11-17 13:53 | CDI ---
From: Mabel Ceja Phone: [phone] Admit Date: 11/15/2023 08:59:00 PM Patient Name: Kerwin Gomran Visit Number: [id number] Discharge Date: ATTENTION: The Clinical Documentation Specialists (CDI) and [facility] Coding Staff appreciate your assistance in clarifying documentation. Please respond to the clarification below the line at the bottom and electronically sign. The CDI & [facility] Coding staff will review the response and follow-up if needed. Please note: Queries are made part of the Legal Health Record. If you have any questions, please contact the author of this message via ITS. Dr. Olivia Alvarado Severe Sepsis is documented in the Nephrology consult note 11/15 and Nephrology progress note 11/16 in [facility], but is not noted in subsequent documentation. Clarification is requested. History/Risk Factors: 73 yo female with history of DM2, CKD, hypothyroid, recurrent UTIs who presents due to feeling weakness in legs and difficulty with ambulation-found to have significant hypokalemia, moderate colitis and possible UTI Clinical Indicators: 11/14 ED VS: 133/65, 97.3, 45, 18, 99% room air 11/14- 11/16 Temperature Max: 98.9 11/15 11/15 Nephrology Consult, Assessment/Plan: "1.Acute kidney injury secondary to ATN secondary to severe sepsis. 7. Severe sepsis secondary to UTI on antibiotics." 11/14-11/16 WBC: 10.2, 8.3, 7.4, 7.4 11/14 Lactic Acid: <0.5 11/15 Procalcitonin: 0.13 11/14 Blood Culture: No growth after 24 hours 11/14 Urinalysis: Appearance: Cloudy, Protein: 1+, Blood: Trace, Leukocyte Esterase: Large, Bacteria: Many 11/15 Urine Culture: No growth after 18 hours Treatment: Ceftriaxone 2grams IV Q24H start 11/15 Normal Saline 75cc/hour IV start 11/16 Please clarify if the Severe Sepsis is: [ ] Severe Sepsis, POA, confirmed, remains under treatment [ ] Severe Sepsis confirmed, resolved [ x] Severe Sepsis ruled out [ ] Other condition, please specify [ ] Unable to determine MTDD
--- NOTE | 2023-11-17 14:30 | P.PN ---
Subjective Progress Note Date: 11/17/23 Principal diagnosis: Reason for follow-up is a UTI Patient is a 73-year-old female with a past medical history significant for diabetes mellitus hypertension hyperlipidemia fibromyalgia heart failure patient was brought to the hospital complaining of generalized weakness and difficulty with ambulation, patient noticed to have with acute renal failure with high potassium also positive UA concerning for symptomatic UTI. On today's visit that is 11/17/2023,the patient denies any fever or any chills, patient is breathing comfortably on room air, the patient denies chest pain shortness of breath and no significant cough, patient denies abdominal pain, no nausea vomiting or diarrhea. Patient white count is 7.4, creatinine is down to 4.79 cultures pending Objective - Vital Signs Vital signs: Vital Signs Temp 98.5 F 11/17/23 08:00 Pulse 68 11/17/23 08:00 Resp 18 11/17/23 08:00 BP 146/51 11/17/23 08:00 Pulse Ox 96 11/17/23 08:00 FiO2 Intake & Output 11/16/23 11/17/23 11/17/23 18:59 06:59 18:59 Intake Total 1500 1125 300 Output Total 1185 1800 1000 Balance 315 -321 -700 Weight 88.5 kg 99.5 kg Intake: Intake, IV Titration 1500 1125 300 Amount Dextrose 5% in Water 1, 1375 1125 000 ml @ 125 mls/hr IV . Q9H12M [facility] with Sodium Bicarb (1 Meq/ml) 150 ml Rx#:[id number] Dextrose 5%-0.45% NaCl 1, 125 000 ml @ 85 mls/hr IV . [id number] [facility] Rx#:[id number] Sodium Chloride 0.9% 1, 300 000 ml @ 75 mls/hr IV . [id number] [facility] Rx#:[id number] Output: Urine 1185 1750 1000 Emesis 50 Other: Voiding Method Indwelling Catheter Indwelling Catheter Indwelling Catheter # Bowel Movements 1 2 - Exam GENERAL DESCRIPTION: An elderly female lying in bed in no distress RESPIRATORY SYSTEM: Unlabored breathing , decreased breath sounds at bases HEART: S1 S2 regular rate and rhythm , ABDOMEN: Soft , no tenderness EXTREMITIES: No edema feet - Labs CBC & Chem 7: 11/17/23 04:01 11/17/23 04:01 Labs: Abnormal Lab Results - Last 24 Hours (Table) 11/16/23 11/16/23 11/16/23 Range/Units 03:42 14:34 15:34 RBC (3.80-5.40) m/uL Hgb (11.4-16.0) gm/dL Hct (34.0-46.0) % Plt Count (150-450) k/uL Sodium 135 L (137-145) mmol/L Carbon Dioxide 20 L (22-30) mmol/L BUN 82 H (7-17) mg/dL Creatinine 5.42 H (0.52-1.04) mg/dL Glucose 370 H (74-99) mg/dL POC Glucose (mg/dL) 441 H (70-110) mg/dL Calcium 7.4 L (8.4-10.2) mg/dL Procalcitonin 0.13 H (0.02-0.09) ng/mL 11/16/23 11/16/23 11/17/23 Range/Units 16:37 20:13 04:01 RBC 2.60 L (3.80-5.40) m/uL Hgb 7.7 L (11.4-16.0) gm/dL Hct 23.0 L (34.0-46.0) % Plt Count 122 L (150-450) k/uL Sodium (137-145) mmol/L Carbon Dioxide (22-30) mmol/L BUN (7-17) mg/dL Creatinine (0.52-1.04) mg/dL Glucose (74-99) mg/dL POC Glucose (mg/dL) 337 H 195 H (70-110) mg/dL Calcium (8.4-10.2) mg/dL Procalcitonin (0.02-0.09) ng/mL 11/17/23 11/17/23 11/17/23 Range/Units 04:01 06:12 11:37 RBC (3.80-5.40) m/uL Hgb (11.4-16.0) gm/dL Hct (34.0-46.0) % Plt Count (150-450) k/uL Sodium (137-145) mmol/L Carbon Dioxide (22-30) mmol/L BUN 74 H (7-17) mg/dL Creatinine 4.79 H (0.52-1.04) mg/dL Glucose 168 H (74-99) mg/dL POC Glucose (mg/dL) 144 H 204 H (70-110) mg/dL Calcium 7.1 L (8.4-10.2) mg/dL Procalcitonin (0.02-0.09) ng/mL Microbiology - Last 24 Hours (Table) 11/16/23 05:00 Urine Culture - Final Urine,Catheterized 11/15/23 21:45 Blood Culture - Preliminary Blood 11/15/23 21:30 Blood Culture - Preliminary Blood Assessment and Plan (1) Stage II pressure ulcer Current Visit: Yes Status: Acute Code(s): L89.92 - PRESSURE ULCER OF UNSPECIFIED SITE, STAGE 2 SNOMED Code(s): 9764744335 (2) UTI (urinary tract infection) Current Visit: No Status: Acute Code(s): N39.0 - URINARY TRACT INFECTION, SITE NOT SPECIFIED SNOMED Code(s): 33507399 Plan: 1patient presented hospital with generalized weakness which is likely multifactorial more likely secondary to acute renal failure in this patient who did have elevated pressures on admission she also have a positive UA with evidence of cystitis on the CT likely from enteric gram-negative pathogen previous history of VRE UTI 2-patient to continue with Rocephin 2 g daily while waiting for the culture to finalize 3-patient also have a stage II pressure ulcer to the left gluteal area with no cellulitis we will apply skin protectant cream and keep the area of the pressure Dictation was produced using [employer] dictation software. please excuse any grammatical, word or spelling errors. Time with Patient: Less than 30
--- NOTE | 2023-11-17 15:13 | P.PN ---
Subjective Progress Note Date: 11/17/23 Patient is a 73-year-old female with diabetes, chronic kidney disease 3B, hypertension, congestive heart failure with EF 40 to 45%, hypothyroidism, and multiple other comorbid conditions who presented to the emergency department with complaints of weakness and low-grade fevers. On arrival to the emergency department her vital signs were remarkable for heart rate of 45. Initial laboratory analysis included CBC CMP troponin, BNP, TSH, and urinalysis which were remarkable for potassium 7.2, sodium 136, carbon dioxide 5, anion gap 14, BUN 93, creatinine 7.88, hemoglobin 10.5, platelets 142. Urinalysis was consistent with possible urinary tract infection with greater than 182 white blood cells. In the emergency department she was given sodium bicarb, insulin, glucose Lokelma, Lasix, and Hydrocortisone. She underwent CT abdomen and pelvis which showed mild uncomplicated distal colitis with moderate concentric wall thickening of the urinary bladder. Nephrology was notified. She was subsequently admitted to the ICU. Critical care and nephrology were consulted. She was maintained on a bicarb drip. Patient seen and examined at bedside.She reports that she was having some nausea and vomiting today. No abdominal pain. No diarrhea. No constipation. Denies any chest pain or shortness of breath. No other complaints currently. Vital signs reviewed General: Nontoxic, no distress, appears at stated age Cardiovascular: S1S2 reg, no murmur Lungs: CTA bilateral, no rhonchi, no rales, no accessory muscle use Abdominal: Soft, nontender to palpation, no guarding Ext: No gross muscle atrophy, no edema b/l lower extremities, no contractures Neuro: CN II-XI grossly intact, no focal neuro deficits Psych: Alert, oriented, appropriate affect, tangential in her thought process Assessment/Plan: Acute renal failure on chronic kidney disease stage IIIb requiring emergent dialysis Severe hyperkalemia leading to wide-complex bradycardia Severe metabolic acidosis -Hold Aldactone, losartan, and metoprolol due to bradycardia -nephrology note reviewed: stop sodium bicarb, d/c sims Probable urinary tract infection, ruled out, culture negative - stop rocephin Anemia of chronic disease and thrombocytopenia -Anemia is chronic in nature and is consistent with her prior levels -No indication for transfusion -Follow CBC Diabetes mellitus type 2 -Hold glipizide -Sliding scale insulin, novolog 3 units with meals -Follow blood sugars HFprEF EF 40 to 45% -Hold losartan and spironolactone due to renal failure - metoprolol 50 gm daily Stage II pressure ulcer left gluteal area - frequent turns Chronic: Hypertension Dyslipidemia Fibromyalgia Imaging: None new Data Review: Labs reviewed from today include basic metabolic profile and CBC which are remarkable for hemoglobin 7.7, platelets 122, BUN 74, creatinine 7.49 DVT prophylaxis: Heparin Anticipated discharge date: Pending clinical course Anticipated discharge place: Pending clinical course This dictation was prepared using [employer] voice recognition software. Though every attempt is made to correct errors during dictation some may still e xist. Objective - Vital Signs Vital signs: Vital Signs Temp 98.2 F 11/17/23 12:00 Pulse 67 11/17/23 13:00 Resp 21 11/17/23 13:00 BP 148/94 11/17/23 13:00 Pulse Ox 95 11/17/23 12:00 FiO2 Intake & Output 11/16/23 11/17/23 11/17/23 18:59 06:59 18:59 Intake Total 1500 1125 300 Output Total 1185 1800 1000 Balance 315 -675 -700 Weight 88.5 kg 99.5 kg Intake: Intake, IV Titration 1500 1125 300 Amount Dextrose 5% in Water 1, 1375 1125 000 ml @ 125 mls/hr IV . Q9H12M [facility] with Sodium Bicarb (1 Meq/ml) 150 ml Rx#:[id number] Dextrose 5%-0.45% NaCl 1, 125 000 ml @ 85 mls/hr IV . [id number] [facility] Rx#:[id number] Sodium Chloride 0.9% 1, 300 000 ml @ 75 mls/hr IV . [id number] [facility] Rx#:[id number] Output: Urine 1185 1750 1000 Emesis 50 Other: Voiding Method Indwelling Catheter Indwelling Catheter Indwelling Catheter # Bowel Movements 1 2 - Labs CBC & Chem 7: 11/17/23 04:01 11/17/23 04:01 Labs: Abnormal Lab Results - Last 24 Hours (Table) 11/16/23 11/16/23 11/16/23 Range/Units 15:34 16:37 20:13 RBC (3.80-5.40) m/uL Hgb (11.4-16.0) gm/dL Hct (34.0-46.0) % Plt Count (150-450) k/uL Sodium 135 L (137-145) mmol/L Carbon Dioxide 20 L (22-30) mmol/L BUN 82 H (7-17) mg/dL Creatinine 5.42 H (0.52-1.04) mg/dL Glucose 370 H (74-99) mg/dL POC Glucose (mg/dL) 337 H 195 H (70-110) mg/dL Calcium 7.4 L (8.4-10.2) mg/dL 11/17/23 11/17/23 11/17/23 Range/Units 04:01 04:01 06:12 RBC 2.60 L (3.80-5.40) m/uL Hgb 7.7 L (11.4-16.0) gm/dL Hct 23.0 L (34.0-46.0) % Plt Count 122 L (150-450) k/uL Sodium (137-145) mmol/L Carbon Dioxide (22-30) mmol/L BUN 74 H (7-17) mg/dL Creatinine 4.79 H (0.52-1.04) mg/dL Glucose 168 H (74-99) mg/dL POC Glucose (mg/dL) 144 H (70-110) mg/dL Calcium 7.1 L (8.4-10.2) mg/dL 11/17/23 Range/Units 11:37 RBC (3.80-5.40) m/uL Hgb (11.4-16.0) gm/dL Hct (34.0-46.0) % Plt Count (150-450) k/uL Sodium (137-145) mmol/L Carbon Dioxide (22-30) mmol/L BUN (7-17) mg/dL Creatinine (0.52-1.04) mg/dL Glucose (74-99) mg/dL POC Glucose (mg/dL) 204 H (70-110) mg/dL Calcium (8.4-10.2) mg/dL Microbiology - Last 24 Hours (Table) 11/16/23 05:00 Urine Culture - Final Urine,Catheterized 11/15/23 21:45 Blood Culture - Preliminary Blood 11/15/23 21:30 Blood Culture - Preliminary Blood
[2023-11-17] MEDS: METOPROLOL SUCCINATE (ER) 50 MG TAB.ER.24H PO SCH (15:47)
[2023-11-17 16:17] LABS: Glucose,Whole Blood 178 mg/dL (70-110)
[2023-11-17] MEDS: INSULIN ASPART (NovoLOG) 100 UNIT/ML VIAL SQ SCH (16:37)
[2023-11-17 20:36] LABS: Glucose,Whole Blood 118 mg/dL (70-110)
[2023-11-18 05:42] LABS: Glucose,Whole Blood 123 mg/dL (70-110)
[2023-11-18 07:53] LABS: Basophils % (A) 0 %; Eosinophils # (A) 0.3 k/uL (0-0.7); Eosinophils % (A) 3 %; HGB 8.2 gm/dL (11.4-16.0); Lymphocytes # (A) 1.8 k/uL (1.0-4.8); Lymphocytes % (A) 22 %; MCH 29.6 pg (25.0-35.0); MCHC 32.7 g/dL (31.0-37.0); MCV 90.2 fL (80.0-100.0); Mean Platelet Volume 10.3; Monocytes # (A) 0.5 k/uL (0-1.0); Monocytes % (A) 7 %; Neutrophils # (A) 5.6 k/uL (1.3-7.7); Neutrophils % (A) 68 %; RBC 2.77 m/uL (3.80-5.40); RDW 14.3 % (11.5-15.5); WBC 8.3 k/uL (3.8-10.6)
[2023-11-18 08:10] LABS: Platelet Count 92 k/uL (150-450)
[2023-11-18 08:40] LABS: African American GFR (CKD) 15 (>60 ml/min/1.73 sqM); Anion Gap 5 mmol/L; Blood Urea Nitrogen 52 mg/dL (7-17); Calcium 7.9 mg/dL (8.4-10.2); Carbon Dioxide 25 mmol/L (22-30); Chloride 108 mmol/L (98-107); Glucose 110 mg/dL (74-99); Non-African American GFR(CKD) 13 (>60 ml/min/1.73 sqM); Potassium 4.3 mmol/L (3.5-5.1); Sodium 138 mmol/L (137-145)
[2023-11-18] MEDS: ZINC OXIDE PASTE (Z-GUARD) 1 APPLIC TOPICAL PRN (10:56)
--- NOTE | 2023-11-18 11:29 | P.PN ---
Subjective Progress Note Date: 11/18/23 Patient is a 73-year-old female with diabetes, chronic kidney disease 3B, hypertension, congestive heart failure with EF 40 to 45%, hypothyroidism, and multiple other comorbid conditions who presented to the emergency department with complaints of weakness and low-grade fevers. On arrival to the emergency department her vital signs were remarkable for heart rate of 45. Initial laboratory analysis included CBC CMP troponin, BNP, TSH, and urinalysis which were remarkable for potassium 7.2, sodium 136, carbon dioxide 5, anion gap 14, BUN 93, creatinine 7.88, hemoglobin 10.5, platelets 142. Urinalysis was consistent with possible urinary tract infection with greater than 182 white blood cells. In the emergency department she was given sodium bicarb, insulin, glucose Lokelma, Lasix, and Hydrocortisone. She underwent CT abdomen and pelvis which showed mild uncomplicated distal colitis with moderate concentric wall thickening of the urinary bladder. Nephrology was notified. She was subseque ntly admitted to the ICU. Critical care and nephrology were consulted. She was maintained on a bicarb drip. Now off of bicarb drip, on normal saline. Renal function continues to improve, potassium within normal limits. Patient seen and examined at bedside. No acute events overnight. Does have lack of appetite, and has been getting up out of the bed. Vital signs reviewed General: Nontoxic, no distress, appears at stated age Cardiovascular: S1S2 reg, systolic murmur Lungs: CTA bilateral, no rhonchi, no rales, no accessory muscle use Abdominal: Soft, nontender to palpation, no guarding Ext: No gross muscle atrophy, no edema b/l lower extremities, no contractures Neuro: CN II-XI grossly intact, no focal neuro deficits Psych: Alert, oriented, appropriate affect, tangential in her thought process Assessment/Plan: Acute renal failure on chronic kidney disease stage IIIb requiring emergent dialysis Severe hyperkalemia leading to wide-complex bradycardia, resolved Severe metabolic acidosis, resolved -Continue to hold Aldactone and losartan, restarted on metoprolol 50 daily -nephrology following, continue normal saline at 75 cc an hour Repeat BMP tomorrow Probable urinary tract infection, ruled out, culture negative - stop rocephin Anemia of chronic disease and thrombocytopenia -Also started on darbepoetin 40 mcg q. 7 days per nephrology No active bleeding -Follow CBC Diabetes mellitus type 2 -Hold glipizide -Sliding scale insulin, novolog 3 units with meals -Follow blood sugars HFprEF EF 40 to 45% -Hold losartan and spironolactone due to renal failure - metoprolol 50 gm daily Stage II pressure ulcer left gluteal area - frequent turns Chronic: Hypertension Dyslipidemia Fibromyalgia Imaging: None new Data Review: Hemoglobin 8.2, platelet 92, potassium 4.3, creatinine 3.36, blood sugars range between 1 10-1 78 DVT prophylaxis: Heparin Anticipated discharge date: Pending clinical course Anticipated discharge place: Pending clinical course Objective - Vital Signs Vital signs: Vital Signs Temp 98 F 11/18/23 07:54 Pulse 53 L 11/18/23 07:54 Resp 16 11/18/23 07:54 BP 151/50 11/18/23 07:54 Pulse Ox 92 L 11/18/23 07:54 FiO2 Intake & Output 11/17/23 11/18/23 11/18/23 18:59 06:59 18:59 Intake Total 300 Output Total 1000 600 Balance -700 -600 Intake: Intake, IV Titration 300 Amount Sodium Chloride 0.9% 1, 300 000 ml @ 75 mls/hr IV . [id number] [facility] Rx#:[id number] Output: Urine 1000 600 Other: Voiding Method Indwelling Catheter External Catheter External Catheter - Labs CBC & Chem 7: 11/18/23 07:05 11/18/23 07:05 Labs: Abnormal Lab Results - Last 24 Hours (Table) 11/17/23 11/17/23 11/17/23 Range/Units 11:37 16:15 20:30 RBC (3.80-5.40) m/uL Hgb (11.4-16.0) gm/dL Hct (34.0-46.0) % Plt Count (150-450) k/uL Chloride (98-107) mmol/L BUN (7-17) mg/dL Creatinine (0.52-1.04) mg/dL Glucose (74-99) mg/dL POC Glucose (mg/dL) 204 H 178 H 118 H (70-110) mg/dL Calcium (8.4-10.2) mg/dL 11/18/23 11/18/23 11/18/23 Range/Units 05:40 07:05 07:05 RBC 2.77 L (3.80-5.40) m/uL Hgb 8.2 L (11.4-16.0) gm/dL Hct 25.0 L (34.0-46.0) % Plt Count 92 L (150-450) k/uL Chloride 108 H (98-107) mmol/L BUN 52 H (7-17) mg/dL Creatinine 3.36 H (0.52-1.04) mg/dL Glucose 110 H (74-99) mg/dL POC Glucose (mg/dL) 123 H (70-110) mg/dL Calcium 7.9 L (8.4-10.2) mg/dL Microbiology - Last 24 Hours (Table) 11/15/23 21:45 Blood Culture - Preliminary Blood 11/15/23 21:30 Blood Culture - Preliminary Blood 11/16/23 05:00 Urine Culture - Final Urine,Catheterized
[2023-11-18 11:50] LABS: Glucose,Whole Blood 180 mg/dL (70-110)
[2023-11-18 12:03] VITALS: BMI 37.6
--- NOTE | 2023-11-18 12:07 | P.PN ---
Subjective Progress Note Date: 11/18/23 Patient is seen in follow-up for acute kidney injury on chronic kidney disease. Renal function improving. Acidosis improved with bicarb drip. Nonoliguric. Still nauseated this morning. Vital signs are stable. General: No acute distress. HEENT: Head exam is unremarkable. LUNGS: No audible rhonchi or wheezes. HEART: Rate and Rhythm are regular. ABDOMEN: Nontender. EXTREMITITES: No edema. Objective - Vital Signs Vital signs: Vital Signs Temp 98 F 11/18/23 07:54 Pulse 53 L 11/18/23 07:54 Resp 16 11/18/23 07:54 BP 151/50 11/18/23 07:54 Pulse Ox 92 L 11/18/23 07:54 FiO2 Intake & Output 11/17/23 11/18/23 11/18/23 18:59 06:59 18:59 Intake Total 300 Output Total 1000 600 Balance -700 -600 Intake: Intake, IV Titration 300 Amount Sodium Chloride 0.9% 1, 300 000 ml @ 75 mls/hr IV . [id number] [facility] Rx#:[id number] Output: Urine 1000 600 Other: Voiding Method Indwelling Catheter External Catheter - Labs CBC & Chem 7: 11/18/23 07:05 11/18/23 07:05 Labs: Abnormal Lab Results - Last 24 Hours (Table) 11/17/23 11/17/23 11/17/23 Range/Units 11:37 16:15 20:30 RBC (3.80-5.40) m/uL Hgb (11.4-16.0) gm/dL Hct (34.0-46.0) % Plt Count (150-450) k/uL Chloride (98-107) mmol/L BUN (7-17) mg/dL Creatinine (0.52-1.04) mg/dL Glucose (74-99) mg/dL POC Glucose (mg/dL) 204 H 178 H 118 H (70-110) mg/dL Calcium (8.4-10.2) mg/dL 11/18/23 11/18/23 11/18/23 Range/Units 05:40 07:05 07:05 RBC 2.77 L (3.80-5.40) m/uL Hgb 8.2 L (11.4-16.0) gm/dL Hct 25.0 L (34.0-46.0) % Plt Count 92 L (150-450) k/uL Chloride 108 H (98-107) mmol/L BUN 52 H (7-17) mg/dL Creatinine 3.36 H (0.52-1.04) mg/dL Glucose 110 H (74-99) mg/dL POC Glucose (mg/dL) 123 H (70-110) mg/dL Calcium 7.9 L (8.4-10.2) mg/dL Microbiology - Last 24 Hours (Table) 11/15/23 21:45 Blood Culture - Preliminary Blood 11/15/23 21:30 Blood Culture - Preliminary Blood 11/16/23 05:00 Urine Culture - Final Urine,Catheterized Assessment and Plan Plan: Assessment: 1. Acute kidney injury secondary to ATN secondary to severe sepsis. Further worsen with the use of losartan and Aldactone. Creatinine 7.88 on admission is 4.79 today. No hydronephrosis noted on CT. 2. Chronic kidney disease stage IIIb with baseline creatinine near 2 secondary to diabetic kidney disease. 3. Hyperkalemia secondary to acute kidney injury, acidosis, spironolactone and losartan. Improved with medical management. 4. Metabolic acidosis secondary to acute kidney injury. Improved with bicarb drip. 5. Sinus bradycardia secondary to hyperkalemia. Resolved. 6. Diabetes mellitus. 7. Severe sepsis secondary to UTI on antibiotics. 8. Anemia of chronic kidney disease. Plan: Off bicarb drip, normal saline at 75 cc an hour while PO intake poor. Maintain strict I's and O's. Avoid nephrotoxins. Follow-up cultures. Continue to monitor renal function and urine output. On Aranesp. Avoid IV iron in the setting of acute infection.
--- NOTE | 2023-11-18 12:20 | P.PN ---
Subjective Progress Note Date: 11/18/23 I am seeing this patient in new consultation today 11/16/2023 after she was found to be in acute renal failure and severely hyperkalemic on her arrival to the emergency room. She also had some hyperkalemic EKG changes and bradycardia, requiring atropine, and she was admitted to the intensive care unit. Patient is a 73-year-old white female with past medical history significant for previous resistant UTIs, chronic kidney disease, renal stones, heart failure, hyperlipidemia, hypertension, hypothyroidism, diabetes mellitus. Her primary care provider is Dr. Saeed. Patient presented to the emergency room yesterday evening via EMS complaining of generalized weakness. She apparently could not stand and get out of the chair and almost fell. Denies any lightheadedness, heart palpitations, or syncopal events. She has been having periods of subjective fevers and chills. Denies any urinary complaints other than urinary frequency with small urine output. No burning, suprapubic tenderness, CVA tenderness, hematuria. She did have a urinary tract infection with vancomycin sensitive Enterococcus faecium in February,. Current urinalysis suspicious for urinary tract infection with positive leukocytes and pyuria. Urine culture pending. She does take Losartan and Aldactone outpatient. Denies any NSAID use. Abdominal CT taken on admission shows mild to moderate concentric wall thickening of the urinary bladder, consistent with possible urinary tract infection. There was also mild uncomplicated distal colitis versus poor distention. Chest x-ray on arrival did not show any acute cardiopulmonary process. She reports a chronic cough that has been worked up outpatient. Is associated with eating and drinking. Denies any dysphagia. She has reportedly had an EGD in the past which was reportedly unremarkable. She had an ENT referral, but did not follow-up. No associated sputum production. No chest pain. No known pre-existing lung disease. She is on room air, in no acute respiratory distress. EKG on arrival showed sinus bradycardia with QRS widening, likely induced by hyperkalemia. Patient was treated with a potassium cocktail of insulin 10 units, 1 amp D50W, concentrated albuterol, 2 g calcium, 3 A of sodium bicarbonate, and a dose of Lokelma. She was started on a sodium bicarbonate infusion, 3 A of D5W at 125 MLS per hour. She is non-oliguric. Urine output in the order of 50-100 ml/hr. Repeat potassium is still elevated at 6.9. She was treated again with a potassium cocktail. Patient likely needs emergent hemodialysis and temporary hemodialysis catheter, this has not already been done because the patient originally refused hemodialysis treatment. After speaking to the patient she is agreeable to this treatment. Nephrology is managing. She remains bradycardic with a heart rate of around 50. Her blood pressure is tolerating this at the moment, and is borderline hypotensive 90s over 60s. She denies any chest pain. She denies any lightheadedness. She denies any shortness of breath. Most recent CBC shows a WBC count 8.3, hemoglobin 9.7, hematocrit 29.3, platelets 140. Most recent BMP: Sodium 140, potassium 6.9, chloride 120, serum bicarb 7, BUN 87, creatinine 6.68, glucose 102. Troponins on arrival are less than 0.012. NT proBNP was 1900 in the setting of renal failure. TSH WDL. Lactic acid level not elevated. She is a DO NOT RESUSCITATE/DO NOT INTUBATE. Progress note dated November 17, 2023. 73-year-old female seen in room 261. She was seen in consultation yesterday, please see my note above. The patient was admitted with a diagnosis of acute renal failure, hyperkalemia, and initially hypotension. The patient is currently seen today in room 261. She is on room air. She is getting saline at 10 cc an hour. She is getting dextrose, with 3 ampoules of sodium bicarb and at 125 cc an hour. In addition, I wrote an order for some Tessalon Perles, 200 mg 3 times a day for her cough. Clinically, she is doing much better. The patient is a DO NOT RESUSCITATE patient. Laboratory data includes a white count of 7.4, hemoglobin 7.7, hematocrit 23, and a platelet count of 122,000. Sodium 138, potassium 4.7, chlorides 102, CO2 29, BUN 74, creatinine 4.79. Glucose is 168. Calcium 7.1. Blood cultures are negative. No chest x-ray today. The patient is seen today November 18, 2023 in follow-up on the regular medical floor. She is currently sitting up in bed. Awake and alert in no acute distress. She is maintaining good O2 saturations in the 90s on room air. She has normal saline at 75 MLS per hour. She denies any shortness of breath, cough or congestion. She has been afebrile. Hemodynamically stable. Blood cultures revealed no growth. Urine culture revealed no growth. White count 8.3. Hemoglobin 8.2. Platelets 92,000. Sodium 138. Potassium 4.3. Bicarb 25. BUN 52. Creatinine 3.36. Glucose 110. She is on heparin for DVT prophylaxis. Objective - Vital Signs Vital signs: Vital Signs Temp 98 F 11/18/23 07:54 Pulse 53 L 11/18/23 07:54 Resp 16 11/18/23 07:54 BP 151/50 11/18/23 07:54 Pulse Ox 92 L 11/18/23 07:54 FiO2 Intake & Output 11/17/23 11/18/23 11/18/23 18:59 06:59 18:59 Intake Total 300 Output Total 1000 600 Balance -700 -600 Weight 99.5 kg Intake: Intake, IV Titration 300 Amount Sodium Chloride 0.9% 1, 300 000 ml @ 75 mls/hr IV . [id number] [facility] Rx#:[id number] Output: Urine 1000 600 Other: Voiding Method Indwelling Catheter External Catheter External Catheter - Exam GENERAL EXAM: Alert, 73-year-old obese female, on room air, comfortable in no apparent distress. HEAD: Normocephalic and atraumatic EYES: Normal reaction of pupils, equal size. NOSE: Clear with pink turbinates. THROAT: No erythema or exudates. NECK: No masses, no JVD. CHEST: No chest wall deformity. LUNGS: Equal air entry with no crackles, wheeze, rhonchi or dullness. No conversational dyspnea. CVS: S1 and S2 normal with no audible murmur, regular rhythm. No extra heart sounds ABDOMEN: No hepatosplenomegaly, active bowel sounds, no guarding or rigidity. SPINE: No scoliosis or deformity SKIN: No rashes CENTRAL NERVOUS SYSTEM: No focal deficits, tone is normal in all 4 extremities. EXTREMITIES: There is no peripheral edema, clubbing, or cyanosis. Peripheral pulses are intact. - Labs CBC & Chem 7: 11/18/23 07:05 11/18/23 07:05 Labs: Abnormal Lab Results - Last 24 Hours (Table) 11/17/23 11/17/23 11/18/23 Range/Units 16:15 20:30 05:40 RBC (3.80-5.40) m/uL Hgb (11.4-16.0) gm/dL Hct (34.0-46.0) % Plt Count (150-450) k/uL Chloride (98-107) mmol/L BUN (7-17) mg/dL Creatinine (0.52-1.04) mg/dL Glucose (74-99) mg/dL POC Glucose (mg/dL) 178 H 118 H 123 H (70-110) mg/dL Calcium (8.4-10.2) mg/dL 11/18/23 11/18/23 11/18/23 Range/Units 07:05 07:05 11:49 RBC 2.77 L (3.80-5.40) m/uL Hgb 8.2 L (11.4-16.0) gm/dL Hct 25.0 L (34.0-46.0) % Plt Count 92 L (150-450) k/uL Chloride 108 H (98-107) mmol/L BUN 52 H (7-17) mg/dL Creatinine 3.36 H (0.52-1.04) mg/dL Glucose 110 H (74-99) mg/dL POC Glucose (mg/dL) 180 H (70-110) mg/dL Calcium 7.9 L (8.4-10.2) mg/dL Microbiology - Last 24 Hours (Table) 11/15/23 21:45 Blood Culture - Preliminary Blood 11/15/23 21:30 Blood Culture - Preliminary Blood 11/16/23 05:00 Urine Culture - Final Urine,Catheterized Assessment and Plan Assessment: Acute on chronic kidney disease, likely exacerbated by above Severe hyperkalemia, with EKG changes and bradycardia Severe anion gap metabolic acidosis, secondary to above and acute renal failure Chronic kidney disease stage III Diabetes mellitus type 2 History of hypothyroidism History of hypertension History of hyperlipidemia. History of heart failure with reduced ejection fraction. Anemia of chronic disease. Chronic cough. Obesity, with a BMI of 31.6 kg/m. Plan: The patient was seen and evaluated Labs and medications reviewed Remains stable and on room air Nephrology is following I have personally seen and examined the patient, performed the documentation and the assessment and plan as written. Number of minutes spent on the visit: 10.
[2023-11-18 16:42] LABS: Glucose,Whole Blood 239 mg/dL (70-110)
[2023-11-18 20:41] LABS: Glucose,Whole Blood 175 mg/dL (70-110)
[2023-11-19 02:51] VITALS: RESP 17
[2023-11-19 05:53] LABS: Glucose,Whole Blood 100 mg/dL (70-110)
[2023-11-19 06:41] LABS: Basophils % (A) 1 %; Eosinophils # (A) 0.3 k/uL (0-0.7); Eosinophils % (A) 5 %; HCT 24.7 % (34.0-46.0); HGB 7.7 gm/dL (11.4-16.0); Hypochromasia Slight; Lymphocytes # (A) 1.6 k/uL (1.0-4.8); Lymphocytes % (A) 24 %; MCV 93.7 fL (80.0-100.0); Mean Platelet Volume 8.8; Monocytes # (A) 0.4 k/uL (0-1.0); Monocytes % (A) 6 %; Neutrophils # (A) 4.4 k/uL (1.3-7.7); Neutrophils % (A) 64 %; Platelet Count 110 k/uL (150-450); RBC 2.64 m/uL (3.80-5.40); RDW 13.9 % (11.5-15.5); WBC 6.9 k/uL (3.8-10.6)
[2023-11-19 06:43] LABS: Chloride 110 mmol/L (98-107)
[2023-11-19 06:45] LABS: African American GFR (CKD) 18 (>60 ml/min/1.73 sqM); Anion Gap 5 mmol/L; Blood Urea Nitrogen 37 mg/dL (7-17); Calcium 7.9 mg/dL (8.4-10.2); Carbon Dioxide 25 mmol/L (22-30); Glucose 88 mg/dL (74-99); Non-African American GFR(CKD) 15 (>60 ml/min/1.73 sqM); Potassium 4.2 mmol/L (3.5-5.1); Sodium 140 mmol/L (137-145)
--- NOTE | 2023-11-19 10:58 | P.PN ---
Subjective Progress Note Date: 11/19/23 Principal diagnosis: Hypotension, hyperkalemia. I am seeing this patient in new consultation today 11/16/2023 after she was found to be in acute renal failure and severely hyperkalemic on her arrival to the emergency room. She also had some hyperkalemic EKG changes and bradycardia, requiring atropine, and she was admitted to the intensive care unit. Patient is a 73-year-old white female with past medical history significant for previous resistant UTIs, chronic kidney disease, renal stones, heart failure, hyperlipidemia, hypertension, hypothyroidism, diabetes mellitus. Her primary care provider is Dr. Saeed. Patient presented to the emergency room yesterday evening via EMS complaining of generalized weakness. She apparently could not stand and get out of the chair and almost fell. Denies any lightheadedness, heart palpitations, or syncopal events. She has been having periods of subjective fevers and chills. Denies any urinary complaints other than urinary frequency with small urine output. No burning, suprapubic tenderness, CVA tenderness, hematuria. She did have a urinary tract infection with vancomycin sensitive Enterococcus faecium in February,. Current urinalysis suspicious for urinary tract infection with positive leukocytes and pyuria. Urine culture pending. She does take Losartan and Aldactone outpatient. Denies any NSAID use. Abdominal CT taken on admission shows mild to moderate concentric wall thickening of the urinary bladder, consistent with possible urinary tract infection. There was also mild uncomplicated distal colitis versus poor distention. Chest x-ray on arrival did not show any acute cardiopulmonary process. She reports a chronic cough that has been worked up outpatient. Is associated with eating and drinking. Denies any dysphagia. She has reportedly had an EGD in the past which was reportedly unremarkable. She had an ENT referral, but did not follow-up. No associated sputum production. No chest pain. No known pre-existing lung disease. She is on room air, in no acute respiratory distress. EKG on arrival showed sinus bradycardia with QRS widening, likely induced by hyperkalemia. Patient was treated with a potassium cocktail of insulin 10 units, 1 amp D50W, concentrated albuterol, 2 g calcium, 3 A of sodium bicarbonate, and a dose of Lokelma. She was started on a sodium bicarbonate infusion, 3 A of D5W at 125 MLS per hour. She is non-oliguric. Urine output in the order of 50-100 ml/hr. Repeat potassium is still elevated at 6.9. She was treated again with a potassium cocktail. Patient likely needs emergent hemodialysis and temporary hemodialysis catheter, this has not already been done because the patient originally refused hemodialysis treatment. After speaking to the patient she is agreeable to this treatment. Nephrology is managing. She remains bradycardic with a heart rate of around 50. Her blood pressure is tolerating this at the moment, and is borderline hypotensive 90s over 60s. She denies any chest pain. She denies any lightheadedness. She denies any shortness of breath. Most recent CBC shows a WBC count 8.3, hemoglobin 9.7, hematocrit 29.3, platelets 140. Most recent BMP: Sodium 140, potassium 6.9, chloride 120, serum bicarb 7, BUN 87, creatinine 6.68, glucose 102. Troponins on arrival are less than 0.012. NT proBNP was 1900 in the setting of renal failure. TSH WDL. Lactic acid level not elevated. She is a DO NOT RESUSCITATE/DO NOT INTUBATE. Progress note dated November 17, 2023. 73-year-old female seen in room 261. She was seen in consultation yesterday, please see my note above. The patient was admitted with a diagnosis of acute renal failure, hyperkalemia, and initially hypotension. The patient is currently seen today in room 261. She is on room air. She is getting saline at 10 cc an hour. She is getting dextrose, with 3 ampoules of sodium bicarb and at 125 cc an hour. In addition, I wrote an order for some Tessalon Perles, 200 mg 3 times a day for her cough. Clinically, she is doing much better. The patient is a DO NOT RESUSCITATE patient. Laboratory data includes a white count of 7.4, hemoglobin 7.7, hematocrit 23, and a platelet count of 122,000. Sodium 138, potassium 4.7, chlorides 102, CO2 29, BUN 74, creatinine 4.79. Glucose is 168. Calcium 7.1. Blood cultures are negative. No chest x-ray today. The patient is seen today November 18, 2023 in follow-up on the regular medical floor. She is currently sitting up in bed. Awake and alert in no acute distress. She is maintaining good O2 saturations in the 90s on room air. She has normal saline at 75 MLS per hour. She denies any shortness of breath, cough or congestion. She has been afebrile. Hemodynamically stable. Blood cultures revealed no growth. Urine culture revealed no growth. White count 8.3. Hemoglobin 8.2. Platelets 92,000. Sodium 138. Potassium 4.3. Bicarb 25. BUN 52. Creatinine 3.36. Glucose 110. She is on heparin for DVT prophylaxis. Progress note dated November 19, 2023. 73-year-old female seen today in room 466. The patient continues on room air. She is getting saline at 50 cc an hour. She has no particular complaints today. She is feeling generally well. She denies any shortness of breath, cough, wheezing, chest tightness, or phlegm production. Current labs include a white count 6.9, hemoglobin 7.7, hematocrit 24.7, and platelet count of 110,000. Sodium 140, potassium 4.2, chlorides 110, CO2 25, BUN 37, creatinine 2.92. Glucose is 88. Calcium is 7.9. Urine and blood cultures are negative. No recent chest x-ray to review. Objective - Vital Signs Vital signs: Vital Signs Temp 98.1 F 11/19/23 07:07 Pulse 53 L 11/19/23 07:07 Resp 17 11/19/23 07:07 BP 184/71 11/19/23 07:07 Pulse Ox 95 11/19/23 07:07 FiO2 Intake & Output 11/18/23 11/19/23 11/19/23 18:59 06:59 18:59 Weight 99.5 kg Other: Voiding Method Toilet Toilet # Voids 5 2 1 - Exam No acute distress, oriented 3. No respiratory distress, and currently on room air. HEENT examination is grossly unremarkable. Mucous membranes are moist. No oral lesions. Neck supple. Full range of motion. No adenopathy thyromegaly or neck vein distention. Cardiovascular examination reveals regular rhythm rate. S1-S2 normal. No S3 or S4. No discernible murmur noted. Heart rate 53 bpm. Lungs reveal clear breath sounds. Breath sounds are equal bilaterally. No adventitious lung sounds including wheezes rhonchi or crackles. Room air saturation is 95 %. Abdomen soft bowel sounds are heard. No masses or tenderness. Extremities are intact. No cyanosis clubbing or edema. Skin is without rash or lesion. Neurologic examination is brief but nonfocal. - Labs CBC & Chem 7: 11/19/23 05:56 11/19/23 05:56 Labs: Abnormal Lab Results - Last 24 Hours (Table) 11/18/23 11/18/23 11/18/23 Range/Units 11:49 16:40 20:39 RBC (3.80-5.40) m/uL Hgb (11.4-16.0) gm/dL Hct (34.0-46.0) % Plt Count (150-450) k/uL Chloride (98-107) mmol/L BUN (7-17) mg/dL Creatinine (0.52-1.04) mg/dL POC Glucose (mg/dL) 180 H 239 H 175 H (70-110) mg/dL Calcium (8.4-10.2) mg/dL 11/19/23 11/19/23 Range/Units 05:56 05:56 RBC 2.64 L (3.80-5.40) m/uL Hgb 7.7 L (11.4-16.0) gm/dL Hct 24.7 L (34.0-46.0) % Plt Count 110 L (150-450) k/uL Chloride 110 H (98-107) mmol/L BUN 37 H (7-17) mg/dL Creatinine 2.92 H (0.52-1.04) mg/dL POC Glucose (mg/dL) (70-110) mg/dL Calcium 7.9 L (8.4-10.2) mg/dL Microbiology - Last 24 Hours (Table) 11/15/23 21:45 Blood Culture - Preliminary Blood 11/15/23 21:30 Blood Culture - Preliminary Blood Assessment and Plan Assessment: Suspected urinary tract infection. Acute on chronic kidney disease, likely exacerbated by above. Severe hyperkalemia, with EKG changes and bradycardia. Severe anion gap metabolic acidosis, secondary to above and acute renal failure. Chronic kidney disease stage III. Diabetes mellitus type 2. History of hypothyroidism. History of hypertension. History of hyperlipidemia. History of heart failure with reduced ejection fraction. Anemia of chronic disease. Chronic cough. Obesity, with a BMI of 31.6 kg/m. Plan: Plan dated November 17, 2023. For the patient's cough, we added Tessalon Perles, 200 mg 3 times a day. The sodium bicarbonate drip, can be discontinued. Her bicarbonate concentration today is 29. She is on room air. She is getting saline at 10 cc an hour. She has been stable here in the intensive care unit. Blood cultures are thus far negative. The patient continues on ceftriaxone for possible urinary tract infection. Labs, x-rays, and medications are reviewed. The patient could be discharged from the intensive care unit. Additional recommendations and suggestions are forthcoming. The patient is a DO NOT RESUSCITATE patient. Plan dated November 19, 2023. The patient's cultures are all negative. The patient continues on room air. She is getting saline at 50 cc an hour, per nephrology. Labs, x-rays, and medications are reviewed. The patient is a DO NOT RESUSCITATE patient. We will continue to follow the patient, make recommendations along the way. Discharge planning underway. The patient is on room air. She denies all respiratory issues at this time. Prognosis is guarded. Time with Patient: Less than 30
--- NOTE | 2023-11-19 11:25 | P.PN ---
Subjective Progress Note Date: 11/19/23 Patient is seen in follow-up for acute kidney injury on chronic kidney disease. Renal function improving. Acidosis improved with bicarb drip. Nonoliguric. No new complaints. Vital signs are stable. General: No acute distress. HEENT: Head exam is unremarkable. LUNGS: No audible rhonchi or wheezes. HEART: Rate and Rhythm are regular. ABDOMEN: Nontender. EXTREMITITES: No edema. Objective - Vital Signs Vital signs: Vital Signs Temp 98.1 F 11/19/23 07:07 Pulse 53 L 11/19/23 07:07 Resp 17 11/19/23 07:07 BP 184/71 11/19/23 07:07 Pulse Ox 95 11/19/23 07:07 FiO2 Intake & Output 11/18/23 11/19/23 11/19/23 18:59 06:59 18:59 Weight 99.5 kg Other: Voiding Method Toilet Toilet # Voids 5 2 1 - Labs CBC & Chem 7: 11/19/23 05:56 11/19/23 05:56 Labs: Abnormal Lab Results - Last 24 Hours (Table) 11/18/23 11/18/23 11/18/23 Range/Units 11:49 16:40 20:39 RBC (3.80-5.40) m/uL Hgb (11.4-16.0) gm/dL Hct (34.0-46.0) % Plt Count (150-450) k/uL Chloride (98-107) mmol/L BUN (7-17) mg/dL Creatinine (0.52-1.04) mg/dL POC Glucose (mg/dL) 180 H 239 H 175 H (70-110) mg/dL Calcium (8.4-10.2) mg/dL 11/19/23 11/19/23 Range/Units 05:56 05:56 RBC 2.64 L (3.80-5.40) m/uL Hgb 7.7 L (11.4-16.0) gm/dL Hct 24.7 L (34.0-46.0) % Plt Count 110 L (150-450) k/uL Chloride 110 H (98-107) mmol/L BUN 37 H (7-17) mg/dL Creatinine 2.92 H (0.52-1.04) mg/dL POC Glucose (mg/dL) (70-110) mg/dL Calcium 7.9 L (8.4-10.2) mg/dL Microbiology - Last 24 Hours (Table) 11/15/23 21:45 Blood Culture - Preliminary Blood 11/15/23 21:30 Blood Culture - Preliminary Blood Assessment and Plan Plan: Assessment: 1. Acute kidney injury secondary to ATN secondary to severe sepsis. Further worsen with the use of losartan and Aldactone. Creatinine 7.88 on admission is 2.92 today. No hydronephrosis noted on CT. 2. Chronic kidney disease stage IIIb with baseline creatinine near 2 secondary to diabetic kidney disease. 3. Hyperkalemia secondary to acute kidney injury, acidosis, spironolactone and losartan. Improved with medical management. 4. Metabolic acidosis secondary to acute kidney injury. Improved with bicarb drip. 5. Sinus bradycardia secondary to hyperkalemia. Resolved. 6. Diabetes mellitus. 7. Severe sepsis secondary to UTI on antibiotics. 8. Anemia of chronic kidney disease. Plan: Off bicarb drip, normal saline at 75 cc an hour while PO intake poor. Maintain strict I's and O's. Avoid nephrotoxins. Follow-up cultures. Continue to monitor renal function and urine output. On Aranesp. Avoid IV iron in the setting of acute infection.
--- NOTE | 2023-11-19 11:49 | P.PN ---
Subjective Progress Note Date: 11/19/23 Patient is a 73-year-old female with diabetes, chronic kidney disease 3B, hypertension, congestive heart failure with EF 40 to 45%, hypothyroidism, and multiple other comorbid conditions who presented to the emergency department with complaints of weakness and low-grade fevers. On arrival to the emergency department her vital signs were remarkable for heart rate of 45. Initial laboratory analysis included CBC CMP troponin, BNP, TSH, and urinalysis which were remarkable for potassium 7.2, sodium 136, carbon dioxide 5, anion gap 14, BUN 93, creatinine 7.88, hemoglobin 10.5, platelets 142. Urinalysis was consistent with possible urinary tract infection with greater than 182 white blood cells. In the emergency department she was given sodium bicarb, insulin, glucose Lokelma, Lasix, and Hydrocortisone. She underwent CT abdomen and pelvis which showed mild uncomplicated distal colitis with moderate concentric wall thickening of the urinary bladder. Nephrology was notified. She was subseque ntly admitted to the ICU. Critical care and nephrology were consulted. She was maintained on a bicarb drip. Now off of bicarb drip, on normal saline. Renal function continues to improve, potassium within normal limits. Patient seen and examined at bedside. No acute events overnight. Appetite has improved. Has been getting out of the bed. Vital signs reviewed General: Nontoxic, no distress, appears at stated age Cardiovascular: S1S2 reg, systolic murmur Lungs: CTA bilateral, no rhonchi, no rales, no accessory muscle use Abdominal: Soft, nontender to palpation, no guarding Ext: No gross muscle atrophy, no edema b/l lower extremities, no contractures Neuro: CN II-XI grossly intact, no focal neuro deficits Psych: Alert, oriented, appropriate affect, tangential in her thought process Assessment/Plan: Acute renal failure on chronic kidney disease stage IIIb requiring emergent dialysis, improving Severe hyperkalemia leading to wide-complex bradycardia, resolved Severe metabolic acidosis, resolved -Continue to hold Aldactone and losartan Continue on metoprolol 50 daily -nephrology note reviewed, continue normal saline at 75 cc an hour Repeat BMP tomorrow Probable urinary tract infection, ruled out, culture negative - stop rocephin Anemia of chronic disease and thrombocytopenia -Also started on darbepoetin 40 mcg q. 7 days per nephrology No active bleeding -Follow CBC Diabetes mellitus type 2 -Hold glipizide -Sliding scale insulin, novolog 3 units with meals -Follow blood sugars HFprEF EF 40 to 45% -Hold losartan and spironolactone due to renal failure - metoprolol 50 gm daily Stage II pressure ulcer left gluteal area - frequent turns Chronic: Hypertension Dyslipidemia Fibromyalgia Imaging: None new Data Review: Hemoglobin 7.7, creatinine 2.92, blood sugars range between 88-1 75 DVT prophylaxis: Heparin Anticipated discharge date: Possibly tomorrow Anticipated discharge place: Home Objective - Vital Signs Vital signs: Vital Signs Temp 98.1 F 11/19/23 07:07 Pulse 53 L 11/19/23 07:07 Resp 17 11/19/23 07:07 BP 184/71 11/19/23 07:07 Pulse Ox 95 11/19/23 07:07 FiO2 Intake & Output 11/18/23 11/19/23 11/19/23 18:59 06:59 18:59 Weight 99.5 kg Other: Voiding Method Toilet Toilet # Voids 5 2 1 - Labs CBC & Chem 7: 11/19/23 05:56 11/19/23 05:56 Labs: Abnormal Lab Results - Last 24 Hours (Table) 11/18/23 11/18/23 11/18/23 Range/Units 11:49 16:40 20:39 RBC (3.80-5.40) m/uL Hgb (11.4-16.0) gm/dL Hct (34.0-46.0) % Plt Count (150-450) k/uL Chloride (98-107) mmol/L BUN (7-17) mg/dL Creatinine (0.52-1.04) mg/dL POC Glucose (mg/dL) 180 H 239 H 175 H (70-110) mg/dL Calcium (8.4-10.2) mg/dL 11/19/23 11/19/23 Range/Units 05:56 05:56 RBC 2.64 L (3.80-5.40) m/uL Hgb 7.7 L (11.4-16.0) gm/dL Hct 24.7 L (34.0-46.0) % Plt Count 110 L (150-450) k/uL Chloride 110 H (98-107) mmol/L BUN 37 H (7-17) mg/dL Creatinine 2.92 H (0.52-1.04) mg/dL POC Glucose (mg/dL) (70-110) mg/dL Calcium 7.9 L (8.4-10.2) mg/dL Microbiology - Last 24 Hours (Table) 11/15/23 21:45 Blood Culture - Preliminary Blood 11/15/23 21:30 Blood Culture - Preliminary Blood
[2023-11-19 12:11] LABS: Glucose,Whole Blood 135 mg/dL (70-110)
[2023-11-19 16:40] LABS: Glucose,Whole Blood 142 mg/dL (70-110)
[2023-11-19 20:27] LABS: Glucose,Whole Blood 163 mg/dL (70-110)
[2023-11-19] MEDS: LACTATED RINGERS 1,000 ML IV SCH (20:54)
[2023-11-20 05:33] LABS: Glucose,Whole Blood 136 mg/dL (70-110)
[2023-11-20] MEDS: NYSTATIN 100,000 UNIT/GM POWD 15 GM TOPICAL SCH (08:03)
[2023-11-20 08:15] VITALS: BP 178/68; PULSE 50; TEMP 98.1
[2023-11-20 11:22] LABS: Glucose,Whole Blood 166 mg/dL (70-110)
[2023-11-20 11:25] LABS: Basophils # (A) 0.04 X 10*3/uL (0.00-0.10); Basophils % (A) 0.5 %; HCT 25.3 % (37.2-46.3); HGB 7.7 g/dL (12.0-15.0); Lymphocytes # (A) 1.66 X 10*3/uL (0.90-5.00); Lymphocytes % (A) 22.3 %; MCH 29.4 pg (27.0-32.0); MCHC 30.4 g/dL (32.0-37.0); MCV 96.6 FL (80.0-97.0); Mean Platelet Volume 12.4 FL (9.5-12.2); Monocytes % (A) 8.1 %; NRBC Per 100 WBC 0 X 10*3/uL (0.00-0.01); Neutrophils # (A) 4.79 X 10*3/uL (1.80-7.70); Neutrophils % (A) 64.6 %; Platelet Count 110 X 10*3/uL (140-440); RBC 2.62 X 10*6/uL (4.10-5.20); RDW 13.6 % (11.5-14.5); WBC 7.43 X 10*3/uL (4.50-10.00)
[2023-11-20 11:35] LABS: BUN/Creat Ratio 10.26 Ratio (12.00-20.00); Blood Urea Nitrogen 27.7 mg/dL (9.0-27.0); Calcium 8.3 mg/dL (8.7-10.3); Carbon Dioxide 24.4 mmol/L (21.6-31.8); Chloride 110 mmol/L (96-109); Glucose 132 mg/dL (70-110); Potassium 4.6 mmol/L (3.5-5.5); Sodium 143 mmol/L (135-145)
--- NOTE | 2023-11-20 11:43 | P.PN ---
Subjective Patient is seen for follow-up for acute kidney injury and chronic kidney disease. Edward for discharge today No significant complaints. Serum creatinine at 2.7 today. Objective - Vital Signs Vital signs: Vital Signs Temp 98.1 F 11/20/23 07:13 Pulse 50 L 11/20/23 07:13 Resp 17 11/20/23 07:13 BP 178/68 11/20/23 07:13 Pulse Ox 96 11/20/23 09:25 FiO2 Intake & Output 11/19/23 11/20/23 11/20/23 18:59 06:59 18:59 Intake Total 1510 Output Total 300 Balance 1210 Intake: IV 910 Invasive Line 4 10 Lactated Ringers 1,000 ml 900 @ 75 mls/hr IV .[id number] [facility] Rx#:[id number] Oral 600 Output: Urine 300 Other: Voiding Method Toilet Toilet Toilet # Voids 4 3 # Bowel Movements 1 0 - Exam Patient is awake, comfortable, no acute distress Examination of the heart S1 and S2 Examination the lungs bilateral breath sounds are heard Abdomen is soft nontender Examination of lower extremities shows edema 1+ bilaterally APPLICATION ENGINEER exam grossly intact - Labs CBC & Chem 7: 11/20/23 05:53 11/20/23 05:53 Labs: Abnormal Lab Results - Last 24 Hours (Table) 11/19/23 11/19/23 11/19/23 Range/Units 12:09 16:37 20:23 RBC (4.10-5.20) X 10*6/uL Hgb (12.0-15.0) g/dL Hct (37.2-46.3) % MCHC (32.0-37.0) g/dL Plt Count (140-440) X 10*3/uL MPV (9.5-12.2) FL Chloride (96-109) mmol/L BUN (9.0-27.0) mg/dL Creatinine (0.6-1.5) mg/dL Est GFR (CKD-EPI) (>=60) BUN/Creatinine Ratio (12.00-20.00) Ratio Glucose (70-110) mg/dL POC Glucose (mg/dL) 135 H 142 H 163 H (70-110) mg/dL Calcium (8.7-10.3) mg/dL 11/20/23 11/20/2311/19/24 Range/Units 05:31 05:53 05:53 RBC 2.62 L (4.10-5.20) X 10*6/uL Hgb 7.7 L (12.0-15.0) g/dL Hct 25.3 L (37.2-46.3) % MCHC 30.4 L (32.0-37.0) g/dL Plt Count 110 L (140-440) X 10*3/uL MPV 12.4 H (9.5-12.2) FL Chloride 110 H (96-109) mmol/L BUN 27.7 H (9.0-27.0) mg/dL Creatinine 2.7 H (0.6-1.5) mg/dL Est GFR (CKD-EPI) 18 L (>=60) BUN/Creatinine Ratio 10.26 L (12.00-20.00) Ratio Glucose 132 H (70-110) mg/dL POC Glucose (mg/dL) 136 H (70-110) mg/dL Calcium 8.3 L (8.7-10.3) mg/dL 11/20/23 Range/Units 11:21 RBC (4.10-5.20) X 10*6/uL Hgb (12.0-15.0) g/dL Hct (37.2-46.3) % MCHC (32.0-37.0) g/dL Plt Count (140-440) X 10*3/uL MPV (9.5-12.2) FL Chloride (96-109) mmol/L BUN (9.0-27.0) mg/dL Creatinine (0.6-1.5) mg/dL Est GFR (CKD-EPI) (>=60) BUN/Creatinine Ratio (12.00-20.00) Ratio Glucose (70-110) mg/dL POC Glucose (mg/dL) 166 H (70-110) mg/dL Calcium (8.7-10.3) mg/dL Assessment and Plan Assessment: 1. Acute kidney injury secondary to ATN secondary to severe sepsis. Further worsened with the use of losartan and Aldactone. Creatinine 7.88 on admission is 2.92 today. No hydronephrosis noted on CT. 2. Chronic kidney disease stage IIIb with baseline creatinine near 2 secondary to diabetic kidney disease. 3. Hyperkalemia secondary to acute kidney injury, acidosis, spironolactone and losartan. Improved with medical management. 4. Metabolic acidosis secondary to acute kidney injury. Improved with bicarb d rip. 5. Sinus bradycardia secondary to hyperkalemia. Resolved. 6. Diabetes mellitus. 7. Severe sepsis secondary to UTI on antibiotics. 8. Anemia of chronic kidney disease. Plan: Patient can be discharged from nephrology standpoint. Follow-up as outpatient in 1-2 weeks' Continue off of angiotensin receptor blockers for now Encourage increase oral intake.
--- NOTE | 2023-11-20 12:36 | P.DS ---
Providers Date of admission: 11/15/23 20:59 Expected date of discharge: 11/20/23 Attending physician: Olivia Alvarado MD Consults: 11/15/23 20:59 Consult Physician Routine Consulting Provider: Ezequiel Duarte Consult Reason/Comments: CKD Do you want consulting provider notified?: Yes Consult Physician Routine Consulting Provider: Perry Hoffman Consult Reason/Comments: icu Do you want consulting provider notified?: Yes Consult Physician Urgent Consulting Provider: Jim Ronquillo Consult Reason/Comments: HD Do you want consulting provider notified?: Yes [facility]: [facility] Course: Discharge Diagnosis: Acute renal failure on chronic kidney disease stage IIIb Severe hyperkalemia leading to wide-complex bradycardia Severe metabolic acidosis Anemia of chronic disease and thrombocytopenia Diabetes mellitus type 2, A1c 5.7 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 On arrival to the emergency department her vital signs were remarkable for heart rate of 45. Initial laboratory analysis included CBC CMP troponin, BNP, TSH, and urinalysis which were remarkable for potassium 7.2, sodium 136, carbon dioxide 5, anion gap 14, BUN 93, creatinine 7.88, hemoglobin 10.5, platelets 142. Urinalysis was consistent with possible urinary tract infection with greater than 182 white blood cells. In the emergency department she was given sodium bicarb, insulin, glucose Lokelma, Lasix, and Hydrocortisone. She underwent CT abdomen and pelvis which showed mild uncomplicated distal colitis with moderate concentric wall thickening of the urinary bladder. Nephrology was notified. She was subsequently admitted to the ICU. Critical care and nephrology were consulted. She was maintained on a bicarb drip. Now off of bicarb drip, on normal saline. Renal function continues to improve, potassium within normal limits. Patient being discharged home. Follow-up outpatient with nephrology. Patient seen and examined at bedside. Vital signs reviewed and stable. General: Nontoxic, no distress, appears at stated age Derm: Warm, dry Head: Atraumatic, normocephalic, symmetric Eyes: EOMI, no lid lag, anicteric sclera Mouth: No lip lesion, mucus membranes moist Cardiovascular: S1S2 reg, systolic murmur Lungs: CTA bilateral, no rhonchi, no rales, no accessory muscle use Abdominal: Soft, nontender to palpation, no guarding, no appreciable organomegaly Ext: No gross muscle atrophy, no edema, no contractures Neuro: CN II-XI grossly intact, no focal neuro deficits Psych: Alert, oriented, appropriate affect A total of 33 minutes of time were spent preparing this complex discharge summary. Patient was discharged on 11/20/2023 at 1202. Patient Condition at Discharge: Stable Plan - Discharge Summary Discharge Rx Participant: Yes New Discharge Prescriptions: New Ascorbic Acid [Vitamin C with Onelia Hips] 500 mg PO DAILY #60 tablet hydrALAZINE HCL [Apresoline] 10 mg PO TID #90 tablet Continue Simvastatin [Zocor] 20 mg PO DAILY Cholecalciferol (Vitamin D3) [Vitamin D3 (50 Mcg = 2000 Iu)] 50 mcg PO DAILY Ferrous Sulfate [Iron (65 MG Elemental)] 325 mg PO BID Folic Acid 1 mg PO DAILY Omeprazole 20 mg PO DAILY Metoprolol Succinate (ER) [Toprol XL] 50 mg PO DAILY Zolpidem [Ambien] 10 mg PO HS Discontinued glipiZIDE XL [Glucotrol XL] 2.5 mg PO DAILY Mirtazapine [Remeron] 15 mg PO HS #30 tab traMADol HCL 50 mg PO BID PRN PRN Reason: Pain cloNIDine 0.2 MG/24HR PATCH [Catapres-TTS] 1 patch TRANSDERM FR Losartan Potassium 100 mg PO DAILY Spironolactone [Aldactone] 50 mg PO DAILY Discharge Medication List Simvastatin [Zocor] 20 mg PO DAILY 11/13/14 [History] Omeprazole 20 mg PO DAILY 01/24/23 [History] Cholecalciferol (Vitamin D3) [Vitamin D3 (50 Mcg = 2000 Iu)] 50 mcg PO DAILY 11/15/23 [History] Ferrous Sulfate [Iron (65 MG Elemental)] 325 mg PO BID 11/15/23 [History] Folic Acid 1 mg PO DAILY 11/15/23 [History] Metoprolol Succinate (ER) [Toprol XL] 50 mg PO DAILY 11/15/23 [History] Zolpidem [Ambien] 10 mg PO HS 11/15/23 [History] Ascorbic Acid [Vitamin C with Onelia Hips] 500 mg PO DAILY #60 tablet 11/20/23 [Rx] hydrALAZINE HCL [Apresoline] 10 mg PO TID #90 tablet 11/20/23 [Rx] Follow up Appointment(s)/Referral(s): Lauren Truong MD [STAFF PHYSICIAN] - 12/01/23 2:20 pm Chano Del Rosario MD [REFERRING] - 1 Week Graham Saeed DO [Primary Care Provider] - 11/24/23 12:00 pm None,Stated [REFERRING] - 1-2 days Patient Instructions/Handouts: Acute Kidney Injury (DC) Activity/Diet/Wound Care/Special Instructions: Please see PCP and nephrology. Discharge Disposition: HOME SELF-CARE
--- NOTE | 2023-11-20 13:09 | XR ---
EXAMINATION TYPE: XR chest 1V DATE OF EXAM: 11/20/2023 11:44 AM CLINICAL INDICATION:Female, 73 years old with history of cough; [facility] COMPARISON: Chest radiograph 11/15/2023 TECHNIQUE: XR chest 1V Frontal view of the chest. FINDINGS: Lungs/Pleura: There is no evidence of pleural effusion, focal consolidation, or pneumothorax. Pulmonary vascularity: Unremarkable. Heart/mediastinum: Cardiomediastinal silhouette is unremarkable. Musculoskeletal: No acute osseous pathology. Other findings: None Lines/Tubes: None. IMPRESSION: No acute cardiopulmonary disease/process.
--- NOTE | 2023-11-20 14:16 | P.PN ---
Subjective Progress Note Date: 11/20/23 I am seeing this patient in new consultation today 11/16/2023 after she was found to be in acute renal failure and severely hyperkalemic on her arrival to the emergency room. She also had some hyperkalemic EKG changes and bradycardia, requiring atropine, and she was admitted to the intensive care unit. Patient is a 73-year-old white female with past medical history significant for previous resistant UTIs, chronic kidney disease, renal stones, heart failure, hyperlipidemia, hypertension, hypothyroidism, diabetes mellitus. Her primary care provider is Dr. Saeed. Patient presented to the emergency room yesterday evening via EMS complaining of generalized weakness. She apparently could not stand and get out of the chair and almost fell. Denies any lightheadedness, heart palpitations, or syncopal events. She has been having periods of subjective fevers and chills. Denies any urinary complaints other than urinary frequency with small urine output. No burning, suprapubic tenderness, CVA tenderness, hematuria. She did have a urinary tract infection with vancomycin sensitive Enterococcus faecium in February,. Current urinalysis suspicious for urinary tract infection with positive leukocytes and pyuria. Urine culture pending. She does take Losartan and Aldactone outpatient. Denies any NSAID use. Abdominal CT taken on admission shows mild to moderate concentric wall thickening of the urinary bladder, consistent with possible urinary tract infection. There was also mild uncomplicated distal colitis versus poor distention. Chest x-ray on arrival did not show any acute cardiopulmonary process. She reports a chronic cough that has been worked up outpatient. Is associated with eating and drinking. Denies any dysphagia. She has reportedly had an EGD in the past which was reportedly unremarkable. She had an ENT referral, but did not follow-up. No associated sputum production. No chest pain. No known pre-existing lung disease. She is on room air, in no acute respiratory distress. EKG on arrival showed sinus bradycardia with QRS widening, likely induced by hyperkalemia. Patient was treated with a potassium cocktail of insulin 10 units, 1 amp D50W, concentrated albuterol, 2 g calcium, 3 A of sodium bicarbonate, and a dose of Lokelma. She was started on a sodium bicarbonate infusion, 3 A of D5W at 125 MLS per hour. She is non-oliguric. Urine output in the order of 50-100 ml/hr. Repeat potassium is still elevated at 6.9. She was treated again with a potassium cocktail. Patient likely needs emergent hemodialysis and temporary hemodialysis catheter, this has not already been done because the patient originally refused hemodialysis treatment. After speaking to the patient she is agreeable to this treatment. Nephrology is managing. She remains bradycardic with a heart rate of around 50. Her blood pressure is tolerating this at the moment, and is borderline hypotensive 90s over 60s. She denies any chest pain. She denies any lightheadedness. She denies any shortness of breath. Most recent CBC shows a WBC count 8.3, hemoglobin 9.7, hematocrit 29.3, platelets 140. Most recent BMP: Sodium 140, potassium 6.9, chloride 120, serum bicarb 7, BUN 87, creatinine 6.68, glucose 102. Troponins on arrival are less than 0.012. NT proBNP was 1900 in the setting of renal failure. TSH WDL. Lactic acid level not elevated. She is a DO NOT RESUSCITATE/DO NOT INTUBATE. Progress note dated November 17, 2023. 73-year-old female seen in room 261. She was seen in consultation yesterday, please see my note above. The patient was admitted with a diagnosis of acute renal failure, hyperkalemia, and initially hypotension. The patient is currently seen today in room 261. She is on room air. She is getting saline at 10 cc an hour. She is getting dextrose, with 3 ampoules of sodium bicarb and at 125 cc an hour. In addition, I wrote an order for some Tessalon Perles, 200 mg 3 times a day for her cough. Clinically, she is doing much better. The patient is a DO NOT RESUSCITATE patient. Laboratory data includes a white count of 7.4, hemoglobin 7.7, hematocrit 23, and a platelet count of 122,000. Sodium 138, potassium 4.7, chlorides 102, CO2 29, BUN 74, creatinine 4.79. Glucose is 168. Calcium 7.1. Blood cultures are negative. No chest x-ray today. The patient is seen today November 18, 2023 in follow-up on the regular medical floor. She is currently sitting up in bed. Awake and alert in no acute distress. She is maintaining good O2 saturations in the 90s on room air. She has normal saline at 75 MLS per hour. She denies any shortness of breath, cough or congestion. She has been afebrile. Hemodynamically stable. Blood cultures revealed no growth. Urine culture revealed no growth. White count 8.3. Hemoglobin 8.2. Platelets 92,000. Sodium 138. Potassium 4.3. Bicarb 25. BUN 52. Creatinine 3.36. Glucose 110. She is on heparin for DVT prophylaxis. Progress note dated November 19, 2023. 73-year-old female seen today in room 466. The patient continues on room air. She is getting saline at 50 cc an hour. She has no particular complaints today. She is feeling generally well. She denies any shortness of breath, cough, wheezing, chest tightness, or phlegm production. Current labs include a white count 6.9, hemoglobin 7.7, hematocrit 24.7, and platelet count of 110,000. Sodium 140, potassium 4.2, chlorides 110, CO2 25, BUN 37, creatinine 2.92. Glucose is 88. Calcium is 7.9. Urine and blood cultures are negative. No recent chest x-ray to review. On today's evaluation of 11/20/2023, seen the patient for a follow-up. Patient is currently stable on room air oxygen. Denies having any major respite distress. He is having some limited cough. No significant sputum production. No that the patient had a acute kidney injury which has been gradually improving. Based on the most recent blood work that was obtained today, the patient's creatinine is down to 2.7 with a BUN of 27 and sodium levels at 143. The white cell count is at 7.4 with a hemoglobin of 7.7. The repeat chest x-ray from today shows no acute cardiopulmonary process. As mentioned, the patient is on room air oxygen with a pulse ox of 96%. He is producing adequate amount of urine output. Nephrology is on the case. No signs of any encephalopathy. Objective - Vital Signs Vital signs: Vital Signs Temp 98.1 F 11/20/23 07:13 Pulse 50 L 11/20/23 07:13 Resp 17 11/20/23 07:13 BP 178/68 11/20/23 07:13 Pulse Ox 96 11/20/23 09:25 FiO2 Intake & Output 11/19/23 11/20/23 11/20/23 18:59 06:59 18:59 Intake Total 1510 Output Total 300 Balance 1210 Intake: IV 910 Invasive Line 4 10 Lactated Ringers 1,000 ml 900 @ 75 mls/hr IV .[id number] [facility] Rx#:[id number] Oral 600 Output: Urine 300 Other: Voiding Method Toilet Toilet Toilet # Voids 4 3 # Bowel Movements 1 0 - Exam No acute distress, oriented 3. No respiratory distress, and currently on room air. HEENT examination is grossly unremarkable. Mucous membranes are moist. No oral lesions. Neck supple. Full range of motion. No adenopathy thyromegaly or neck vein distention. Cardiovascular examination reveals regular rhythm rate. S1-S2 normal. No S3 or S4. No discernible murmur noted. Lungs reveal clear breath sounds. Breath sounds are equal bilaterally. No adventitious lung sounds including wheezes rhonchi or crackles. Abdomen soft bowel sounds are heard. No masses or tenderness. Extremities are intact. No cyanosis clubbing or edema. Skin is without rash or lesion. Neurologic examination is brief but nonfocal. - Labs CBC & Chem 7: 11/20/23 05:53 11/20/23 05:53 Labs: Abnormal Lab Results - Last 24 Hours (Table) 11/19/23 11/19/23 11/19/23 Range/Units 12:09 16:37 20:23 POC Glucose (mg/dL) 135 H 142 H 163 H (70-110) mg/dL 11/20/23 Range/Units 05:31 POC Glucose (mg/dL) 136 H (70-110) mg/dL Assessment and Plan Plan: Suspected urinary tract infection. Cultures were negative, clinically asymptomatic Acute on chronic kidney disease, likely exacerbated by above. Renal function continues to improve and the patient is producing adequate amount of urine output Severe hyperkalemia, with EKG changes and bradycardia. Recovered Severe anion gap metabolic acidosis, secondary to above and acute renal failure, recovered Chronic kidney disease stage III. Diabetes mellitus type 2. History of hypothyroidism. History of hypertension. History of hyperlipidemia. History of heart failure with reduced ejection fraction. Anemia of chronic disease. Chronic cough. Obesity, with a BMI of 31.6 kg/m. Plan No signs of any respiratory sufficiency. Chest x-ray was repeated and showed no acute cardiopulmonary abnormalities. Renal function continues to improve. No s igns of any encephalopathy or confusion. Discharge planning is in progress. Nephrology on the case.
== END 2023-11-20 14:10 | disposition home or self-care (01) | DRG 683 ==
LOC: EC 17:33 → 2SICU 20:59 → 4SSUR 11-17 18:32
PROVIDERS: ADMIT Internal Medicine; ATTEND Internal Medicine
DX: N17.0 Acute kidney failure with tubular necrosis (principal); E87.20 Acidosis, unspecified; I13.0 Hypertensive heart and chronic kidney disease with heart failure and stage 1 through stage 4 chronic kidney disease, or unspecified chronic kidney disease; I50.32 Chronic diastolic (congestive) heart failure; N39.0 Urinary tract infection, site not specified; E11.649 Type 2 diabetes mellitus with hypoglycemia without coma; D69.6 Thrombocytopenia, unspecified; D63.1 Anemia in chronic kidney disease; I95.9 Hypotension, unspecified; L89.322 Pressure ulcer of left buttock, stage 2; E11.22 Type 2 diabetes mellitus with diabetic chronic kidney disease; N18.32 Chronic kidney disease, stage 3b; Z91.158 Patient's noncompliance with renal dialysis for other reason; E03.9 Hypothyroidism, unspecified; E66.9 Obesity, unspecified; Z68.37 Body mass index [BMI] 37.0-37.9, adult; Z66 Do not resuscitate; E87.5 Hyperkalemia; R00.1 Bradycardia, unspecified; E78.5 Hyperlipidemia, unspecified; E86.0 Dehydration; K52.9 Noninfective gastroenteritis and colitis, unspecified; M79.7 Fibromyalgia; M19.90 Unspecified osteoarthritis, unspecified site; R26.2 Difficulty in walking, not elsewhere classified; R05.3 Chronic cough; Z79.84 Long term (current) use of oral hypoglycemic drugs; Z79.899 Other long term (current) drug therapy; Z87.442 Personal history of urinary calculi; Z87.440 Personal history of urinary (tract) infections; Z71.3 Dietary counseling and surveillance; Z86.19 Personal history of other infectious and parasitic diseases
CPT/HCPCS: 36415; 51702; 71045; 71046; 74176; 80048; 80053; 81001; 82728; 83036; 83540; 83550; 83605; 83735; 83880; 84100; 84145; 84443; 84484; 85025; 85610; 85730; 87040; 87086; 93005; 94640; 96361; 96365; 96375; 96376; 99291

== ENCOUNTER 2024-12-25 09:35 | Inpatient (IN) | payer MEDICARE, OTHER ==
--- NOTE | 2024-12-25 10:28 | ED ---
General Adult HPI - General Chief complaint: Recheck/Abnormal Lab/Rx Stated complaint: ABN Labs Time Seen by Provider: 12/25/24 09:43 Source: patient, RN notes reviewed Mode of arrival: ambulatory Limitations: no limitations - History of Present Illness Initial comments: 74-year-old female presents emergency department with chief complaint of abnormal kidney function. Patient states she had blood work yesterday because she has had a cough and just was not feeling well she was more tired. She received a phone call stating that her kidney function extremely poor patient states she had some issues while back from an infection but states that that she had no issues. Patient denies any decreased urine output she states she has more urinary frequency denies fevers or chills no chest pain no she states her cough is very mild no complaints of headache dizziness no leg pain leg swelling - Related Data Home Medications Medication Instructions Recorded Confirmed Simvastatin [Zocor] 20 mg PO DAILY 11/13/14 12/25/24 Omeprazole 20 mg PO DAILY 01/24/23 12/25/24 Ferrous Sulfate [Iron (65 MG 325 mg PO BID-W/MEALS 11/15/23 12/25/24 Elemental)] Folic Acid 1 mg PO DAILY 11/15/23 12/25/24 Metoprolol Succinate (ER) [Toprol 50 mg PO DAILY 11/15/23 12/25/24 XL] Zolpidem [Ambien] 10 mg PO HS PRN 11/15/23 12/25/24 Ascorbic Acid [Vitamin C] 500 mg PO DAILY 12/25/24 12/25/24 Cholecalciferol (Vitamin D3) 1,250 mcg PO Q7D 12/25/24 12/25/24 [Vitamin D3 (1250 Mcg = 50,000 Iu)] Fluticasone Nasal [place] [Flonase 1 spr EA NOSTRIL BID 12/25/24 12/25/24 Nasal [place]] Mirtazapine [Remeron] 15 mg PO HS 12/25/24 12/25/24 Ondansetron [Zofran] 4 mg PO TID PRN 12/25/24 12/25/24 amLODIPine [Norvasc] 10 mg PO DAILY 12/25/24 12/25/24 hydrALAZINE HCL [Apresoline] 25 mg PO TID 12/25/24 12/25/24 Allergies Allergy/AdvReac Type Severity Reaction Status Date / Time No Known Allergies Allergy Verified 12/25/24 15:03 Review of Systems ROS Statement: Those systems with pertinent positive or pertinent negative responses have been documented in the HPI. ROS Other: All systems not noted in ROS Statement are negative. Past Medical History Past Medical History: Heart Failure, Diabetes Mellitus, Fibromyalgia, Hyperlipidemia, Hypertension, Osteoarthritis (OA), Thyroid Disorder Additional Past Medical History / Comment(s): kidney stones in past History of Any Multi-Drug Resistant Organisms: VRE Date of last positivie culture/infection: 02/13/23 MDRO Source:: urine Past Surgical History: Joint Replacement, Orthopedic Surgery, Tonsillectomy Additional Past Surgical History / Comment(s): right athroscopy, back surgery for ruptured disk Past Anesthesia/Blood Transfusion Reactions: No Reported Reaction Past Psychological History: No Psychological Hx Reported Smoking Status: Never smoker Past Alcohol Use History: None Reported Past Drug Use History: None Reported - Past Family History Mother Family Medical History: Cancer Additional Family Medical History / Comment(s): brain stem Father Family Medical History: Diabetes Mellitus General Exam Limitations: no limitations General appearance: alert, in no apparent distress Head exam: Present: atraumatic, normocephalic, normal inspection Eye exam: Present: normal appearance, PERRL, EOMI. Absent: scleral icterus, conjunctival injection, periorbital swelling ENT exam: Present: normal exam, normal oropharynx, mucous membranes moist Neck exam: Present: normal inspection, full ROM. Absent: tenderness, meningismus, lymphadenopathy Respiratory exam: Present: normal lung sounds bilaterally. Absent: respiratory distress, wheezes, rales, rhonchi, stridor Cardiovascular Exam: Present: regular rate, normal rhythm, normal heart sounds. Absent: systolic murmur, diastolic murmur, rubs, gallop, clicks GI/Abdominal exam: Present: soft, normal bowel sounds. Absent: distended, tenderness, guarding, rebound, rigid Neurological exam: Present: alert, oriented X3, CN II-XII intact, reflexes normal. Absent: motor sensory deficit Course Vital Signs 12/25/24 12/25/24 12/25/24 09:37 11:24 13:35 Temperature 97.8 F 98.2 F Pulse Rate 60 53 L 54 L Respiratory 20 18 18 Rate Blood Pressure 149/67 144/72 160/75 O2 Sat by Pulse 99 99 99 Oximetry 12/25/24 16:06 Temperature 97.7 F Pulse Rate 60 Respiratory 20 Rate Blood Pressure 156/62 O2 Sat by Pulse 96 Oximetry EKG Findings - EKG Comments: EKG Findings:: EKG performed at 10: 27 sinus bradycardia rate of 57 NV 151 QRS 159 QT/QTc 501/494 - EKG Results: EKG: interpreted by [facility] Medical Decision Making - Medical Decision Making Was pt. sent in by a medical professional or institution (, PA, MANUFACTURING BAKER, urgent care, hospital, or long-term...) When possible be specific @ -pcp Did you speak to anyone other than the patient for history (EMS, parent, family, police, friend...)? What history was obtained from this source @ -No Did you review nursing and triage notes (agree or disagree)? Why? @ -I reviewed and agree with nursing and triage notes Were old charts reviewed (outside hosp., previous admission, EMS record, old EKG, old radiological studies, urgent care reports/EKG's, long-term records)? Report findings @ -No old charts were reviewed Differential Diagnosis (chest pain, altered mental status, abdominal pain women, abdominal pain men, vaginal bleeding, weakness, fever, dyspnea, syncope, headache, dizziness, GI bleed, back pain, seizure, CVA, palpatations, mental health, musculoskeletal)? @ -Differential Weakness: Hypoglycemia, shock, sepsis, hyponatremia, anemia, infection, SC, ETOH, adverse medicine reaction, overdose, stroke, this is not meant to be an all-inclusive list. EKG interpreted by me (3pts min.). @ -As above X-rays interpreted by me (1pt min.). @ -None done CT interpreted by me (1pt min.). @ -[CT abdomen pelvis showing evidence of hydronephrosis, no evidence of nephrolithiasis in the right U/S interpreted by me (1pt. min.). @ -Ultrasound shows evidence of right kidney changes with hydronephrosis consider CT What testing was considered but not performed or refused? (CT, X-rays, U/S, labs)? Why? @ -None What meds were considered but not given or refused? Why? @ -None Did you discuss the management of the patient with other professionals (professionals i.e. , PA, MANUFACTURING BAKER, lab, RT, psych nurse, social worker school, [employer], teacher, records officer, binder caser)? Give summary @ -Sound for admission Was smoking cessation discussed for >3mins.? @ -No Was critical care preformed (if so, how long)? @ -35 Were there social determinants of health that impacted care today? How? (Homelessness, low income, unemployed, alcoholism, drug addiction, transportation, low edu. Level, literacy, decrease access to med. care, [facility], rehab)? @ -No Was there de-escalation of care discussed even if they declined (Discuss DNR or withdrawal of care, Hospice)? DNR status @ -No What co-morbidities impacted this encounter? (DM, HTN, Smoking, COPD, CAD, Cancer, CVA, ARF, Chemo, Hep., AIDS, mental health diagnosis, sleep apnea, morbid obesity)? @ -None Was patient admitted / discharged? Hospital course, mention meds given and route, prescriptions, significant lab abnormalities, going to OR and other pertinent info. @ -[Admitted patient presented for acute renal failure patient does have GFR 10, creatinine over 3 patient will consult to nephrology with maintenance fluids. Undiagnosed new problem with uncertain prognosis? @ -No Drug Therapy requiring intensive monitoring for toxicity (Heparin, Nitro, Insulin, Cardizem)? @ -No Were any procedures done? @ -No Diagnosis/symptom? @ -UTI, renal failure, pneumonia, metabolic acidosis Acute, or Chronic, or Acute on Chronic? @ -Acute Uncomplicated (without systemic symptoms) or Complicated (systemic symptoms)? @ -Complicated Side effects of treatment? @ -No Exacerbation, Progression, or Severe Exacerbation? @ -No Poses a threat to life or bodily function? How? (Chest pain, USA, SC, pneumonia, PE, COPD, DKA, ARF, appy, cholecystitis, CVA, Diverticulitis, Homicidal, Watt icidal, threat to staff... and all critical care pts) @ -Yes renal failure and organ failure] - Lab Data Result diagrams: 12/25/24 10:38 12/25/24 10:38 Lab Results 12/25/24 12/25/24 12/25/24 Range/Units 10:38 10:38 10:38 WBC 5.39 (4.50-10.00) 10*3/uL RBC 2.65 L (4.10-5.20) 10*6/uL Hgb 7.5 L (12.0-15.0) g/dL Hct 23.2 L (37.2-46.3) % MCV 87.5 (80.0-97.0) fL MCH 28.3 (27.0-32.0) pg MCHC 32.3 (32.0-37.0) g/dL Plt Count 157 (140-440) 10*3/uL MPV 11.3 (9.5-12.2) fL Immature Gran % (Auto) 0.4 % Neutrophils % 67.0 % Lymphocytes % 14.7 % Monocytes % 10.9 % Eosinophils % 6.1 % Basophils % 0.9 % Immature Gran # 0.02 (0.00-0.04) 10*3/uL Neutrophils # 3.61 (1.80-7.70) 10*3/uL Lymphocytes # 0.79 L (0.90-5.00) 10*3/uL Monocytes # 0.59 (0.20-1.00) 10*3/uL Eosinophils # 0.33 (0.04-0.35) 10*3/uL Basophils # 0.05 (0.00-0.10) 10*3/uL Sodium 140 (137-145) mmol/L Potassium 4.4 (3.5-5.1) mmol/L Chloride 113 H (98-107) mmol/L Carbon Dioxide 12 L (22-30) mmol/L Anion Gap 15 mmol/L BUN 39 H (7-17) mg/dL Creatinine 3.76 H (0.52-1.04) mg/dL Est GFR (CKD-EPI)AfAm 13 (>60 ml/min/1.73 sqM) Est GFR (CKD-EPI)NonAf 11 (>60 ml/min/1.73 sqM) Glucose 119 H (74-99) mg/dL Plasma Lactic Acid [place] (0.7-2.0) mmol/L Calcium 8.8 (8.4-10.2) mg/dL Phosphorus 5.5 H (2.5-4.5) mg/dL Magnesium 1.7 (1.6-2.3) mg/dL Total Bilirubin 0.6 (0.2-1.3) mg/dL AST 22 (14-36) U/L ALT 10 (4-34) U/L Alkaline Phosphatase 73 (38-126) U/L Total Protein 5.8 L (6.3-8.2) g/dL Albumin 3.4 L (3.5-5.0) g/dL Urine Color Colorless Urine Appearance Turbid H (Clear) Urine pH 6.0 (5.0-8.0) Ur Specific [place] 1.014 (1.001-1.035) Urine Protein 2+ H (Negative) Urine Glucose (UA) Negative (Negative) Urine Ketones Negative (Negative) Urine Blood Small H (Negative) Urine Nitrite Negative (Negative) Urine Bilirubin Negative (Negative) Urine Urobilinogen <2.0 (<2.0) mg/dL Ur Leukocyte Esterase Large H (Negative) Urine RBC 6 H (0-5) /hpf Urine WBC >182 H (0-5) /hpf Urine WBC Clumps Many H (None) /hpf Urine Bacteria Few H (None) /hpf 12/25/ Range/Units 10:38 WBC (4.50-10.00) 10*3/uL RBC (4.10-5.20) 10*6/uL Hgb (12.0-15.0) g/dL Hct (37.2-46.3) % MCV (80.0-97.0) fL MCH (27.0-32.0) pg MCHC (32.0-37.0) g/dL Plt Count (140-440) 10*3/uL MPV (9.5-12.2) fL Immature Gran % (Auto) % Neutrophils % % Lymphocytes % % Monocytes % % Eosinophils % % Basophils % % Immature Gran # (0.00-0.04) 10*3/uL Neutrophils # (1.80-7.70) 10*3/uL Lymphocytes # (0.90-5.00) 10*3/uL Monocytes # (0.20-1.00) 10*3/uL Eosinophils # (0.04-0.35) 10*3/uL Basophils # (0.00-0.10) 10*3/uL Sodium (137-145) mmol/L Potassium (3.5-5.1) mmol/L Chloride (98-107) mmol/L Carbon Dioxide (22-30) mmol/L Anion Gap mmol/L BUN (7-17) mg/dL Creatinine (0.52-1.04) mg/dL Est GFR (CKD-EPI)AfAm (>60 ml/min/1.73 sqM) Est GFR (CKD-EPI)NonAf (>60 ml/min/1.73 sqM) Glucose (74-99) mg/dL Plasma Lactic Acid [place] 0.5 L (0.7-2.0) mmol/L Calcium (8.4-10.2) mg/dL Phosphorus (2.5-4.5) mg/dL Magnesium (1.6-2.3) mg/dL Total Bilirubin (0.2-1.3) mg/dL AST (14-36) U/L ALT (4-34) U/L Alkaline Phosphatase (38-126) U/L Total Protein (6.3-8.2) g/dL Albumin (3.5-5.0) g/dL Urine Color Urine Appearance (Clear) Urine pH (5.0-8.0) Ur Specific [place] (1.001-1.035) Urine Protein (Negative) Urine Glucose (UA) (Negative) Urine Ketones (Negative) Urine Blood (Negative) Urine Nitrite (Negative) Urine Bilirubin (Negative) Urine Urobilinogen (<2.0) mg/dL Ur Leukocyte Esterase (Negative) Urine RBC (0-5) /hpf Urine WBC (0-5) /hpf Urine WBC Clumps (None) /hpf Urine Bacteria (None) /hpf Critical Care Time Critical Care Time: Yes Total Critical Care Time: 35 Disposition Clinical Impression: UTI (urinary tract infection), Pneumonia, Acute kidney failure, Metabolic acidosis Disposition: ADMITTED IP TO THIS [facility] Condition: Poor Referrals: Graham Saeed DO [Primary Care Provider] - 1-2 days Time of Disposition: 15:27
--- NOTE | 2024-12-25 10:47 | XR ---
EXAMINATION TYPE: XR chest 2V DATE OF EXAM: 12/25/2024 10:41 AM COMPARISON: Chest radiographs from 11/20/2023 TECHNIQUE: XR chest 2V Frontal and lateral views of the chest. CLINICAL INDICATION:Female, 74 years old with history of cough; FINDINGS: Lungs/Pleura: There is no evidence of pleural effusion, focal consolidation, or pneumothorax. Subtle scattered reticular opacities suggested. Pulmonary vascularity: Unremarkable. Heart/mediastinum: Cardiomediastinal silhouette is unremarkable. Musculoskeletal: Multiple level degenerative disc disease changes seen throughout the spine. Remote f racture deformity of the left proximal humerus. IMPRESSION: Subtle scattered reticular opacities suggested concerning for atypical pneumonia. [facility], , 12/25/2024 10:44 AM
[2024-12-25 10:54] LABS: Basophils # (A) 0.05 10*3/uL (0.00-0.10); Basophils % (A) 0.9 %; Eosinophils # (A) 0.33 10*3/uL (0.04-0.35); Eosinophils % (A) 6.1 %; HCT 23.2 % (37.2-46.3); HGB 7.5 g/dL (12.0-15.0); Lymphocytes # (A) 0.79 10*3/uL (0.90-5.00); Lymphocytes % (A) 14.7 %; MCH 28.3 pg (27.0-32.0); MCHC 32.3 g/dL (32.0-37.0); MCV 87.5 fL (80.0-97.0); Mean Platelet Volume 11.3 fL (9.5-12.2); Monocytes # (A) 0.59 10*3/uL (0.20-1.00); Monocytes % (A) 10.9 %; Neutrophils # (A) 3.61 10*3/uL (1.80-7.70); Platelet Count 157 10*3/uL (140-440); RBC 2.65 10*6/uL (4.10-5.20); RDW 15.5 % (11.5-14.5); WBC 5.39 10*3/uL (4.50-10.00)
[2024-12-25 11:14] LABS: ALT 10 U/L (4-34); AST 22 U/L (14-36); African American GFR (CKD) 13 (>60 ml/min/1.73 sqM); Albumin 3.4 g/dL (3.5-5.0); Alkaline Phosphatase 73 U/L (38-126); Anion Gap 15 mmol/L; Blood Urea Nitrogen 39 mg/dL (7-17); Calcium 8.8 mg/dL (8.4-10.2); Carbon Dioxide 12 mmol/L (22-30); Chloride 113 mmol/L (98-107); Glucose 119 mg/dL (74-99); Magnesium 1.7 mg/dL (1.6-2.3); Non-African American GFR(CKD) 11 (>60 ml/min/1.73 sqM); Phosphorus 5.5 mg/dL (2.5-4.5); Potassium 4.4 mmol/L (3.5-5.1); Sodium 140 mmol/L (137-145); Total Bilirubin 0.6 mg/dL (0.2-1.3); Total Protein 5.8 g/dL (6.3-8.2)
--- NOTE | 2024-12-25 11:19 | US ---
EXAMINATION TYPE: US kidneys/renal and bladder DATE OF EXAM: 12/25/2024 COMPARISON: CT 2023, US 02/01/2023, 10/25/2022 CLINICAL INDICATION: Female, 74 years old with history of acute renal failure; Acute renal failure. TECHNIQUE: Grayscale imaging of the bilateral kidneys and urinary bladder: FINDINGS: EXAM MEASUREMENTS: Right Kidney: 12.0 x 6.7 x 6.4 cm Left Kidney: 10.3 x 5.1 x 5.2 cm Right Kidney: Anechoic connecting-areas seen throughout - appearance of probable hydronephrosis [facility] multiple anechoic areas taking up most of the kidney size. Right kidney appeared atrophic on prior ultrasound. Left Kidney: *Anechoic area seen upper pole: 1.7 x 1.6 x 1.6 cm. Bladder: Not seen, pt recently voided. Bilateral Jets seen: No Atrophic appearing right kidney with suggested moderate to severe hydronephrosis. No left hydronephro sis. Simple appearing left renal upper pole 1.7 cm cyst. Urinary bladder is not visualized with the p atient recently voiding. Ureteral jets are not identified. IMPRESSION: 1. Atrophic right kidney with suggested moderate to severe right hydronephrosis. Recommend further ev aluation with CT. 2. Simple appearing left renal upper pole cyst. [facility], , 12/25/2024 11:17 AM
--- NOTE | 2024-12-25 12:07 | CT ---
EXAMINATION TYPE: CT abdomen pelvis wo con CT DLP: 1000.1 mGycm, Automated exposure control for dose reduction was used. DATE OF EXAM: 12/25/2024 11:51 AM COMPARISON: Renal ultrasound 12/25/2024, CT abdomen and pelvis 11/15/2023 CLINICAL INDICATION:Female, 74 years old with history of Renal failure abnormal ultrasound; RENAL MARRY LURE AND ABNORMAL LABS TECHNIQUE: Standard CT of the abdomen and pelvis without IV or oral contrast. Lack of IV or oral co ntrast limits evaluation of solid and hollow organ viscera. Coronal and sagittal reformats were perfo rmed. FINDINGS: LOWER CHEST: Trace bilateral pleural effusions with associated atelectasis. Dense mitral annulus calc ifications. ABDOMEN LIVER.: Unremarkable noncontrast appearance GALLBLADDER AND BILE DUCTS: Layering increased densities within the lumen consistent with gallstones are present. No biliary ductal dilatation. PANCREAS: Unremarkable noncontrast appearance SPLEEN: Unremarkable noncontrast appearance ADRENAL GLANDS: Unremarkable noncontrast appearance. KIDNEYS AND URETERS: No left hydronephrosis. Left renal superior pole 1.5 cm simple cyst. A follow up recommended. Moderate to severe right hydroureteronephrosis without obstructing calculus identified. There is cortical thinning of the right kidney. Bilateral nonspecific perinephric fat stranding. PELVIS BLADDER: Underdistended but grossly unremarkable. REPRODUCTIVE: Unremarkable noncontrast appearance ABDOMEN & PELVIS STOMACH AND BOWEL: Stomach and duodenum are unremarkable. No focal bowel wall thickening or surroundi ng inflammatory changes. No evidence of bowel obstruction. PERITONEUM: No evidence of pneumoperitoneum or free fluid. VASCULATURE: Mild atherosclerotic calcifications are present throughout the abdominal aorta and its b ranches. No evidence of aortic aneurysm. MUSCULOSKELETAL: No acute osseous abnormalities . Levoscoliotic curvature of the lumbar spine. Multil evel degenerative disc disease. Postsurgical changes from posterior decompression at L4-L5. Grade 1 a nterolisthesis of L2-L3. No pars defects. Schmorl's node involving the inferior endplate of the T12 v ertebral body. LYMPH NODES: No gross evidence for lymphadenopathy. SOFT TISSUE/ABDOMINAL WALL: Diffuse anasarca. IMPRESSION: 1. Moderate to severe right hydroureteronephrosis without an obstructing calculus identified. No stefano l calculi identified bilaterally. Further workup is recommended. 2. Cholelithiasis. 3. Trace bilateral pleural effusions. [facility], , 12/25/2024 12:05 PM
[2024-12-25 14:54] LABS: Appearance,Urine Turbid (Clear); Bacteria,Urine Few /hpf; Bilirubin,Urine Negative (Negative); Blood,Urine Small (Negative); Color,Urine Colorless; Glucose,Urine (UA) Negative (Negative); Ketones,Urine Negative (Negative); Leukocyte Esterase,Urine Large (Negative); Nitrite,Urine Negative (Negative); Protein,Urine 2+ (Negative); RBC,Urine 6 /hpf (0-5); Specific Gravity,Urine 1.014 (1.001-1.035); Urobilinogen,Urine <2.0 mg/dL (<2.0); WBC,Urine >182 /hpf (0-5)
[2024-12-25] MEDS ORDERED: ONDANSETRON 4 MG/2 ML VIAL IVP PRN (15:27)
[2024-12-25] MEDS ORDERED: NALOXONE 0.4 MG/ML 1 ML VIAL IV PRN (15:27)
[2024-12-25] MEDS ORDERED: ACETAMINOPHEN TAB 325 MG TAB PO PRN (15:27)
[2024-12-25] MEDS: SODIUM CHLORIDE 0.9% 1,000 ML IV SCH (16:09)
--- NOTE | 2024-12-25 17:06 | P.HPIM ---
History of Present Illness H&P Date: 12/25/24 Patient is a 74-year-old female with CHF with EF 40 to 45% type 2 diabetes mellitus, CKD stage IIIb, hyperlipidemia, hypertension, hypothyroidism presenting for evaluation of abnormal lab values. Patient states she had was not feeling well yesterday and endorsed a cough for the past couple weeks. She states the cough causes her to wake up at night and it is triggered whenever she eats. She denies any shortness of breath, PND or orthopnea. States that she had blood work done yesterday. She received a call today saying that her kidney labs were elevated. States she has a history of recurrent UTI. Denies any decreased urine output. Patient denies any fever, chills, chest pain, shortness of breath, abdominal/flank pain, urinary symptoms. EKG independent interpreted displaying sinus bradycardia with a rate of 57 bpm, QTc 494 MS, left bundle branch block CXR independently interpreted displaying no acute cardiopulmonary process Renal ultrasound displaying moderate to severe right hydronephrosis Abdominal/pelvis CT displaying moderate to right hydroureteronephrosis without an obstructive calculus identified, no renal calculi identified bilaterally WBC 5.39, Hgb 7.5, HCT 23.2, MCV 87.5, platelet 157, sodium 140, CO2 12, anion gap 15, BUN 39, creatinine 3.76, phosphorus 5.5, total protein 5.8, albumin 3.4 UA displaying 2+ urine protein, small urine blood, large leukocyte esterase, urine RBC 6, urine WBC >182 T97.8 F, DC 60, RR 20, BP 149/67, O2 saturation 99% on room air ED documentation reviewed. Review of systems: Pertinent positives and negatives as discussed in HPI, a complete review of systems was performed and all other systems are negative. Social history: Tobacco: Never smoker Alcohol: Denies alcohol use Recreational drugs: Denies illicit drug use Physical examination: Vital signs reviewed General: non toxic, no distress, appears at stated age Derm: no unusual rashes/lesions, warm Head: atraumatic, normocephalic, symmetric Eyes: EOMI, anicteric sclera, pupils equal round reactive to light ENT: Nose and ears atraumatic Mouth: no lip lesion, mucus membranes moist Cardiovascular: S1S2 reg, no murmur, positive dorsalis pedis pulse bilateral, RLE 1+ pitting edema Lungs: rhonchi, no rales, no accessory muscle use Abdominal: soft, non-tender to palpation, no guarding, bilateral CVA tenderness more pronounced on the right side Ext: muscle strength 5 out of 5 in all 4 extremities grossly, no gross muscle atrophy Neuro: CN II-XI grossly intact, no gross focal neuro deficits Psych: Alert, oriented to person, place, and time Assessment/Plan: Patient is a 74-year-old female with CHF, type 2 diabetes mellitus, hyperlipidemia, hypertension, hypothyroidism admitted for nonoliguric CORDELIA on CKD stage IIIb. #. Nonoliguric CORDELIA on CKD stage IIIb in the setting of right-sided hydronephrosis #. Anion gap metabolic acidosis #. Acute pyelonephritis BUN 39, creatinine is 3.76 Bicarb deficit 392 Patient with bilateral CVA tenderness more pronounced on the right side Renal ultrasound displaying moderate to severe right hydronephrosis Abdominal/pelvis CT displaying moderate to right hydroureteronephrosis without an obstructive calculus identified, no renal calculi identified bilaterally UA showing large leukocyte esterase, follow-up cultures Was given one-time dose of Rocephin in ED, continue with Rocephin 2 g Monitor electrolytes Hold nephrotoxic medications Cardiac monitoring 100 meq of IV sodium bicarb given Nephrology consulted #. Right lower extremity edema RLE +1 pitting edema admission US venous Doppler ultrasound ordered Denies any calf tenderness #. Normocytic anemia Hgb 7.5, MCV 87.5 on admission Within baseline Hgb of 79 Continue to monitor with CBC #. Diabetes mellitus type 2 Insulin sliding scale Hypoglycemic precautions Accu-Cheks ACHS Chronic: #. Hypertension: Resume Norvasc 10 mg p.o. daily, hydralazine 25 mg p.o. 3 times daily #. Hyperlipidemia: Continue with simvastatin 20 mg p.o. daily #. CHF not in acute exacerbation: Continue with metoprolol 50 mg p.o. twice daily DVT prophylaxis: Heparin 5000 unit SQ every 8 hours The patient is admitted with an anticipated greater than than 2 midnight stay for evaluation of CORDELIA on CKD stage III in the setting of right-sided hydronephrosis. CODE STATUS: Full code Discussed with: Patient Anticipated discharge place: Pending clinical course Bill Freitas MD PGY-1 IM Dictation was produced using [employer] software. please excuse any grammatical, word or spelling errors. I have seen and evaluated the patient today. Discussed with the resident and agree with the residents finding and plan as documented in the resident's note. Changes highlighted in blue font. Past Medical History Past Medical History: Heart Failure, Diabetes Mellitus, Fibromyalgia, Hyperl ipidemia, Hypertension, Osteoarthritis (OA), Thyroid Disorder Additional Past Medical History / Comment(s): kidney stones in past History of Any Multi-Drug Resistant Organisms: VRE Date of last positivie culture/infection: 02/13/23 MDRO Source:: urine Past Surgical History: Joint Replacement, Orthopedic Surgery, Tonsillectomy Additional Past Surgical History / Comment(s): right athroscopy, back surgery for ruptured disk Past Anesthesia/Blood Transfusion Reactions: No Reported Reaction Past Psychological History: No Psychological Hx Reported Smoking Status: Never smoker Past Alcohol Use History: None Reported Past Drug Use History: None Reported - Past Family History Mother Family Medical History: Cancer Additional Family Medical History / Comment(s): brain stem Father Family Medical History: Diabetes Mellitus Medications and Allergies Home Medications Medication Instructions Recorded Confirmed Type Simvastatin [Zocor] 20 mg PO DAILY 11/13/14 12/25/24 History Omeprazole 20 mg PO DAILY 01/24/23 12/25/24 History Ferrous Sulfate [Iron (65 MG 325 mg PO BID-W/MEALS 11/15/23 12/25/24 History Elemental)] Folic Acid 1 mg PO DAILY 11/15/23 12/25/24 History Metoprolol Succinate (ER) [Toprol 50 mg PO DAILY 11/15/23 12/25/24 History XL] Zolpidem [Ambien] 10 mg PO HS PRN 11/15/23 12/25/24 History Ascorbic Acid [Vitamin C] 500 mg PO DAILY 12/25/24 12/25/24 History Cholecalciferol (Vitamin D3) 1,250 mcg PO Q7D 12/25/24 12/25/24 History [Vitamin D3 (1250 Mcg = 50,000 Iu)] Fluticasone Nasal [place] [Flonase 1 spr EA NOSTRIL BID 12/25/24 12/25/24 History Nasal [place]] Mirtazapine [Remeron] 15 mg PO HS 12/25/24 12/25/24 History Ondansetron [Zofran] 4 mg PO TID PRN 12/25/24 12/25/24 History amLODIPine [Norvasc] 10 mg PO DAILY 12/25/24 12/25/24 History hydrALAZINE HCL [Apresoline] 25 mg PO TID 12/25/24 12/25/24 History Allergies Allergy/AdvReac Type Severity Reaction Status Date / Time No Known Allergies Allergy Verified 12/25/24 15:03 Physical Exam Vitals: Vital Signs Temp Pulse Resp BP Pulse Ox 12/25/24 13:35 54 L 18 160/75 99 12/25/24 11:24 98.2 F 53 L 18 144/72 99 12/25/24 09:37 97.8 F 60 20 149/67 99 Intake and Output 12/25/24 12/25/24 12/25/24 06:59 14:59 22:59 Output Total 150 Balance -150 Output: Urine 150 Uretheral (Urena) 150 Other: Weight 81.647 kg Results CBC & Chem 7: 12/25/24 10:38 12/25/24 10:38 Labs: Abnormal Lab Results - Last 24 Hours (Table) 12/25/24 12/25/24 12/25/24 Range/Units 10:38 10:38 10:38 RBC 2.65 L (4.10-5.20) 10*6/uL Hgb 7.5 L (12.0-15.0) g/dL Hct 23.2 L (37.2-46.3) % Lymphocytes # 0.79 L (0.90-5.00) 10*3/uL Chloride 113 H (98-107) mmol/L Carbon Dioxide 12 L (22-30) mmol/L BUN 39 H (7-17) mg/dL Creatinine 3.76 H (0.52-1.04) mg/dL Glucose 119 H (74-99) mg/dL Plasma Lactic Acid [place] (0.7-2.0) mmol/L Phosphorus 5.5 H (2.5-4.5) mg/dL Total Protein 5.8 L (6.3-8.2) g/dL Albumin 3.4 L (3.5-5.0) g/dL Urine Appearance Turbid H (Clear) Urine Protein 2+ H (Negative) Urine Blood Small H (Negative) Ur Leukocyte Esterase Large H (Negative) Urine RBC 6 H (0-5) /hpf Urine WBC >182 H (0-5) /hpf Urine WBC Clumps Many H (None) /hpf Urine Bacteria Few H (None) /hpf 12/25/24 Range/Units 10:38 RBC (4.10-5.20) 10*6/uL Hgb (12.0-15.0) g/dL Hct (37.2-46.3) % Lymphocytes # (0.90-5.00) 10*3/uL Chloride (98-107) mmol/L Carbon Dioxide (22-30) mmol/L BUN (7-17) mg/dL Creatinine (0.52-1.04) mg/dL Glucose (74-99) mg/dL Plasma Lactic Acid [place] 0.5 L (0.7-2.0) mmol/L Phosphorus (2.5-4.5) mg/dL Total Protein (6.3-8.2) g/dL Albumin (3.5-5.0) g/dL Urine Appearance (Clear) Urine Protein (Negative) Urine Blood (Negative) Ur Leukocyte Esterase (Negative) Urine RBC (0-5) /hpf Urine WBC (0-5) /hpf Urine WBC Clumps (None) /hpf Urine Bacteria (None) /hpf
[2024-12-25] MEDS: SODIUM BICARB 8.4% 50 ML SYR (1 MEQ/ML) IV STA ×2 (17:15→17:17)
[2024-12-25] MEDS: FERROUS SULFATE 325 MG TAB PO SCH (17:16)
[2024-12-25] MEDS: HEPARIN SODIUM,PORCINE 5,000 UNIT/ML 1 ML VIAL SQ SCH (17:17)
[2024-12-25] MEDS: hydrALAZINE HCL 25 MG TAB PO SCH (17:17)
[2024-12-25 17:29] LABS: Glucose,Whole Blood 144 mg/dL (70-110)
[2024-12-25] MEDS: INSULIN LISPRO (HumaLOG) 100 UNIT/ML 10 mL VL SQ SCH (17:42)
[2024-12-25] MEDS: LACTATED RINGERS 1,000 ML IV SCH (20:20)
--- NOTE | 2024-12-25 20:47 | US ---
EXAMINATION TYPE: US venous doppler duplex LE BI DATE OF EXAM: 12/25/2024 8:04 PM COMPARISON: NONE CLINICAL INDICATION: Female, 74 years old with history of swelling; patient states she hasnt realized legs are swollen but that physician has. no hx dvt. not on thinners, TECHNIQUE: The lower extremity deep venous system is examined utilizing real time linear array sonog myles with graded compression, color doppler sonography, and spectral doppler. SIDE PERFORMED: Bilateral FINDINGS: VESSELS IMAGED: Common Femoral Vein Deep Femoral Vein Greater Saphenous Vein * Femoral Vein Popliteal Vein Small Saphenous Vein * Proximal Calf Veins (* superficial vessels) patient unable to tolerate compression of the EIV, CFV and GSV, prox fem vn and deep fem vn bilater ally. Color doppler and spectral waveforms are within normal limits. Right Leg: appears negative for dvt, Color Doppler imaging shows patency of the vessels. Spectral wa veforms are within normal limits. Left Leg: appears negative for dvt, Color Doppler imaging shows patency of the vessels. Spectral wav eforms are within normal limits. IMPRESSION: No ultrasound evidence for deep venous thrombosis. [facility], , 12/25/2024 8:44 PM
[2024-12-25 20:54] LABS: Glucose,Whole Blood 131 mg/dL (70-110)
[2024-12-25 21:00] LABS: Influenza A Not Detected (Not Detectd); Influenza B Not Detected (Not Detectd); RSV Not Detected (Not Detectd)
[2024-12-25] MEDS: MIRTAZAPINE 15 MG TAB PO SCH (21:40)
[2024-12-25] MEDS: ZOLPIDEM 5 MG TAB PO PRN (23:22)
[2024-12-26 05:51] LABS: Basophils # (A) 0.06 10*3/uL (0.00-0.10); Basophils % (A) 0.9 %; Eosinophils # (A) 0.28 10*3/uL (0.04-0.35); Eosinophils % (A) 4.1 %; HCT 23.8 % (37.2-46.3); HGB 7.5 g/dL (12.0-15.0); Immature Platelet Fraction 2.5 % (1.1-6.1); Lymphocytes # (A) 0.76 10*3/uL (0.90-5.00); Lymphocytes % (A) 11.2 %; MCH 28.1 pg (27.0-32.0); MCHC 31.5 g/dL (32.0-37.0); MCV 89.1 fL (80.0-97.0); Monocytes # (A) 0.61 10*3/uL (0.20-1.00); Neutrophils # (A) 5.04 10*3/uL (1.80-7.70); Neutrophils % (A) 74.4 %; Platelet Count 132 10*3/uL (140-440); RBC 2.67 10*6/uL (4.10-5.20); RDW 15.4 % (11.5-14.5); WBC 6.78 10*3/uL (4.50-10.00)
[2024-12-26 06:09] LABS: ALT 9 U/L (4-34); AST 18 U/L (14-36); African American GFR (CKD) 14 (>60 ml/min/1.73 sqM); Albumin 3.2 g/dL (3.5-5.0); Alkaline Phosphatase 70 U/L (38-126); Anion Gap 12 mmol/L; Blood Urea Nitrogen 36 mg/dL (7-17); Calcium 8.8 mg/dL (8.4-10.2); Carbon Dioxide 16 mmol/L (22-30); Chloride 112 mmol/L (98-107); Glucose 111 mg/dL (74-99); Magnesium 1.7 mg/dL (1.6-2.3); Non-African American GFR(CKD) 12 (>60 ml/min/1.73 sqM); Phosphorus 4.8 mg/dL (2.5-4.5); Potassium 4.3 mmol/L (3.5-5.1); Sodium 140 mmol/L (137-145); Total Bilirubin 0.4 mg/dL (0.2-1.3); Total Protein 5.7 g/dL (6.3-8.2)
[2024-12-26 06:20] LABS: Glucose,Whole Blood 120 mg/dL (70-110)
[2024-12-26] MEDS: PANTOPRAZOLE 40 MG TABLET PO SCH (08:27)
[2024-12-26] MEDS: ATORVASTATIN 10 MG TAB PO SCH (08:27)
[2024-12-26] MEDS: ASCORBIC ACID 500 MG TAB PO SCH (08:27)
[2024-12-26] MEDS: amLODIPine 10 MG TAB PO SCH (08:27)
[2024-12-26] MEDS: FOLIC ACID 1 MG TAB PO SCH (08:27)
--- NOTE | 2024-12-26 10:59 | P.NPCON ---
History of Present Illness - Reason for Consult acute renal failure, chronic renal failure - History of Present Illness Reason for consultation: Acute kidney injury on chronic kidney disease History of present illness: Patient is a 74-year-old female seen in renal consultation for acute kidney injury on chronic kidney disease. Patient has chronic kidney disease stage IV with creatinine 2.7 in November 2023. Creatinine this admission was 3.76 and is 3.5 today. Patient came to the hospital due to not feeling well. Patient states she has had a cough going on for a couple of weeks now and saw her prima care physician. She had a chest x-ray done as well as labs and was subsequently advised to come to the hospital. Patient states she is bringing up clear phlegm. She does have a history of diabetes. Denies history of coronary artery disease. Has a Urena catheter. Nonoliguric. Denies use of nonsteroidals. Denies fever. Hemodynamically stable. Currently on room air. Right-sided hydronephrosis noted on CT. Currently has a Urena catheter. Vital signs are stable. General: No acute distress. HEENT: Head exam is unremarkable. LUNGS: No audible rhonchi or wheezes. HEART: Rate and Rhythm are regular. ABDOMEN: Nontender. EXTREMITITES: Trace edema. Past Medical History Past Medical History: Diabetes Mellitus, Fibromyalgia, Hyperlipidemia, Hyper tension, Osteoarthritis (OA), Thyroid Disorder Additional Past Medical History / Comment(s): kidney stones in past History of Any Multi-Drug Resistant Organisms: VRE Date of last positivie culture/infection: 02/13/23 MDRO Source:: urine Past Surgical History: Joint Replacement, Orthopedic Surgery, Tonsillectomy Additional Past Surgical History / Comment(s): right athroscopy, back surgery for ruptured disk Past Anesthesia/Blood Transfusion Reactions: No Reported Reaction Past Psychological History: No Psychological Hx Reported Smoking Status: Never smoker Past Alcohol Use History: None Reported Past Drug Use History: None Reported - Past Family History Mother Family Medical History: Cancer Additional Family Medical History / Comment(s): brain stem Father Family Medical History: Diabetes Mellitus Medications and Allergies Home Medications Medication Instructions Recorded Confirmed Type Simvastatin [Zocor] 20 mg PO DAILY 11/13/14 12/25/24 History Omeprazole 20 mg PO DAILY 01/24/23 12/25/24 History Ferrous Sulfate [Iron (65 MG 325 mg PO BID-W/MEALS 11/15/23 12/25/24 History Elemental)] Folic Acid 1 mg PO DAILY 11/15/23 12/25/24 History Metoprolol Succinate (ER) [Toprol 50 mg PO DAILY 11/15/23 12/25/24 History XL] Zolpidem [Ambien] 10 mg PO HS PRN 11/15/23 12/25/24 History Ascorbic Acid [Vitamin C] 500 mg PO DAILY 12/25/24 12/25/24 History Cholecalciferol (Vitamin D3) 1,250 mcg PO Q7D 12/25/24 12/25/24 History [Vitamin D3 (1250 Mcg = 50,000 Iu)] Fluticasone Nasal [place] [Flonase 1 spr EA NOSTRIL BID 12/25/24 12/25/24 History Nasal [place]] Mirtazapine [Remeron] 15 mg PO HS 12/25/24 12/25/24 History Ondansetron [Zofran] 4 mg PO TID PRN 12/25/24 12/25/24 History amLODIPine [Norvasc] 10 mg PO DAILY 12/25/24 12/25/24 History hydrALAZINE HCL [Apresoline] 25 mg PO TID 12/25/24 12/25/24 History Allergies Allergy/AdvReac Type Severity Reaction Status Date / Time No Known Allergies Allergy Verified 12/25/24 15:03 Physical Exam Vitals: Vital Signs Temp Pulse Pulse Resp BP BP Pulse Ox 12/26/24 09:20 68 15 12/26/24 07:56 98.5 F 68 15 161/73 97 12/26/24 07:46 98.6 F 68 17 161/67 95 12/26/24 04:00 98.1 F 68 18 164/72 96 12/26/24 01:45 71 18 12/25/24 23:42 97.9 F 71 18 152/65 97 12/25/24 20:40 98.3 F 71 18 154/68 98 12/25/24 20:26 98.0 F 67 19 147/62 98 12/25/24 20:11 98.0 F 67 19 147/62 98 12/25/24 17:17 60 20 154/103 99 12/25/24 16:06 97.7 F 60 20 156/62 96 12/25/24 13:35 54 L 18 160/75 99 12/25/24 11:24 98.2 F 53 L 18 144/72 99 Intake and Output 12/25/24 12/26/24 12/26/24 22:59 06:59 14:59 Intake Total 232 240 Output Total 400 1075 Balance -168 -1075 240 Intake: IV 10 0.9 10 Oral 222 240 Output: Urine 400 1075 Other: Voiding Method Indwelling Catheter Indwelling Catheter Indwelling Catheter Weight 81.647 kg 90.1 kg Results - Lab Results Most recent lab results Calcium 8.8 mg/dL (8.4-10.2) 12/26/24 05:14 Phosphorus 4.8 mg/dL (2.5-4.5) H 12/26/24 05:14 Magnesium 1.7 mg/dL (1.6-2.3) 12/26/24 05:14 12/26/24 05:14 12/26/24 05:14 Assessment and Plan Plan: Assessment: 1. Acute kidney injury secondary to ATN. Creatinine 3.76 on admission and is 3 .5 today. Component of obstructive uropathy with right-sided hydronephrosis noted on imaging. 2. Right-sided hydronephrosis being followed by urology. 3. Metabolic acidosis secondary to acute kidney injury. 4. Diabetes mellitus. 5. Chronic kidney disease stage IV with creatinine 2.7 in November 2023. Etiology is diabetic kidney disease. 6. Cardiomyopathy with ejection fraction of 40 to 45%. 7. Acute pyelonephritis on antibiotics. 8. Anemia of chronic kidney disease. Plan: Add bicarb drip. Check iron studies. Maintain Urena catheter. Avoid nephrotoxins. Continue to monitor renal function and urine output. Thank you for the consultation. I will continue to follow the patient with you during her hospital stay.
[2024-12-26] MEDS: METOPROLOL SUCCINATE (ER) 50 MG TAB.ER.24H PO SCH (11:32)
[2024-12-26] MEDS: BENZONATATE 100 MG CAP PO PRN (11:32)
[2024-12-26] MEDS: SODIUM BICARBONATE TAB 650 MG TAB PO SCH (11:32)
[2024-12-26 11:41] LABS: Glucose,Whole Blood 120 mg/dL (70-110)
[2024-12-26] MEDS: DEXTROSE 5% IN WATER 1,000 ML with SODIUM BICARB (1 MEQ/ML) 150 ML IV SCH (11:52)
--- NOTE | 2024-12-26 12:06 | P.PN ---
Subjective Progress Note Date: 12/26/24 Hospital Course: Patient is a 74-year-old female with CHF with EF 40 to 45% type 2 diabetes mellitus, CKD stage IIIb, hyperlipidemia, hypertension, hypothyroidism presenting for evaluation of abnormal lab values. Patient states she had was not feeling well yesterday and endorsed a cough for the past couple weeks. She states the cough causes her to wake up at night and it is triggered whenever she eats. She denies any shortness of breath, PND or orthopnea. States that she luther d blood work done yesterday. She received a call today saying that her kidney labs were elevated. States she has a history of recurrent UTI. Denies any decreased urine output. Patient denies any fever, chills, chest pain, shortness of breath, abdominal/flank pain, urinary symptoms. EKG independent interpreted displaying sinus bradycardia with a rate of 57 bpm, QTc 494 MS, left bundle branch block CXR independently interpreted displaying no acute cardiopulmonary process Renal ultrasound displaying moderate to severe right hydronephrosis Abdominal/pelvis CT displaying moderate to right hydroureteronephrosis without an obstructive calculus identified, no renal calculi identified bilaterally WBC 5.39, Hgb 7.5, HCT 23.2, MCV 87.5, platelet 157, sodium 140, CO2 12, anion gap 15, BUN 39, creatinine 3.76, phosphorus 5.5, total protein 5.8, albumin 3.4 UA displaying 2+ urine protein, small urine blood, large leukocyte esterase, urine RBC 6, urine WBC >182 T97.8 F, TX 60, RR 20, BP 149/67, O2 saturation 99% on room air Subjective: Patient seen and examined at bedside. No acute events overnight. Complaining of non-productive cough. Pertinent positives and negatives as discussed above, a complete review of systems was performed and all other systems are negative. Vitals: Signs Reviewed Physical Exam: General: non toxic, no distress, appears at stated age Derm: no unusual rashes/lesions, warm Head: atraumatic, normocephalic, symmetric Eyes: EOMI, anicteric sclera, pupils equal round reactive to light ENT: Nose and ears atraumatic Mouth: no lip lesion, mucus membranes moist Cardiovascular: S1S2 reg, no murmur, positive dorsalis pedis pulse bilateral, RLE 1+ pitting edema Lungs: rhonchi, no rales, no accessory muscle use Abdominal: soft, non-tender to palpation, no guarding, bilateral CVA tenderness more pronounced on the right side Ext: muscle strength 5 out of 5 in all 4 extremities grossly, no gross muscle atrophy Neuro: CN II-XI grossly intact, no gross focal neuro deficits Psych: Alert, oriented to person, place, and time Data Received Today: Pertinent Labs: CO2 16, anion gap 12, BUN 36, creatinine 3.50 Imaging: US venous Doppler ultrasound displaying no evidence for DVT Assessment and Plan: Patient is a 74-year-old female with CHF, type 2 diabetes mellitus, hyperlipidemia, hypertension, hypothyroidism admitted for nonoliguric CORDELIA on CKD stage IIIb. #. Nonoliguric CORDELIA on CKD stage IIIb in the setting of right-sided hydronephrosis #. Anion gap metabolic acidosis, improving #. Acute pyelonephritis BUN 39, creatinine is 3.76 Bicarb deficit 392 Patient with bilateral CVA tenderness more pronounced on the right side on admission Renal ultrasound displaying moderate to severe right hydronephrosis Abdominal/pelvis CT displaying moderate to right hydroureteronephrosis without an obstructive calculus identified, no renal calculi identified bilaterally UA showing large leukocyte esterase, follow-up cultures Continue with IV Rocephin 2g q 24hr Monitor electrolytes Hold nephrotoxic medications Cardiac monitoring 100 meq of IV sodium bicarb given Nephrology, note reviewed, check iron studies, maintain Urena catheter, bicarb drip at 70 cc/hr Urology consulted overnight, pending recs #. Right lower extremity edema RLE +1 pitting edema admission US venous Doppler ultrasound displaying no evidence for DVT Denies any calf tenderness #. Normocytic anemia Hgb 7.5, MCV 87.5 on admission Within baseline Hgb of 79 Continue to monitor with CBC #. Diabetes mellitus type 2 Insulin sliding scale Hypoglycemic precautions Accu-Cheks ACHS Chronic: #. Hypertension: Resume Norvasc 10 mg p.o. daily, hydralazine 25 mg p.o. 3 times daily #. Hyperlipidemia: Continue with simvastatin 20 mg p.o. daily #. CHF not in acute exacerbation: Continue with metoprolol 50 mg p.o. twice daily #. Insomnia: Zolpidem 10 mg p.o. at bedtime as needed DVT prophylaxis: Heparin 5000 unit SQ every 8 hours Code status: Full code Anticipated discharge place: Pending clinical course Anticipated discharge time: Pending clinical course Bill Freitas MD PGY-1 IM Dictation was produced using [employer] dictation software. please excuse any grammatical, word or spelling errors. I have seen and evaluated the patient today. Discussed with the resident and agree with the residents finding and plan as documented in the resident's note. Changes highlighted in blue font. Objective - Vital Signs Vital signs: Vital Signs Temp 98.1 F 12/26/24 04:00 Pulse 68 12/26/24 04:00 Resp 18 12/26/24 04:00 BP 164/72 12/26/24 04:00 Pulse Ox 96 12/26/24 04:00 FiO2 Intake & Output 12/25/24 12/26/24 12/26/24 18:59 06:59 18:59 Intake Total 232 Output Total 150 1475 Balance -150 -1243 Weight 81.647 kg 90.1 kg Intake: IV 10 0.9 10 Oral 222 Output: Urine 150 1475 Uretheral (Urena) 150 Other: Voiding Method Indwelling Catheter - Labs CBC & Chem 7: 12/26/24 05:14 12/26/24 05:14 Labs: Abnormal Lab Results - Last 24 Hours (Table) 12/25/24 12/25/24 12/25/24 Range/Units 10:38 10:38 10:38 RBC 2.65 L (4.10-5.20) 10*6/uL Hgb 7.5 L (12.0-15.0) g/dL Hct 23.2 L (37.2-46.3) % MCHC (32.0-37.0) g/dL Plt Count (140-440) 10*3/uL Lymphocytes # 0.79 L (0.90-5.00) 10*3/uL Chloride 113 H (98-107) mmol/L Carbon Dioxide 12 L (22-30) mmol/L BUN 39 H (7-17) mg/dL Creatinine 3.76 H (0.52-1.04) mg/dL Glucose 119 H (74-99) mg/dL POC Glucose (mg/dL) (70-110) mg/dL Plasma Lactic Acid [place] (0.7-2.0) mmol/L Phosphorus 5.5 H (2.5-4.5) mg/dL Total Protein 5.8 L (6.3-8.2) g/dL Albumin 3.4 L (3.5-5.0) g/dL Urine Appearance Turbid H (Clear) Urine Protein 2+ H (Negative) Urine Blood Small H (Negative) Ur Leukocyte Esterase Large H (Negative) Urine RBC 6 H (0-5) /hpf Urine WBC >182 H (0-5) /hpf Urine WBC Clumps Many H (None) /hpf Urine Bacteria Few H (None) /hpf 12/25/24 12/25/24 12/25/24 Range/Units 10:38 17:28 20:49 RBC (4.10-5.20) 10*6/uL Hgb (12.0-15.0) g/dL Hct (37.2-46.3) % MCHC (32.0-37.0) g/dL Plt Count (140-440) 10*3/uL Lymphocytes # (0.90-5.00) 10*3/uL Chloride (98-107) mmol/L Carbon Dioxide (22-30) mmol/L BUN (7-17) mg/dL Creatinine (0.52-1.04) mg/dL Glucose (74-99) mg/dL POC Glucose (mg/dL) 144 H 131 H (70-110) mg/dL Plasma Lactic Acid [place] 0.5 L (0.7-2.0) mmol/L Phosphorus (2.5-4.5) mg/dL Total Protein (6.3-8.2) g/dL Albumin (3.5-5.0) g/dL Urine Appearance (Clear) Urine Protein (Negative) Urine Blood (Negative) Ur Leukocyte Esterase (Negative) Urine RBC (0-5) /hpf Urine WBC (0-5) /hpf Urine WBC Clumps (None) /hpf Urine Bacteria (None) /hpf 12/26/24 12/26/24 12/26/24 Range/Units 05:14 05:14 06:19 RBC 2.67 L (4.10-5.20) 10*6/uL Hgb 7.5 L (12.0-15.0) g/dL Hct 23.8 L (37.2-46.3) % MCHC 31.5 L (32.0-37.0) g/dL Plt Count 132 L (140-440) 10*3/uL Lymphocytes # 0.76 L (0.90-5.00) 10*3/uL Chloride 112 H (98-107) mmol/L Carbon Dioxide 16 L (22-30) mmol/L BUN 36 H (7-17) mg/dL Creatinine 3.50 H (0.52-1.04) mg/dL Glucose 111 H (74-99) mg/dL POC Glucose (mg/dL) 120 H (70-110) mg/dL Plasma Lactic Acid [place] (0.7-2.0) mmol/L Phosphorus 4.8 H (2.5-4.5) mg/dL Total Protein 5.7 L (6.3-8.2) g/dL Albumin 3.2 L (3.5-5.0) g/dL Urine Appearance (Clear) Urine Protein (Negative) Urine Blood (Negative) Ur Leukocyte Esterase (Negative) Urine RBC (0-5) /hpf Urine WBC (0-5) /hpf Urine WBC Clumps (None) /hpf Urine Bacteria (None) /hpf
[2024-12-26 16:40] LABS: Glucose,Whole Blood 160 mg/dL (70-110)
[2024-12-26 19:48] LABS: Glucose,Whole Blood 132 mg/dL (70-110)
[2024-12-26] MEDS: hydrOXYzine HCL 25 MG TAB PO PRN (23:04)
[2024-12-27 02:51] LABS: % Iron Saturation 11.07 (12.00-45.00)
[2024-12-27 05:56] LABS: Glucose,Whole Blood 120 mg/dL (70-110)
[2024-12-27 06:39] LABS: Basophils # (A) 0.05 10*3/uL (0.00-0.10); Basophils % (A) 0.8 %; Eosinophils # (A) 0.33 10*3/uL (0.04-0.35); HCT 23.5 % (37.2-46.3); HGB 7.3 g/dL (12.0-15.0); Immature Platelet Fraction 2.2 % (1.1-6.1); Lymphocytes # (A) 1.16 10*3/uL (0.90-5.00); Lymphocytes % (A) 17.5 %; MCH 27.8 pg (27.0-32.0); MCHC 31.1 g/dL (32.0-37.0); MCV 89.4 fL (80.0-97.0); Mean Platelet Volume 11.2 fL (9.5-12.2); Monocytes % (A) 10.6 %; Neutrophils # (A) 4.35 10*3/uL (1.80-7.70); Neutrophils % (A) 65.6 %; Platelet Count 131 10*3/uL (140-440); RBC 2.63 10*6/uL (4.10-5.20); RDW 15.5 % (11.5-14.5); WBC 6.62 10*3/uL (4.50-10.00)
[2024-12-27 06:52] LABS: African American GFR (CKD) 15 (>60 ml/min/1.73 sqM); Anion Gap 7 mmol/L; Blood Urea Nitrogen 33 mg/dL (7-17); Calcium 8.4 mg/dL (8.4-10.2); Carbon Dioxide 22 mmol/L (22-30); Chloride 111 mmol/L (98-107); Glucose 114 mg/dL (74-99); Magnesium 1.7 mg/dL (1.6-2.3); Non-African American GFR(CKD) 13 (>60 ml/min/1.73 sqM); Potassium 3.8 mmol/L (3.5-5.1); Sodium 140 mmol/L (137-145)
--- NOTE | 2024-12-27 07:19 | P.GSCN ---
History of Present Illness Consult date: 12/26/24 Reason for Consult: Hydronephrosis Requesting physician: Brad Humphries History of present illness: The patient is a 74-year-old white female with multiple medical problems, including hypertension, type 2 diabetes mellitus, hyperlipidemia, hypothyroidism, stage IIIb CKD, and CHF with an EF of 40-45%. She has been treated for recurrent UTIs, and is now hospitalized with worsened renal function. She has recently experienced coughing for the past couple of weeks. CT scan shows a left upper pole renal cyst, as well as moderate to severe right hydroureteronephrosis down to the bladder. Renal MRI in October 2021 and liver ultrasound in October 2022 showed no evidence of hydronephrosis. Also, I reviewed a lumbar MRI performed in November 2023 that did not appear to show any evidence of hydronephrosis. Her serum creatinine level in January 2024 was 1.9. The patient denies any prior history of urolithiasis. Review of Systems - Constitutional Denies chills, Denies fever - Cardiovascular Denies chest pain - Respiratory Reports cough, Denies dyspnea - Gastrointestinal Denies nausea, Denies vomiting - Genitourinary Genitourinary: Denies dysuria, Denies flank pain, Denies hematuria Past Medical History Past Medical History: Diabetes Mellitus, Fibromyalgia, Hyperlipidemia, Hypertension, Osteoarthritis (OA), Thyroid Disorder Additional Past Medical History / Comment(s): kidney stones in past History of Any Multi-Drug Resistant Organisms: VRE Year Discovered:: 02/13/23 MDRO Source:: urine Past Surgical History: Joint Replacement, Orthopedic Surgery, Tonsillectomy Additional Past Surgical History / Comment(s): right athroscopy, back surgery for ruptured disk Past Anesthesia/Blood Transfusion Reactions: No Reported Reaction Past Psychological History: No Psychological Hx Reported Smoking Status: Never smoker Past Alcohol Use History: None Reported Past Drug Use History: None Reported - Past Family History Mother Family Medical History: Cancer Additional Family Medical History / Comment(s): brain stem Father Family Medical History: Diabetes Mellitus Medications and Allergies Home Medications Medication Instructions Recorded Confirmed Type Simvastatin [Zocor] 20 mg PO DAILY 11/13/14 12/25/24 History Omeprazole 20 mg PO DAILY 01/24/23 12/25/24 History Ferrous Sulfate [Iron (65 MG 325 mg PO BID-W/MEALS 11/15/23 12/25/24 History Elemental)] Folic Acid 1 mg PO DAILY 11/15/23 12/25/24 History Metoprolol Succinate (ER) [Toprol 50 mg PO DAILY 11/15/23 12/25/24 History XL] Zolpidem [Ambien] 10 mg PO HS PRN 11/15/23 12/25/24 History Ascorbic Acid [Vitamin C] 500 mg PO DAILY 12/25/24 12/25/24 History Cholecalciferol (Vitamin D3) 1,250 mcg PO Q7D 12/25/24 12/25/24 History [Vitamin D3 (1250 Mcg = 50,000 Iu)] Fluticasone Nasal [place] [Flonase 1 spr EA NOSTRIL BID 12/25/24 12/25/24 History Nasal [place]] Mirtazapine [Remeron] 15 mg PO HS 12/25/24 12/25/24 History Ondansetron [Zofran] 4 mg PO TID PRN 12/25/24 12/25/24 History amLODIPine [Norvasc] 10 mg PO DAILY 12/25/24 12/25/24 History hydrALAZINE HCL [Apresoline] 25 mg PO TID 12/25/24 12/25/24 History Allergies Allergy/AdvReac Type Severity Reaction Status Date / Time No Known Allergies Allergy Verified 12/25/24 15:03 Surgical - Exam Vital Signs Temp Pulse Resp BP Pulse Ox 97.8 F 60 20 149/67 99 12/25/24 09:37 12/25/24 09:37 12/25/24 09:37 12/25/24 09:37 12/25/24 09:37 - General well developed, well nourished, no distress - Respiratory normal respiratory effort - Abdomen Soft, non-distended, no mass. Mild right-sided tenderness, no guarding or rebound. - Psychiatric oriented to time, oriented to person, oriented to place, speech is normal, memory intact Results - Labs 12/27/24 06:15 12/27/24 06:15 Abnormal Lab Results - Last 24 Hours (Table) 12/25/24 12/25/24 12/25/24 Range/Units 10:38 17:28 20:49 RBC (4.10-5.20) 10*6/uL Hgb (12.0-15.0) g/dL Hct (37.2-46.3) % MCHC (32.0-37.0) g/dL Plt Count (140-440) 10*3/uL Lymphocytes # (0.90-5.00) 10*3/uL Chloride (98-107) mmol/L Carbon Dioxide (22-30) mmol/L BUN (7-17) mg/dL Creatinine (0.52-1.04) mg/dL Glucose (74-99) mg/dL POC Glucose (mg/dL) 144 H 131 H (70-110) mg/dL Phosphorus (2.5-4.5) mg/dL Total Protein (6.3-8.2) g/dL Albumin (3.5-5.0) g/dL Urine Appearance Turbid H (Clear) Urine Protein 2+ H (Negative) Urine Blood Small H (Negative) Ur Leukocyte Esterase Large H (Negative) Urine RBC 6 H (0-5) /hpf Urine WBC >182 H (0-5) /hpf Urine WBC Clumps Many H (None) /hpf Urine Bacteria Few H (None) /hpf 12/26/24 12/26/24 12/26/24 Range/Units 05:14 05:14 06:19 RBC 2.67 L (4.10-5.20) 10*6/uL Hgb 7.5 L (12.0-15.0) g/dL Hct 23.8 L (37.2-46.3) % MCHC 31.5 L (32.0-37.0) g/dL Plt Count 132 L (140-440) 10*3/uL Lymphocytes # 0.76 L (0.90-5.00) 10*3/uL Chloride 112 H (98-107) mmol/L Carbon Dioxide 16 L (22-30) mmol/L BUN 36 H (7-17) mg/dL Creatinine 3.50 H (0.52-1.04) mg/dL Glucose 111 H (74-99) mg/dL POC Glucose (mg/dL) 120 H (70-110) mg/dL Phosphorus 4.8 H (2.5-4.5) mg/dL Total Protein 5.7 L (6.3-8.2) g/dL Albumin 3.2 L (3.5-5.0) g/dL Urine Appearance (Clear) Urine Protein (Negative) Urine Blood (Negative) Ur Leukocyte Esterase (Negative) Urine RBC (0-5) /hpf Urine WBC (0-5) /hpf Urine WBC Clumps (None) /hpf Urine Bacteria (None) /hpf 12/26/24 Range/Units 11:32 RBC (4.10-5.20) 10*6/uL Hgb (12.0-15.0) g/dL Hct (37.2-46.3) % MCHC (32.0-37.0) g/dL Plt Count (140-440) 10*3/uL Lymphocytes # (0.90-5.00) 10*3/uL Chloride (98-107) mmol/L Carbon Dioxide (22-30) mmol/L BUN (7-17) mg/dL Creatinine (0.52-1.04) mg/dL Glucose (74-99) mg/dL POC Glucose (mg/dL) 120 H (70-110) mg/dL Phosphorus (2.5-4.5) mg/dL Total Protein (6.3-8.2) g/dL Albumin (3.5-5.0) g/dL Urine Appearance (Clear) Urine Protein (Negative) Urine Blood (Negative) Ur Leukocyte Esterase (Negative) Urine RBC (0-5) /hpf Urine WBC (0-5) /hpf Urine WBC Clumps (None) /hpf Urine Bacteria (None) /hpf Diabetes panel 12/26/24 Range/Units 05:14 Sodium 140 (137-145) mmol/L Potassium 4.3 (3.5-5.1) mmol/L Chloride 112 H (98-107) mmol/L Carbon Dioxide 16 L (22-30) mmol/L BUN 36 H (7-17) mg/dL Creatinine 3.50 H (0.52-1.04) mg/dL Glucose 111 H (74-99) mg/dL Calcium 8.8 (8.4-10.2) mg/dL AST 18 (14-36) U/L ALT 9 (4-34) U/L Alkaline Phosphatase 70 (38-126) U/L Total Protein 5.7 L (6.3-8.2) g/dL Albumin 3.2 L (3.5-5.0) g/dL Calcium panel 12/26/24 Range/Units 05:14 Calcium 8.8 (8.4-10.2) mg/dL Phosphorus 4.8 H (2.5-4.5) mg/dL Albumin 3.2 L (3.5-5.0) g/dL Pituitary panel 12/26/24 Range/Units 05:14 Sodium 140 (137-145) mmol/L Potassium 4.3 (3.5-5.1) mmol/L Chloride 112 H (98-107) mmol/L Carbon Dioxide 16 L (22-30) mmol/L BUN 36 H (7-17) mg/dL Creatinine 3.50 H (0.52-1.04) mg/dL Glucose 111 H (74-99) mg/dL Calcium 8.8 (8.4-10.2) mg/dL Adrenal panel 12/26/24 Range/Units 05:14 Sodium 140 (137-145) mmol/L Potassium 4.3 (3.5-5.1) mmol/L Chloride 112 H (98-107) mmol/L Carbon Dioxide 16 L (22-30) mmol/L BUN 36 H (7-17) mg/dL Creatinine 3.50 H (0.52-1.04) mg/dL Glucose 111 H (74-99) mg/dL Calcium 8.8 (8.4-10.2) mg/dL Total Bilirubin 0.4 (0.2-1.3) mg/dL AST 18 (14-36) U/L ALT 9 (4-34) U/L Alkaline Phosphatase 70 (38-126) U/L Total Protein 5.7 L (6.3-8.2) g/dL Albumin 3.2 L (3.5-5.0) g/dL - Imaging CT scan - abdomen: report reviewed, image reviewed Assessment and Plan (1) Unspecified hydronephrosis Current Visit: Yes Status: Acute Code(s): N13.30 - UNSPECIFIED HYDRONE PHROSIS SNOMED Code(s): 48130096 Plan: I have explained to the patient that her hydronephrosis has developed recently, and is of indeterminate etiology. There is no visible ureteral calculus. Urine culture shows gram-negative bacilli. She will undergo cystoscopy, right retrograde pyelogram, and possible right ureteral stent insertion. The rationale for this has been reviewed in detail with the patient, and she has been made aware of potential risks which include anesthesia, bleeding, infection, and ureteral injury. Time with Patient: Greater than 30
[2024-12-27] MEDS: SODIUM CHLORIDE 0.9% 1,000 ML IV SCH (09:50)
--- NOTE | 2024-12-27 10:11 | P.PN ---
Subjective Progress Note Date: 12/27/24 Hospital Course: Patient is a 74-year-old female with CHF with EF 40 to 45% type 2 diabetes mellitus, CKD stage IIIb, hyperlipidemia, hypertension, hypothyroidism presenting for evaluation of abnormal lab values. Patient states she had was not feeling well yesterday and endorsed a cough for the past couple weeks. She states the cough causes her to wake up at night and it is triggered whenever she eats. She denies any shortness of breath, PND or orthopnea. States that she luther d blood work done yesterday. She received a call today saying that her kidney labs were elevated. States she has a history of recurrent UTI. Denies any decreased urine output. Patient denies any fever, chills, chest pain, shortness of breath, abdominal/flank pain, urinary symptoms. EKG independent interpreted displaying sinus bradycardia with a rate of 57 bpm, QTc 494 MS, left bundle branch block CXR independently interpreted displaying no acute cardiopulmonary process Renal ultrasound displaying moderate to severe right hydronephrosis Abdominal/pelvis CT displaying moderate to right hydroureteronephrosis without an obstructive calculus identified, no renal calculi identified bilaterally WBC 5.39, Hgb 7.5, HCT 23.2, MCV 87.5, platelet 157, sodium 140, CO2 12, anion gap 15, BUN 39, creatinine 3.76, phosphorus 5.5, total protein 5.8, albumin 3.4 UA displaying 2+ urine protein, small urine blood, large leukocyte esterase, urine RBC 6, urine WBC >182 T97.8 F, IL 60, RR 20, BP 149/67, O2 saturation 99% on room air Subjective: Patient seen and examined at bedside. No acute events overnight. Pertinent positives and negatives as discussed above, a complete review of systems was performed and all other systems are negative. Vitals: Signs Reviewed Physical Exam: General: non toxic, no distress, appears at stated age Derm: no unusual rashes/lesions, warm Head: atraumatic, normocephalic, symmetric Eyes: EOMI, anicteric sclera, pupils equal round reactive to light ENT: Nose and ears atraumatic Mouth: no lip lesion, mucus membranes moist Cardiovascular: S1S2 reg, no murmur, positive dorsalis pedis pulse bilateral, RLE 1+ pitting edema Lungs: rhonchi, no rales, no accessory muscle use Abdominal: soft, non-tender to palpation, no guarding, bilateral CVA tenderness more pronounced on the right side Ext: muscle strength 5 out of 5 in all 4 extremities grossly, no gross muscle atrophy Neuro: CN II-XI grossly intact, no gross focal neuro deficits Psych: Alert, oriented to person, place, and time Data Received Today: Pertinent Labs: Bicarb 22, BUN 33, creatinine 3.28, WBC 6.62, Hgb 7.3, platelet 131 Urine culture gram-negative bacilli Blood culture showing no growth after 24 hours Imaging: N/A Assessment and Plan: Patient is a 74-year-old female with CHF, type 2 diabetes mellitus, hyperlipidemia, hypertension, hypothyroidism admitted for nonoliguric CORDELIA on CKD stage IIIb. #. Nonoliguric CORDELIA on CKD stage IIIb in the setting of right-sided hydro nephrosis #. Anion gap metabolic acidosis, resolved #. Acute pyelonephritis BUN 39, creatinine is 3.76, bicarb deficit 392 on admission Abdominal/pelvis CT displaying moderate to right hydroureteronephrosis without an obstructive calculus identified, no renal calculi identified bilaterally Renal ultrasound displaying moderate to severe right hydronephrosis Patient with bilateral CVA tenderness more pronounced on the right side on admission UA displayed large leukocyte esterase, urine culture displaying gram-negative bacilli Blood culture displaying no growth after 24 hours Continue with IV Rocephin 2g q 24hr Monitor electrolytes Hold nephrotoxic medications Cardiac monitoring Bicarb drip at 70 cc/hr maintain Urena catheter, Nephrology following Urology plans to do cystoscopy, rt retrograde pyelogram, rt uteroscopy, rt uteral stent insertion #. Right lower extremity edema RLE +1 pitting edema admission US venous Doppler ultrasound displaying no evidence for DVT Denies any calf tenderness #. Normocytic anemia Hgb 7.5, MCV 87.5 on admission Iron 29, TIBC 262, Ferrtin 346, Transferrin 187, likely mixed picture of iron deficiency and anemia of chronic disease Within baseline Hgb of 79 Continue to monitor with CBC #. Diabetes mellitus type 2 Insulin sliding scale Hypoglycemic precautions Accu-Cheks ACHS Chronic: #. Hypertension: Resume Norvasc 10 mg p.o. daily, hydralazine 25 mg p.o. 3 times daily #. Hyperlipidemia: Continue with simvastatin 20 mg p.o. daily #. CHF not in acute exacerbation: Continue with metoprolol 50 mg p.o. twice daily #. Insomnia: Zolpidem 10 mg p.o. at bedtime as needed DVT prophylaxis: Heparin 5000 unit SQ every 8 hours Code status: Full code Anticipated discharge place: Pending clinical course Anticipated discharge time: Pending clinical course Bill Freitas MD PGY-1 IM Dictation was produced using [employer] dictation software. please excuse any grammatical, word or spelling errors. I have seen and evaluated the patient today. Discussed with the resident and agree with the residents finding and plan as documented in the resident's note. Changes highlighted in blue font. Objective - Vital Signs Vital signs: Vital Signs Temp 97.7 F 12/27/24 04:58 Pulse 66 12/27/24 04:58 Resp 20 12/27/24 04:58 BP 165/69 12/27/24 04:58 Pulse Ox 97 12/27/24 04:58 FiO2 Intake & Output 12/26/24 12/27/24 12/27/24 18:59 06:59 18:59 Intake Total 820 Output Total 925 Balance 820 -925 Weight 90.5 kg Intake: Oral 820 Output: Urine 925 Other: Voiding Method Indwelling Catheter Indwelling Catheter - Labs CBC & Chem 7: 12/27/24 06:15 12/27/24 06:15 Labs: Abnormal Lab Results - Last 24 Hours (Table) 12/26/24 12/26/24 12/26/24 Range/Units 06:00 11:32 16:35 RBC (4.10-5.20) 10*6/uL Hgb (12.0-15.0) g/dL Hct (37.2-46.3) % MCHC (32.0-37.0) g/dL Plt Count (140-440) 10*3/uL Chloride (98-107) mmol/L BUN (7-17) mg/dL Creatinine (0.52-1.04) mg/dL Glucose (74-99) mg/dL POC Glucose (mg/dL) 120 H 160 H (70-110) mg/dL Iron 29 L (50-170) UG/DL % Saturation 11.07 L (12.00-45.00) Transferrin 187.0 L (204.0-354.0) mg/dL Ferritin 346.0 H (10.0-291.0) ng/mL 12/26/24 12/27/24 12/27/24 Range/Units 19:47 05:55 06:15 RBC (4.10-5.20) 10*6/uL Hgb (12.0-15.0) g/dL Hct (37.2-46.3) % MCHC (32.0-37.0) g/dL Plt Count (140-440) 10*3/uL Chloride 111 H (98-107) mmol/L BUN 33 H (7-17) mg/dL Creatinine 3.28 H (0.52-1.04) mg/dL Glucose 114 H (74-99) mg/dL POC Glucose (mg/dL) 132 H 120 H (70-110) mg/dL Iron (50-170) UG/DL % Saturation (12.00-45.00) Transferrin (204.0-354.0) mg/dL Ferritin (10.0-291.0) ng/mL 12/27/24 Range/Units 06:15 RBC 2.63 L (4.10-5.20) 10*6/uL Hgb 7.3 L (12.0-15.0) g/dL Hct 23.5 L (37.2-46.3) % MCHC 31.1 L (32.0-37.0) g/dL Plt Count 131 L (140-440) 10*3/uL Chloride (98-107) mmol/L BUN (7-17) mg/dL Creatinine (0.52-1.04) mg/dL Glucose (74-99) mg/dL POC Glucose (mg/dL) (70-110) mg/dL Iron (50-170) UG/DL % Saturation (12.00-45.00) Transferrin (204.0-354.0) mg/dL Ferritin (10.0-291.0) ng/mL Microbiology - Last 24 Hours (Table) 12/25/24 12:56 Blood Culture - Preliminary Blood 12/25/24 10:38 Urine Culture - Preliminary Urine,Voided Gram Neg Bacilli
[2024-12-27] MEDS: cefTRIAXone 2 GM in DEXTROSE 5% IN WATER 50 ML IVPB SCH (10:44)
--- NOTE | 2024-12-27 11:00 | P.PN ---
Subjective Patient is seen in follow-up for acute kidney injury on chronic kidney disease. Renal function better. Nonoliguric. Scheduled for urologic intervention today. On bicarb drip. Acidosis improved. Vital signs are stable. General: No acute distress. HEENT: Head exam is unremarkable. LUNGS: No audible rhonchi or wheezes. HEART: Rate and Rhythm are regular. ABDOMEN: Nontender. EXTREMITITES: No edema. Objective - Vital Signs Vital signs: Vital Signs Temp 98.2 F 12/27/24 07:21 Pulse 66 12/27/24 07:21 Resp 17 12/27/24 07:21 BP 161/65 12/27/24 07:21 Pulse Ox 97 12/27/24 07:21 FiO2 Intake & Output 12/26/24 12/27/24 12/27/24 18:59 06:59 18:59 Intake Total 820 Output Total 925 4950 Balance 820 -925 -4950 Weight 90.5 kg Intake: Oral 820 Output: Urine 925 4950 Uretheral (Urena) 4225 Other: Voiding Method Indwelling Catheter Indwelling Catheter Indwelling Catheter - Labs CBC & Chem 7: 12/27/24 06:15 12/27/24 06:15 Labs: Abnormal Lab Results - Last 24 Hours (Table) 12/26/24 12/26/24 12/26/24 Range/Units 06:00 11:32 16:35 RBC (4.10-5.20) 10*6/uL Hgb (12.0-15.0) g/dL Hct (37.2-46.3) % MCHC (32.0-37.0) g/dL Plt Count (140-440) 10*3/uL Chloride (98-107) mmol/L BUN (7-17) mg/dL Creatinine (0.52-1.04) mg/dL Glucose (74-99) mg/dL POC Glucose (mg/dL) 120 H 160 H (70-110) mg/dL Iron 29 L (50-170) UG/DL % Saturation 11.07 L (12.00-45.00) Transferrin 187.0 L (204.0-354.0) mg/dL Ferritin 346.0 H (10.0-291.0) ng/mL 12/26/24 12/27/24 12/27/24 Range/Units 19:47 05:55 06:15 RBC (4.10-5.20) 10*6/uL Hgb (12.0-15.0) g/dL Hct (37.2-46.3) % MCHC (32.0-37.0) g/dL Plt Count (140-440) 10*3/uL Chloride 111 H (98-107) mmol/L BUN 33 H (7-17) mg/dL Creatinine 3.28 H (0.52-1.04) mg/dL Glucose 114 H (74-99) mg/dL POC Glucose (mg/dL) 132 H 120 H (70-110) mg/dL Iron (50-170) UG/DL % Saturation (12.00-45.00) Transferrin (204.0-354.0) mg/dL Ferritin (10.0-291.0) ng/mL 12/27/24 Range/Units 06:15 RBC 2.63 L (4.10-5.20) 10*6/uL Hgb 7.3 L (12.0-15.0) g/dL Hct 23.5 L (37.2-46.3) % MCHC 31.1 L (32.0-37.0) g/dL Plt Count 131 L (140-440) 10*3/uL Chloride (98-107) mmol/L BUN (7-17) mg/dL Creatinine (0.52-1.04) mg/dL Glucose (74-99) mg/dL POC Glucose (mg/dL) (70-110) mg/dL Iron (50-170) UG/DL % Saturation (12.00-45.00) Transferrin (204.0-354.0) mg/dL Ferritin (10.0-291.0) ng/mL Microbiology - Last 24 Hours (Table) 12/25/24 12:56 Blood Culture - Preliminary Blood 12/25/24 10:38 Urine Culture - Preliminary Urine,Voided Gram Neg Bacilli Assessment and Plan Plan: Assessment: 1. Acute kidney injury secondary to ATN. Creatinine 3.76 on admission and is 3.28 today. Component of obstructive uropathy with right-sided hydronephrosis noted on imaging. 2. Right-sided hydronephrosis being followed by urology. Scheduled to undergo cystoscopy with possible stent insertion today. 3. Metabolic acidosis secondary to acute kidney injury. Improved with bicarb drip. 4. Diabetes mellitus. 5. Chronic kidney disease stage IV with creatinine 2.7 in November 2023. Etiology is diabetic kidney disease. 6. Cardiomyopathy with ejection fraction of 40 to 45%. 7. Acute pyelonephritis on antibiotics. Urine culture positive for gram- negative bacilli. 8. Anemia of chronic kidney disease. Plan: Change bicarb drip to normal saline. Add Aranesp. Avoid IV iron in the setting of acute infection. Avoid nephrotoxins. Continue to monitor renal function and urine output. Increase hydralazine dose.
[2024-12-27 11:55] LABS: Glucose,Whole Blood 115 mg/dL (70-110)
--- NOTE | 2024-12-27 12:28 | CDI ---
Documentation Clarification Form Date: 12/27/2024 11:42:38 AM From: Yoselin Cerda RN Phone: [phone] Admit Date: 12/25/2024 04:24:00 PM Patient Name: Kerwin Gorman Visit Number: [id number] Discharge Date: ATTENTION: The Clinical Documentation Specialists (CDI) and [facility] Coding Staff appreciate your assistance in clarifying documentation. Please respond to the clarification below the line at the bottom and electronically sign. The CDI & [facility] Coding staff will review the response and follow-up if needed. Please note: Queries are made part of the Legal Health Record. If you have any questions, please contact the author of this message via ITS. Doctor: Brad Humphries UTI and Pneumonia are documented 12/25, ED NOTE, but is not noted in subsequent documentation. Clarification is requested. History/Risk Factors: 74 y/o M presents to the ED with abnormal kidney function and feeling more tired with cough. Medical history: CKD3b, DM2, CHF and HTN. Clinical Indicators: 12/25 Urine: Colorless Turbid protein 2+ blood small leukocyte esterase large rbc 6 wbc >182 wbc clumps many bacteria few 12/25 Urine culture: Final 12/26 Gram Neg Bacilli 12/25 CXR; Subtle scattered opacities suggested concerning for atypical pneumonia Treatment: 12/25 Ceftriaxone IVPB x 1; 12/26 Ceftriaxone IVPB x1; 12/27 Ceftriaxone IVPB Q24H Please clarify if the UTI diagnosis is:: [ x ] UTI confirmed remains under treatment [ ] UTI confirmed, resolved [ ] UTI ruled out [ ] Pneumonia confirmed remains under treatment [ ] Pneumonia confirmed resolved [ x] Pneumonia ruled out [ ] UTI and Pneumonia confirmed, remains under treatment [ ] UTI and Pneumonia confirmed , resolved. [ ] UTI and Pneumonia Ruled Out. [ ] Other condition, please specify [ ] Unable to determine (Template Last Revised: November 2020) MTDD
[2024-12-27] MEDS: hydrALAZINE HCL 50 MG TAB PO SCH (15:27)
[2024-12-27] MEDS: DARBEPOETIN ALFA 40 MCG/0.4 ML SYRINGE SQ SCH (16:04)
[2024-12-27 17:02] LABS: Glucose,Whole Blood 102 mg/dL (70-110)
[2024-12-27 20:44] LABS: Glucose,Whole Blood 190 mg/dL (70-110)
[2024-12-28 05:58] LABS: Glucose,Whole Blood 107 mg/dL (70-110)
[2024-12-28 06:32] LABS: Basophils # (A) 0.04 10*3/uL (0.00-0.10); Basophils % (A) 0.6 %; Eosinophils # (A) 0.35 10*3/uL (0.04-0.35); Eosinophils % (A) 5.3 %; HCT 25.2 % (37.2-46.3); HGB 7.8 g/dL (12.0-15.0); Immature Platelet Fraction 2.5 % (1.1-6.1); Lymphocytes # (A) 0.82 10*3/uL (0.90-5.00); Lymphocytes % (A) 12.4 %; MCH 27.7 pg (27.0-32.0); MCV 89.4 fL (80.0-97.0); Mean Platelet Volume 10.9 fL (9.5-12.2); Monocytes # (A) 0.62 10*3/uL (0.20-1.00); Monocytes % (A) 9.4 %; Neutrophils # (A) 4.75 10*3/uL (1.80-7.70); Neutrophils % (A) 71.7 %; Platelet Count 140 10*3/uL (140-440); RBC 2.82 10*6/uL (4.10-5.20); RDW 15.2 % (11.5-14.5); WBC 6.62 10*3/uL (4.50-10.00)
[2024-12-28 06:55] LABS: African American GFR (CKD) 17 (>60 ml/min/1.73 sqM); Anion Gap 9 mmol/L; Blood Urea Nitrogen 29 mg/dL (7-17); Calcium 8.5 mg/dL (8.4-10.2); Carbon Dioxide 21 mmol/L (22-30); Chloride 112 mmol/L (98-107); Glucose 102 mg/dL (74-99); Magnesium 1.6 mg/dL (1.6-2.3); Non-African American GFR(CKD) 15 (>60 ml/min/1.73 sqM); Sodium 142 mmol/L (137-145)
[2024-12-28] MEDS ORDERED: PROPOFOL 10 MG/ML 20 ML VIAL IV ONE (09:55)
[2024-12-28] MEDS ORDERED: fentaNYL (PF) 50 MCG/ML 2 ML AMP ONE (09:55)
[2024-12-28] MEDS ORDERED: LIDOCAINE 1% INJ 10MG/ML (20 ML MDV) ONE (09:55)
[2024-12-28] MEDS: SODIUM CHLORIDE 0.9% 1,000 ML IV ONE (10:00)
[2024-12-28] MEDS: IOPAMIDOL-370 100ML BTL MISCELLANE ONE ×2 (10:28)
--- NOTE | 2024-12-28 10:46 | P.OP ---
Date of Procedure: 12/28/24 Preoperative Diagnosis: Right hydronephrosis Postoperative Diagnosis: Same Procedure(s) Performed: Cystoscopy, right retrograde pyelogram, right ureteral stent insertion Anesthesia: MADHURI Surgeon: Marcelino Gutierrez Estimated Blood Loss (ml): 0 IV fluids (ml): 300 Pathology: none sent Condition: stable Disposition: PACU Indications for Procedure: The patient is a 74-year-old white female with multiple medical problems, including hypertension, type 2 diabetes mellitus, hyperlipidemia, hypothyroidism, stage IIIb CKD, and CHF with an EF of 40-45%. She has been treated for recurrent UTIs, and is now hospitalized with worsened renal function. She has recently experienced coughing for the past couple of weeks. CT scan shows a left upper pole renal cyst, as well as moderate to severe right hydroureteronephrosis down to the bladder. Renal MRI in October 2021 and liver ultrasound in October 2022 showed no evidence of hydronephrosis. Also, I reviewed a lumbar MRI performed in November 2023 that did not appear to show any evidence of hydronephrosis. Her serum creatinine level in January 2024 was 1.9, and is now 2.98. She is currently being treated for a pansensitive E. coli UTI. She denies any prior history of urolithiasis. Operative Findings: Narrowing of the right ureter at the level of the iliac vessels. Proximal to this, there is evidence of hydroureteronephrosis. Additionally, multiple small filling defects are seen throughout the ureter and renal pelvis. Description of Procedure: The patient was taken to the operating room and placed in the dorsolithotomy position, with legs supported in Amari stirrups. The external genitalia was prepped and draped sterilely. The 30 lens was used to introduce the 22-Russian Stortz cystoscopic sheath through the urethra and into the bladder under direct vision. The bladder was examined in its entirety. Both ureteral orifices were of normal anatomic location and configuration. There was evidence of catheter cystitis, but no tumors or foreign bodies were seen. The posterior bladder wall appeared to be somewhat elevated, suggesting the possibility of a midline pelvic mass. Using a 10 Russian cone-tip catheter, a right retrograde pyelogram was performed in the standard fashion. The ureter was visualized on fluoroscopy. The distal 3 cm of the ureter appeared normal. At the level of the iliac vessels, the ureter was diminished in caliber, for a distance of approximately 3 cm. Proximal to this, ureteral dilation was noted, and there is evidence of hydronephrosis. Within the area of ureteral narrowing, and proximal to this, are multiple small filling defects, the etiology of which is unclear. A 0.035 inch Glidewire was passed through the cystoscope. The right ureteral orifice was cannulated, and the Glidewire was slowly advanced up to the renal pelvis. A 26 cm, 6-Russian double-J ureteral stent was placed over the wire. Proper stent positioning was verified fluoroscopically and endoscopically. Cloudy urine drained through the stent. The bladder was emptied and the cystoscope removed. Bimanual examination revealed no pelvic masses. The patient tolerated the procedure well and was taken to the recovery room in stable condition. Arrangements will be made for the patient to undergo right ureteroscopy in 2 to 3 weeks, after her infection has cleared.
--- NOTE | 2024-12-28 10:59 | FL ---
EXAMINATION TYPE: FL urography retrograde Intraoperative/procedural fluoroscopic services were provid ed. CLINICAL INDICATION:Female, 74 years old with history of CYSTO; , PH FINDINGS: Multiple fluoroscopic images demonstrating right cystogram with ureteral stent placement. Multiple fi lling defects identified within the ureter. No radiographic evidence for complication. Total fluoroscopy time is 12.5 seconds. DAP: 1.97 Gycm2 Please see the operative/procedural note for further details. [facility], , 12/28/2024 10:57 AM
[2024-12-28 12:16] LABS: Glucose,Whole Blood 123 mg/dL (70-110)
--- NOTE | 2024-12-28 14:27 | P.PN ---
Subjective Progress Note Date: 12/28/24 Hospital Course: Patient is a 74-year-old female with CHF with EF 40 to 45% type 2 diabetes mellitus, CKD stage IIIb, hyperlipidemia, hypertension, hypothyroidism presenting for evaluation of abnormal lab values. Patient states she had was not feeling well yesterday and endorsed a cough for the past couple weeks. She states the cough causes her to wake up at night and it is triggered whenever she eats. She denies any shortness of breath, PND or orthopnea. States that she luther d blood work done yesterday. She received a call today saying that her kidney labs were elevated. States she has a history of recurrent UTI. Denies any decreased urine output. Patient denies any fever, chills, chest pain, shortness of breath, abdominal/flank pain, urinary symptoms. EKG independent interpreted displaying sinus bradycardia with a rate of 57 bpm, QTc 494 MS, left bundle branch block CXR independently interpreted displaying no acute cardiopulmonary process Renal ultrasound displaying moderate to severe right hydronephrosis Abdominal/pelvis CT displaying moderate to right hydroureteronephrosis without an obstructive calculus identified, no renal calculi identified bilaterally WBC 5.39, Hgb 7.5, HCT 23.2, MCV 87.5, platelet 157, sodium 140, CO2 12, anion gap 15, BUN 39, creatinine 3.76, phosphorus 5.5, total protein 5.8, albumin 3.4 UA displaying 2+ urine protein, small urine blood, large leukocyte esterase, urine RBC 6, urine WBC >182 T97.8 F, IA 60, RR 20, BP 149/67, O2 saturation 99% on room air Subjective: Patient seen and examined at bedside. No acute events overnight. She is scheduled intervention from urology this morning. Pertinent positives and negatives as discussed above, a complete review of systems was performed and all other systems are negative. Vitals: Signs Reviewed Physical Exam: General: non toxic, no distress, appears at stated age Derm: no unusual rashes/lesions, warm Head: atraumatic, normocephalic, symmetric Eyes: EOMI, anicteric sclera, pupils equal round reactive to light ENT: Nose and ears atraumatic Mouth: no lip lesion, mucus membranes moist Cardiovascular: S1S2 reg, no murmur, positive dorsalis pedis pulse bilateral, RLE 1+ pitting edema Lungs: rhonchi, no rales, no accessory muscle use Abdominal: soft, non-tender to palpation, no guarding, bilateral CVA tenderness more pronounced on the right side Ext: muscle strength 5 out of 5 in all 4 extremities grossly, no gross muscle atrophy Neuro: CN II-XI grossly intact, no gross focal neuro deficits Psych: Alert, oriented to person, place, and time Data Received Today: Pertinent Labs: Bicarb 21, BUN 29, creatinine 3.28 => 2.98 Urine culture: E. coli Blood culture showing no growth after 48 hours Imaging: N/A Assessment and Plan: Patient is a 74-year-old female with CHF, type 2 diabetes mellitus, hyperlipidemia, hypertension, hypothyroidism admitted for nonoliguric CORDELIA on CKD stage IIIb secondary to right sided unspecified hydronephrosis. #. Nonoliguric CORDELIA on CKD stage IIIb in the setting of right-sided unspecified hydronephrosis, improving #. Anion gap metabolic acidosis, resolved #. Acute pyelonephritis, e. Coli BUN 39, creatinine is 3.76, bicarb deficit 392 on admission Abdominal/pelvis CT displaying moderate to right hydroureteronephrosis without an obstructive calculus identified, no renal calculi identified bilaterally Renal ultrasound displaying moderate to severe right hydronephrosis Patient with bilateral CVA tenderness more pronounced on the right side on admission UA displayed large leukocyte esterase, urine culture displaying E. coli Blood culture displaying no growth after 24 hours Continue with IV Rocephin 2g q 24hr, plan to discharge with cefazolin Monitor electrolytes Hold nephrotoxic medications Cardiac monitoring Bicarb drip at 70 cc/hr converted to normal saline maintain Urena catheter Aranesp added by nephrology Nephrology following Urology operative note reviewed, cystoscopy, right retrograde pyelogram, right ureteral stent insertion. Plan to undergo right ureteroscopic in 2 to 3 weeks after her infection is cleared #. Right lower extremity edema RLE +1 pitting edema admission US venous Doppler ultrasound displaying no evidence for DVT Denies any calf tenderness #. Normocytic anemia Hgb 7.5, MCV 87.5 on admission Iron 29, TIBC 262, Ferrtin 346, Transferrin 187, likely mixed picture of iron deficiency and anemia of chronic disease Within baseline Hgb of 79 Continue to monitor with CBC #. Diabetes mellitus type 2 Insulin sliding scale SQ Hypoglycemic precautions Accu-Cheks ACHS Chronic: #. Hypertension: Resume Norvasc 10 mg p.o. daily, hydralazine increased to 50 mg p.o. 3 times daily #. Hyperlipidemia: Continue with simvastatin 20 mg p.o. daily #. CHF not in acute exacerbation: Continue with metoprolol 50 mg p.o. twice daily #. Insomnia: Zolpidem 10 mg p.o. at bedtime as needed DVT prophylaxis: Heparin 5000 unit SQ every 8 hours Code status: Full code Anticipated discharge place: Pending clinical course Anticipated discharge time: Pending clinical course Bill Freitas MD PGY-1 IM Dictation was produced using [employer] dictation software. please excuse any grammatical, word or spelling errors. I have seen and evaluated the patient today. Discussed with the resident and agree with the residents finding and plan as documented in the resident's note. Changes highlighted in blue font. Objective - Vital Signs Vital signs: Vital Signs Temp 98.6 F 12/28/24 04:34 Pulse 72 12/28/24 04:34 Resp 16 12/28/24 04:34 BP 171/71 12/28/24 04:34 Pulse Ox 98 12/28/24 04:34 FiO2 Intake & Output 12/27/24 12/28/24 12/28/24 18:59 06:59 18:59 Output Total 2200 1725 Balance -2200 -1725 Weight 92 kg Output: Urine 2200 1725 Uretheral (Urena) 1050 625 Other: Voiding Method Indwelling Catheter Indwelling Catheter - Labs CBC & Chem 7: 12/28/24 05:37 12/28/24 05:37 Labs: Abnormal Lab Results - Last 24 Hours (Table) 12/27/24 12/27/24 12/28/24 Range/Units 11:33 20:42 05:37 RBC (4.10-5.20) 10*6/uL Hgb (12.0-15.0) g/dL Hct (37.2-46.3) % MCHC (32.0-37.0) g/dL Lymphocytes # (0.90-5.00) 10*3/uL Chloride 112 H (98-107) mmol/L Carbon Dioxide 21 L (22-30) mmol/L BUN 29 H (7-17) mg/dL Creatinine 2.98 H (0.52-1.04) mg/dL Glucose 102 H (74-99) mg/dL POC Glucose (mg/dL) 115 H 190 H (70-110) mg/dL 12/28/24 Range/Units 05:37 RBC 2.82 L (4.10-5.20) 10*6/uL Hgb 7.8 L (12.0-15.0) g/dL Hct 25.2 L (37.2-46.3) % MCHC 31.0 L (32.0-37.0) g/dL Lymphocytes # 0.82 L (0.90-5.00) 10*3/uL Chloride (98-107) mmol/L Carbon Dioxide (22-30) mmol/L BUN (7-17) mg/dL Creatinine (0.52-1.04) mg/dL Glucose (74-99) mg/dL POC Glucose (mg/dL) (70-110) mg/dL Microbiology - Last 24 Hours (Table) 12/25/24 12:56 Blood Culture - Preliminary Blood 12/25/24 10:38 Urine Culture - Final Urine,Voided Escherichia coli
[2024-12-28 16:00] LABS: Glucose,Whole Blood 159 mg/dL (70-110)
[2024-12-28 19:48] LABS: Glucose,Whole Blood 108 mg/dL (70-110)
[2024-12-28] MEDS: guaiFENesin-DM 100-10MG/5ML 10 ML CUP PO PRN (21:24)
[2024-12-29 04:50] VITALS: RESP 16; TEMP 98.3
[2024-12-29 05:58] LABS: Glucose,Whole Blood 139 mg/dL (70-110)
[2024-12-29 07:01] LABS: Basophils # (A) 0.03 10*3/uL (0.00-0.10); Basophils % (A) 0.4 %; Eosinophils # (A) 0.28 10*3/uL (0.04-0.35); Eosinophils % (A) 3.3 %; HCT 24.2 % (37.2-46.3); HGB 7.4 g/dL (12.0-15.0); Lymphocytes # (A) 0.81 10*3/uL (0.90-5.00); Lymphocytes % (A) 9.6 %; MCH 27.7 pg (27.0-32.0); MCHC 30.6 g/dL (32.0-37.0); MCV 90.6 fL (80.0-97.0); Mean Platelet Volume 11.2 fL (9.5-12.2); Monocytes # (A) 0.76 10*3/uL (0.20-1.00); Neutrophils % (A) 76.8 %; Platelet Count 126 10*3/uL (140-440); RBC 2.67 10*6/uL (4.10-5.20); RDW 15.2 % (11.5-14.5); WBC 8.46 10*3/uL (4.50-10.00)
[2024-12-29 07:18] LABS: Carbon Dioxide 21 mmol/L (22-30)
[2024-12-29 07:32] LABS: African American GFR (CKD) 17 (>60 ml/min/1.73 sqM); Anion Gap 8 mmol/L; Blood Urea Nitrogen 27 mg/dL (7-17); Calcium 8.4 mg/dL (8.4-10.2); Chloride 111 mmol/L (98-107); Glucose 127 mg/dL (74-99); Magnesium 1.6 mg/dL (1.6-2.3); Non-African American GFR(CKD) 15 (>60 ml/min/1.73 sqM); Potassium 3.9 mmol/L (3.5-5.1); Sodium 140 mmol/L (137-145)
--- NOTE | 2024-12-29 11:12 | P.PN ---
Subjective Patient is seen for follow-up for acute kidney injury Renal function is fairly stable with serum creatinine staying at 2.9 mg/dL. Status post cystoscopy and right ureteral stent placement on 12/28/2024. No significant complaints today. Objective - Vital Signs Vital signs: Vital Signs Temp 98.3 F 12/29/24 08:40 Pulse 78 12/29/24 10:37 Resp 16 12/29/24 10:37 BP 175/66 12/29/24 08:40 Pulse Ox 96 12/29/24 08:40 FiO2 Intake & Output 12/28/24 12/29/24 12/29/24 18:59 06:59 18:59 Intake Total 1490 20 240 Output Total 925 550 Balance 565 20 -310 Weight 90.5 kg Intake: IV 710 20 Invasive Line 3 10 20 Intake, IV Titration 420 Amount Sodium Chloride 0.9% 1, 420 000 ml @ 70 mls/hr IV . [id number] [facility] Rx#:[id number] Oral 360 240 Output: Urine 925 550 Uretheral (Urena) 375 Other: Voiding Method Indwelling Catheter External Catheter External Catheter # Voids 1 1 - Exam Patient is awake, comfortable, no acute distress Examination of the heart S1 and S2 Examination of the lungs bilateral breath sounds are heard Abdomen is soft obese nontender Examination of lower extremities shows trace edema [employer] exam grossly intact - Labs CBC & Chem 7: 12/29/24 05:48 12/29/24 05:48 Labs: Abnormal Lab Results - Last 24 Hours (Table) 12/28/24 12/28/24 12/29/24 Range/Units 12:15 15:58 05:48 RBC 2.67 L (4.10-5.20) 10*6/uL Hgb 7.4 L (12.0-15.0) g/dL Hct 24.2 L (37.2-46.3) % MCHC 30.6 L (32.0-37.0) g/dL Plt Count 126 L (140-440) 10*3/uL Immature Gran # 0.08 H (0.00-0.04) 10*3/uL Lymphocytes # 0.81 L (0.90-5.00) 10*3/uL Chloride (98-107) mmol/L Carbon Dioxide (22-30) mmol/L BUN (7-17) mg/dL Creatinine (0.52-1.04) mg/dL Glucose (74-99) mg/dL POC Glucose (mg/dL) 123 H 159 H (70-110) mg/dL 12/29/24 12/29/24 Range/Units 05:48 05:54 RBC (4.10-5.20) 10*6/uL Hgb (12.0-15.0) g/dL Hct (37.2-46.3) % MCHC (32.0-37.0) g/dL Plt Count (140-440) 10*3/uL Immature Gran # (0.00-0.04) 10*3/uL Lymphocytes # (0.90-5.00) 10*3/uL Chloride 111 H (98-107) mmol/L Carbon Dioxide 21 L (22-30) mmol/L BUN 27 H (7-17) mg/dL Creatinine 2.95 H (0.52-1.04) mg/dL Glucose 127 H (74-99) mg/dL POC Glucose (mg/dL) 139 H (70-110) mg/dL Microbiology - Last 24 Hours (Table) 12/25/24 12:56 Blood Culture - Preliminary Blood Assessment and Plan Assessment: 1. Acute kidney injury secondary to ATN. Creatinine 3.76 on admission and is 2.9 today. Component of obstructive uropathy with right-sided hydronephrosis noted on imaging. 2. Right-sided hydronephrosis being followed by urology. Status post cystoscopy and right ureteral stent placement on 12/28/2024 3. Metabolic acidosis secondary to acute kidney injury. Improved with bicarb drip. 4. Diabetes mellitus. 5. Chronic kidney disease stage IV with creatinine 2.7 in November 2023. Etiology is diabetic kidney disease. 6. Cardiomyopathy with ejection fraction of 40 to 45%. 7. Acute pyelonephritis on antibiotics. Urine culture positive for gram- negative bacilli. 8. Anemia of chronic kidney disease. Plan: Continue with normal saline Continue sodium bicarb Increase hydralazine as blood pressure remains elevated
[2024-12-29 11:20] LABS: Glucose,Whole Blood 139 mg/dL (70-110)
[2024-12-29 12:21] VITALS: BP 155/62; PULSE 80
--- NOTE | 2024-12-29 14:52 | P.DS ---
Providers Date of admission: 12/25/24 16:24 Expected date of discharge: 12/29/24 Attending physician: Brad Humphries Consults: 12/25/24 15:27 Consult Physician Urgent Consulting Provider: Ezequiel Duarte Consult Reason/Comments: ARF Do you want consulting provider notified?: Yes 12/26/24 00:39 Consult Physician Routine Consulting Provider: Marcelino Gutierrez Consult Reason/Comments: right hydronephrosis Do you want consulting provider notified?: Yes Primary care physician: Graham Saeed Hospital Course: Discharge Diagnosis: E. coli pyelonephritis with right sided hydronephrosis Acute kidney injury on chronic kidney disease stage IIIb Anion gap metabolic acidosis Normocytic anemia DM2 HTN, accelerated HLD CHF Insomnia Hospital Course: 74-year-old with HFrEF with EF 40 to 45%, DM2, CKD stage III, HTN, HLD, and hypothyroidism admitted with acute pyelonephritis, right sided hydronephrosis, and acute kidney injury. Member ultimately found to have E. coli urinary tract infection. Underwent cystoscopy with right sided pyelogram and ureteral stent on 12/28 and tolerated procedure well. Will follow-up with urology. Was diagnosed with acute kidney injury on chronic kidney disease stage III with maximum creatinine of 3.79 and creatinine of 2.59 on discharge. Follow-up: Dr. Olvera in 1 week, Dr. Gutierrez in 1 week, Dr. Truong in 1 week. Will have [facility]. Will complete an additional 6 days of Keflex for a total of 10 days of treatment of acute pyelonephritis. Maintain on sodium bicarbonate. Hydralazine increased to 75 mg 3 times daily. Remainder of medications unchanged. Is aware that she needs to follow-up closely with urology as has indwelling stent. Imaging: CT abdomen pelvis: Moderate to severe right-sided hydronephrosis, cholelithiasis Abdominal ultrasound: Atrophic right kidney with moderate to severe hydronephrosis Bilateral lower extremity venous Dopplers: No DVT Patient seen and examined at bedside. Doing well. No complaints. No other back pain. Urinating well. Feels comfortable going home. Vital signs reviewed and stable. General: Nontoxic, no distress, appears at stated age Cardiovascular: S1S2 reg, no murmur, positive posterior tibial pulse bilateral, Lungs: CTA bilateral, no rhonchi, no rales, no accessory muscle use Abdominal: Soft, nontender to palpation, no guarding, no appreciable organomegaly Ext: No gross muscle atrophy, no edema b/l lower extremities, no contractures Neuro: CN II-XI grossly intact, no focal neuro deficits Psych: Alert, oriented, appropriate affect A total of 37 minutes of time were spent preparing this complex discharge summary. Patient was discharged on 12/29/24. This dictation was prepared using [employer] voice recognition software. o [facility] every attempt is made to correct errors during dictation some may still exist. Patient Condition at Discharge: Stable Plan - Discharge Summary Discharge Rx Participant: Yes New Discharge Prescriptions: New Sodium Bicarbonate Tab 650 mg PO BID #60 tab Cephalexin [Keflex] 500 mg PO Q12HR 6 Days #12 cap Continue Simvastatin [Zocor] 20 mg PO DAILY Ferrous Sulfate [Iron (65 MG Elemental)] 325 mg PO BID-W/MEALS Folic Acid 1 mg PO DAILY Ondansetron [Zofran] 4 mg PO TID PRN PRN Reason: Nausea Cholecalciferol (Vitamin D3) [Vitamin D3 (1250 Mcg = 50,000 Iu)] 1,250 mcg PO Q7D amLODIPine [Norvasc] 10 mg PO DAILY hydrALAZINE HCL [Apresoline] 25 mg PO TID #270 tab Omeprazole 20 mg PO DAILY Metoprolol Succinate (ER) [Toprol XL] 50 mg PO DAILY Zolpidem [Ambien] 10 mg PO HS PRN PRN Reason: Insomnia Mirtazapine [Remeron] 15 mg PO HS Fluticasone Nasal Burna [Flonase Nasal Burna] 1 spr EA NOSTRIL BID Ascorbic Acid [Vitamin C] 500 mg PO DAILY Discharge Medication List Simvastatin [Zocor] 20 mg PO DAILY 11/13/14 [History] Omeprazole 20 mg PO DAILY 01/24/23 [History] Ferrous Sulfate [Iron (65 MG Elemental)] 325 mg PO BID-W/MEALS 11/15/23 [History] Folic Acid 1 mg PO DAILY 11/15/23 [History] Metoprolol Succinate (ER) [Toprol XL] 50 mg PO DAILY 11/15/23 [History] Zolpidem [Ambien] 10 mg PO HS PRN 11/15/23 [History] Ascorbic Acid [Vitamin C] 500 mg PO DAILY 12/25/24 [History] Cholecalciferol (Vitamin D3) [Vitamin D3 (1250 Mcg = 50,000 Iu)] 1,250 mcg PO Q7D 12/25/24 [History] Fluticasone Nasal Burna [Flonase Nasal Burna] 1 spr EA NOSTRIL BID 12/25/24 [History] Mirtazapine [Remeron] 15 mg PO HS 12/25/24 [History] Ondansetron [Zofran] 4 mg PO TID PRN 12/25/24 [History] amLODIPine [Norvasc] 10 mg PO DAILY 12/25/24 [History] Cephalexin [Keflex] 500 mg PO Q12HR 6 Days #12 cap 12/29/24 [Rx] Sodium Bicarbonate Tab 650 mg PO BID #60 tab 12/29/24 [Rx] hydrALAZINE HCL [Apresoline] 25 mg PO TID #270 tab 12/29/24 [Rx] Follow up Appointment(s)/Referral(s): Lauren Truong MD [STAFF PHYSICIAN] - 1 Week (please call and make appointment ) Samy Spaulding,Home Care [NON-STAFF] - Marcelino Gutierrez MD [STAFF PHYSICIAN] - 1 Week (please call and make appointment ) Graham Saeed DO [Primary Care Provider] - 1-2 days (please call and make appointment ) Activity/Diet/Wound Care/Special Instructions: Activity: as tolerated Diet: heart healthy Discharge Disposition: HOME WITH HOME HEALTH SERVICES
[2024-12-29] MEDS ORDERED: hydrALAZINE HCL 25 MG TAB PO SCH (16:00)
== END 2024-12-29 14:38 | disposition home health service (06) | DRG 660 ==
LOC: EC 09:35 → 3SCARD 16:24
PROVIDERS: ADMIT Student in an Organized Health Care Education/Training Program; ATTEND Student in an Organized Health Care Education/Training Program
PROC: 0T768DZ Dilation of Right Ureter with Intraluminal Device, Via Natural or Artificial Opening Endoscopic (ICD-10-PCS; principal; 2024-12-28 10:00)
PROC: BT1D1ZZ Fluoroscopy of Right Kidney, Ureter and Bladder using Low Osmolar Contrast (ICD-10-PCS; 2024-12-28 10:00)
DX: N17.0 Acute kidney failure with tubular necrosis (principal); E87.20 Acidosis, unspecified; I13.0 Hypertensive heart and chronic kidney disease with heart failure and stage 1 through stage 4 chronic kidney disease, or unspecified chronic kidney disease; I42.9 Cardiomyopathy, unspecified; D63.1 Anemia in chronic kidney disease; E11.22 Type 2 diabetes mellitus with diabetic chronic kidney disease; B96.20 Unspecified Escherichia coli [E. coli] as the cause of diseases classified elsewhere; N18.4 Chronic kidney disease, stage 4 (severe); E03.9 Hypothyroidism, unspecified; I50.20 Unspecified systolic (congestive) heart failure; N13.6 Pyonephrosis; E78.5 Hyperlipidemia, unspecified; G47.00 Insomnia, unspecified; Z79.899 Other long term (current) drug therapy; D50.9 Iron deficiency anemia, unspecified; N26.1 Atrophy of kidney (terminal); Z87.440 Personal history of urinary (tract) infections; Z87.442 Personal history of urinary calculi
CPT/HCPCS: 36415; 51702; 51798; 71046; 74176; 74420; 76770; 80048; 80053; 81001; 82728; 83540; 83550; 83605; 83735; 84100; 85025; 87040; 87077; 87086; 87186; 87636; 93005; 93970; 96365; 96366; 96372; 96375; 99291

== ENCOUNTER 2025-01-16 05:59 | Emergency (ER) | payer OTHER ==
--- NOTE | 2025-01-16 06:16 | ED ---
Weakness HPI - General Chief complaint: Weakness Stated complaint: weakness Time Seen by Provider: 01/16/25 06:03 Source: patient, EMS, RN notes reviewed Mode of arrival: EMS Limitations: no limitations - History of Present Illness Initial comments: 74-year-old female presents emergency department with chief complaint of weakness, shaking episode. Patient states that she is in MVO states that she did not sleep well because she was worried about waking up for her procedure with Dr. Grimaldo this morning she states that she has to read all stent and sta micthel that she was post have another procedure today unsure what that was. Patient states she got on her porch and felt very shaky when her sister came to pick her up. Patient states that she was scared to go down the rest of steps and EMS was called at that time. She states she does feel better now she denies any significant chest pain shortness of breath no headache no abdominal pain no nausea vomiting no urinary symptoms. - Related Data Home Medications Medication Instructions Recorded Confirmed Simvastatin [Zocor] 20 mg PO DAILY 11/13/14 01/13/25 Omeprazole 20 mg PO DAILY 01/24/23 01/13/25 Ferrous Sulfate [Iron (65 MG 325 mg PO BID-W/MEALS 11/15/23 01/13/25 Elemental)] Folic Acid 1 mg PO DAILY 11/15/23 01/13/25 Metoprolol Succinate (ER) [Toprol 50 mg PO DAILY 11/15/23 01/13/25 XL] Zolpidem [Ambien] 10 mg PO HS PRN 11/15/23 01/13/25 Cholecalciferol (Vitamin D3) 1,250 mcg PO Q7D 12/25/24 01/13/25 [Vitamin D3 (1250 Mcg = 50,000 Iu)] Fluticasone Nasal [place] [Flonase 1 spr EA NOSTRIL BID 12/25/24 01/13/25 Nasal [place]] Mirtazapine [Remeron] 15 mg PO HS 12/25/24 01/13/25 Ondansetron [Zofran] 4 mg PO TID PRN 12/25/24 01/13/25 amLODIPine [Norvasc] 10 mg PO DAILY 12/25/24 01/13/25 Previous Rx's Medication Instructions Recorded Sodium Bicarbonate Tab 650 mg PO BID #60 tab 12/29/24 hydrALAZINE HCL [Apresoline] 25 mg PO TID #270 tab 12/29/24 Allergies Allergy/AdvReac Type Severity Reaction Status Date / Time No Known Allergies Allergy Verified 01/13/25 09:36 Review of Systems ROS Statement: Those systems with pertinent positive or pertinent negative responses have been documented in the HPI. ROS Other: All systems not noted in ROS Statement are negative. Past Medical History Past Medical History: Diabetes Mellitus, Fibromyalgia, Hyperlipidemia, Hypertension, Osteoarthritis (OA), Thyroid Disorder Additional Past Medical History / Comment(s): kidney stones in past, History of Any Multi-Drug Resistant Organisms: VRE Date of last positivie culture/infection: 02/13/23 MDRO Source:: urine Past Surgical History: Joint Replacement, Orthopedic Surgery, Tonsillectomy Additional Past Surgical History / Comment(s): right athroscopy, back surgery for ruptured disc x2,renetta total knee Past Anesthesia/Blood Transfusion Reactions: No Reported Reaction Past Psychological History: No Psychological Hx Reported Smoking Status: Never smoker Past Alcohol Use History: None Reported Past Drug Use History: None Reported - Past Family History Mother Family Medical History: Cancer Additional Family Medical History / Comment(s): brain stem Father Family Medical History: Diabetes Mellitus General Exam Limitations: no limitations General appearance: alert, in no apparent distress Head exam: Present: atraumatic, normocephalic, normal inspection Eye exam: Present: normal appearance, PERRL, EOMI. Absent: scleral icterus, conjunctival injection, periorbital swelling ENT exam: Present: normal exam, mucous membranes moist Neck exam: Present: normal inspection. Absent: tenderness, meningismus, lymphadenopathy Respiratory exam: Present: normal lung sounds bilaterally. Absent: respiratory distress, wheezes, rales, rhonchi, stridor Cardiovascular Exam: Present: regular rate, normal rhythm, normal heart sounds. Absent: systolic murmur, diastolic murmur, rubs, gallop, clicks GI/Abdominal exam: Present: soft, normal bowel sounds. Absent: distended, tenderness, guarding, rebound, rigid Course Vital Signs 01/16/25 01/16/25 01/16/25 06:00 06:39 07:35 Temperature 97.9 F Pulse Rate 65 56 L 60 Respiratory 16 16 14 Rate Blood Pressure 186/82 149/56 144/58 O2 Sat by Pulse 99 99 99 Oximetry 01/16/25 01/16/25 08:25 10:14 Temperature 98.0 F Pulse Rate 69 57 L Respiratory 15 17 Rate Blood Pressure 166/73 156/73 O2 Sat by Pulse 97 97 Oximetry EKG Findings - EKG Comments: EKG Findings:: EKG performed at 6: [address] 152 QRS 162 QT/QTc 474/487 - EKG Results: EKG: interpreted by ERMD Medical Decision Making - Medical Decision Making Was pt. sent in by a medical professional or institution ([facility] [employer], urgent care, hospital, or [facility]...) When possible be specific @ -No Did you speak to anyone other than the patient for history (EMS, parent, family, police, friend...)? What history was obtained from this source @ -No Did you review nursing and triage notes (agree or disagree)? Why? @ -I reviewed and agree with nursing and triage notes Were old charts reviewed (outside hosp., previous admission, EMS record, old EKG, old radiological studies, urgent care reports/EKG's, [facility] records)? Report findings @ -No old charts were reviewed Differential Diagnosis (chest pain, altered mental status, abdominal pain women, abdominal pain men, vaginal bleeding, weakness, fever, dyspnea, syncope, headache, dizziness, GI bleed, back pain, seizure, CVA, palpatations, mental health, musculoskeletal)? @ -Differential Weakness: Hypoglycemia, shock, sepsis, hyponatremia, anemia, infection, PR, ETOH, adverse medicine reaction, overdose, stroke, this is not meant to be an all-inclusive list. EKG interpreted by me (3pts min.). @ -As above X-rays interpreted by me (1pt min.). @ -None done CT interpreted by me (1pt min.). @ -None done U/S interpreted by me (1pt. min.). @ -None done What testing was considered but not performed or refused? (CT, X-rays, U/S, labs)? Why? @ -None What meds were considered but not given or refused? Why? @ -None Did you discuss the management of the patient with other professionals (professionals i.e. [facility], [employer], lab, RT, psych nurse, manager social services, singing messenger, teacher, general service officer, case resource manager)? Give summary @ -No Was smoking cessation discussed for >3mins.? @ -No Was critical care preformed (if so, how long)? @ -No Were there social determinants of health that impacted care today? How? ( Homelessness, low income, unemployed, alcoholism, drug addiction, transportation, low edu. Level, literacy, decrease access to med. care, alf, rehab)? @ -No Was there de-escalation of care discussed even if they declined (Discuss DNR or withdrawal of care, Hospice)? DNR status @ -No What co-morbidities impacted this encounter? (DM, HTN, Smoking, COPD, CAD, Cancer, CVA, ARF, Chemo, Hep., AIDS, mental health diagnosis, sleep apnea, morbid obesity)? @ -None Was patient admitted / discharged? Hospital course, mention meds given and route, prescriptions, significant lab abnormalities, going to OR and other pertinent info. @ -This patient has no current complaints workup was negative patient is kidney function at baseline no evidence of UTI patient's troponin, EKG is unremarkable. Patient's surgeon was updated and he advised that she will be contacted by office for rescheduling of her urological procedure Undiagnosed new problem with uncertain prognosis? @ -No Drug Therapy requiring intensive monitoring for toxicity (Heparin, Nitro, Insulin, Cardizem)? @ -No Were any procedures done? @ -No Diagnosis/symptom? @ -Weakness, malaise Acute, or Chronic, or Acute on Chronic? @ -[Acute Uncomplicated (without systemic symptoms) or Complicated (systemic symptoms)? @ -Complicated Side effects of treatment? @ -No Exacerbation, Progression, or Severe Exacerbation? @ -No Poses a threat to life or bodily function? How? (Chest pain, [place], [place], pneumonia, PE, COPD, DKA, ARF, appy, cholecystitis, CVA, Diverticulitis, Homicidal, Suicidal, threat to staff... and all critical care pts) @ -No - Lab Data Result diagrams: 01/16/25 06:30 01/16/25 06:30 Lab Results 01/16/25 01/16/25 01/16/25 Range/Units 06:30 06:30 06:30 WBC 7.05 (4.50-10.00) 10*3/uL RBC 3.01 L (4.10-5.20) 10*6/uL Hgb 8.6 L (12.0-15.0) g/dL Hct 25.9 L (37.2-46.3) % MCV 86.0 (80.0-97.0) fL MCH 28.6 (27.0-32.0) pg MCHC 33.2 (32.0-37.0) g/dL Plt Count 127 L (140-440) 10*3/uL MPV 11.2 (9.5-12.2) fL Immature Gran % (Auto) 0.3 % Neutrophils % 77.3 % Lymphocytes % 11.2 % Monocytes % 8.2 % Eosinophils % 2.4 % Basophils % 0.6 % Immature Gran # 0.02 (0.00-0.04) 10*3/uL Neutrophils # 5.45 (1.80-7.70) 10*3/uL Lymphocytes # 0.79 L (0.90-5.00) 10*3/uL Monocytes # 0.58 (0.20-1.00) 10*3/uL Eosinophils # 0.17 (0.04-0.35) 10*3/uL Basophils # 0.04 (0.00-0.10) 10*3/uL Differential Comment P Manual Slide Review Performed Spherocytes Present PT 10.3 (10.0-12.5) sec INR 0.9 (<1.2) APTT 21.8 L (22.0-30.0) sec Sodium 140 (137-145) mmol/L Potassium 3.9 (3.5-5.1) mmol/L Chloride 112 H (98-107) mmol/L Carbon Dioxide 19 L (22-30) mmol/L Anion Gap 9 mmol/L BUN 23 H (7-17) mg/dL Creatinine 2.83 H (0.52-1.04) mg/dL Est GFR (CKD-EPI)AfAm 18 (>60 ml/min/1.73 sqM) Est GFR (CKD-EPI)NonAf 16 (>60 ml/min/1.73 sqM) Glucose 140 H (74-99) mg/dL Calcium 8.7 (8.4-10.2) mg/dL Magnesium 1.6 (1.6-2.3) mg/dL Total Bilirubin 1.0 (0.2-1.3) mg/dL AST 25 (14-36) U/L ALT 11 (4-34) U/L Alkaline Phosphatase 67 (38-126) U/L Troponin I (0.000-0.034) ng/mL Total Protein 5.9 L (6.3-8.2) g/dL Albumin 3.5 (3.5-5.0) g/dL Urine Color Urine Appearance (Clear) Urine pH (5.0-8.0) Ur Specific [place] (1.001-1.035) Urine Protein (Negative) Urine Glucose (UA) (Negative) Urine Ketones (Negative) Urine Blood (Negative) Urine Nitrite (Negative) Urine Bilirubin (Negative) Urine Urobilinogen (<2.0) mg/dL Ur Leukocyte Esterase (Negative) Urine RBC (0-5) /hpf Urine WBC (0-5) /hpf Ur Squamous Epith Cells (0-4) /hpf Urine Bacteria (None) /hpf Urine Mucus (None) /hpf 01/16/25 01/16/25 Range/Units 06:30 07:54 WBC (4.50-10.00) 10*3/uL RBC (4.10-5.20) 10*6/uL Hgb (12.0-15.0) g/dL Hct (37.2-46.3) % MCV (80.0-97.0) fL MCH (27.0-32.0) pg MCHC (32.0-37.0) g/dL Plt Count (140-440) 10*3/uL MPV (9.5-12.2) fL Immature Gran % (Auto) % Neutrophils % % Lymphocytes % % Monocytes % % Eosinophils % % Basophils % % Immature Gran # (0.00-0.04) 10*3/uL Neutrophils # (1.80-7.70) 10*3/uL Lymphocytes # (0.90-5.00) 10*3/uL Monocytes # (0.20-1.00) 10*3/uL Eosinophils # (0.04-0.35) 10*3/uL Basophils # (0.00-0.10) 10*3/uL Differential Comment Manual Slide Review Spherocytes PT (10.0-12.5) sec INR (<1.2) APTT (22.0-30.0) sec Sodium (137-145) mmol/L Potassium (3.5-5.1) mmol/L Chloride (98-107) mmol/L Carbon Dioxide (22-30) mmol/L Anion Gap mmol/L BUN (7-17) mg/dL Creatinine (0.52-1.04) mg/dL Est GFR (CKD-EPI)AfAm (>60 ml/min/1.73 sqM) Est GFR (CKD-EPI)NonAf (>60 ml/min/1.73 sqM) Glucose (74-99) mg/dL Calcium (8.4-10.2) mg/dL Magnesium (1.6-2.3) mg/dL Total Bilirubin (0.2-1.3) mg/dL AST (14-36) U/L ALT (4-34) U/L Alkaline Phosphatase (38-126) U/L Troponin I 0.014 (0.000-0.034) ng/mL Total Protein (6.3-8.2) g/dL Albumin (3.5-5.0) g/dL Urine Color Colorless Urine Appearance Clear (Clear) Urine pH 6.5 (5.0-8.0) Ur Specific [place] 1.012 (1.001-1.035) Urine Protein 3+ H (Negative) Urine Glucose (UA) 1+ H (Negative) Urine Ketones Negative (Negative) Urine Blood Small H (Negative) Urine Nitrite Negative (Negative) Urine Bilirubin Negative (Negative) Urine Urobilinogen <2.0 (<2.0) mg/dL Ur Leukocyte Esterase Negative (Negative) Urine RBC 13 H (0-5) /hpf Urine WBC 1 (0-5) /hpf Ur Squamous Epith Cells 1 (0-4) /hpf Urine Bacteria Occasional H (None) /hpf Urine Mucus Rare H (None) /hpf Disposition Clinical Impression: Weakness, Malaise Disposition: HOME SELF-CARE Condition: Stable Instructions (If sedation given, give patient instructions): Weakness (ED) Additional Instructions: Please return to the Emergency Department if symptoms worsen or any other concerns. Is patient prescribed a controlled substance at d/c from ED?: No Referrals: None,Stated [REFERRING] - 1-2 days Time of Disposition: 09:24
[2025-01-16] MEDS: SODIUM CHLORIDE 0.9% 1,000 ML IV ONE (06:33)
[2025-01-16 06:47] LABS: Basophils # (A) 0.04 10*3/uL (0.00-0.10); Basophils % (A) 0.6 %; Eosinophils # (A) 0.17 10*3/uL (0.04-0.35); Eosinophils % (A) 2.4 %; HCT 25.9 % (37.2-46.3); HGB 8.6 g/dL (12.0-15.0); Lymphocytes # (A) 0.79 10*3/uL (0.90-5.00); Lymphocytes % (A) 11.2 %; MCH 28.6 pg (27.0-32.0); MCHC 33.2 g/dL (32.0-37.0); Mean Platelet Volume 11.2 fL (9.5-12.2); Monocytes # (A) 0.58 10*3/uL (0.20-1.00); Monocytes % (A) 8.2 %; Neutrophils # (A) 5.45 10*3/uL (1.80-7.70); Neutrophils % (A) 77.3 %; Platelet Count 127 10*3/uL (140-440); RBC 3.01 10*6/uL (4.10-5.20); RDW 15.3 % (11.5-14.5); WBC 7.05 10*3/uL (4.50-10.00)
[2025-01-16 07:03] LABS: ALT 11 U/L (4-34); AST 25 U/L (14-36); African American GFR (CKD) 18 (>60 ml/min/1.73 sqM); Albumin 3.5 g/dL (3.5-5.0); Alkaline Phosphatase 67 U/L (38-126); Anion Gap 9 mmol/L; Blood Urea Nitrogen 23 mg/dL (7-17); Calcium 8.7 mg/dL (8.4-10.2); Carbon Dioxide 19 mmol/L (22-30); Chloride 112 mmol/L (98-107); Glucose 140 mg/dL (74-99); Magnesium 1.6 mg/dL (1.6-2.3); Non-African American GFR(CKD) 16 (>60 ml/min/1.73 sqM); Potassium 3.9 mmol/L (3.5-5.1); Sodium 140 mmol/L (137-145); Total Protein 5.9 g/dL (6.3-8.2)
[2025-01-16 07:06] LABS: INR 0.9 (<1.2); Prothrombin Time 10.3 sec (10.0-12.5)
[2025-01-16 07:08] LABS: Partial Thromboplastin Time 21.8 sec (22.0-30.0)
[2025-01-16 08:25] LABS: Appearance,Urine Clear (Clear); Bacteria,Urine Occasional /hpf; Bilirubin,Urine Negative (Negative); Blood,Urine Small (Negative); Color,Urine Colorless; Glucose,Urine (UA) 1+ (Negative); Ketones,Urine Negative (Negative); Leukocyte Esterase,Urine Negative (Negative); Mucus,Urine Rare /hpf; Nitrite,Urine Negative (Negative); PH, Urine 6.5 (5.0-8.0); Protein,Urine 3+ (Negative); RBC,Urine 13 /hpf (0-5); Specific Gravity,Urine 1.012 (1.001-1.035); Squamous Epithelial Cell,Urine 1 /hpf (0-4); Urobilinogen,Urine <2.0 mg/dL (<2.0); WBC,Urine 1 /hpf (0-5)
[2025-01-16 08:30] LABS: Spherocytes Present
[2025-01-16 10:15] VITALS: BP 156/73; PULSE 57; RESP 17; TEMP 98
== END 2025-01-16 10:14 | disposition home or self-care (01) ==
LOC: EC 05:59
DX: R53.1 Weakness (principal); R53.81 Other malaise
CPT/HCPCS: 36415; 80053; 81001; 83735; 84484; 85025; 85610; 85730; 93005; 96360; 96361; 99284